=== PATIENT | female | born 1975 | race Caucasian/White ===

== ENCOUNTER → 2017-05-31 07:00 | Outpatient (CLI) | payer OTHER, SELFPAY ==
--- NOTE | 2017-05-31 07:09 | HPBI_ITS ---
MAMMOGRAPHY - BILATERAL SCREENING REASON FOR EXAM: Female, 41 years old. Routine annual screening examination. PERTINENT HISTORY: Non-contributory. TECHNIQUE: Digital bilateral breast sharan (3D mammographic acquisition) in the CC and MLO projections. 2-D mediolateral oblique (MLO) and craniocaudad (CC) views of both breasts were obtained. CAD: Full Field Digital Mammography with Computer Added Detection was performed. COMPARISON: Comparison is made with prior study dated April 18, 2013. FINDINGS: Breast Composition: The breasts are heterogeneously dense, which may obscure small masses. There are no dominant masses or suspicious calcifications. Stable benign appearing bilateral axillary lymph nodes. No other significant abnormalities are identified. There has been no significant change since the prior study. HPBI/SCREENING MAMM (CAD), BILAT IMPRESSION: Stable bilateral screening mammogram. Yearly follow-up mammogram recommended. (A) ASSESSMENT CATEGORY: BIRADS Category 2: Benign. A letter regarding these results will be sent to the patient by the facility within 30 days. Approximately 10% of breast cancers are not detected by mammography. A normal mammogram should not delay biopsy of a clinically suspicious abnormality. [id number] Electronically Signed: Nitin Mayo MD at 9:46 EST Tel [phone], Service support ,
== END ==
PROVIDERS: Visit Provider Obstetrics & Gynecology
DX: Z12.31 Encounter for screening mammogram for malignant neoplasm of breast (principal)
CPT/HCPCS: 77063; 77067

== ENCOUNTER → 2020-07-21 | Outpatient (CLI) | payer OTHER, SELFPAY ==
[2020-07-21 10:22] VITALS: BMI 35.3
[2020-07-26 12:29] LABS: HPV APTIMA, High Risk Negative (Negative)
== END | disposition home or self-care (01) ==
LOC: LABSPEC 12:55
PROVIDERS: PCP Family Medicine; Visit Provider Nurse Practitioner Women's Health
DX: Z12.4 Encounter for screening for malignant neoplasm of cervix (principal)
CPT/HCPCS: 87624; 88175; G0145

== ENCOUNTER → 2020-08-04 08:15 | Outpatient (CLI) | payer OTHER, SELFPAY ==
[2020-07-21 10:22] VITALS: BMI 35.3
--- NOTE | 2020-08-04 08:18 | BI_ITS ---
MAMMOGRAPHY - BILATERAL SCREENING REASON FOR EXAM: Female, 44 years old. Routine annual screening examination. PERTINENT HISTORY: Non-contributory. TECHNIQUE: Digital bilateral breast pooja (3D mammographic acquisition) in the CC and MLO projections. 2-D mediolateral oblique (MLO) and craniocaudad (CC) views of both breasts were obtained. CAD: Full Field Digital Mammography with Computer Added Detection was performed. COMPARISON: Comparison is made with prior study dated 05/31/2017 and 04/18/2013. FINDINGS: Breast Composition: The breasts are heterogeneously dense, which may obscure small masses. There are no dominant masses or suspicious calcifications. No other significant abnormalities are identified. There has been no significant change since the prior study. BI/SCRN MAMM (CAD)W/POOJA BILAT IMPRESSION: Stable bilateral screening mammogram. Yearly follow-up mammogram recommended. (A) ASSESSMENT CATEGORY: BIRADS Category 1: Negative. A letter regarding these results will be sent to the patient by the facility within 30 days. Approximately 10% of breast cancers are not detected by mammography. A normal mammogram should not delay biopsy of a clinically suspicious abnormality. [id number] Electronically Signed: Nitin Mayo MD at 9:31 EDT , Service support ,
--- NOTE | 2020-08-04 08:18 | US_ITS ---
STUDY: ULTRASOUND OF THE FEMALE PELVIS - COMPLETE REASON FOR EXAM: Female, 44 years old. Pelvic pain and pressure LMP: 07/17/2020 TECHNIQUE: Transabdominal and Transvaginal TECHNICAL QUALITY: Adequate. COMPARISON: None. FINDINGS: The uterus is anteverted and is in a midline position. The uterus measures 16.9 x 12 x 9.6 cm. Normal uterine cervix. The endometrium measures 16 mm in thickness, and is hyperechoic. There is no demonstrated endometrial mass. There is a large uterine fibroid measuring approximately 12.6 x 10.7 x 9.4 cm I.U.D. - The patient does not have an I.U.D. The right ovary is visualized. The right ovary measures 4.5 x 2.6 x 1.3 cm. There is no right ovarian cyst or ovarian mass. There is no visualized right adnexal mass or complex lesion. There is normal arterial and normal venous vascularity. The left ovary is visualized. The left ovary measures 3.8 x 1.6 x 1.6 cm. There is no left ovarian cyst or ovarian mass. There is no visualized left adnexal mass or complex lesion. There is normal arterial and normal venous vascularity. There is minimal fluid in the cul-de-sac. The bladder is sonographically normal US/Pelvic (Non ) IMPRESSION: Large uterine fibroid No suspicious adnexal mass Minimal free fluid in the cul-de-sac is likely physiologic Electronically Signed: Skip Martin MD at 14:12 EDT , Service support ,
--- NOTE | 2020-08-04 08:18 | US_ITS ---
STUDY: ULTRASOUND OF THE FEMALE PELVIS - COMPLETE REASON FOR EXAM: Female, 44 years old. Pelvic pain and pressure LMP: 07/17/2020 TECHNIQUE: Transabdominal and Transvaginal TECHNICAL QUALITY: Adequate. COMPARISON: None. FINDINGS: The uterus is anteverted and is in a midline position. The uterus measures 16.9 x 12 x 9.6 cm. Normal uterine cervix. The endometrium measures 16 mm in thickness, and is hyperechoic. There is no demonstrated endometrial mass. There is a large uterine fibroid measuring approximately 12.6 x 10.7 x 9.4 cm I.U.D. - The patient does not have an I.U.D. The right ovary is visualized. The right ovary measures 4.5 x 2.6 x 1.3 cm. There is no right ovarian cyst or ovarian mass. There is no visualized right adnexal mass or complex lesion. There is normal arterial and normal venous vascularity. The left ovary is visualized. The left ovary measures 3.8 x 1.6 x 1.6 cm. There is no left ovarian cyst or ovarian mass. There is no visualized left adnexal mass or complex lesion. There is normal arterial and normal venous vascularity. There is minimal fluid in the cul-de-sac. The bladder is sonographically normal US/Transvaginal Non- IMPRESSION: Large uterine fibroid No suspicious adnexal mass Minimal free fluid in the cul-de-sac is likely physiologic Electronically Signed: Skip Martin MD at 14:12 EDT , Service support ,
== END ==
PROVIDERS: PCP Family Medicine; Referring Provider Nurse Practitioner Women's Health; Visit Provider Nurse Practitioner Women's Health
DX: N92.1 Excessive and frequent menstruation with irregular cycle (principal); R10.2 Pelvic and perineal pain; Z12.31 Encounter for screening mammogram for malignant neoplasm of breast
CPT/HCPCS: 76830; 76856; 77063; 77067; 93976

== ENCOUNTER → 2020-09-07 09:14 | Outpatient (CLI) | payer OTHER, SELFPAY ==
[2020-09-07 08:24] VITALS: BMI 35.3
[2020-09-07 09:26] LABS: Absolute Lymphocyte Count 2.43 X10^3/uL (0.83-4.51); Absolute Neutrophil Count 4.7 X10^3/uL (2.0-7.7); Basophil# 0.05 X10^3/uL; Basophil% 0.6 % (0-1); Eosinophil# 0.31 X10^3/uL; Eosinophils% 3.9 % (0-5); Hematocrit 38.3 % (37-47); Hemoglobin 11.7 g/dL (12.0-15.0); Lymphocyte # 2.43 X10^3/ul (0.83-4.51); Lymphocyte % 30.6 % (19-41); Mean Corp Hgb Conc 30.5 g/dL (32-36); Mean Corpuscular Hgb 24.7 pg (27.0-32.0); Mean Platelet Vol. 10.7 fl (6.2-12.0); Monocyte# 0.48 X10^3/uL; NRBC Flagged by Analyzer 0 % (0-5); Neutrophil # 4.65 X10^3/uL (2.7-7.7); Neutrophil % 58.6 % (47-70); Platelet Count 310 K/mm3 (150-450); RBC Distribution Width CV 15.6 % (11.6-14.6); RBC Distribution Width SD 45.4 fl (35.1-43.9); Red Blood Count 4.73 M/mm3 (4.2-5.4); White Blood Count 7.9 K/mm3 (4.4-11.0)
[2020-09-07 10:08] LABS: Cholesterol 170 mg/dL (200); Glucose 97 mg/dL (74-106); High Density Lipoprotein 55 mg/dL; Thyroid Stim Hormone (TSH) 2.75 uIU/mL (0.358-3.74); Triglycerides 95 mg/dL; Very Low Density Lipoprotein 19 mg/dL (5-40)
[2020-09-08 12:49] LABS: Cancer Antigen 125 22.1 U/mL (0.0-38.1)
== END ==
PROVIDERS: PCP Family Medicine; Referring Provider Obstetrics & Gynecology; Visit Provider Obstetrics & Gynecology
DX: N92.1 Excessive and frequent menstruation with irregular cycle (principal)
CPT/HCPCS: 36415; 80061; 82947; 84443; 85025; 86304

== ENCOUNTER → 2020-09-15 06:51 | Outpatient (CLI) | payer OTHER, SELFPAY ==
[2020-09-07 08:24] VITALS: BMI 35.3
--- NOTE | 2020-09-15 06:54 | CT_ITS ---
EXAM: CT ABDOMEN AND PELVIS WITH INTRAVENOUS CONTRAST : 1975 CLINICAL INDICATION: uterine fibroid TECHNIQUE: Helically acquired images were obtained of the abdomen and pelvis with intravenous contrast. This CT exam was performed using one or more of the following dose reduction techniques: automated exposure control, adjustment of the mA and/or kV according to patient size, and/or use of iterative reconstruction technique. This report was created using oboxo report generation technology. CONTRAST: Oral Tamp; IV Readi-CAT Tamp; 100mL Isovue-300 COMPARISON: None. FINDINGS: LOWER THORAX: Unremarkable. Lung bases are clear. No cardiomegaly. No significant pericardial effusion. ABDOMEN: LIVER: Unremarkable. Homogeneous. No focal mass. GALLBLADDER AND BILE DUCTS: Unremarkable. No calcified gallstones. No gallbladder distention or wall edema. No intra- or extrahepatic biliary ductal dilation. PANCREAS: Unremarkable. No focal cystic or solid mass. SPLEEN: Unremarkable. Normal size without focal cystic or solid mass. ADRENALS: Unremarkable. No nodules. KIDNEYS AND URETERS: Unremarkable. Normal renal size and position. No hydronephrosis. STOMACH AND BOWEL: Unremarkable. No stomach or bowel distention. No focal inflammatory change. PELVIS: APPENDIX: No evidence of acute appendicitis. BLADDER: Unremarkable. REPRODUCTIVE: There is a large isodense mass in the uterus that measures 10.5 x 9.4 x 10.4 cm may represent a large fibroid. ABDOMEN and PELVIS: INTRAPERITONEAL SPACE: Unremarkable. No ascites or other fluid collection. No free air. BONES/JOINTS: Unremarkable. No suspicious lytic or blastic abnormality. SOFT TISSUES: Unremarkable. No discrete abdominal or pelvic wall hernia. VASCULATURE: Unremarkable. Abdominal aorta is non-dilated. LYMPH NODES: Unremarkable. No enlarged lymph nodes. CT/Abdomen/Pelvis WITH Contrast IMPRESSION: Large isodense mass in the uterus compatible with a large fibroid. Individualized dose optimization techniques were used for this CT. at 1531 Reported and signed by: Anthony Giraldo MD Electronically Signed: Anthony Giraldo MD at 15:30 EDT Tel , Service support ,
== END ==
PROVIDERS: PCP Family Medicine; Referring Provider Obstetrics & Gynecology; Visit Provider Obstetrics & Gynecology
DX: D25.1 Intramural leiomyoma of uterus (principal); N85.2 Hypertrophy of uterus
CPT/HCPCS: 74177; Q9967

== ENCOUNTER → 2021-02-21 07:48 | Outpatient (CLI) | payer OTHER, SELFPAY ==
--- NOTE | 2021-02-21 07:52 | US_ITS ---
STUDY: ULTRASOUND OF THE FEMALE PELVIS - COMPLETE REASON FOR EXAM: Female, 45 years old. Leiomyoma -- pelvic pain LMP: 10/28/2020. TECHNIQUE: Transabdominal TECHNICAL QUALITY: Adequate. COMPARISON: Comparison is made with prior examination dated 08/04/2020. FINDINGS: The uterus is anteverted and is in a midline position. The uterus measures 18.3 cm x 13.2 cm x 9 cm. There is a Nabothian cyst of the cervix. The endometrium is not visualized due to the enlarged fibroid uterus. There is no demonstrated endometrial mass. There is a dominant fibroid measuring 8.6 cm x 9 cm x 8.3 cm. I.U.D. - The patient does not have an I.U.D. The right ovary is visualized. The right ovary measures 3.5 cm x 3.5 cm x 3.9 cm. There is no right ovarian cyst or ovarian mass. There is no visualized right adnexal mass or complex lesion. There is normal arterial and normal venous vascularity. The left ovary is visualized. The left ovary measures 4.7 cm x 4 cm x 2.3 cm. There is no left ovarian cyst or ovarian mass. There is no visualized left adnexal mass or complex lesion. There is normal arterial and normal venous vascularity. There is no fluid in the cul-de-sac. The pre void volume of the bladder was 208 ml. US/Pelvic (Non ) IMPRESSION: Enlarged fibroid uterus. Electronically Signed: Nitin Mayo MD at 8:36 EDT , Service support ,
== END ==
PROVIDERS: PCP Family Medicine; Visit Provider Obstetrics & Gynecology
DX: D25.1 Intramural leiomyoma of uterus (principal); N85.2 Hypertrophy of uterus; N92.1 Excessive and frequent menstruation with irregular cycle; R10.2 Pelvic and perineal pain
CPT/HCPCS: 76856

== ENCOUNTER → 2021-03-09 | Outpatient (CLI) | payer OTHER, SELFPAY ==
--- NOTE | 2021-03-09 14:40 | EMB_PTH ---
PATIENT: ROMINA DRUMMOND LOC: [facility] U#:[id number] AGE/SX: 45/F ROOM: RE03/09/[address]: Dr. Mariaa Goodman DO : 1975 BED: DIS: 03/09/2021 SPEC #: [id number] RECD: 03/09/21 16:47 STATUS: BERNABE SIDRA #: [id number] STEVIE: 03/09/21 14:[address]: Mariaa Goodman DEPT: SURGICAL PATHOLOGY RECD BY: Sandrita Cristobal ENTERED: 03/10/21 12:27 SP TYPE: ENDOM BX/C OT DR: Dr. Ronaldo Medley MD Tissues: Endometrium, NOS Procedures: Surgery Specimen Level IV HEADER OPERATION: Endometrial biopsy PRE-OP DIAGNOSIS: N92.1 TISSUE SUBMITTED: Endometrial biopsy MICROSCOPIC DIAGNOSIS Endometrial biopsy: Proliferative endometrium. SJ:cathy 03/11/2021 MICROSCOPIC DESCRIPTION Slides are reviewed. GROSS DESCRIPTION Received is one container labeled with the patient's name and not further designated. The specimen consists of multiple irregular fragments of barajas-pink mucoid tissue that in aggregate measure 1.5 x 1 x 0.1 cm. The specimen is totally submitted in one cassette. / JC:cathy 03/10/21 TC:4 CPT: 04267
== END | disposition home or self-care (01) ==
PROVIDERS: PCP Family Medicine; Visit Provider Obstetrics & Gynecology
DX: N92.1 Excessive and frequent menstruation with irregular cycle (principal)
CPT/HCPCS: 88305

== ENCOUNTER 2021-04-05 10:17 | Observation (INO) | payer OTHER, SELFPAY ==
--- NOTE | 2021-04-01 08:54 | EKG12_ITS ---
Test Reason : PREOP Blood Pressure : / mmHG Vent. Rate : 084 BPM Atrial Rate : 084 BPM P-R Int : 146 ms QRS Dur : 084 ms QT Int : 352 ms P-R-T Axes : 056 012 -13 degrees QTc Int : 415 ms Normal sinus rhythm Nonspecific T wave abnormality Abnormal ECG Confirmed by QUINCY BIGGS, CINDY ([id number]), editorial cartoonist BOSSMAN LEBLANC ([id number]) on 04/04/2021 9:17:22 AM Referred By: Mariaa Goodman Confirmed By:ALETA MATHEW MD
[2021-04-01 09:59] LABS: Hemoglobin 13.3 g/dL (12.0-15.0); Mean Corp Hgb Conc 32.4 g/dL (32-36); Mean Corpuscular Hgb 27.8 pg (27.0-32.0); Mean Corpuscular Volume 85.6 fL (81-99); Mean Platelet Vol. 10.3 fl (6.2-12.0); Platelet Count 290 K/mm3 (150-450); RBC Distribution Width CV 13.3 % (11.6-14.6); RBC Distribution Width SD 41.2 fl (35.1-43.9); Red Blood Count 4.79 M/mm3 (4.2-5.4); White Blood Count 7.1 K/mm3 (4.4-11.0)
[2021-04-01 10:31] LABS: Anion Gap 5 (5-15); BUN 12 mg/dL (7-18); BUN/Creat Ratio 14.1 RATIO (10-20); Calcium,Total 8.8 mg/dL (8.5-10.1); Chloride 108 mmol/L (98-107); Creatinine, Serum 0.85 mg/dL (0.55-1.02); EST Glomerular Filtration Rate 77 mL/min (>60); Est Glom Filt Rate - Afr Amer 93 mL/min (>60); Glucose 97 mg/dL (74-106); Magnesium 2.3 mg/dL (1.6-2.6); Potassium 4.1 mmol/L (3.5-5.1); Sodium Level 140 mmol/L (136-145)
--- NOTE | 2021-04-04 | HYST_PTH ---
PATIENT: ROMINA DRUMMOND LOC: [facility] U#:[id number] AGE/SX: 45/F [place] [facility] [facility] [place]: Dr. Mariaa Goodman DO : 1975 BED: 1 DIS: 04/06/2021 SPEC #: [id number] RECD: 04/05/21 11:01 STATUS: BERNABE MONTENEGRORocio #: [id number] STEVIE: 04/04/21 00:[address]: Mariaa Goodman DEPT: SURGICAL PATHOLOGY RECD BY: Fidel Shore ENTERED: 04/05/21 12:57 SP TYPE: HYSTERECT OTHR DR: Dr. Ronaldo Medley MD Tissues: Uterus, NOS Procedures: Surgery Specimen Level V HEADER OPERATION: ERAS, lap robotic hysterectomy, bilateral salpingectomy, cysto PRE-OP DIAGNOSIS: Uterine fibroid, menorrhagia TISSUE SUBMITTED: Cervix, uterus and bilateral fallopian tubes MICROSCOPIC DIAGNOSIS Uterus, hysterectomy: Cervix ? nabothian cysts and minimal chronic inflammation. Endometrium ? transition endometrium. Myometrium ? fragments of leiomyoma. Right and left fallopian tubes ? benign paratubal cyst. AM:cathy 04/06/2021 MICROSCOPIC DESCRIPTION Slides are reviewed. GROSS DESCRIPTION Received in fixative is one container labeled with the patient's name and designated uterus. The specimen consists of a morcellated uterus received in 14 fragments ranging in size from 2 to 11 cm and in aggregate weighing 690 gm. A distinct endocervical canal or endometrial cavity is not identified. The visible, presumed ectocervix appears grossly unremarkable. The myometrium averages 3 cm in thickness. Present free in the container are multiple rubbery nodular fragments of white-barajas soft tissue ranging in size from 4.5 to 10 cm. Serial sections of these nodular fragments reveal a whorled appearance without areas of cyst formation or necrosis. Portions of two fallopian tubes are present, one fragment measuring 5 cm in length and 0.6 cm in average diameter. The other fallopian tube measures 5.5 cm in length and 0.5 cm in average diameter and contains a normal fimbriated end. Environmental Compliance Engineer sections are submitted in nine cassettes as follows: 1 & 2 - ecto- and endocervix, 3 & 4 - endometrium and adjacent myometrium, 5-7 - fragments of presumed leiomyoma, 8 - one fallopian tube, 9 - the other fallopian tube. / AM:cathy 04/05/21 TC:1 [facility]: [id number]
[2021-04-05] VITALS (15 sets, daily range): BP systolic 106–146; BP diastolic 62–93; PULSE 69–102; RESP 14–18; TEMP 36.2–36.9; O2SAT 97–100; BMI 37.4; BMI 37.5
[2021-04-05 06:10] LABS: Internal QC Validated? YES +Cl - CLEAR BKGD; Pregnancy, Urine Negative Negative
[2021-04-05] MEDS: Lactated Ringers 1,000 ML 40 ML IV ×2 (06:24→08:45)
[2021-04-05] MEDS: Celecoxib 200 MG Capsule 400 MG PO (06:25)
[2021-04-05] MEDS: Acetaminophen 500 MG Tablet 1000 MG PO ×3 (06:25→17:45)
[2021-04-05] MEDS: Phenazopyridine 95 MG Tablet 190 MG PO (06:25)
[2021-04-05] MEDS: Gabapentin 600 MG Tablet PO (06:25)
[2021-04-05] MEDS: Cefazolin 2 GM in 0.9% Normal Saline 100 ML IV (07:30)
[2021-04-05] MEDS: Lubricating Jelly 60 GM Tube 30 GM (08:00)
[2021-04-05 09:35] LABS: Bedside Glucose 83 mg/dL (70-110)
[2021-04-05] MEDS: Bupivacaine 0.25% 30 ML Vial (10:00)
--- NOTE | 2021-04-05 10:23 | PCM.HP.BLA ---
History and Physical MR#:[id number]:[id number]: Jeison DRUMMOND #:[id number]:1975 Provider:Dr. Mariaa Goodman, Age/Sex: 45/F [facility]:Signed Intake Vital Signs 03/07/21 09:38 03/09/21 14:41 Height 5 ft 5 in 5 ft 5 in Weight: 230 lb BMI 38.2 BP 128/74 H Intake Visit Reasons: robotic TLH cystoscopy possible mini lap Systems Technologist Required: No Is patient in pain?: No Allergies No Known Allergies Allergy (Verified 03/09/21 14:43) Medications ascorbate calcium (vitamin C) 500 mg tablet 500 mg PO DAILY 07/21/20 [History Confirmed 01/24/21] cyanocobalamin (vitamin B-12) 1,000 mcg capsule 1,000 mcg PO DAILY 07/21/20 [History Confirmed 01/24/21] magnesium 30 mg tablet 30 mg PO DAILY 07/21/20 [History Confirmed 01/24/21] ferrous gluconate 240 mg (27 mg iron) tablet 240 mg PO DAILY #30 tab 09/09/20 [Rx Confirmed 01/24/21] valacyclovir 1 gram tablet 1,000 mg PO BID 3 Days #6 tab 01/05/21 [Rx Confirmed 01/24/21] leuprolide (3 month) 11.25 mg (3 month) intramuscular syringe kit 11.25 mg IM [id number] #1 ea 01/09/21 [Rx Confirmed 01/24/21] Post menopausal: No Patient : No : No PFSH Medical History Hemangioma of liver liver polyp Uterine fibroid Family History Mother uterine fibroid tumor Aunt Colon cancer Unknown Heart disease Hyperlipidemia Social History household members: spouse and children number of children: 1 current occupational status: employed current occupation: [employer] history of recent travel: No sexually active: Yes Smoking Status: Never smoker alcohol intake: never substance use type: does not use diet: low carbohydrate well-balanced diet: daily or most days what type of physical activity do you participate in: walking frequency: 3-4 times per week seatbelt use: always do you feel safe at home: Yes additional social history: - Roman HPI robotic TLH cystoscopy possible mini lap Details: ROMINA DRUMMOND is a 45 year old who presents for EMB and pre-op exam/discussion. She has an 18 cm uterus with an 8 cm intramural fibroid. She states that she has some constipation problems, urinary incontinence, and indigestion since the fibroid has grown. She has been on lupron x 6 months and the fibroid did shrink 3 cm but her symptoms remain. The plan is for a robotic hyst and cysto and emb today. Female Reproductive History Cycle Length: 21-35 Bleeding Duration: 5 Questions: metorrhagia: No, sexually active: Yes, dyspareunia: No and PCB: No Menopausal Symptoms: No hot flashes, No night sweats, No weight change, No mood changes, No difficulty concentrating, No sleep problems and No change in libido Pregancy History 1 Elective abortions Hx Para 1 Spontaneous abortions Hx # Term Pregnancies Ectopic pregnancies Hx # Pregnancies Multiple births # of living children 1 Past Pregnancies Del. Date Name GA/Weeks Outcome Route Bth Weight Infant Gen Labor Lgth Anesthesia Del Locatn Provider FOB Unknown [place] 1999 ROS Const Constitutional: Reports as per HPI; Denies fatigue, increased appetite, poor appetite, night sweats, weight gain or weight loss Cardio Card: Denies chest pain Resp Resp: Denies cough or dyspnea GI GI: Reports as per HPI; Denies abdominal pain, bloating, constipation, nausea or vomiting : Reports as per HPI and other; Denies difficulty voiding, dysuria, hematuria, hot flashes, nipple discharge, pelvic pain, prolapse symptoms, urinary frequency, urinary incontinence, urinary urgency, vaginal discharge, vaginal dryness, vaginal odor or vaginal pruritus Skin Skin/Breast: Denies changing lesions, breast mass, breast pain, breast skin changes or nipple discharge Psych Psych: Denies anxiety, change in libido, depression or difficulty concentrating Exam Const General: cooperative, healthy appearing, comfortable, no acute distress, well developed and well groomed HENMT Head: normal to inspection and normocephalic Ears: hearing grossly normal bilaterally and external ears normal Nose: external nose normal Face and sinus: normal facial exam Neck Neck: normal visual inspection, full ROM and no lymphadenopathy Thyroid: thyroid normal Chest Chest palpation & inspection: normal inspection of the chest Breast inspection: normal inspection of the breasts and normal inspection of the axillae Breast palpation: normal palpation of the breasts, normal palpation of the axillae and no axillary lymphadenopathy Resp Effort & Inspection: normal respiratory effort GI Inspection: normal to inspection and non-distended Palpation: soft, no hepatosplenomegaly and no guarding General: bladder normal to palpation External Female Exam: normal external appearance, normal appearance of the urethra and no lesions Urethra: normal appearance of the urethra and normal palpation Speculum Exam - Vagina: normal appearance of the vagina and normal vaginal discharge Speculum Exam - Cervix: normal appearance of the cervix, no cervical discharge, no lesions and nontender Bimanual Exam- Vagina & Uterus: normal bimanual exam, uterine size normal, bladder normal to palpation, No tender, uterine mobility normal, consistency normal, non-tender and no cervical motion tenderness Bimanual Exam- Adnexa, other: normal adnexae, no masses and non-tender Skin General: no rashes or lesions noted Neuro General: patient alert, moves all extremities and no focal motor deficits Extrem General: normal to inspection and no pedal edema Psych Appearance: grossly normal Mental Status: mental status grossly normal Affect: normal affect Speech and Movement: speech and movement normal Attitude: cooperative Office Procedures Endometrial Biopsy Endometrial Biopsy Test: Yes declined Consent Signed: Yes Time out checklist: patient, procedure, positioning of patient and supplies available tenaculum used: No dilator used: No Details: Cervix prepped with betadine and pipelle inserted into uterus without complication. Specimen obtained and sent to lab for analysis. All instruments removed from vagina without complications. Excellent hemostasis noted. Coding Level of Care Code Off vis,est,level 4 Diagnoses Uterine fibroid D25.1 Uterine leiomyoma location: intramural Enlarged uterus N85.2 Pelvic pain R10.2 Menorrhagia with irregular cycle N92.1 CPT Codes Endometrial Biopsy (01700) Assessment and Plan Assessment and Plan (1) Uterine fibroid: Status: Acute Qualifiers: Uterine leiomyoma location: intramural Qualified Code(s): D25.1 - Intramural leiomyoma of uterus Comment: 17 cm per US. Surgical consult with Dr Rosales. discussed options and recommend depot lupron preop therapy for 3-6 months and plan ROBOTIC vs LAVH BS aftewards hopefully. (2) Enlarged uterus: Status: Acute Comment: 20 cm, CT abdn pelvic ordered for increasing fibroid size, ca 125 ordered. (3) Pelvic pain: Status: Acute (4) Menorrhagia with irregular cycle: Status: Acute Plan - Dr. Mariaa Starr DO: EMB completed today Plan for robotic assisted hysterectomy with possible mini lap if bivalving the uterus in the vagina doses not result in delivery of the fibroid uterus. Plan for cystoscopy to follow the hysterectomy. Discussed risks of surgery including risks of anesthesia, bleeding, infection, uterine perforation, possible laparoscopy if this happens due to risk of injury to bowel, bladder or vasculature. UPDATE- I have seen the patient and performed any clinically relevant updates to the history and physical exam. Mariaa Goodman DO
--- NOTE | 2021-04-05 11:34 | OP.PCM_ITS ---
Operative Report Date of Procedure: 04/05/21 Preoperative diagnosis:large fibroid uterus measuring 18 cm, menorrhagia Postoperative diagnosis: Large fibroid uterus measuring 18 cm, menorrhagia Procedure: Total robotic hysterectomy bilateral lateral salpingectomy and cystoscopy Anesthesia: General endotracheal intubation Surgeon: Dr. Mariaa Starr DO Test Lead Application Testing: Dr. Deborah Rosales MD, Jesus Alberto RAMÍREZ Estimated blood loss: 30 cc Urine output: 100 cc Drains: None Implanted material: None Complications: None Findings: 18 cm uterus size uterus, normal appearing ovaries and tubes. On exploration of the abdominal cavity the uterus, adnexa, bowel, and liver were found to be normal. Cystoscopy showed no evidence of leaking at approximately 250 cc of normal saline, positive ureteral orifices and jet flow are seen and no suture material was appreciated in the bladder. Specimens removed: Uterus and cervix, bilateral fallopian tube Reason for surgery: This is a 89-skpi-bqi-year-old G 1, P 1 who presented to my office from Dr. Delatorre for consult with history of large fibroid uterus and menorrhagia.she has tried Depo-Lupron in her fibroid has shrunk significantly. However she requests definitive treatment for menorrhagia and wishes to stop the Depo-Lupron. The planned procedure is for a robotic hysterectomy the risks benefits and alternatives were discussed with the patient the patient had a clear understanding of the procedure and a consent form was signed. Procedure: The patient was placed in the dorsal low lithotomy position and prepped and draped in the normal sterile fashion both abdominally and in the perineum. Her legs were placed in stirrups a Lima catheter was inserted into the urethra without difficulty. A weighted speculum was placed in the vagina and a single- tooth tenaculum was used to grasp the anterior lip of the cervix. A uterine manipulator was inserted through the cervix without complication. It was then tied into place at the 2 and 10:00 locations on the cervix. Gloves were changed and attention was turned towards the abdomen. Approximately 23 cm above the pubic symphysis in the midline, and after Marcaine injection, a 8 mm incision was made. An 8 mm trocar was inserted through the laparoscope, then inserted into the abdomen under direct visualization using the laparoscope. Good abdominal placement was noted and no complications were appreciated. An air seal device was utilized to create pneumoperitoneum. At 12 cm lateral to the midline on the left and right sides 8 mm accessory ports were placed. Next a left upper quadrant 8 mm tv production assistant port site was placed. The patient was placed in steep Trendelenburg position. The robot was docked. The hysterectomy was initiated first by taking down the round ligament on each side using the vessel sealer device. The ovarian ligament was cauterized and cut. The fallopian tubes were grasped and the medial underlying mesosalpinx was cauterized and cut to the level of the cornua. The broad ligament was then and taken down using the vessel sealer device. Next the bladder flap was taken down without complication. This was done using monopolar cautery to the level of the cervical vaginal junction. After the bladder flap was created, uterine vessels were then isolated and cauterized using the vessel sealer device and EndoShears. At this point the uterine vessels were taken down further starting from the ascending branch, dissecting along the edges of the cervix to the level of the cervical vaginal junction with hemostasis appreciated. The cervical vaginal junction was then using monopolar cautery in a circumferential pattern across the superior aspect of the cervix. The specimen was brought to the vaginal opening and a small Benjamin retractor was inserted into the vagina. The uterus was bivalved and fibroids were cored out. The uterus was then removed and several small and large pieces through the vagina and sent to pathology. The remaining vaginal cuff was then closed using 0 Vicryl suture. This was performed with interrupted sutures. Excellent hemostasis was obtained and good closure was noted. Irrigation was then performed. All operative sites were noted to be hemostatic. A cystoscopy was performed with a 70 degree cystoscope through the urethra into the bladder without complication. The bladder was instilled with approximately 250 cc of normal saline. Intraoperative images were made. Ureteral orifices and jets were identified. No suture material was appreciated in the bladder. The bladder was then drained and cystoscope was removed. The abdominal cavity was again examined using the laparoscope after the robot was undocked. All operative sites were noted to be hemostatic. The trochars were removed under direct visualization without complication and pneumoperitoneum was reduced. At this point the skin was then closed using 4-0 Monocryl subcuticular stitch and sealed with surgical glue. The patient tolerated the procedure well sponge lap and needle counts were correct x2 the patient was taken to the recovery room in stable condition. Multi Select Codes Urinary/Genital Urinary/Genital CPT Codes: 51651 TLH >250gr uterus
--- NOTE | 2021-04-05 11:42 | PCM.DC ---
Discharge Instructions Diet Discharge Diet: No restrictions Activity May resume sexual activity in: 6 weeks Weight Bearing Status: Full weight bearing Dressing / Incision Call your doctor if your incision/area has: Continuous Slow Oozing, Sudden Increased Bleeding, Increased Pain/ Swelling, Increased Redness and Foul Smelling Discharge Call your doctor if you observe: Fever of 101 or Higher, Using more than 1 pad per hour, Shortness of breath, Chest pain and Uncontrolled pain Suture Line Care: Avoid Pulling/Pushing and Avoid Pinching/Bending Remove Dressing in: 1 week (if present) Cleanse incision/area with: Soap & Water and Keep Dressing Clean & Dry Follow Up Care Please Follow Up With: Mariaa Goodman DO When: Call to make an appointment with your doctor for a postop visit in 2 and 6 weeks Test Results: Test results from this visit will be discussed in further detail at your follow-up appointment, if applicable. Discharge Plan Admission Primary Reason for Your Visit: hysterectomy Attending Provider: Mariaa Goodman Primary Care Provider: Ronaldo Medley Discharge Orders/Prescriptions Prescriptions: New oxycodone-acetaminophen [Percocet] 5-325 mg tablet 1 tab PO Q6H PRN (Reason: pain) 7 Days Qty: 28 RF: 0 ibuprofen 800 mg tablet 800 mg PO Q8H PRN (Reason: pain) 7 Days Qty: 30 RF: 0 docusate sodium [Colace] 100 mg capsule 100 mg PO DAILY PRN (Reason: constipation) 30 Days Qty: 30 RF: 0 Continued ascorbate calcium (vitamin C) 500 mg tablet 500 mg PO DAILY RF: 0 magnesium 30 mg tablet 30 mg PO DAILY RF: 0 cholecalciferol (vitamin D3) [Vitamin D3] 50 mcg (2,000 unit) Capsule 50 mcg PO DAILY RF: 0 valacyclovir [Valtrex] 1 gram tablet 1,000 mg PO PRN PRN (Reason: HERPES) RF: 0 Discontinued Lupron Depot (3 month) 11.25 mg syringe kit 11.25 mg IM [id number] Qty: 1 RF: 0 Referrals / Follow Up: Ronaldo Medley MD [Primary Care Provider] - Disposition Disposition (needs filled in before D/C Order can be placed): Home, Self Care
[2021-04-05] MEDS: Lactated Ringers 1,000 ML 70 ML IV ×2 (11:51→18:05)
[2021-04-05] MEDS: Ketorolac 30 MG/ML Syringe IV ×2 (14:29→17:45)
[2021-04-05] MEDS: Docusate Sodium 100 MG Capsule PO (20:37)
[2021-04-06] MEDS: Ketorolac 30 MG/ML Syringe IV ×3 (00:25→11:31)
[2021-04-06] MEDS: Acetaminophen 500 MG Tablet 1000 MG PO ×3 (00:26→14:24)
[2021-04-06 00:29] VITALS: BP 117/64; PULSE 68; RESP 18; TEMP 36.6; O2SAT 95
[2021-04-06 04:31] VITALS: BP 114/61; PULSE 88; RESP 18; TEMP 36.6; O2SAT 97
[2021-04-06] MEDS: 0.9% Saline Lock 10 ML Syringe IV (06:06)
[2021-04-06 06:59] LABS: Hematocrit 37.3 % (37-47); Hemoglobin 11.8 g/dL (12.0-15.0); Mean Corp Hgb Conc 31.6 g/dL (32-36); Mean Corpuscular Hgb 27.6 pg (27.0-32.0); Mean Corpuscular Volume 87.1 fL (81-99); Mean Platelet Vol. 10.2 fl (6.2-12.0); Platelet Count 250 K/mm3 (150-450); RBC Distribution Width CV 13.7 % (11.6-14.6); RBC Distribution Width SD 42.7 fl (35.1-43.9); Red Blood Count 4.28 M/mm3 (4.2-5.4); White Blood Count 13.5 K/mm3 (4.4-11.0)
[2021-04-06 07:16] VITALS: O2SAT 95
[2021-04-06 08:24] VITALS: BP 122/72; PULSE 68; RESP 14; TEMP 36.8; O2SAT 100
[2021-04-06] MEDS: Docusate Sodium 100 MG Capsule PO (08:28)
--- NOTE | 2021-04-06 08:45 | PCM.PN.OB ---
Subjective Subjective patient recovering well, denies CP, SOB, N, or V. patient is ambulating, voiding ,tolerating adequate po, and pain is controlled with oral medications. Objective Data Objective Data Vital Signs: Vital Signs Temp Pulse Resp BP Pulse Ox 98.3 F 68 14 122/72 H 100 04/06/21 08:24 04/06/21 08:24 04/06/21 08:24 04/06/21 08:24 04/06/21 08:24 Oxygen Flow Rate (L/min) 4 Oxygen Delivery Method Room Air Weight: 226 lb Body Mass Index (BMI) 37.5 Intake & Output: Intake and Output for Last 24 Hours 04/04/21 04/05/21 04/06/21 23:59 23:59 23:59 Intake Total 3216.5 / 3216.5 1179.17 / 1179.17 Output Total 700 / 700 1375 / 1375 Balance 2516.5 / 2516.5 -195.83 / -195.83 Lab / Micro Data Result Diagrams: 04/06/21 06:15 04/01/21 09:12 Labs: Laboratory Results - last 24 hr 04/05/21 06:35: POC Glucose 83 04/06/21 06:15: WBC 13.5 H, RBC 4.28, Hgb 11.8 L, Hct 37.3, MCV 87.1, MCH 27.6, MCHC 31.6 L, RDW Std Deviation 42.7, RDW Coeff of Sagrario 13.7, Plt Count 250, MPV 10.2 ROS Constitutional Constitutional: Reports systems reviewed and no addt'l complaints, except as documented Gastrointestinal Gastrointestinal: Denies bloating, constipation, cramping, diarrhea, nausea or vomiting Genitourinary Genitourinary: Reports other Details: Denies vaginal odor, vaginal bleeding, or vaginal discharge ; Denies difficulty urinating or flank pain Physical Exam Const alert, oriented x3 and no apparent distress General Appearance: cooperative and comfortable Resp normal respiratory effort Cardio regular rate GI normal to inspection, nondistended, normoactive bowel sounds Palpation: soft Rectal Exam: other Other Details: non-tender. Incision is clean, dry, and intact. Assessment & Plan (1) Menorrhagia with irregular cycle: (2) Pelvic pain: (3) Enlarged uterus: COMMENT: 20 cm, CT abdn pelvic ordered for increasing fibroid size, ca 125 ordered. (4) Uterine fibroid: QUALIFIERS: Uterine leiomyoma location: intramural Qualified Code(s): D25.1 - Intramural leiomyoma of uterus COMMENT: 17 cm per US. Surgical consult with Dr Rosales. discussed options and recommend depot lupron preop therapy for 3-6 months and plan ROBOTIC vs LAVH BS aftewards hopefully. PLAN: patient is s/p robotic hyst for 18 cm uterus (wt 700grams) POD 1 1. routine ERAS protocol postop care- increase ambulation, encourage oral intake and oral control of pain. lovenox and scds for dvt prophylaxis, patient stable for discharge to home.
[2021-04-06 14:41] VITALS: BP 134/76; PULSE 80; RESP 16; TEMP 36.3; O2SAT 97
== END 2021-04-06 15:39 | disposition home or self-care (01) ==
LOC: SDC 16:39 → MS3 16:39
PROVIDERS: Anesthesiology; Admitting Provider Obstetrics & Gynecology; PCP Family Medicine; Referring Provider Obstetrics & Gynecology; Visit Provider Obstetrics & Gynecology
PROC: 0UT90ZZ Resection of Uterus, Open Approach (ICD-10-PCS; CPT 58573; principal; 2021-04-05 07:10)
DX: D25.1 Intramural leiomyoma of uterus (principal); N92.1 Excessive and frequent menstruation with irregular cycle; K21.9 Gastro-esophageal reflux disease without esophagitis; R94.31 Abnormal electrocardiogram [ECG] [EKG]
CPT/HCPCS: 00840; 58573; S2900; 36415; 80048; 81025; 82962; 83735; 85027; 86850; 86900; 86901; 88307; 93005; 96374; 96376; 99218; 99251; J7120; A4216; G0378; G0463; J2405

== ENCOUNTER 2021-08-15 17:30 | Outpatient (RCR) | payer OTHER, SELFPAY ==
--- NOTE | 2021-07-27 19:07 | HP.PTEVAL_ITS ---
Patient's Visit Information ROMINA DRUMMOND is a 45 year old F referred to Physical Therapy by Dr. Mariaa Goodman DO with a diagnosis of hip pain. Date of Evaluation: 07/27/21 Physical Therapist: DUANE Cantrell - Visit Plan Frequency: 2x /Week Duration: 6 Weeks Plan: 2X/ week for 3-6 weeks for neutral spine core stability, stretching B piriformis, LE strengthening, B hip strengthening with HEP. HEP; PT, PT with bridge, seated piriformis stretch - Subjective Last year she found out had fibroid tumor and had surgery in Mar in 2020 (hysterectomy..still has ovaries). She feels that she does not have strength in her core anymore and feels that is why she has LB and hip pain. She did not want to do exercises not knowing what she was doing. They last 2 years she has not been really active and the year before she was drained from heavy periods and trying to rebuild self. In Nov she had COVID 3 weeks prior to her surgery and has been to a massage therapist and had not really done much. When she came out of surgery she had a nasty STEVENS.... Dr said that she was in a declined position for awhile. Pt has a lot of pain in the R and some in the L and in her low back. She has most pain with standing, making dinner (15 min of standing). She does not sleep well and up multiple times a night. - Pain LBP Pain Intensity (Out of 10): 1 R hip pain Pain Intensity (Out of 10): 1 L hip pain Pain Intensity (Out of 10): 0 - Objective Gait: Walks with normal gait pattern with B hip drop. Trunk AROM: Flexion 100%, ext 50%, SB B 75%, Rot B 75%. LE MMT: B hip flex 4-/5, B knee ext 4/5, B knee flex 4-/5, R hip abd 4-/5 and L hip abd 4/5, B hip ext 3-/5. Pt is able to heel and toe raise. (increase pain with heel raises in her back and hip). -SLR B. Tight hip flexors B. Tight B piriformis R worse and more tight than the L. 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 without pain Goal Time Frame: 6-8 Weeks Goal 4:: Be able to walk 2 miles without hip and back pain Goal Time Frame: 6-8 Weeks Goal 5:: Be able to stretch R piriformis without having pain Goal Time Frame: 6-8 Weeks - Rehabilitation Potential Rehabilitation Potential: Good - Anticipated Interventions Patient/Client Instruction: Educate patient on: Condition, Plan of Care For the Purpose of:: To decrease pain, To increase ROM, To improve nutrient delivery to tissue, To improve muscle performance and motor function, To improve ability to perform ADL's, To increase tolerance to activity/condition/position, To improve performance and independence with ADL's, To decrease level of supervision to perform tasks, To improve ability of physical actions for home/community/work/leisure, To improve gait and locomotor functions, To improve health of tissue, To decrease soft tissue restriction, To increase flexibility/ROM Therapeutic Exercise to Include: Strength training, Postural training, Flexibilty training, Gait and locomotor training, Neuromotor development, Active ROM, Dynamic Lumbar Stabilization, Lainey Exercises, Scapular Strength/Stabilization For the Purpose of:: To decrease pain, To increase ROM, To improve nutrient delivery to tissue, To improve muscle performance and motor function, To improve ability to perform ADL's, To increase tolerance to activity/condition/position, To improve performance and independence with ADL's, To decrease level of supervision to perform tasks, To improve ability of physical actions for home/community/work/leisure, To improve gait and locomotor functions, To improve health of tissue, To increase flexibility/ROM Manual Therapy Techniques to Include: Passive ROM For the Purpose of:: To decrease pain, To increase ROM, To improve nutrient delivery to tissue, To improve muscle performance and motor function, To improve ability to perform ADL's, To increase tolerance to activity/condition/position, To improve performance and independence with ADL's, To decrease soft tissue restriction, To increase flexibility/ROM Thank you for the opportunity to evaluate your patient. For Medicare and Medicare HMO plans, please review the plan of care and approve it. It will need to be FAXED BACK to us at [phone] for Medicare purposes. For Medicare only, by signing this I certify the plan of care. Please let me know if there are questions or concerns regarding this plan of care. Physician Signature: Date:
--- NOTE | 2021-10-25 08:41 | HP.PTDCSUM ---
It has been my pleasure to treat ROMINA DRUMMOND referred by Dr. Mariaa Goodman DO, with the diagnosis of hip pain for a total of 5 visit(s). Discharge Date: Please see the following information for a summary of their discharge status. Subjective: Pt running late to appt then called to confirm that she was running late. SALES UTILITY REPRESENTATIVE agreeable to wait to see her when she shows up. Pt cont's to have a dull ache. Pt reports that the ex's she did last rx aggravated her neck and shoulders and gave her a STEVENS. Pt was camping all weekend. LBP Pain Intensity (Out of 10): 1 R hip pain Pain Intensity (Out of 10): 1 L hip pain Pain Intensity (Out of 10): 0 Objective/Function: Pt talks about pain 100% of the rx as she has chronic pain that she is dealing with from head to toe and is currently under a doctor's care for these symptoms. Pt deferred use of UE's for strengthening as this caused STEVENS last rx and increased scap pain. Showed pt the pool and pt is agreeable to AT if supervising PT agrees that this is the right course of rx for her. Pt will call supervising PT tomorrow to discuss this change management lead the phone. Pt very emotional this visit as she doesn't feel like anything is helping the pain. 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 Unsure if pt's insurance covers AT at this time. 2X/ week for 3-6 weeks for neutral spine core stability, stretching B piriformis, LE strengthening, B hip strengthening with HEP. HEP; PT, PT with bridge, seated piriformis stretch If there are questions or concerns regarding this patient's physical therapy, please feel free to call me at [phone]. Thank you for the referral of this patient. Sincerely, Radha Irving, MPT Balance/Gait/Functional tests - Balance/Special Test Scores Lower Extremity Functional Score: 54
== END 2021-08-15 19:00 | disposition home or self-care (01) ==
LOC: PT 17:30
PROVIDERS: PCP Family Medicine; Referring Provider Obstetrics & Gynecology; Visit Provider Obstetrics & Gynecology
DX: M25.559 Pain in unspecified hip (principal)
CPT/HCPCS: 97110; 97161; 97530

== ENCOUNTER 2021-11-06 12:06 | Emergency (ER) | payer OTHER, SELFPAY ==
[2021-11-06 12:07] VITALS: BP 163/94; PULSE 102; RESP 18; TEMP 36.6; O2SAT 99; BMI 39.9
--- NOTE | 2021-11-06 12:24 | RAD_ITS ---
EXAM: XR RIGHT HUMERUS, 2 OR MORE VIEWS CLINICAL INDICATION: injury TECHNIQUE: Frontal and lateral views of the right humerus. This report was created using [employer] report generation technology. COMPARISON: None. FINDINGS: BONES/JOINTS: Unremarkable. No acute fracture. No subluxation. Normal alignment. Preservation of the joint space. No sclerotic or destructive changes observed. SOFT TISSUES: Unremarkable. No soft tissue swelling or gas. No radiopaque foreign body. RAD/Humerus min 2 Views IMPRESSION: Negative right humerus x-rays. Electronically Signed: Tremaine Gibson MD at 13:23 EDT ,
--- NOTE | 2021-11-06 12:24 | RAD_ITS ---
EXAM: XR RIGHT HAND COMPLETE, 3 OR MORE VIEWS CLINICAL INDICATION: injury TECHNIQUE: Frontal, lateral and oblique views of the right hand. This report was created using [employer] technology. COMPARISON: None. FINDINGS: BONES/JOINTS: Question acute or subacute fracture involving the mid pole of the scaphoid (suggested on one view only). Bilobed cystic lesion potentially an intraosseous ganglion cyst involving the distal pole of the scaphoid (1 cm length). No other acute fracture. No subluxation. Normal alignment. Preservation of the joint space. SOFT TISSUES: Unremarkable. No soft tissue swelling or gas. No radiopaque foreign body. RAD/Hand Min 3 Views IMPRESSION: Question acute or subacute fracture involving the mid pole of the scaphoid (suggested on one view only). Palpate for tenderness. CT would likely be more definitive. No acute or healing fracture or malalignment. Electronically Signed: Tremaine Gibson MD at 13:27 EDT ,
--- NOTE | 2021-11-06 12:24 | RAD_ITS ---
EXAM: XR RIGHT FOREARM, 2 VIEWS CLINICAL INDICATION: injury TECHNIQUE: Frontal and lateral views of the right forearm. This report was created using [employer] report generation technology. COMPARISON: None. FINDINGS: BONES/JOINTS: Question acute intra-articular fracture of the radial head, nondisplaced. No other acute or healing fracture. Otherwise unremarkable. SOFT TISSUES: Unremarkable. RAD/Forearm 2 Views IMPRESSION: Question acute intra-articular fracture of the radial head, nondisplaced. Consider dedicated elbow radiography for further evaluation. No other acute or healing fracture. Electronically Signed: Tremaine Gibson MD at 13:21 EDT ,
--- NOTE | 2021-11-06 12:26 | EDS_ITS ---
HPI HPI - Fall History of Present Illness Chief Complaint: Fall Informant: patient Narrative Narrative: 45-year-old female states that she fell last night after tripping over a stake in the ground [place] a campground. She landed very hard on her forearm and medial hand. She notes pain along the fifth metacarpal the radial styloid the proximal radius and along the humerus. She notes limited pronation of the right forearm. No other injuries noted by patient PFSH PFS Medical History Anxiety Back pain Fatty liver Gallbladder polyp Gastric reflux Hemangioma of liver Herpes dermatitis Low iron Non-smoker Palpitations Uterine fibroid Wears contact lenses Wears glasses Home Medications ascorbate calcium (vitamin C) 500 mg tablet 500 mg PO DAILY 07/21/20 [History Last Taken Unknown] magnesium 30 mg tablet 30 mg PO DAILY 07/21/20 [History Last Taken Unknown] cholecalciferol (vitamin D3) 50 mcg (2,000 unit) capsule (Vitamin D3) 50 mcg PO DAILY 03/29/21 [History Last Taken Unknown] valacyclovir 1 gram tablet (Valtrex) 1,000 mg PO PRN PRN HERPES 03/29/21 [History Last Taken Unknown] hydrocodone-acetaminophen 5-325mg 5mg-325mg 1 tab PO Q6H PRN PRN Pain 3 days #10 TABLETS 11/06/21 [Rx Last Taken Unknown] ibuprofen 800 mg tablet 800 mg PO TID PRN pain #20 tabs 11/06/21 [Rx Last Taken Unknown] Allergy/AdvReac Type Severity Reaction Status Date / Time No Known Allergies Allergy Verified 11/06/21 12:07 Family History Mother uterine fibroid tumor Aunt Colon cancer Unknown Heart disease Hyperlipidemia Surgical History Hx of cystoscopy S/P total hysterectomy (~04/05/21) Social History household members: spouse and children number of children: 1 current occupational status: employed current occupation: [employer] history of recent travel: No sexually active: Yes Smoking Status: Never smoker alcohol intake: never substance use type: does not use diet: low carbohydrate well-balanced diet: daily or most days what type of physical activity do you participate in: walking frequency: 3-4 times per week seatbelt use: always do you feel safe at home: Yes additional social history: - Roman PARK[employer] ROS ED Constitutional Constitutional ED: Denies chills or weight loss Eyes Eyes: Denies change in vision or diplopia ENT ENT ED: Denies ear pain, rhinorrhea or sore throat Cardiovascular Cardiovascular: Denies chest pain, orthopnea, palpitations or racing heartbeat Respiratory/Chest Respiratory/Chest: Denies cough, dyspnea or orthopnea Gastrointestinal Gastrointestinal: Denies abdominal pain, diarrhea, nausea or vomiting Genitourinary Genitourinary ED: Denies dysuria, hematuria or urinary frequency Musculoskeletal Musculoskeletal: Reports other Details: See history of present illness ; Denies arthralgias, back pain, myalgias or neck pain Integumentary Denies abscess or rash Neurologic Neurologic: Denies headache(s) or weakness Psychiatric Psychiatric: Denies anxiety, depression, suicidal ideation or suicidal thoughts Endocrine Endocrinology: Denies polydipsia, polyphagia or polyuria Allergic/Immunologic Allergic/Immunologic ED: Denies mouth swelling, tongue swelling or urticaria EXAM Physical Exam Const Vital Signs: 11/06/21 12:07 11/06/21 12:55 Temperature 97.9 F Temperature Source Temporal Pulse Rate 102 H Respiratory Rate 18 Respiratory Effort Normal Non-Labored Respiratory Depth Normal Respiratory Pattern Normal Blood Pressure 163/94 H Blood Pressure Mean 117 Pulse Ox 99 Oxygen Delivery Method Room Air Room Air Positive well nourished and well developed General Appearance ED: well developed HEENT Reports normocephalic, head/scalp atraumatic and moist mucous membranes Eyes PERRL and EOMs intact bilaterally Neck no lymphadenopathy, supple and no JVD Resp normal respiratory effort and clear to auscultation bilaterally Cardio regular rate, regular rhythm and no murmurs GI normal to inspection, nondistended, normoactive bowel sounds and non-tender Palpation: soft Back/Spine no CVA tenderness and normal ROM Extremity Extremity Narrative: Patient with tenderness to palpation along the fifth metacarpal. No malrotation or obvious deformity. Tender along the radial styloid. No radial head tenderness. She has some mild tenderness along the proximal humerus. Neurovascular intact General Extremety ED: Negative for edema General Extremity: Negative for edema Neuro oriented x3 and CN's II-XII intact bilaterally Sensorium / Orientation: alert Motor Exam: strength 5/5 throughout Psych mental status grossly normal Mood & Affect: Negative for depressed or tearful Skin no rashes or lesions noted and no wounds MDM MDM MDM Narrative Medical decision making narrative: My interpretation of the plain films of the right hand is no acute fracture. Radiology mentions on 1 view there is the possibility of a scaphoid fracture. However the patient is not tender there. My interpretation of the plain films of the right forearm demonstrate a nondisplaced radial head fracture. My interpretation of the plain films of the right humerus is no acute fracture. At this point patient will be discharged home with supportive care in a Velcro wrist splint and a sling. Instructions to follow-up with orthopedics. Pain medicine will be written for the patient Radiography Diagnostic Testing: Clinical Impression(s) from Imaging Studies Forearm X-Ray 11/06/21 12:24 IMPRESSION: Question acute intra-articular fracture of the radial head, nondisplaced. Consider dedicated elbow radiography for further evaluation. No other acute or healing fracture. Electronically Signed: Tremaine Gibson MD at 13:21 EDT Reading Location ID and State: [email or web address] / [facility] Tel , Service support , Hand X-Ray 11/06/21 12:24 IMPRESSION: Question acute or subacute fracture involving the mid pole of the scaphoid (suggested on one view only). Palpate for tenderness. CT would likely be more definitive. No acute or healing fracture or malalignment. Electronically Signed: Tremaine Gibson MD at 13:27 EDT Reading Location ID and State: [email or web address] / [place] Tel , Service support , Humerus X-Ray 11/06/21 12:24 IMPRESSION: Negative right humerus x-rays. Electronically Signed: Tremaine Gibson MD at 13:23 EDT Reading Location ID and State: [email or web address] / [facility] Tel , Service support , Discharge Plan Triage Chief Complaint: Fall ED Provider: Francois Whitman Dx/Rx/DC Orders Clinical Impression: Contusion of hand, right, Contusion of forearm, right, Muscle strain of right shoulder region Instructions: ED Radial Head Fracture, ED Wrist Sprain Prescriptions: New hydrocodone-acetaminophen [hydrocodone-acetaminophen] 5-325 mg tablet 1 tab PO Q6H PRN PRN (Reason: Pain) 3 Days Qty: 10 0RF ibuprofen 800 mg tablet 800 mg PO TID PRN (Reason: pain) Qty: 20 0RF No Action ascorbate calcium (vitamin C) 500 mg tablet 500 mg PO DAILY magnesium 30 mg tablet 30 mg PO DAILY cholecalciferol (vitamin D3) [Vitamin D3] 50 mcg (2,000 unit) Capsule 50 mcg PO DAILY valacyclovir [Valtrex] 1 gram tablet 1,000 mg PO PRN PRN (Reason: HERPES) Primary Care Provider: Ronaldo Medley Referrals: Rich Shaikh DO [STAFF PHYSICIAN] - As soon as possible Disposition Disposition: Home, Self Care
== END 2021-11-06 14:06 | disposition home or self-care (01) ==
PROVIDERS: Emergency Provider Emergency Medicine; PCP Family Medicine; Visit Provider Emergency Medicine
DX: S52.124A Nondisplaced fracture of head of right radius, initial encounter for closed fracture (principal); S46.911A Strain of unspecified muscle, fascia and tendon at shoulder and upper arm level, right arm, initial encounter; S60.221A Contusion of right hand, initial encounter; S50.11XA Contusion of right forearm, initial encounter; W01.0XXA Fall on same level from slipping, tripping and stumbling without subsequent striking against object, initial encounter; Y92.833 Campsite as the place of occurrence of the external cause
CPT/HCPCS: 73060; 73090; 73130; 99283

== ENCOUNTER → 2021-11-15 | Outpatient (CLI) | payer OTHER, SELFPAY ==
--- NOTE | 2021-11-15 17:46 | MRI_ITS ---
EXAM: MR RIGHT UPPER EXTREMITY WITHOUT INTRAVENOUS CONTRAST, WRIST CLINICAL INDICATION: possible scaphoid fx RIGHT WRIST s/p fall October TECHNIQUE: Multiplanar and multisequence MR images of the right wrist without intravenous contrast. This report was created using [employer] report generation technology. COMPARISON: CR Wrist RightJul 2021 8:25am FINDINGS: LIGAMENTS: SCAPHOLUNATE: Unremarkable. Intact. LUNOTRIQUETRAL: Unremarkable. Intact. TENDONS: FLEXOR COMPARTMENTS: Unremarkable. Intact. No tenosynovitis. EXTENSOR COMPARTMENTS: Unremarkable. Intact. No tenosynovitis. NERVES: MEDIAN: Unremarkable. Median nerve is normal in size and signal intensity. ULNAR: Unremarkable. Ulnar nerve is normal in size and signal intensity. MUSCLES: Unremarkable. FLUID: Unremarkable. No joint effusion. CARTILAGE: Unremarkable. The articular cartilage is preserved. TRIANGULAR FIBROCARTILAGE COMPLEX: Unremarkable. Intact without communicating defect. BONES/JOINTS: Benign appearing bone cyst in the scaphoid. No acute fracture. The cysts can simulate a fracture on plain film. No abnormal bone marrow signal. No joint effusion or synovitis. OTHER SOFT TISSUES: Unremarkable. No ganglion. 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 No acute fracture. The cysts can simulate a fracture on plain film. Electronically Signed: Tiago Looney MD at 19:14 EDT Reading Location ID and State: [facility] / [place] , Service support ,
== END | disposition home or self-care (01) ==
LOC: MRI 17:46
PROVIDERS: PCP Family Medicine; Visit Provider Physician Assistant
DX: S62.009A Unspecified fracture of navicular [scaphoid] bone of unspecified wrist, initial encounter for closed fracture (principal)
CPT/HCPCS: 73221

== ENCOUNTER → 2022-06-12 | Outpatient (CLI) | payer OTHER, SELFPAY ==
--- NOTE | 2022-06-12 07:20 | BI_ITS ---
MAMMOGRAPHY - BILATERAL SCREENING REASON FOR EXAM: Female, 46 years old. Routine annual screening examination. PERTINENT HISTORY: Non-contributory. TECHNIQUE: Digital bilateral breast pooja (3D mammographic acquisition) in the CC and MLO projections. 2-D mediolateral oblique (MLO) and craniocaudad (CC) views of both breasts were obtained. CAD: Full Field Digital Mammography with Computer Added Detection was performed. COMPARISON: Comparison is made with prior study 08/04/2020 and 05/31/2017. FINDINGS: Breast Composition: The breasts are heterogeneously dense, which may obscure small masses. There are no dominant masses or suspicious calcifications. Stable small benign-appearing bilateral axillary No other significant abnormalities are identified. There has been no significant change since the prior study. BI/SCRN MAMM (CAD)W/POOJA BILAT IMPRESSION: Stable bilateral screening mammogram. Yearly follow-up mammogram recommended. (A) ASSESSMENT CATEGORY: BIRADS Category 2: Benign. A letter regarding these results will be sent to the patient by the facility within 30 days. Approximately 10% of breast cancers are not detected by mammography. A normal mammogram should not delay biopsy of a clinically suspicious abnormality. [id number] Electronically Signed: Nitin Mayo MD at 8:39 EST ,
== END | disposition home or self-care (01) ==
LOC: OPBI 07:17
PROVIDERS: PCP Family Medicine; Visit Provider Obstetrics & Gynecology
DX: Z12.31 Encounter for screening mammogram for malignant neoplasm of breast (principal)
CPT/HCPCS: 77063; 77067

== ENCOUNTER 2022-08-30 08:59 | Day surgery (SDC) | payer OTHER, SELFPAY ==
[2022-08-30] VITALS (7 sets, daily range): BP systolic 87–143; BP diastolic 60–82; PULSE 81–96; RESP 16–18; TEMP 36.4–36.6; O2SAT 95–100; BMI 38.1
--- NOTE | 2022-08-30 | GASB_PTH ---
PATIENT: ROMINA DRUMMOND LOC: EN U#:[id number] AGE/SX: 46/F ROOM: RE08/30/[address]: Dr. Manny Diamond DO : 1975 BED: DIS: 08/30/2022 SPEC #: [id number] RECD: 08/30/22 12:55 STATUS: BERNABE SIDRA #: [id number] STEVIE: 08/30/22 00:[address]: Manny Diamond DEPT: SURGICAL PATHOLOGY RECD BY: Fidel Shore ENTERED: 08/30/22 12:55 SP TYPE: Gastric Bx OTHR DR: Dr. Ronaldo Medley MD Tissues: A - Gastric mucous membrane B - Esophageal mucous membrane C - Esophageal mucous membrane D - Duodenum, NOS Procedures: Special Stain Group II Surgery Specimen Level IV Alcian Blue/PAS (control) HEADER OPERATION: Colonoscopy, EGD ([facility]), biopsy PRE-OP DIAGNOSIS: Heartburn TISSUE SUBMITTED: A ? Gastric body biopsy, H. pylori and path, B ? Distal esophagus biopsy, C ? Random esophagus biopsy, D ? Duodenum biopsy MICROSCOPIC DIAGNOSIS A. Gastric body, biopsy: Minimal gastritis. See microscopic description and comment. B. Distal esophagus, biopsy: Fragments of gastroesophageal mucosa with mild chronic inflammation. Intestinal metaplasia (goblet cell metaplasia) not identified. See comment. C. Random esophagus, biopsy: Fragments of squamous mucosa with changes consistent with eosinophilic esophagitis. See comment. D. Duodenum, biopsy: Fragments of duodenal mucosa, no pathologic diagnosis. SJ:cathy 08/31/2022 COMMENT A. The results of immunohistochemistry for Helicobacter pylori will be reported separately ([id number]). B. Alcian blue/PAS stain with matched control is used in the evaluation of the specimen. Increased number of eosinophils (>10 per high power field) are also noted. C. Increased number of eosinophils (>20 per high power field) are noted consistent with eosinophilic esophagitis. MICROSCOPIC DESCRIPTION Slides are reviewed. A. The specimen shows fragments of gastric mucosa with chronic inflammatory cell infiltrates in the lamina propria consisting of lymphocytes and plasma cells, consistent with minimal chronic gastritis. GROSS DESCRIPTION A - Received in fixative is one container labeled with the patient's name and designated gastric body biopsy. The specimen consists of two irregular fragments of light barajas soft tissue that in aggregate measure 0.6 x 0.3 x 0.1 cm. The specimen is totally submitted in one cassette. B - Received in fixative is one container labeled with the patient's name and designated biopsy distal esophagus. The specimen consists of multiple irregular fragments of light barajas soft tissue that in aggregate measure 0.4 x 0.3 x 0.1 cm. The specimen is totally submitted in one cassette. C - Received in fixative is one container labeled with the patient's name and designated biopsy random esophagus. The specimen consists of multiple irregular fragments of light barajas soft tissue that in aggregate measure 0.5 x 0.5 x 0.1 cm. The specimen is totally submitted in one cassette. D - Received in fixative is one container labeled with the patient's name and designated biopsy duodenum. The specimen consists of two irregular fragments of light barajas soft tissue that in aggregate measure 0.6 x 0.5 x 0.1 cm. The specimen is totally submitted in one cassette. / SJ:cathy 08/30/2022 TC:3 CPT: 53781 x4, 15693
--- NOTE | 2022-08-30 09:36 | PCM.HP.BLA ---
History and Physical Date of Admission: 08/30/22 Chief Complaint: heartburn, needs screening colonoscopy Details: ROMINA DRUMMOND, is a 46 F who presents to the office today to establish with GI for heartburn and to schedule screening colonoscopy. No prior endoscopies. Heartburn x 7 yrs, takes TUMS prn w/ temporary relief. Occas takes omeprazole 20 mg, then no heartburn for several days, but prefers to avoid medications whenever possible. Eating a smaller meal at dinner now, just meat and vegetable, that has helped with heartburn. No dysphagia, nausea, vomiting, abdominal pain, early satiety. BM typically every other day, better with smoothies with flax and roro. No diarrhea. No melena or hematochezia. Has started exercising, has lost 10 lbs since start of 2022. 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 [employer] PSH: hysterectomy for fibroid ROS Const Constitutional: No fatigue ENT ENT: No difficulty swallowing Gastro GI: Positive for heartburn; No abdominal pain, belching, bloating, change in bowel habits, change in stool character, coffee ground emesis, constipation, cramping, diarrhea, difficulty swallowing, feeling full early, excessive flatus, incontinent of stools, Vomiting blood/hematemesis, Blood in stool, loose stools, Black,tarry stools, nausea/dyspepsia, pain with swallowing, vomiting or other Musc Musculoskeletal: No joint pain Skin Skin: No yellowing of the eye or itchy eyes Psych Psychiatric: No anxiety and No depression Endo Endocrine: No fatigue Aller/Imm Allergy/Immunologic: No itchy eyes Jd/Lymp Hematologic/Lymphatic: No easy bleeding or easy bruising Exam Const General: cooperative and comfortable Nutritional Appearance: obese Orientation: alert, awake and oriented x3 HENMT Head: normal to inspection Eyes Sclera: sclerae normal Resp Effort & Inspection: normal respiratory effort Psych Mood: euthymic mood Quality Reporting Tobacco Screening ([facility]) Smoking Status: Never smoker Assessment and Plan Assessment and Plan (1) Heartburn: ?Status:?Chronic ?Plan: 46 yr old female with heartburn. She prefers a natural approach whenever possible. Omeprazole is efficacious but she tries to avoid it. Will get EGD to eval for esophagitis, Amaya's, hiatal hernia, gastritis, PUD, H pylori. And screening colonoscopy will be scheduled too. F/u in office 2 wks later to discuss bx results. (2) Colonoscopy planned: ?Status:?Acute ?Plan: as above I have examined the patient and the H&P has been reviewed. There are no clinical changes since date of exam.
[2022-08-30] MEDS: Lactated Ringers 1,000 ML 15 ML IV (09:43)
--- NOTE | 2022-08-30 10:15 | IMM_PTH ---
PATIENT: ROMINA DRUMMOND LOC: EN U#:[id number] AGE/SX: 46/F ROOM: RE08/30/[address]: Dr. Manny Diamond DO : 1975 BED: DIS: 08/30/2022 SPEC #: [id number] RECD: 08/30/22 13:07 STATUS: BERNABE SIDRA #: [id number] STEVIE: 08/30/22 10:[address]: Manny Diamond DEPT: IMMUNOHISTOCHEMISTRY RECD BY: Kylee Posey ENTERED: 08/30/22 13:08 SP TYPE: IMMUNO OTHR DR: Dr. Ronaldo Medley MD Tissues: A - Stomach, NOS Procedures: H Pylori (initial) PHYSICIAN & INSTITUTION [place] [id number] SPECIMEN INFORMATION: Tissue Source: A ? Gastric body Clinical Info: Heartburn Specimen Number: [id number] CPT code: 79645 METHODOLOGY: Deparaffinized sections of prefer/formalin-fixed tissue or PAP/DQ stained slides are incubated with monoclonal/polyclonal antibodies/oligonucleotide probes. Localization is made via biotin free immunoperoxidase method. Appropriate controls are performed and reacted as expected. Results on target cell population are indicated in the following table: RESULTS: ANTIBODY / CLONE RESULT Block A H Pylori (polyclonal) negative These tests were developed and their performance characteristics determined by [facility]. They may not have been cleared or approved by the U.S. Food and Drug Administration. The FDA has determined that such clearance or approval is not necessary. The above immunohistochemical/dualISH markers are ordered and reviewed by the Pathologist. INTERPRETATION: A. Gastric body, biopsy: Negative for Helicobacter pylori organisms. SJ:cathy 08/31/2022
--- NOTE | 2022-08-30 11:05 | OP.EGD_ITS ---
Patient Name: Summer Massey Procedure Date: 08/30/2022 10:24 AM Date of : 1975 Age: 46 Procedure: Upper GI endoscopy Indications: Heartburn Providers: Manny Diamond DO Medicines: Monitored Anesthesia Care Patient Profile: This is a 46 year old female. Refer to note in patient chart for documentation of history and physical. Patient has symptoms of chronic heartburn. Complications: No immediate complications. Procedure: Pre-Anesthesia Assessment: - Prior to the procedure, a History and Physical was performed, and patient medications and allergies were reviewed. The patient is competent. The risks and benefits of the procedure and the sedation options and risks were discussed with the patient. All questions were answered and informed consent was obtained. Patient identification and proposed procedure were verified by the physician in the pre-procedure area. Mental Status Examination: normal. Airway Examination: normal oropharyngeal airway and neck mobility. Respiratory Examination: clear to auscultation. CV Examination: normal. Prophylactic Antibiotics: The patient does not require prophylactic antibiotics. Prior Anticoagulants: The patient has taken no previous anticoagulant or antiplatelet agents. ASA Grade Assessment: II - A patient with mild systemic disease. After reviewing the risks and benefits, the patient was deemed in satisfactory condition to undergo the procedure. The anesthesia plan was to use monitored anesthesia care (MAC). Immediately prior to administration of medications, the patient was re-assessed for adequacy to receive sedatives. The heart rate, respiratory rate, oxygen saturations, blood pressure, adequacy of pulmonary ventilation, and response to care were monitored throughout the procedure. The physical status of the patient was re-assessed after the procedure. After obtaining informed consent, the endoscope was passed under direct vision. Throughout the procedure, the patient's blood pressure, pulse, and oxygen saturations were monitored continuously. The Colonoscope was introduced through the mouth, and advanced to the second part of duodenum. The upper GI endoscopy was accomplished without difficulty. The patient tolerated the procedure well. Scope In: 10:37:49 AM Scope Out: 10:43:59 AM Total Procedure Duration Time 0 hours 6 minutes 10 seconds Findings: Mucosal changes including ringed esophagus, longitudinal furrows, small-caliber esophagus, circumferential folds, congestion (edema) and crepe paper esophagus were found at the esophageal anastomosis. Biopsies were obtained from the proximal and distal esophagus with cold forceps for histology of suspected eosinophilic esophagitis. Verification of patient identification for the specimen was done. Estimated blood loss was minimal. LA Grade B (one or more mucosal breaks greater than 5 mm, not extending between the tops of two mucosal folds) esophagitis with no bleeding was found 37 to 39 cm from the incisors. Biopsies were taken with a cold forceps for histology. Verification of patient identification for the specimen was done. Estimated blood loss was minimal. A small hiatal hernia was present. Patchy moderate inflammation characterized by congestion (edema), erosions and erythema was found in the gastric body. Biopsies were taken with a cold forceps for histology. Verification of patient identification for the specimen was done. Estimated blood loss was minimal. Patchy mildly erythematous mucosa without active bleeding and with no stigmata of bleeding was found in the duodenal bulb. Biopsies were taken with a cold forceps for histology. Verification of patient identification for the specimen was done. Estimated blood loss was minimal. Impression: - Esophageal mucosal changes consistent with eosinophilic esophagitis. Biopsied. - LA Grade B reflux esophagitis. Biopsied. - Small hiatal hernia. - Gastritis. Biopsied. - Erythematous duodenopathy. Biopsied. Recommendation: - Discharge patient to home. - Resume previous diet. - Continue present medications. - Await pathology results. Procedure Code(s): --- Professional --- 73427, Esophagogastroduodenoscopy, flexible, transoral; with biopsy, single or multiple CPT copyright 2017 [employer]. All rights reserved. The codes documented in this report are preliminary and upon transplanter review may be revised to meet current compliance requirements. Manny Diamond DO 08/30/2022 11:05:38 AM This report has been signed electronically. Number of Addenda: 0 Note Initiated On: 08/30/2022 10:24 AM
--- NOTE | 2022-08-30 11:07 | OP.CCLET_ITS ---
08/30/2022 Ronaldo Medley MD Re : Upper GI endoscopy procedure for Summer Massey Dear Dr. Medley This procedure was performed on Tuesday, August 30, 2022. My impressions and recommendations are as follows: Impressions : - Esophageal mucosal changes consistent with eosinophilic esophagitis. Biopsied. - LA Grade B reflux esophagitis. Biopsied. - Small hiatal hernia. - Gastritis. Biopsied. - Erythematous duodenopathy. Biopsied. Recommendations : - Discharge patient to home. - Resume previous diet. - Continue present medications. - Await pathology results. My findings are described in the full procedure note, which is enclosed. If I can be of further assistance, please feel free to contact me at . Sincerely, Manny Diamond, 08/30/2022 11:05:38 AM This report has been signed electronically.
--- NOTE | 2022-08-30 11:12 | OP.COLON_ITS ---
Patient Name: Summer Massey Procedure Date: 08/30/2022 10:44 AM Date of : 1975 Age: 46 Procedure: Colonoscopy Indications: Screening for colorectal malignant neoplasm, Screening in patient at increased risk: Family history of 1st-degree relative with colorectal cancer Providers: Manny Diamond DO Medicines: Monitored Anesthesia Care Patient Profile: This is a 46 year old female. Refer to note in patient chart for documentation of history and physical. Patient has symptoms of chronic heartburn. Last Colonoscopy: none. The patient's first colonoscopy is today. Complications: No immediate complications. Procedure: Pre-Anesthesia Assessment: - Prior to the procedure, a History and Physical was performed, and patient medications and allergies were reviewed. The patient is competent. The risks and benefits of the procedure and the sedation options and risks were discussed with the patient. All questions were answered and informed consent was obtained. Patient identification and proposed procedure were verified by the physician in the pre-procedure area. Mental Status Examination: normal. Airway Examination: normal oropharyngeal airway and neck mobility. Respiratory Examination: clear to auscultation. CV Examination: normal. Prophylactic Antibiotics: The patient does not require prophylactic antibiotics. Prior Anticoagulants: The patient has taken no previous anticoagulant or antiplatelet agents. ASA Grade Assessment: II - A patient with mild systemic disease. After reviewing the risks and benefits, the patient was deemed in satisfactory condition to undergo the procedure. The anesthesia plan was to use monitored anesthesia care (MAC). Immediately prior to administration of medications, the patient was re-assessed for adequacy to receive sedatives. The heart rate, respiratory rate, oxygen saturations, blood pressure, adequacy of pulmonary ventilation, and response to care were monitored throughout the procedure. The physical status of the patient was re-assessed after the procedure. After I obtained informed consent, the scope was passed under direct vision. Throughout the procedure, the patient's blood pressure, pulse, and oxygen saturations were monitored continuously. The Colonoscope was introduced through the anus and advanced to the cecum, identified by appendiceal orifice and ileocecal valve. The ileocecal valve, appendiceal orifice, and rectum were photographed. Scope In: 10:46:08 AM Scope Withdrawal Time 0 hours 7 minutes 44 seconds Scope Out: 10:57:52 AM Total Procedure Duration Time 0 hours 11 minutes 44 seconds Findings: The perianal and digital rectal examinations were normal. The perianal exam findings include hypertrophied anal papilla(e). A few small-mouthed diverticula were found in the recto-sigmoid colon. A moderate amount of stool was found in the rectum, in the ascending colon and in the cecum. The exam was otherwise without abnormality on direct and retroflexion views. Impression: - Hypertrophied anal papilla(e) found on perianal exam. - Diverticulosis in the recto-sigmoid colon. - Stool in the rectum, in the ascending colon and in the cecum. - The examination was otherwise normal on direct and retroflexion views. - No specimens collected. Recommendation: - Discharge patient to home. - Resume previous diet. - Continue present medications. - Await pathology results. - Repeat colonoscopy in 5 years for surveillance. Procedure Code(s): --- Professional --- G0105, Colorectal cancer screening; colonoscopy on individual at high risk CPT copyright 2017 [employer]. All rights reserved. The codes documented in this report are preliminary and upon label coder review may be revised to meet current compliance requirements. Manny Diamond DO 08/30/2022 11:11:55 AM This report has been signed electronically. Number of Addenda: 0 Note Initiated On: 08/30/2022 10:44 AM
--- NOTE | 2022-08-30 11:13 | OP.CCLET_ITS ---
08/30/2022 Ronaldo Medley MD Re : Colonoscopy procedure for Summer Massey Dear Dr. Medley This procedure was performed on Tuesday, August 30, 2022. My impressions and recommendations are as follows: Impressions : - Hypertrophied anal papilla(e) found on perianal exam. - Diverticulosis in the recto-sigmoid colon. - Stool in the rectum, in the ascending colon and in the cecum. - The examination was otherwise normal on direct and retroflexion views. - No specimens collected. Recommendations : - Discharge patient to home. - Resume previous diet. - Continue present medications. - Await pathology results. - Repeat colonoscopy in 5 years for surveillance. My findings are described in the full procedure note, which is enclosed. If I can be of further assistance, please feel free to contact me at . Sincerely, Manny Diamond, 08/30/2022 11:11:55 AM This report has been signed electronically.
== END 2022-08-30 12:03 | disposition home or self-care (01) ==
LOC: EN 08:59 → AC 09:00
PROVIDERS: PCP Family Medicine; Referring Provider Family Medicine; Visit Provider Internal Medicine Gastroenterology
PROC: 0DJD8ZZ Inspection of Lower Intestinal Tract, Via Natural or Artificial Opening Endoscopic (ICD-10-PCS; CPT 45378; principal; 2022-08-30 10:10)
DX: Z12.11 Encounter for screening for malignant neoplasm of colon (principal); K44.9 Diaphragmatic hernia without obstruction or gangrene; K29.70 Gastritis, unspecified, without bleeding; K21.00 Gastro-esophageal reflux disease with esophagitis, without bleeding; K57.30 Diverticulosis of large intestine without perforation or abscess without bleeding
CPT/HCPCS: 45378; 43239; 88305; 88313; 88342; J7120; J2405

== ENCOUNTER → 2022-12-11 | Outpatient (CLI) | payer OTHER, SELFPAY ==
--- NOTE | 2022-12-09 06:47 | MRI_ITS ---
STUDY: MRI THORACIC SPINE WITHOUT CONTRAST REASON FOR EXAM: Female, 47 years old. Pain -- If possible please expand to capture [id number] R SIDED UPPER BACK PAIN THAT WRAPS INTO R CHEST AND DOWN R ARM TECHNIQUE: Standardized fat and water weighted pulse sequences were obtained in the sagittal and axial planes. COMPARISON: None. FINDINGS: Normal kyphosis of the thoracic spine. There is no substantial scoliosis. T1-2, T2-3, T3-4, T4-5, T5-6, T6-7, T7-8, T8-9, T9-10, T10-11, T11-12: At T2/T3, there is a moderate bilobed disc protrusion which produces moderate spinal stenosis with abutment of the central spinal cord and severe right neural foraminal stenosis. Normal visualized thoracic cord. Normal conus medullaris that terminates at the L2. The soft tissue structures are unremarkable. MRI/Spine Thoracic (Routine) IMPRESSION: Focal degenerative disc disease at T2/T3 with moderate spinal stenosis with abutment of the central spinal cord and severe right neural foraminal stenosis. Electronically Signed: Prasad Delacruz MD at 10:22 EDT ,
== END | disposition home or self-care (01) ==
PROVIDERS: PCP Family Medicine
DX: M54.14 Radiculopathy, thoracic region (principal)
CPT/HCPCS: 72146

== ENCOUNTER → 2023-07-10 | Outpatient (CLI) | payer OTHER, SELFPAY ==
--- NOTE | 2023-07-10 16:20 | BI_ITS ---
MAMMOGRAPHY - BILATERAL SCREENING REASON FOR EXAM: Female, 47 years old. Routine annual screening examination. PERTINENT HISTORY: Aunt with breast cancer. TECHNIQUE: Digital bilateral breast pooja (3D mammographic acquisition) in the CC and MLO projections. 2-D mediolateral oblique (MLO) and craniocaudad (CC) views of both breasts were obtained. CAD: Full Field Digital Mammography with Computer Added Detection was performed. COMPARISON: Comparison is made with prior study dated June 12, 2022 and August 04, 2020. FINDINGS: Breast Composition: The breasts are heterogeneously dense, which may obscure small masses. There are no dominant masses or suspicious calcifications. Stable small benign-appearing bilateral axillary lymph nodes. No other significant abnormalities are identified. There has been no significant change since the prior study. BI/SCRN MAMM (CAD)W/POOJA BILAT IMPRESSION: Stable bilateral screening mammogram. Yearly follow-up mammogram recommended. (A) ASSESSMENT CATEGORY: BIRADS Category 2: Benign. A letter regarding these results will be sent to the patient by the facility within 30 days. Approximately 10% of breast cancers are not detected by mammography. A normal mammogram should not delay biopsy of a clinically suspicious abnormality. [id number] Electronically Signed: Nitin Mayo MD at 10:23 EDT ,
--- OUTSIDE RECORDS SUMMARY | 2023-07-11 07:05 | XMS RPT_ITS | CCD ---
Author Name Unknown Address [address] [place] [address] Organization [facility] Care Team Providers Care 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 Resort Manager Name Role Phone IMCA Unavailable Unavailable Aly Davis Unavailable Unavailable Aly Davis MD Primary Care Provider [phone] Aly Davis MD Primary Care Provider Aly Davis MD Primary Care Provider EUNICE ELIAS Attending Unavailable ALY DAVIS Primary Care Unavailable EUNICE ELIAS Referring Unavailable ALY DAVIS Primary Care Unavailable EUNICE ELIAS Attending Unavailable ALY DAVIS Primary Care Unavailable ALY DAVIS Primary Care Unavailable EUNICE ELIAS Referring Unavailable ALY DAVIS Primary Care Unavailable EUNICE ELIAS Referring Unavailable AYL DAVIS Primary Care Unavailable EUNICE ELIAS Referring Unavailable ALY DAVIS Primary Care Unavailable EUNICE ELIAS Attending Unavailable ALY DAVIS Primary Care Unavailable EUNICE ELIAS Referring Unavailable ALY DAVIS Primary Care Unavailable Unavailable Primary Care Provider Unavailabl e Medications Current Medications Medication Drug Class(es) Dates Sig (Normalized) Sig (Original) [id number] 200 actuat albuterol 0.09 mg/actuat metered dose inhaler (7 sources) beta2-Adrenergic Agonist Start: 03-15-2021 End: 10-19-2021 take 2 puff(s) by inhalation every four hours as needed for wheezing albuterol HFA (PROVENTIL HFA, VENTOLIN HFA) 90 mcg/actuation inhaler Inhale 2 Puffs as instructed every 4 hours as needed for wheezing/shortness of breath. 1 Each 0 03/15/2021 10/19/2021 Discontinued Completed/Discontinued Medications Medication Drug Class(es) Dates Sig (Normalized) Sig (Original) amphetamine aspartate 2.5 mg / amphetamine sulfate 2.5 mg / dextroamphetamine saccharate 2.5 mg / dextroamphetamine sulfate 2.5 mg oral tablet (9 sources) Central Nervous System Stimulant Start: 09-21-2021 End: 06-27-2022 take 1 tablet by mouth once daily, then take 0.5 tablet by mouth once daily in the evening dextroamphetamine- amphetamine (ADDERALL) 10 mg tablet Indications: Attention deficit disorder of adult Take 1 tablet by mouth once daily AND 0.5 tablets every evening. Do all this for 30 days. 45 tablet 0 10/19/2021 06/27/2022 Discontinued Problems Active Problems Problem Classification Problem Date Documented Da te Episodic/Chronic Anxiety disorders (20 sources) Mixed anxiety and depressive disorder; Translations: [Anxiety disorder, unspecified] Onset: 6 09-15-2015 Chronic Biliary tract disease (20 sources) Cholesterolosis of gallbladder; Translations: [Polyp of gallbladder] Onset: 6 04-10-2016 Episodic Disorders usually diagnosed in infancy, childhood, or adolescence (20 sources) Adult attention deficit hyperactivity disorder ; Translations: [Other specified behavioral and emotional disorders with onset usually occurring in childhood and adolescence] Onset: 1 01-30-2018 Chronic Esophageal disorders (15 sources) Gastroesophageal reflux disease without esophagitis; Translations: [Gastro-esophageal reflux disease without esophagitis] Onset: 3 Chronic Malaise and fatigue (1 source) Fatigue; Translations: [Other fatigue] Episodic Mood disorders (1 source) Mood disorders; Translations: [Anxiety and depression] Onset: 6 Nonmalignant breast conditions (18 sources) Fibrocystic disease of breast; Translations: [Diffuse cystic mastopathy of unspecified breast] Onset: 4 03-18-2014 Chronic Nutritional deficiencies (11 sources) Vitamin D deficiency; Translations: [Vitamin D deficiency, unspecified] Onset: 3 Chronic Other and unspecified benign neoplasm (1 source) Dysplastic nevus of skin; Translations: [Melanocytic nevi, unspecified] Episodic Other connective tissue disease (1 source) Muscle pain; Translations: [Myalgia, unspecified site] Episodic Other gastrointestinal disorders (1 source) Diarrhea; Translations: [Diarrhea, unspecified] 11-15-2022 Episodic Other gastrointestinal disorders (1 source) Diarrhea, unspecified; Translations: [Diarrhea, unspecified type] Onset: 3 Episodic Other liver diseases (5 sources) Steatosis of liver; Translations: [Fatty (change of) liver, not elsewhere classified] Onset: 3 Chronic Other non-traumatic joint disorders (1 source) Joint pain; Translations: [Pain in unspecified joint] Episodic Other nutritional; endocrine; and metabolic disorders (20 sources) Obese class II; Translations: [Obesity, unspecified] Onset: 9 10-14-2020 Chronic Other nutritional; endocrine; and metabolic disorders (1 source) Obesity, unspecified; Translations: [Obesity, Class II, BMI 35-39.9] Onset: 1 Chronic Other nutritional; endocrine; and metabolic disorders (1 source) Weight gain; Translations: [Abnormal weight gain] Episodic Spondylosis; intervertebral disc disorders; other back problems (3 sources) Spinal stenosis of thoracic region; Translations: [Spinal stenosis, thoracic region] 01-23-2023 Episodic Superficial injury; contusion (1 source) Tick bite; Translations: [Insect bite (nonvenomous) of lower back and pelvis, initial encounter] Episodic Unclassified (1 source) Unknown / UNK(Unknown) Onset: 6 Past or Other Problems Problem Classification Problem Date Documented Da te Episodic/Chronic Benign neoplasm of uterus (18 sources) Uterine leiomyoma; Translations: [Leiomyoma of uterus, unspecified] Onset: 10-14-2020 10-14-2020 Episodic Deficiency and other anemia (20 sources) Iron deficiency anemia; Translations: [Iron deficiency anemia, unspecified] Onset: 10-14-2020 Episodic Deficiency and other anemia (1 source) Iron deficiency anemia, unspecified; Translations: [Iron deficiency anemia, unspecified iron deficiency anemia type] Onset: 10-14-2020 Episodic Other aftercare (18 sources) Long-term current use of drug therapy; Translations: [Other middle or intermediate school principal (current) drug therapy] Onset: 01-30-2018 01-30-2018 Episodic Other and unspecified benign neoplasm (19 sources) Hemangioma of liver; Translations: [Hemangioma of intra-abdominal structures] Onset: 10-19-2015 03-13-2018 Episodic Other and unspecified benign neoplasm (1 source) Melanocytic nevi, unspecified; Translations: [Atypical nevus] Onset: 06-27-2022 Episodic Other gastrointestinal disorders (19 sources) Constipation; Translations: [Constipation, unspecified] Onset: 09-15-2015 02-10-2016 Episodic Other gastrointestinal disorders (1 source) Constipation, unspecified; Translations: [Constipation, unspecified constipation type] Onset: 02-10-2016 Episodic Other screening for suspected conditions (not mental disorders or infectious disease) (20 sources) Patient encounter status; Translations: [Encounter for screening for diabetes mellitus] Onset: 09-15-2015 Episodic Other skin disorders (18 sources) Seborrheic keratosis; Translations: [Other seborrheic keratosis] Onset: 11-07-2013 04-25-2021 Episodic Sprains and strains (2 sources) Strain of neck muscle; Translations: [Strain of muscle, fascia and tendon at neck level, initial encounter] Onset: 07-14-2022 Episodic Results Test Name Value Interpretation Reference Range Facil ity Vital Signs Date Time Vital Sign Value Performing Clinician Facility 01-23-2023 12:24-0400 Body height 165.1 cm Regis Souza MD Work Phone: [facility] 01-23-2023 12:24-0400 Body mass index (BMI) [Ratio] 38.44 kg/m2 Regis Souza MD Work Phone: [facility] 01-23-2023 12:24-0400 Body temperature 98.01 [degF] Regis Souza MD Work Phone: [facility] 01-23-2023 12:24-0400 Body weight 104.78 kg Regis Souza MD Work Phone: [facility] 01-23-2023 12:24-0400 Diastolic blood pressure 79 mm[Hg] Regis Souza MD Work Phone: [facility] 01-23-2023 12:24-0400 Heart rate 70 /min Regis Souza MD Work Phone: [facility] 01-23-2023 12:24-0400 SaO2% (BldA) [Mass fraction] 99 % Regis Souza MD Work Phone: [facility] 01-23-2023 12:24-0400 Systolic blood pressure 145 mm[Hg] Regis Souza MD Work Phone: [facility] 11-15-2022 06:58-0400 Body temperature 99.1 [degF] Eunice Elias PA-C Work Phone: [facility] 11-15-2022 06:58-0400 Body weight 104.78 kg Eunice Elias PA-C Work Phone: [facility] 11-15-2022 06:58-0400 Diastolic blood pressure 86 mm[Hg] Eunice Elias PA-C Work Phone: [facility] 11-15-2022 06:58-0400 Heart rate 96 /min Eunice Elias PA-C Work Phone: [facility] 11-15-2022 06:58-0400 Respiratory rate 18 /min Eunice Elias PA-C Work Phone: [facility] 11-15-2022 06:58-0400 Systolic blood pressure 136 mm[Hg] Eunice Elias PA-C Work Phone: [facility] 07-14-2022 07:43-0400 Diastolic blood pressure 83 mm[Hg] Eunice Elias PA-C Work Phone: [facility] 07-14-2022 07:43-0400 Systolic blood pressure 124 mm[Hg] Eunice Elias PA-C Work Phone: [facility] 07-14-2022 07:08-0400 Body weight 105.23 kg Eunice Elias PA-C Work Phone: [facility] 07-14-2022 07:08-0400 Heart rate 86 /min Eunice Elias PA-C Work Phone: [facility] 07-14-2022 07:08-0400 Respiratory rate 18 /min Eunice Elias PA-C Work Phone: [facility] 07-14-2022 07:08-0400 SaO2% (BldA) [Mass fraction] 97 % Eunice Elias PA-C Work Phone: [facility] 06-27-2022 14:25-0500 Diastolic blood pressure 71 mm[Hg] Eunice Elias PA-C Work Phone: [facility] 06-27-2022 14:25-0500 Heart rate 67 /min Eunice Elias PA-C Work Phone: [facility] 06-27-2022 14:25-0500 Systolic blood pressure 123 mm[Hg] Eunice Elias PA-C Work Phone: [facility] 06-27-2022 13:17-0500 Body height 166 cm Eunice Elias PA-C Work Phone: [facility] 06-27-2022 13:17-0500 Body weight 106.59 kg Eunice Elias PA-C Work Phone: [facility] 06-27-2022 13:17-0500 Respiratory rate 16 /min Eunice Elias PA-C Work Phone: [facility] 06-27-2022 13:17-0500 SaO2% (BldA) [Mass fraction] 97 % Eunice Elias PA-C Work Phone: [facility] 03-08-2022 19:25-0500 Body temperature 98.1 [degF] Aly Coronel TIMBER FRAMER HELPER.HYPERCIL CORE TRANSFORMER ASSEMBLER Work Phone: [facility] 03-08-2022 19:25-0500 Body weight 109.05 kg Aly Coronel TIMBER FRAMER HELPER.HYPERCIL CORE TRANSFORMER ASSEMBLER Work Phone: [facility] 03-08-2022 19:25-0500 Diastolic blood pressure 82 mm[Hg] Aly Coronel TIMBER FRAMER HELPER.HYPERCIL CORE TRANSFORMER ASSEMBLER Work Phone: [facility] 03-08-2022 19:25-0500 Heart rate 84 /min Aly Coronel TIMBER FRAMER HELPER.HYPERCIL CORE TRANSFORMER ASSEMBLER Work Phone: [facility] 03-08-2022 19:25-0500 Respiratory rate 18 /min Aly Coronel TIMBER FRAMER HELPER.HYPERCIL CORE TRANSFORMER ASSEMBLER Work Phone: [facility] 03-08-2022 19:25-0500 SaO2% (BldA) [Mass fraction] 98 % Aly Coronel TIMBER FRAMER HELPER.HYPERCIL CORE TRANSFORMER ASSEMBLER Work Phone: [facility] 03-08-2022 19:25-0500 Systolic blood pressure 122 mm[Hg] Aly Coronel TIMBER FRAMER HELPER.HYPERCIL CORE TRANSFORMER ASSEMBLER Work Phone: [facility] 09-21-2021 07:03-0400 Body temperature 98.1 [degF] Eunice Elias PA-C Work Phone: [facility] 09-21-2021 07:03-0400 Body weight 109.32 kg Eunice Elias PA-C Work Phone: [facility] 09-21-2021 07:03-0400 Diastolic blood pressure 86 mm[Hg] Eunice Elias PA-C Work Phone: [facility] 09-21-2021 07:03-0400 Heart rate 80 /min Eunice Elias PA-C Work Phone: [facility] 09-21-2021 07:03-0400 Respiratory rate 18 /min Eunice Elias PA-C Work Phone: [facility] 09-21-2021 07:03-0400 Systolic blood pressure 136 mm[Hg] Eunice Elias PA-C Work Phone: [facility] 08-23-2021 11:28-0400 Diastolic blood pressure 81 mm[Hg] Eunice Elias PA-C Work Phone: [facility] 08-23-2021 11:28-0400 Heart rate 86 /min Eunice Elias PA-C Work Phone: [facility] 08-23-2021 11:28-0400 Systolic blood pressure 127 mm[Hg] Eunice Elias PA-C Work Phone: [facility] 08-23-2021 10:51-0400 Body temperature 98.8 [degF] Eunice Elias PA-C Work Phone: [facility] 08-23-2021 10:51-0400 Body weight 108.41 kg Eunice Elias PA-C Work Phone: [facility] 08-23-2021 10:51-0400 Respiratory rate 18 /min Eunice Elias PA-C Work Phone: [facility] 08-09-2021 10:45-0400 Diastolic blood pressure 83 mm[Hg] Eunice Elias PA-C Work Phone: [facility] 08-09-2021 10:45-0400 Heart rate 64 /min Eunice Elias PA-C Work Phone: [facility] 08-09-2021 10:45-0400 Systolic blood pressure 129 mm[Hg] Eunice Elias PA-C Work Phone: [facility] 08-09-2021 09:32-0400 Body height 165.5 cm Eunice Elias PA-C Work Phone: [facility] 08-09-2021 09:32-0400 Body temperature 99.5 [degF] Eunice Elias PA-C Work Phone: [facility] 08-09-2021 09:32-0400 Body weight 109.32 kg Eunice Elias PA-C Work Phone: [facility] 08-09-2021 09:32-0400 Respiratory rate 18 /min Eunice Elias PA-C Work Phone: [facility] Encounters Encounter Date Encounter Type Care Provider Facility Start: 01-23-2023 End: 01-23-2023 Office consultation new/estab patient 80 min Regis Souza MD Work Phone: [facility] Procedures Date Procedure Procedure Detail Performing Clinician Start: 01-23-2023 End: 01-23-2023 Radex spine thoracic 2 views Regis Souza MD Work Phone: Start: 08-30-2022 Colonoscopy Aly moncada MD Work Phone: Start: 07-26-2022 Us abdominal real ti me w/image limited Eunice Elias PA-C Work Phone: Start: 07-12-2022 Lipid 1996 panel - S joe or Plasma Us 2 Work Phone: Start: 06-12-2022 Mammography Aly moncada MD Work Phone: Start: 08-04-2020 Mammography Aly moncada MD Work Phone: Plan of Treatment Date Care Activity Detail Author Start: 08-31-2027 Colonoscopy COLONOSCOPY [facility] Start: 08-31-2027 COLORECTAL CANCER SCREENING COLORECTAL CANCER SCREENING [facility] Start: 07-13-2027 Lipid 1996 panel - S joe or Plasma Lipid Screening [facility] Start: 07-13-2027 LIPID SCREEN LIPID SCREEN [facility] Start: 08-09-2026 LIPID SCREEN LIPID SCREEN [facility] Start: 11-15-2025 DIABETES SCREEN DIABETES SCREEN [facility] [place] Start: 11-15-2025 Diabetes Screening Diabetes Screenin g [facility] Start: 07-21-2025 HPV TESTING HPV TESTING [facility] Start: 07-21-2025 PAP TESTING PAP TESTING [facility] Start: 07-12-2025 DIABETES SCREEN DIABETES SCREEN [facility] [place] Start: 08-09-2024 DIABETES SCREEN DIABETES SCREEN [facility] Start: 06-27-2023 COVID-19 VACCINE (#1) COVID-19 VACCI NE (#1) [facility] Immunizations Immunization Date Immunization Notes Care Provider Fa cility 05-17-2010 tetanus toxoid, redu korin diphtheria toxoid, and acellular pertussis vaccine, adsorbed Aly Davis MD Work Phone: [facility] Work Phone: Payers Date Payer Category Payer Private Health Insurance [employer] A ETNA CHOICE POS II [id number] 2019-Present [phone] [address] [place] [address] POS [id number] 2019 Private Health Insurance [id number] 2019 Private Health Insurance [id number] 1975 Unknown [id number] Unknown [id number] Social History Date Type Detail Facility Start: 03-08-2022 End: 01-23-2023 Tobacco smoking status NHIS Never smoked tobacco [facility] Start: 03-15-2021 End: 07-14-2022 Alcohol intake Current drinker of alcohol (finding) [facility] Start: 05-17-2010 History SDOH Alcohol Comment occasionally [facility] Start: 1975 Sex Assigned At Not on file C [facility] Start: 07-30-2021 End: 09-21-2021 Exposure to SARS-CoV-2 (event) Not sure [facility] Start: 1975 [facility]: 03-08-2022 End: 01-23-2023 Tobacco use and exposure Smokeless tobacco non-user [facility] Start: 05-26-2022 End: 09-17-2022 History of Social function [facility] Start: 05-26-2022 End: 09-17-2022 Tobacco use panel [facility] Adult Depression Screening Assessment 0 [facility] Start: 10-19-2021 Gender identity Identifies as female gender (finding) [facility] Start: 01-23-2023 Alcohol intake Lifetime non-d woodrow (finding) [facility] Clinical Notes 07-20-2021 to 01-23-2023 Regis Souza MD - 01/23/2023 11:45 AM EDTTelephone Encounter - Maximus Weston LPN - 11/16/2022 1:42 PM EDTTelephone Encounter - Eunice Elias PA-C - 11/16/2022 1:27 PM EDT Note Date & Type Note Facility 01-23-2023 History of Presen t illness Narrative CHIEF COMPLAINT: Thoracic back pain with pain into the shoulder blade and medial upper arm on the right. HISTORY OF PRESENT ILLNESS: The patient is a 47-year-old female who has had a several-month history of pain in the thoracic spine, as well as into her right shoulder blade and medial upper right arm. She does take Mobic occasionally, which has helped. She has not had severe pain. She has not done recent physical therapy. She did have a recent MRI scan and was referred here for further evaluation. REVIEW OF SYSTEMS: See HPI. Otherwise, negative. PHYSICAL EXAMINATION: The patient is alert and oriented. Cranial nerves are grossly intact. Strength is good in the upper and lower extremities. Sensation is grossly intact. RESULTS REVIEWED: The patient has an MRI scan that shows a left-sided disk osteophyte complex at T2-3 on the right with foraminal stenosis. 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 We discussed surgical and non-surgical options. She is going to start with a round of physical therapy. We discussed she could try gabapentin, but she would like to hold off on any additional medications for the time being. She does take Mobic occasionally, which does help. I we discussed if these are ineffective, she may be a candidate for a steroid injection. We discussed surgical option would be a right-sided facetectomy, instrumentation at T2-3. We discussed that surgery should always be a last resort. She will contact our clinic if the therapy is ineffective. All questions were answered. (DOC:[id number]) Regis Souza MD documented in this encounter [facility] 11-16-2022 Miscellaneous Notes Pt notified of Eunice's message. Pt verbalizes understanding. Advised pt she may see results via before Eunice sees them but office will contact her regarding results. Maximus Weston LPN Let her know that CBC showed elevated wbc which could be sign of infection, but I'm waiting for the cultures to return. I'm hoping I will have some of the results by tomorrow. Please be patient. I want to make sure I get treatment right. However if significantly worsening, don't be afraid to go to ER or come back in for reassessment. Xray has not been read yet. Pt calling in for test results. States she was unable to have a BM yesterday but she did this morning and brought that in . She is wondering about her x ray and CBC results. She saw her CMP in her MyChart. Pt states she wants to figure out what is going on because she still isn't feeling well. Please call pt when results finalized. documented in this encounter [facility] 11-15-2022 Note HNO ID: [id number] Author: Yocasta Sparks RT(R) Service: Radiology Author Type: Technologist Type: Progress Notes Filed: 11/15/2022 8:22 AM Note Text: Radiology Service Progress Note PATIENT NAME: Summer Massey DATE OF SERVICE: November 15, 2022 TIME: 8:12 AM PATIENT IDENTITY VERIFICATION COMPLETED USING TWO (2) IDENTIFIERS: Name and Date of confirmed by patient verbally. FALL SCREENING: Has the patient had 2 falls in the last year or 1 fall with injury or currently using an Ambulatory Assistive Device (Walker, Cane, Wheelchair, Crutches, etc.)? No PATIENT GENDER DATA: Female. status: : No status: NO. PATIENT RELEVANT IMPLANT DATA REVIEWED: Not Applicable RADIOLOGY DEPARTMENT: General X-ray: Exam(s) Completed: Abdomen X-Ray: Abdomen PERIPHERAL IV DATA: Not applicable SIGNED BY: RT Melody(R) November 15, 2022 8:12 AM [facility] 11-15-2022 Note HNO ID: [id number] Author: Elias, Eunice, PA-C Service: ? Author Type: Physician Clinical Statistical Programmer Type: Progress Notes Filed: 11/15/2022 11:12 AM Note Text: Chief Complaint Patient presents with: Diarrhea HPI Summer Massey is a 46 year old female who presents here today for Above Complaints.. Patient reports diarrhea since last Sunday. Patient states that she was dx with eosinophilic esophagitis in August. Was offered to start dupixent however patient chose to talk with function medicine instead. On 11/03 she started some natural enzymes. On 11/08 she ate at a food truck and later that night developed the diarrhea. Denies vomiting. Mild nausea however she has an appetite but hasn't been eating much. Has ate some chicken noodle soup. Past medical history, appointments, medications, allergies reviewed. Previous Medical History PAST MEDICAL HISTORY Diagnosis Date Anxiety and depression 09/15/2015 Attention deficit disorder of adult 05/17/2010 Constipation 09/15/2015 Eosinophilic esophagitis 09/17/[address] Diamond Fibrocystic breast disease 11/07/2013 Gall bladder polyp 10/06/2015 US: 09/2015, NO change US 03/2016 repeat US in a year. Liver hemangioma 10/19/2015 2 one MRI done 09/2015 Obesity, Class II, BMI 35-39.9 04/04/2019 Radial head fracture 10/2021 Right Seborrheic keratosis 11/07/2013 left abdomenal side Uterine fibroid 10/14/2020 Previous Surgical History PAST SURGICAL HISTORY Procedure Laterality Date HYSTERECTOMY 04/05/2021 uterus removed- both Ovaries remain Family History FAMILY HISTORY Problem Relation Age of Onset Hypertension Father Patient Allergies ALLERGIES No Known Allergies Current Medications Current Outpatient Medications on File Prior to Visit Medication Sig naproxen (NAPROSYN) 500 mg tablet Take 1 tablet by mouth twice daily as needed (for pain/inflammation). Take with food. cyclobenzaprine (FLEXERIL) 10 mg tablet Take 1 tablet by mouth three times daily as needed for muscle spasm. No current facility-administered medications on file prior to visit. Social History Social History Tobacco Use Smoking status: Never Smokeless tobacco: Never Vaping Use Vaping Use: Never used Substance Use Topics Alcohol use: Yes Comment: occasionally Drug use: No Review of Symptoms REVIEW OF SYSTEMS See hpi EXAM: BP 136/86 (BP Site: Left Arm, BP Position: Sitting, BP Cuff Size: Large Adult) Pulse 96 Temp 37.3 ?C (99.1 ?F) Resp 18 Wt 104.8 kg (231 lb) LMP 11/14/2018 BMI 38.03 kg/m? General Appearance: Well appearing, alert, in no acute distress, well-hydrated, well nourished.. Lungs: Lungs clear to auscultation. No wheezing, rhonchi, rales.. Heart: RRR without murmur, gallop, or rubs. No ectopy. Abdomen: BS hyperactive. Abdomen soft, non-tender. Bowel sounds normal. No masses, organomegaly. Health Maintenance List DTAP,TDAP,TD(2 - Td or Tdap) due on 06/27/2023 HEPATITIS B(1 of 3 - 3-dose series) due on 06/27/2023 COVID-19 VACCINE(1) due on 06/27/2023 MAMMOGRAM due on 06/12/2023 DIABETES SCREEN due on 07/12/2025 PAP TESTING due on 07/21/2025 HPV TESTING due on 07/21/2025 LIPID SCREEN due on 07/13/2027 COLORECTAL CANCER SCREENING due on 08/31/2027 HPV VACCINE Aged Out INFLUENZA Discontinued HEPATITIS C SCREENING Discontinued HIV SCREENING Discontinued Data reviewed N/a ASSESSMENT/PLAN: 1. Diarrhea, unspecified type - ICD9: 787.91, ICD10: R19.7 Check labs and stool cultures as below. Check xray today Okay to try pepto for symptom management. Zofran for prn nausea. - ENTERIC BACTERIAL PANEL BY PCR - C. DIFFICILE PCR - COMP METABOLIC PANEL - CBC + DIFF - FAT, FECAL QUAL - FECAL LACTOFERRIN/LEUKOCYTES - XR ABDOMEN 1V SUPINE Eunice Elias PA-C [facility] 11-15-2022 History of Presen t illness Narrative Chief Complaint Patient presents with: Diarrhea HPI Summer Massey is a 46 year old female who presents here today for Above Complaints.. Patient reports diarrhea since last Sunday. Patient states that she was dx with eosinophilic esophagitis in August. Was offered to start dupixent however patient chose to talk with function medicine instead. On 11/03 she started some natural enzymes. On 11/08 she ate at a food truck and later that night developed the diarrhea. Denies vomiting. Mild nausea however she has an appetite but hasn't been eating much. Has ate some chicken noodle soup. Past medical history, appointments, medications, allergies reviewed. Previous Medical History PAST MEDICAL HISTORY Diagnosis Date Anxiety and depression 09/15/2015 Attention deficit disorder of adult 05/17/2010 Constipation 09/15/2015 Eosinophilic esophagitis 09/17/[address] Diamond Fibrocystic breast disease 11/07/2013 Gall bladder polyp 10/06/2015 US: 09/2015, NO change US 03/2016 repeat US in a year. Liver hemangioma 10/19/2015 2 one MRI done 09/2015 Obesity, Class II, BMI 35-39.9 04/04/2019 Radial head fracture 10/2021 Right Seborrheic keratosis 11/07/2013 left abdomenal side Uterine fibroid 10/14/2020 Previous Surgical History PAST SURGICAL HISTORY Procedure Laterality Date HYSTERECTOMY 04/05/2021 uterus removed- both Ovaries remain Family History FAMILY HISTORY Problem Relation Age of Onset Hypertension Father Patient Allergies ALLERGIES No Known Allergies Current Medications Current Outpatient Medications on File Prior to Visit Medication Sig naproxen (NAPROSYN) 500 mg tablet Take 1 tablet by mouth twice daily as needed (for pain/inflammation). Take with food. cyclobenzaprine (FLEXERIL) 10 mg tablet Take 1 tablet by mouth three times daily as needed for muscle spasm. No current facility-administered medications on file prior to visit. Social History Social History Tobacco Use Smoking status: Never Smokeless tobacco: Never Vaping Use Vaping Use: Never used Substance Use Topics Alcohol use: Yes Comment: occasionally Drug use: No Review of Symptoms REVIEW OF SYSTEMS See hpi EXAM: BP 136/86 (BP Site: Left Arm, BP Position: Sitting, BP Cuff Size: Large Adult) Pulse 96 Temp 37.3 C (99.1 F) Resp 18 Wt 104.8 kg (231 lb) LMP 11/14/2018 BMI 38.03 kg/m General Appearance: Well appearing, alert, in no acute distress, well-hydrated, well nourished.. Lungs: Lungs clear to auscultation. No wheezing, rhonchi, rales.. Heart: RRR without murmur, gallop, or rubs. No ectopy. Abdomen: BS hyperactive. Abdomen soft, non-tender. Bowel sounds normal. No masses, organomegaly. Health Maintenance List DTAP,TDAP,TD(2 - Td or Tdap) due on 06/27/2023 HEPATITIS B(1 of 3 - 3-dose series) due on 06/27/2023 COVID-19 VACCINE(1) due on 06/27/2023 MAMMOGRAM due on 06/12/2023 DIABETES SCREEN due on 07/12/2025 PAP TESTING due on 07/21/2025 HPV TESTING due on 07/21/2025 LIPID SCREEN due on 07/13/2027 COLORECTAL CANCER SCREENING due on 08/31/2027 HPV VACCINE Aged Out INFLUENZA Discontinued HEPATITIS C SCREENING Discontinued HIV SCREENING Discontinued Data reviewed N/a ASSESSMENT/PLAN: 1. Diarrhea, unspecified type - ICD9: 787.91, ICD10: R19.7 Check labs and stool cultures as below. Check xray today Okay to try pepto for symptom management. Zofran for prn nausea. - ENTERIC BACTERIAL PANEL BY PCR - C. DIFFICILE PCR - COMP METABOLIC PANEL - CBC + DIFF - FAT, FECAL QUAL - FECAL LACTOFERRIN/LEUKOCYTES - XR ABDOMEN 1V SUPINE Eunice Elias PA-C documented in this encounter [facility] 11-14-2022 Miscellaneous Notes Patient call in for loose water stools since last Sunday11/08/2022. Patient has nausea where she cannot eat. Patient recently diagnosed with eosinophilic esophagitis. Patient states that she has been taking enzymes to re-heal her mucosal lining. Patient states that these have been prescribed to her by her functional doctor, Breanna Winkler. Patient states that she started taking enzymes on 11/03/2022 till 11/10/2022. Patient was taking STM enzyme before she ate and then after she ate she took PACK TRAIN DRIVER and ELX- R Enzyme. Patient states that these enzymes help to digest since eosinophilic esophagitis makes it so that she cannot digest fats and carbohydrates. Nurse Triage assessment completed with protocol recommending for disposition of See PCP in 24 hours. Patient has appointment with Eunice tomorrow morning 11/15/2022. Care advice reviewed with patient, patient stated understanding. Patient advised to contact office or seek evaluation in urgent care or ER if symptoms persist or gets worse. Reason for Disposition [1] SEVERE diarrhea (e.g., 7 or more times / day more than normal) AND [2] present > 24 hours (1 day) Answer Assessment - Initial Assessment Questions 1. NAUSEA SEVERITY: Feels like she is hungry all the time but not eating. 2. ONSET: Last Sunday 3. VOMITING: Denies Vomiting 4. RECURRENT SYMPTOM: Patient states that she has never had nausea before. 5. CAUSE: Unsure; Patient recently diagnosed with Auto Immune Disease, eosinophilic esophagitis. Answer Assessment - Initial Assessment Questions 1. DIARRHEA SEVERITY: Moderate to Severe; Did take Kaopectate yesterday which did form stools, however caused dark stool and patient continued with nausea. 2. ONSET: Since Last Sunday 3. BM CONSISTENCY: How loose or watery is the diarrhea? Loose and Watery 4. VOMITING: Denies 5. ABDOMINAL PAIN: Denies Abdominal Pain 6. ABDOMINAL PAIN SEVERITY: Denies abdominal pain 7. ORAL INTAKE: Patient has been drinking water but has not felt like eating. 8. HYDRATION: Patient denies signs of dehydration 9. EXPOSURE: Denies 10. ANTIBIOTIC USE: Denies antibiotic use 11. OTHER SYMPTOMS: Nausea; Denies fever and blood in stools Protocols used: [id number], [id number] documented in this encounter [facility] 09-15-2022 Note HNO ID: [id number] Author: Samara Jessica MA Service: ? Author Type: Apple Picker Type: Progress Notes Filed: 09/17/2022 5:24 PM Note Text: Scan on 09/14/2022 3:59 PM by External Provider, PACarylC: Consultation - GI Samara Jessica MA [facility] 08-30-2022 Note HNO ID: [id number] Author: Samara Jessica MA Service: ? Author Type: Apple Picker Type: Progress Notes Filed: 08/31/2022 8:53 AM Note Text: Scan on 08/30/2022 9:41 AM by External Provider, PACarylC: Consultation - GI Scan on 08/30/2022 11:14 AM by External Provider, PACarylC: EGD Scan on 08/30/2022 11:15 AM by External Provider, BELÉNC: EGD Scan on 08/30/2022 11:20 AM by External Provider, JACKIE: Colonoscopy Samara Jessica MA [facility] 07-28-2022 Miscellaneous Notes Patient notified of results and provider's instructions. Patient verbalizes understanding. Abbie Earl RN Call placed to patient with no answer and voicemail box full. Will need to try again later. Yahaira Pop RN Let patient know that US shows fatty liver. This can lead to liver cirrhosis, so need to cont to work on weight loss. The gallbladder polyp and liver hemangioma are all stable compared to previous scans. Thanks. Eunice Elias PA-C documented in this encounter [facility] 07-26-2022 Note HNO ID: [id number] Author: Linda Cortes RDMS Service: ? Author Type: Fruit Farmworker Type: Progress Notes Filed: 07/26/2022 7:39 AM Note Text: Radiology Service Progress Note PATIENT NAME: Summer Massey DATE OF SERVICE: July 26, 2022 TIME: 7:38 AM PATIENT IDENTITY VERIFICATION COMPLETED USING TWO (2) IDENTIFIERS: Name and Date of confirmed by patient verbally. FALL SCREENING: Has the patient had 2 falls in the last year or 1 fall with injury or currently using an Ambulatory Assistive Device (Walker, Cane, Wheelchair, Crutches, etc.)? No PATIENT GENDER DATA: Female. status: : No status: NO. PATIENT RELEVANT IMPLANT DATA REVIEWED: Not Applicable RADIOLOGY DEPARTMENT: Ultrasound PERIPHERAL IV DATA: Not applicable SIGNED BY: Linda Cortes RDMS July 26, 2022 7:38 AM [facility] 07-26-2022 History of Presen t illness Narrative Radiology Service Progress Note PATIENT NAME: Summer Massey DATE OF SERVICE: July 26, 2022 TIME: 7:38 AM PATIENT IDENTITY VERIFICATION COMPLETED USING TWO (2) IDENTIFIERS: Name and Date of confirmed by patient verbally. FALL SCREENING: Has the patient had 2 falls in the last year or 1 fall with injury or currently using an Ambulatory Assistive Device (Walker, Cane, Wheelchair, Crutches, etc.)? No PATIENT GENDER DATA: Female. status: : No status: NO. PATIENT RELEVANT IMPLANT DATA REVIEWED: Not Applicable RADIOLOGY DEPARTMENT: Ultrasound PERIPHERAL IV DATA: Not applicable SIGNED BY: Linda Cortes RDMS July 26, 2022 7:38 AM documented in this encounter [facility] 07-14-2022 Note HNO ID: [id number] Author: Eunice Elias PA-C Service: ? Author Type: Physician Clinical Statistical Programmer Type: Progress Notes Filed: 07/14/2022 8:17 AM Note Text: Chief Complaint Patient presents with: Pain: Pain in right shoulder AND neck HPI Summer Massey is a 46 year old female who presents here today for Above Complaints.. Patient has been having right shoulder/neck pain. She has been going to massage therapist and chiropractor which has been helping some. They suggested possible muscle relaxer. Pain does radiate into R arm and mid back. Has had some n/t into arm as well Past medical history, appointments, medications, allergies reviewed. Previous Medical History PAST MEDICAL HISTORY Diagnosis Date Anxiety and depression 09/15/2015 Attention deficit disorder of adult 05/17/2010 Constipation 09/15/2015 Fibrocystic breast disease 11/07/2013 Gall bladder polyp 10/06/2015 US: 09/2015, NO change US 03/2016 repeat US in a year. Liver hemangioma 10/19/2015 2 one MRI done 09/2015 Obesity, Class II, BMI 35-39.9 04/04/2019 Radial head fracture 10/2021 Right Seborrheic keratosis 11/07/2013 left abdomenal side Uterine fibroid 10/14/2020 Previous Surgical History PAST SURGICAL HISTORY Procedure Laterality Date HYSTERECTOMY 04/05/2021 uterus removed- both Ovaries remain Family History FAMILY HISTORY Problem Relation Age of Onset Hypertension Father Patient Allergies ALLERGIES No Known Allergies Current Medications No current outpatient medications on file prior to visit. No current facility-administered medications on file prior to visit. Social History Social History Tobacco Use Smoking status: Never Smokeless tobacco: Never Vaping Use Vaping Use: Never used Substance Use Topics Alcohol use: Yes Comment: occasionally Drug use: No Review of Symptoms REVIEW OF SYSTEMS See hpi EXAM: BP 130/90 Pulse 86 Resp 18 Wt 105.2 kg (232 lb) LMP 11/14/2018 SpO2 97% BMI 38.19 kg/m? BP 124/83 Pulse 86 Resp 18 Wt 105.2 kg (232 lb) LMP 11/14/2018 SpO2 97% BMI 38.19 kg/m? General Appearance: Well appearing, alert, in no acute distress, well-hydrated, well nourished.. Musculoskeletal: no pain to palp. FROM. Pain noted with forward flexion of neck. Shoulder exam wnl. . Health Maintenance List COLORECTAL CANCER SCREENING Never done DTAP,TDAP,TD(2 - Td or Tdap) due on 06/27/2023 HEPATITIS B(1 of 3 - 3-dose series) due on 06/27/2023 COVID-19 VACCINE(1) due on 06/27/2023 MAMMOGRAM due on 06/12/2023 DIABETES SCREEN due on 07/12/2025 PAP TESTING due on 07/21/2025 HPV TESTING due on 07/21/2025 LIPID SCREEN due on 07/13/2027 INFLUENZA Discontinued HEPATITIS C SCREENING Discontinued HIV SCREENING Discontinued Data reviewed ASSESSMENT/PLAN: 1. Strain of neck muscle, initial encounter - ICD9: 847.0, ICD10: S16.1XXA Start naproxen bid with food. Prn flexeril Continue massage/chiro. Follow up prn. Eunice Elias PA-C [facility] 07-14-2022 History of Presen t illness Narrative Chief Complaint Patient presents with: Pain: Pain in right shoulder & neck HPI Summer Massey is a 46 year old female who presents here today for Above Complaints.. Patient has been having right shoulder/neck pain. She has been going to massage therapist and chiropractor which has been helping some. They suggested possible muscle relaxer. Pain does radiate into R arm and mid back. Has had some n/t into arm as well Past medical history, appointments, medications, allergies reviewed. Previous Medical History PAST MEDICAL HISTORY Diagnosis Date Anxiety and depression 09/15/2015 Attention deficit disorder of adult 05/17/2010 Constipation 09/15/2015 Fibrocystic breast disease 11/07/2013 Gall bladder polyp 10/06/2015 US: 09/2015, NO change US 03/2016 repeat US in a year. Liver hemangioma 10/19/2015 2 one MRI done 09/2015 Obesity, Class II, BMI 35-39.9 04/04/2019 Radial head fracture 10/2021 Right Seborrheic keratosis 11/07/2013 left abdomenal side Uterine fibroid 10/14/2020 Previous Surgical History PAST SURGICAL HISTORY Procedure Laterality Date HYSTERECTOMY 04/05/2021 uterus removed- both Ovaries remain Family History FAMILY HISTORY Problem Relation Age of Onset Hypertension Father Patient Allergies ALLERGIES No Known Allergies Current Medications No current outpatient medications on file prior to visit. No current facility-administered medications on file prior to visit. Social History Social History Tobacco Use Smoking status: Never Smokeless tobacco: Never Vaping Use Vaping Use: Never used Substance Use Topics Alcohol use: Yes Comment: occasionally Drug use: No Review of Symptoms REVIEW OF SYSTEMS See hpi EXAM: BP 130/90 Pulse 86 Resp 18 Wt 105.2 kg (232 lb) LMP 11/14/2018 SpO2 97% BMI 38.19 kg/m BP 124/83 Pulse 86 Resp 18 Wt 105.2 kg (232 lb) LMP 11/14/2018 SpO2 97% BMI 38.19 kg/m General Appearance: Well appearing, alert, in no acute distress, well-hydrated, well nourished.. Musculoskeletal: no pain to palp. FROM. Pain noted with forward flexion of neck. Shoulder exam wnl. . Health Maintenance List COLORECTAL CANCER SCREENING Never done DTAP,TDAP,TD(2 - Td or Tdap) due on 06/27/2023 HEPATITIS B(1 of 3 - 3-dose series) due on 06/27/2023 COVID-19 VACCINE(1) due on 06/27/2023 MAMMOGRAM due on 06/12/2023 DIABETES SCREEN due on 07/12/2025 PAP TESTING due on 07/21/2025 HPV TESTING due on 07/21/2025 LIPID SCREEN due on 07/13/2027 INFLUENZA Discontinued HEPATITIS C SCREENING Discontinued HIV SCREENING Discontinued Data reviewed ASSESSMENT/PLAN: 1. Strain of neck muscle, initial encounter - ICD9: 847.0, ICD10: S16.1XXA Start naproxen bid with food. Prn flexeril Continue massage/chiro. Follow up prn. Eunice Elias PA-C documented in this encounter [facility] 07-13-2022 Miscellaneous Notes Pt made appt on 07/14/22 with Hoa Elias. Roselyn Diallo LPN She would need to be seen for this issue for us to treat. Eunice Elias PA-C Pt was notified of results & instructions. Pt states she has right shoulder pain, states she has been seeing massotherapist & chiropractor 1X weekly X 3 wks. Pt reports she has inflammation in the phomboid area that is improving however the therapist thinks pt would benefit from a muscle relaxer. Offered pt an appt to be seen but pt asked me to ask PA if she would call in without pt being seen? Please advise. Cait Mireles LPN Let patient know that her labs all look okay. LDL has improved. Continue to work on diet. documented in this encounter [facility] 06-27-2022 Note HNO ID: [id number] Author: Cait Mireles LPN Service: ? Author Type: ? Type: Progress Notes Filed: 06/27/2022 2:29 PM Note Text: Repeat BP Check: 135/81 P68 #1 124/86 P65 #2 124/72 P68 #3 125/75 P69 #4 125/77 P67 #5 118/71 P66 #6 BP Kwame Average: 123/76 Pulse: 67 Cait Mireles ANODIC TREATER [facility] 06-27-2022 Note HNO ID: [id number] Author: Eunice Elias PA-C Service: ? Author Type: Physician Clinical Statistical Programmer Type: Progress Notes Filed: 06/27/2022 2:29 PM Note Text: Chief Complaint Patient presents with: Yearly Exam HPI Summer Massey is a 46 year old female who presents here today for physical. Patient with hx of anxiety/depression, obesity, adhd, constipation and those as below. Patient overall doing well. Last 6 Encounter BP Readings: Date: BP: 06/27/2022 124/92 03/08/2022 122/82 09/21/2021 136/86 08/23/2021 127/81[bp kwame recheck[ 08/09/2021 129/83[bp kwame average[ 03/15/2021 128/88 Past medical history, appointments, medications, allergies reviewed. Previous Medical History PAST MEDICAL HISTORY Diagnosis Date Anxiety and depression 09/15/2015 Attention deficit disorder of adult 05/17/2010 Constipation 09/15/2015 Fibrocystic breast disease 11/07/2013 Gall bladder polyp 10/06/2015 US: 09/2015, NO change US 03/2016 repeat US in a year. Liver hemangioma 10/19/2015 2 one MRI done 09/2015 Obesity, Class II, BMI 35-39.9 04/04/2019 Radial head fracture 10/2021 Right Seborrheic keratosis 11/07/2013 left abdomenal side Uterine fibroid 10/14/2020 Previous Surgical History PAST SURGICAL HISTORY Procedure Laterality Date HYSTERECTOMY 04/05/2021 uterus removed- both Ovaries remain Family History FAMILY HISTORY Problem Relation Age of Onset Hypertension Father Patient Allergies ALLERGIES No Known Allergies Current Medications No current outpatient medications on file prior to visit. No current facility-administered medications on file prior to visit. Social History Social History Tobacco Use Smoking status: Never Smokeless tobacco: Never Vaping Use Vaping Use: Never used Substance Use Topics Alcohol use: Yes Comment: occasionally Drug use: No Review of Symptoms REVIEW OF SYSTEMS GENERAL: No weight loss, malaise or fevers HEENT: No changes in hearing or vision, no nose bleeds or other nasal problems NECK: Negative for lumps, goiter, pain and significant neck swelling RESPIRATORY: Negative for cough, hemoptysis, wheezing, COPD, dyspnea or shortness of breath CARDIOVASCULAR: Negative for chest pain, leg swelling, hypertension, CHF or palpitations GI: seeing gastro for some GERD symptoms and constipation : No history of dysuria, frequency or incontinence MUSCULOSKELETAL: Negative for joint pain or swelling, back pain or muscle pain SKIN: has cyst on her head and a mole on her leg. PSYCH: Negative for sleep disturbance, mood disorder and recent psychosocial stressors HEMATOLOGY/LYMPHOLOGY: Negative for prolonged bleeding, bruising easily or swollen nodes ENDOCRINE: Negative for cold or heat intolerance, polyuria, polydipsia and goiter NEURO: No history of headaches, syncope, paralysis, seizures or tremors EXAM: BP 124/92 Pulse 77 Resp 16 Ht 166 cm (5' 5.35 ) Wt 106.6 kg (235 lb) LMP 11/14/2018 SpO2 97% BMI 38.68 kg/m? BP 123/71 Pulse 67 Resp 16 Ht 166 cm (5' 5.35 ) Wt 106.6 kg (235 lb) LMP 11/14/2018 SpO2 97% BMI 38.68 kg/m? General Appearance: Well appearing, alert, in no acute distress, well-hydrated, well nourished.. obese Skin: Skin color, texture, turgor normal, no suspicious rashes or lesions. Head: Normocephalic, no masses, lesions, tenderness or abnormalities. Eyes: Anicteric sclera. Pupils are equally round and reactive to light. Extraocular movements are intact. . Ears: External ears normal, canals clear, TMs pearly leblanc. Neck: Supple, no adenopathy; thyroid symmetric, normal size, no bruits. Lungs: Lungs clear to auscultation. No wheezing, rhonchi, rales.. Heart: RRR without murmur, gallop, or rubs. No ectopy. Abdomen: Normal abdominal exam, Abdomen soft, non-tender. Bowel sounds normal. No masses, organomegaly. Extremities: No deformities, edema, skin discoloration, clubbing or cyanosis. Good capillary refill. . Peripheral Pulses: Normal. Neurologic: Gait normal. Reflexes normal and symmetric. Sensation grossly intact.. Health Maintenance List COLORECTAL CANCER SCREENING Never done DTAP,TDAP,TD(2 - Td or Tdap) due on 06/27/2023 HEPATITIS B(1 of 3 - 3-dose series) due on 06/27/2023 COVID-19 VACCINE(1) due on 06/27/2023 MAMMOGRAM due on 06/12/2023 DIABETES SCREEN due on 08/09/2024 PAP TESTING due on 07/21/2025 HPV TESTING due on 07/21/2025 LIPID SCREEN due on 08/09/2026 INFLUENZA Discontinued HEPATITIS C SCREENING Discontinued HIV SCREENING Discontinued Data reviewed N/a ASSESSMENT/PLAN: 1. Well adult exam - ICD9: V70.0, ICD10: Z00.00 (primary diagnosis) - Counseled on healthy diet and regular exercise - Calcium intake with supplements or by diet of 1000 mg/day for under 50, 0988-8532 mg/day for 50+ - Follow up for annual exam in one year - CONSULT TO DERMATOLOGY 2. Anxiety and depression - ICD9: 300.00, 311, ICD10: F41.9, F32.A stable 3. O (more content not included)... [facility] 06-27-2022 Miscellaneous Notes Referral to Stella Ruiz along with pt's insurance info, last OV notes & demographics faxed to [phone] per pt's request. Cait Mireles LPN documented in this encounter [facility] 06-27-2022 History of Presen t illness Narrative Repeat BP Check: 135/81 P68 #1 124/86 P65 #2 124/72 P68 #3 125/75 P69 #4 125/77 P67 #5 118/71 P66 #6 BP Kwame Average: 123/76 Pulse: 67 Cait Mireles LPN Chief Complaint Patient presents with: Yearly Exam HPI Summer Massey is a 46 year old female who presents here today for physical. Patient with hx of anxiety/depression, obesity, adhd, constipation and those as below. Patient overall doing well. Last 6 Encounter BP Readings: Date: BP: 06/27/2022 124/92 03/08/2022 122/82 09/21/2021 136/86 08/23/2021 127/81[bp kwame recheck[ 08/09/2021 129/83[bp kwame average[ 03/15/2021 128/88 Past medical history, appointments, medications, allergies reviewed. Previous Medical History PAST MEDICAL HISTORY Diagnosis Date Anxiety and depression 09/15/2015 Attention deficit disorder of adult 05/17/2010 Constipation 09/15/2015 Fibrocystic breast disease 11/07/2013 Gall bladder polyp 10/06/2015 US: 09/2015, NO change US 03/2016 repeat US in a year. Liver hemangioma 10/19/2015 2 one MRI done 09/2015 Obesity, Class II, BMI 35-39.9 04/04/2019 Radial head fracture 10/2021 Right Seborrheic keratosis 11/07/2013 left abdomenal side Uterine fibroid 10/14/2020 Previous Surgical History PAST SURGICAL HISTORY Procedure Laterality Date HYSTERECTOMY 04/05/2021 uterus removed- both Ovaries remain Family History FAMILY HISTORY Problem Relation Age of Onset Hypertension Father Patient Allergies ALLERGIES No Known Allergies Current Medications No current outpatient medications on file prior to visit. No current facility-administered medications on file prior to visit. Social History Social History Tobacco Use Smoking status: Never Smokeless tobacco: Never Vaping Use Vaping Use: Never used Substance Use Topics Alcohol use: Yes Comment: occasionally Drug use: No Review of Symptoms REVIEW OF SYSTEMS GENERAL: No weight loss, malaise or fevers HEENT: No changes in hearing or vision, no nose bleeds or other nasal problems NECK: Negative for lumps, goiter, pain and significant neck swelling RESPIRATORY: Negative for cough, hemoptysis, wheezing, COPD, dyspnea or shortness of breath CARDIOVASCULAR: Negative for chest pain, leg swelling, hypertension, CHF or palpitations GI: seeing gastro for some GERD symptoms and constipation : No history of dysuria, frequency or incontinence MUSCULOSKELETAL: Negative for joint pain or swelling, back pain or muscle pain SKIN: has cyst on her head and a mole on her leg. PSYCH: Negative for sleep disturbance, mood disorder and recent psychosocial stressors HEMATOLOGY/LYMPHOLOGY: Negative for prolonged bleeding, bruising easily or swollen nodes ENDOCRINE: Negative for cold or heat intolerance, polyuria, polydipsia and goiter NEURO: No history of headaches, syncope, paralysis, seizures or tremors EXAM: BP 124/92 Pulse 77 Resp 16 Ht 166 cm (5' 5.35 ) Wt 106.6 kg (235 lb) LMP 11/14/2018 SpO2 97% BMI 38.68 kg/m BP 123/71 Pulse 67 Resp 16 Ht 166 cm (5' 5.35 ) Wt 106.6 kg (235 lb) LMP 11/14/2018 SpO2 97% BMI 38.68 kg/m General Appearance: Well appearing, alert, in no acute distress, well-hydrated, well nourished.. obese Skin: Skin color, texture, turgor normal, no suspicious rashes or lesions. Head: Normocephalic, no masses, lesions, tenderness or abnormalities. Eyes: Anicteric sclera. Pupils are equally round and reactive to light. Extraocular movements are intact. . Ears: External ears normal, canals clear, TMs pearly leblanc. Neck: Supple, no adenopathy; thyroid symmetric, normal size, no bruits. Lungs: Lungs clear to auscultation. No wheezing, rhonchi, rales.. Heart: RRR without murmur, gallop, or rubs. No ectopy. Abdomen: Normal abdominal exam, Abdomen soft, non-tender. Bowel sounds normal. No masses, organomegaly. Extremities: No deformities, edema, skin discoloration, clubbing or cyanosis. Good capillary refill. . Peripheral Pulses: Normal. Neurologic: Gait normal. Reflexes normal and symmetric. Sensation grossly intact.. Health Maintenance List COLORECTAL CANCER SCREENING Never done DTAP,TDAP,TD(2 - Td or Tdap) due on 06/27/2023 HEPATITIS B(1 of 3 - 3-dose series) due on 06/27/2023 COVID-19 VACCINE(1) due on 06/27/2023 MAMMOGRAM due on 06/12/2023 DIABETES SCREEN due on 08/09/2024 PAP TESTING due on 07/21/2025 HPV TESTING due on 07/21/2025 LIPID SCREEN due on 08/09/2026 INFLUENZA Discontinued HEPATITIS C SCREENING Discontinued HIV SCREENING Discontinued Data reviewed N/a ASSESSMENT/PLAN: 1. Well adult exam - ICD9: V70.0, ICD10: Z00.00 (primary diagnosis) - Counseled on healthy diet and regular exercise - Calcium intake with supplements or by diet of 1000 mg/day for under 50, 7784-4390 mg/day for 50+ - Follow up for annual exam in one year - CONSULT TO DERMATOLOGY 2. Anxiety and depression - ICD9: 300.00, 311, ICD10: F41.9, F32.A stable 3. Obesity, Class II, BMI 35-39.9 - ICD9: 278.00, ICD10: E66.9 Weight decreasing - Behavioral intervention 4. Constipation, unspecified constipation type - ICD9: 564.00, ICD10: K59.00 Patient is seeing gastro - BASIC METABOLIC PNL - TSH BLD 5. Screening for diabetes mellitus - ICD9: V77.1, ICD10: Z13.1 6. Vitamin D deficiency - ICD9: 268.9, ICD10: E55.9 - VITAMIN D 25 HYDROXY 7. Encounter for screening for cardiovascular disorders - ICD9: V81.2, ICD10: Z13.6 - LIPID PANEL, NONFASTING 8. Encounter for screening for diabetes mellitus - ICD9: V77.1, ICD10: Z13.1 - HGB A1C 9. Iron deficiency anemia, unspecified iron deficiency anemia type - ICD9: 280.9, ICD10: D50.9 - CBC + DIFF 10. Gall bladder polyp - ICD9: 575.6, ICD10: K82.4 Check: - US ABD RT UPPER QUADRANT 11. Atypical nevus - ICD9: 216.9, ICD10: D22.9 Will set up with derm given multiple cysts/moles/sks - CONSULT TO DERMATOLOGY 13. GERD without esophagitis - ICD9: 530.81, ICD10: K21.9 Cont with gastro Eunice Elias PA-C documented in this encounter [facility] 06-26-2022 Note HNO ID: [id number] Author: Samara Jessica MA Service: ? Author Type: Apple Picker Type: Progress Notes Filed: 06/26/2022 8:23 PM Note Text: Scan on 06/23/2022 4:14 PM by External Provider: Consultation Samara Jessica MA [facility] 06-26-2022 History of Presen t illness Narrative Scan on 06/23/2022 4:14 PM by External Provider: Consultation Samara Jessica MA documented in this encounter [facility] 03-08-2022 Note HNO ID: [id number] Author: Aly Coronel APRN.[employer] Service: ? Author Type: Nurse Practitioner Type: Progress Notes Filed: 03/08/2022 7:54 PM Note Text: Subjective HPI Nontoxic-appearing female presents urgent care chief complaint tick bite. Duration of symptoms unknown. Associated symptom redness and pain at site of tick bite. Patient states she was raking leaves on Sunday. Presents today due to removing an engorged tick on her back. Does not know how long tick was attached. Denies any current symptoms. Denies any fever body aches chills nausea vomiting abdominal pain joint pain or rashes. Past medical history prescription medication use allergies reviewed. Denies chance of . .Patient presents with: tick bite: Tick bite on back-found it today PAST MEDICAL HISTORY Diagnosis Date Anxiety and depression 09/15/2015 Attention deficit disorder of adult 05/17/2010 Constipation 09/15/2015 Fibrocystic breast disease 11/07/2013 Gall bladder polyp 10/06/2015 US: 09/2015, NO change US 03/2016 repeat US in a year. Liver hemangioma 10/19/2015 2 one MRI done 09/2015 Obesity, Class II, BMI 35-39.9 04/04/2019 Seborrheic keratosis 11/07/2013 left abdomenal side Uterine fibroid 10/14/2020 PAST SURGICAL HISTORY Procedure Laterality Date HYSTERECTOMY 04/05/2021 uterus removed- both Ovaries remain ALLERGIES Patient has no known allergies. MEDICATIONS dextroamphetamine-amphetamine (ADDERALL) 10 mg tablet Take 1 tablet by mouth once daily AND 0.5 tablets every evening. Do all this for 30 days. FAMILY HISTORY Problem Relation Age of Onset Hypertension Father Social History Tobacco Use Smoking status: Never Smokeless tobacco: Never Vaping Use Vaping Use: Never used Substance Use Topics Alcohol use: Yes Comment: occasionally Drug use: No BP 122/82 Pulse 84 Temp 36.7 ?C (98.1 ?F) (Tympanic) Resp 18 Wt 109 kg (240 lb 6.4 oz) LMP 11/14/2018 SpO2 98% BMI 39.81 kg/m? Review of Systems Constitutional: Negative for chills, fever and malaise/fatigue. HENT: Negative for congestion, ear discharge, ear pain, sinus pain and sore throat. Eyes: Negative for blurred vision, pain, discharge and redness. Respiratory: Negative for cough, hemoptysis, sputum production, shortness of breath, wheezing and stridor. Cardiovascular: Negative for chest pain. Gastrointestinal: Negative for abdominal pain, diarrhea, nausea and vomiting. Musculoskeletal: Negative for myalgias. Skin: Negative for itching and rash. Neurological: Negative for dizziness and headaches. Objective Physical Exam Constitutional: General: She is not in acute distress. Appearance: She is not diaphoretic. HENT: Head: Normocephalic. Cardiovascular: Rate and Rhythm: Normal rate and regular rhythm. Heart sounds: Normal heart sounds. Pulmonary: Effort: Pulmonary effort is normal. No tachypnea, accessory muscle usage or respiratory distress. Breath sounds: Normal breath sounds. No stridor. Skin: General: Skin is warm and dry. Comments: Area representing insect bite noted highlighted area of left back. No evidence of foreign body. No drainage. Neurological: Mental Status: She is alert and oriented to person, place, and time. ASSESSMENT/PLAN: 1. Tick bite of back, initial encounter - ICD9: 911.4, E906.4, ICD10: S30.860A, W57.XXXA Patient diagnosed with tick bite. Due to unknown time of attachment patient will be placed on one-time dose of prophylactic doxycycline. Red flags reevaluation discussed. Patient was educated on supportive therapies. Patient will follow up with primary care provider as needed. Patient was instructed to immediately proceed to emergency room for any new, worsening, or symptoms lasting longer than anticipated. The patient's clinical presentation is otherwise unremarkable at this time. Based on exam and clinical finding, the patient is stable for discharge. Plan of care was discussed with patient. Patient verbalizes understanding and agrees to plan of care. This note was generated using Fisoc software. It may contain errors in wording, punctuation, or spelling. Aly Coronel APRN.[facility] 03-08-2022 History of Presen t illness Narrative Images from the original note were not included. Subjective HPI Nontoxic-appearing female presents urgent care chief complaint tick bite. Duration of symptoms unknown. Associated symptom redness and pain at site of tick bite. Patient states she was raking leaves on Sunday. Presents today due to removing an engorged tick on her back. Does not know how long tick was attached. Denies any current symptoms. Denies any fever body aches chills nausea vomiting abdominal pain joint pain or rashes. Past medical history prescription medication use allergies reviewed. Denies chance of . .Patient presents with: tick bite: Tick bite on back-found it today PAST MEDICAL HISTORY Diagnosis Date Anxiety and depression 09/15/2015 Attention deficit disorder of adult 05/17/2010 Constipation 09/15/2015 Fibrocystic breast disease 11/07/2013 Gall bladder polyp 10/06/2015 US: 09/2015, NO change US 03/2016 repeat US in a year. Liver hemangioma 10/19/2015 2 one MRI done 09/2015 Obesity, Class II, BMI 35-39.9 04/04/2019 Seborrheic keratosis 11/07/2013 left abdomenal side Uterine fibroid 10/14/2020 PAST SURGICAL HISTORY Procedure Laterality Date HYSTERECTOMY 04/05/2021 uterus removed- both Ovaries remain ALLERGIES Patient has no known allergies. MEDICATIONS dextroamphetamine-amphetamine (ADDERALL) 10 mg tablet Take 1 tablet by mouth once daily AND 0.5 tablets every evening. Do all this for 30 days. FAMILY HISTORY Problem Relation Age of Onset Hypertension Father Social History Tobacco Use Smoking status: Never Smokeless tobacco: Never Vaping Use Vaping Use: Never used Substance Use Topics Alcohol use: Yes Comment: occasionally Drug use: No BP 122/82 Pulse 84 Temp 36.7 C (98.1 F) (Tympanic) Resp 18 Wt 109 kg (240 lb 6.4 oz) LMP 11/14/2018 SpO2 98% BMI 39.81 kg/m Review of Systems Constitutional: Negative for chills, fever and malaise/fatigue. HENT: Negative for congestion, ear discharge, ear pain, sinus pain and sore throat. Eyes: Negative for blurred vision, pain, discharge and redness. Respiratory: Negative for cough, hemoptysis, sputum production, shortness of breath, wheezing and stridor. Cardiovascular: Negative for chest pain. Gastrointestinal: Negative for abdominal pain, diarrhea, nausea and vomiting. Musculoskeletal: Negative for myalgias. Skin: Negative for itching and rash. Neurological: Negative for dizziness and headaches. Objective Physical Exam Constitutional: General: She is not in acute distress. Appearance: She is not diaphoretic. HENT: Head: Normocephalic. Cardiovascular: Rate and Rhythm: Normal rate and regular rhythm. Heart sounds: Normal heart sounds. Pulmonary: Effort: Pulmonary effort is normal. No tachypnea, accessory muscle usage or respiratory distress. Breath sounds: Normal breath sounds. No stridor. Skin: General: Skin is warm and dry. Comments: Area representing insect bite noted highlighted area of left back. No evidence of foreign body. No drainage. Neurological: Mental Status: She is alert and oriented to person, place, and time. ASSESSMENT/PLAN: 1. Tick bite of back, initial encounter - ICD9: 911.4, E906.4, ICD10: S30.860A, W57.XXXA Patient diagnosed with tick bite. Due to unknown time of attachment patient will be placed on one-time dose of prophylactic doxycycline. Red flags reevaluation discussed. Patient was educated on supportive therapies. Patient will follow up with primary care provider as needed. Patient was instructed to immediately proceed to emergency room for any new, worsening, or symptoms lasting longer than anticipated. The patient's clinical presentation is otherwise unremarkable at this time. Based on exam and clinical finding, the patient is stable for discharge. Plan of care was discussed with patient. Patient verbalizes understanding and agrees to plan of care. This note was generated using Fisoc software. It may contain errors in wording, punctuation, or spelling. Aly Coronel APRN.[facility] documented in this encounter [facility] 10-19-2021 Instructions Eunice Elias PA-C - 10/19/2021 7:39 AM EDT Please contact me in 1 month on how doses are doing for you. If changes needed, I recommend you schedule a visit so we can discuss. Otherwise follow up in office in 4 months for med check. documented in this encounter [facility] 06-22-2022 History of Presen t illness Narrative DISTANCE [facility] VISIT Audio only was used for evaluation of this patient. Patient consents to visit. Patient's location: [place] Chief Complaint Patient presents with: Follow Up HPI Summer Massey is a 45 year old female who presents here today via phone for recheck. Patient was not able to connect via [employer], she agreed to phone visit. Patient was seen 1 month ago for adhd follow up. We increased morning dose to 10mg and kept afternoon at 5mg. However she had some trouble getting it at pharmacy and did not start this dose yet. Asking if we can send again so she can try this dosing. No other concerns. Past medical history, appointments, medications, allergies reviewed. Previous Medical History PAST MEDICAL HISTORY Diagnosis Date Anxiety and depression 09/15/2015 Attention deficit disorder of adult 05/17/2010 Constipation 09/15/2015 Fibrocystic breast disease 11/07/2013 Gall bladder polyp 10/06/2015 US: 09/2015, NO change US 03/2016 repeat US in a year. Liver hemangioma 10/19/2015 2 one MRI done 09/2015 Obesity, Class II, BMI 35-39.9 04/04/2019 Seborrheic keratosis 11/07/2013 left abdomenal side Uterine fibroid 10/14/2020 Previous Surgical History PAST SURGICAL HISTORY Procedure Laterality Date HYSTERECTOMY 04/05/2021 uterus removed- both Ovaries remain Family History FAMILY HISTORY Problem Relation Age of Onset Hypertension Father Patient Allergies ALLERGIES No Known Allergies Current Medications Current Outpatient Medications on File Prior to Visit Medication Sig dextroamphetamine-amphetamine (ADDERALL) 10 mg tablet Take 1 tablet by mouth once daily AND 0.5 tablets every evening. Do all this for 30 days. albuterol HFA (PROVENTIL HFA, VENTOLIN HFA) 90 mcg/actuation inhaler Inhale 2 Puffs as instructed every 4 hours as needed for wheezing/shortness of breath. (Patient not taking: Reported on 08/09/2021 ) LUPRON DEPOT, 3 MONTH, 11.25 mg injection (Patient not taking: Reported on 08/09/2021 ) FERGON 240 mg (27 mg iron) tablet Take 1 tablet by mouth once daily. (Patient not taking: Reported on 08/09/2021 ) No current facility-administered medications on file prior to visit. Social History Social History Tobacco Use Smoking status: Never Smoker Smokeless tobacco: Never Used Vaping Use Vaping Use: Never used Substance Use Topics Alcohol use: Yes Comment: occasionally Drug use: No Review of Symptoms REVIEW OF SYSTEMS GENERAL: No weight loss, malaise or fevers RESPIRATORY: Negative for cough, hemoptysis, wheezing, COPD, dyspnea or shortness of breath CARDIOVASCULAR: Negative for chest pain, leg swelling, hypertension, CHF or palpitations EXAM: LMP 11/14/2018 Any vital signs collected today were done so using patient's home equipment, otherwise no vital signs due to distant health visit. Deferred physical exam as visit was completed over the phone. However patient sounds well without signs of shortness of breath or distress. Talking in complete sentences. PHYSICAL EXAMINATION: VIDEO EXAM: (if done, performed via video enabled technology) No exam performed Health Maintenance List COVID-19 VACCINE(1) Never done DTAP,TDAP,TD(2 - Td or Tdap) due on 05/17/2020 MAMMOGRAM due on 08/04/2021 PAP TESTING due on 07/21/2025 HPV TESTING due on 07/21/2025 INFLUENZA Discontinued HEPATITIS C SCREENING Discontinued HIV SCREENING Discontinued Data reviewed ASSESSMENT/PLAN: 1. Attention deficit disorder of adult - ICD9: 314.00, ICD10: F98.8 Refill given. Patient advised to contact me in 1 month either by mychart or OV Also to schedule a visit in 4 months for med check - DEXTROAMPHETAMINE-AMPHETAMINE 10 MG TABLET Eunice Elias PA-C Total appointment time on phone with patient = 5-10 minutes documented in this encounter [facility] 09-21-2021 History of Presen t illness Narrative Chief Complaint Patient presents with: Recheck: medication HPI Summer Massey is a 45 year old female who presents here today for med check. Last month we had patient restart her adderall she had been off of it for a few years. We started at just 5mg BID. She does note some improvement however after the morning dose, she crashes before she is due for afternoon dose. Past medical history, appointments, medications, allergies reviewed. Previous Medical History PAST MEDICAL HISTORY Diagnosis Date Anxiety and depression 09/15/2015 Attention deficit disorder of adult 05/17/2010 Constipation 09/15/2015 Fibrocystic breast disease 11/07/2013 Gall bladder polyp 10/06/2015 US: 09/2015, NO change US 03/2016 repeat US in a year. Liver hemangioma 10/19/2015 2 one MRI done 09/2015 Obesity, Class II, BMI 35-39.9 04/04/2019 Seborrheic keratosis 11/07/2013 left abdomenal side Uterine fibroid 10/14/2020 Previous Surgical History PAST SURGICAL HISTORY Procedure Laterality Date HYSTERECTOMY 04/05/2021 uterus removed- both Ovaries remain Family History FAMILY HISTORY Problem Relation Age of Onset Hypertension Father Patient Allergies ALLERGIES No Known Allergies Current Medications Current Outpatient Medications on File Prior to Visit Medication Sig dextroamphetamine-amphetamine (ADDERALL) 5 mg tablet Take 1 tablet by mouth twice daily for 30 days. albuterol HFA (PROVENTIL HFA, VENTOLIN HFA) 90 mcg/actuation inhaler Inhale 2 Puffs as instructed every 4 hours as needed for wheezing/shortness of breath. (Patient not taking: Reported on 08/09/2021 ) LUPRON DEPOT, 3 MONTH, 11.25 mg injection (Patient not taking: Reported on 08/09/2021 ) FERGON 240 mg (27 mg iron) tablet Take 1 tablet by mouth once daily. (Patient not taking: Reported on 08/09/2021 ) No current facility-administered medications on file prior to visit. Social History Social History Tobacco Use Smoking status: Never Smoker Smokeless tobacco: Never Used Vaping Use Vaping Use: Never used Substance Use Topics Alcohol use: Yes Comment: occasionally Drug use: No Review of Symptoms REVIEW OF SYSTEMS see hpi EXAM: BP 136/86 (BP Site: Left Arm, BP Position: Sitting, BP Cuff Size: Large Adult) Pulse 80 Temp 36.7 C (98.1 F) Resp 18 Wt 109.3 kg (241 lb) LMP 11/14/2018 BMI 39.91 kg/m General Appearance: Well appearing, alert, in no acute distress, well-hydrated, well nourished.. Health Maintenance List MAMMOGRAM due on 08/04/2021 DTAP,TDAP,TD(2 - Td or Tdap) due on 10/14/2021 COVID-19 VACCINE(1) due on 10/14/2021 PAP TESTING due on 07/21/2025 HPV TESTING due on 07/21/2025 INFLUENZA Discontinued HEPATITIS C SCREENING Discontinued HIV SCREENING Discontinued Data reviewed ASSESSMENT/PLAN: 1. Attention deficit disorder of adult - ICD9: 314.00, ICD10: F98.8 Will increase to 10mg in morning and 5mg in afternoon. Recheck 1 month. - DEXTROAMPHETAMINE-AMPHETAMINE 10 MG TABLET Eunice Elias PA-C documented in this encounter [facility] 08-23-2021 History of Presen t illness Narrative Chief Complaint Patient presents with: Depression: anxiety HPI Summer Massey is a 45 year old female who presents here today for Above Complaints.. Patient was seen approx 2 weeks ago with multiple concerns during her physical. We brought her back to discuss these concerns in more detail. She has been having issues with mood swings, body aches, highs and lows, weight gain etc. Her labs were overall normal. Just a borderline low vit D level. She had a hysterectomy in March. She was previously on adderall and wellbutrin but has been off of these for a couple years. She didn't feel like wellbutrin helped her any. She did really well on adderall. She had more motivation and positive thoughts when she was on it. Last 3 Encounter BP Readings: Date: BP: 08/23/2021 140/80 08/09/2021 129/83[bp kwame average[ 03/15/2021 128/88 Last 6 Encounter Wt Readings: Date: Wt: 08/23/2021 108.4 kg (239 lb) 08/09/2021 109.3 kg (241 lb) 03/15/2021 105.2 kg (232 lb) 12/13/2020 100.2 kg (221 lb) 12/10/2020 100.2 kg (221 lb) 12/07/2020 102.1 kg (225 lb) Past medical history, appointments, medications, allergies reviewed. Previous Medical History PAST MEDICAL HISTORY Diagnosis Date Anxiety and depression 09/15/2015 Attention deficit disorder of adult 05/17/2010 Constipation 09/15/2015 Fibrocystic breast disease 11/07/2013 Gall bladder polyp 10/06/2015 US: 09/2015, NO change US 03/2016 repeat US in a year. Liver hemangioma 10/19/2015 2 one MRI done 09/2015 Obesity, Class II, BMI 35-39.9 04/04/2019 Seborrheic keratosis 11/07/2013 left abdomenal side Uterine fibroid 10/14/2020 Previous Surgical History PAST SURGICAL HISTORY Procedure Laterality Date HYSTERECTOMY 04/05/2021 uterus removed- both Ovaries remain Family History FAMILY HISTORY Problem Relation Age of Onset Hypertension Father Patient Allergies ALLERGIES No Known Allergies Current Medications Current Outpatient Medications on File Prior to Visit Medication Sig albuterol HFA (PROVENTIL HFA, VENTOLIN HFA) 90 mcg/actuation inhaler Inhale 2 Puffs as instructed every 4 hours as needed for wheezing/shortness of breath. (Patient not taking: Reported on 08/09/2021 ) LUPRON DEPOT, 3 MONTH, 11.25 mg injection (Patient not taking: Reported on 08/09/2021 ) FERGON 240 mg (27 mg iron) tablet Take 1 tablet by mouth once daily. (Patient not taking: Reported on 08/09/2021 ) No current facility-administered medications on file prior to visit. Social History Social History Tobacco Use Smoking status: Never Smoker Smokeless tobacco: Never Used Vaping Use Vaping Use: Never used Substance Use Topics Alcohol use: Yes Comment: occasionally Drug use: No Review of Symptoms REVIEW OF SYSTEMS see hpi EXAM: BP 140/80 (BP Site: Right Arm, BP Position: Sitting, BP Cuff Size: Large Adult) Pulse 80 Temp 37.1 C (98.8 F) Resp 18 Wt 108.4 kg (239 lb) LMP 11/14/2018 BMI 39.58 kg/m BP 127/81 (BP Site: Left Arm, BP Position: Sitting, BP Cuff Size: Extra Large Adult) Pulse 86 Temp 37.1 C (98.8 F) Resp 18 Wt 108.4 kg (239 lb) LMP 11/14/2018 BMI 39.58 kg/m General Appearance: Well appearing, alert, in no acute distress, well-hydrated, well nourished.. talkative. Health Maintenance List MAMMOGRAM due on 08/04/2021 DTAP,TDAP,TD(2 - Td or Tdap) due on 10/14/2021 COVID-19 VACCINE(1) due on 10/14/2021 PAP TESTING due on 07/21/2025 HPV TESTING due on 07/21/2025 MENINGOCOCCAL CONJUGATE Aged Out INFLUENZA Discontinued HEPATITIS C SCREENING Discontinued HIV SCREENING Discontinued Data reviewed Component Latest Ref Rng & Units 08/09/2021 WBC 3.70 - 11.00 k/uL 8.96 RBC 3.90 - 5.20 m/uL 4.61 Hemoglobin 11.5 - 15.5 g/dL 13.2 Hematocrit 36.0 - 46.0 % 40.9 MCV 80.0 - 100.0 fL 88.7 MCH 26.0 - 34.0 pg 28.6 MCHC 30.5 - 36.0 g/dL 32.3 RDW-CV 11.5 - 15.0 % 13.1 Platelet Count 150 - 400 k/uL 284 MPV 9.0 - 12.7 fL 11.0 Neut% % 59.3 Abs Neut (ANC) 1.45 - 7.50 k/uL 5.31 Lymph% % 30.8 Abs Lymph 1.00 - 4.00 k/uL 2.76 Pasco% % 5.7 Abs [place] <0.87 k/uL 0.51 Eosin% % 3.2 Abs Eosin <0.46 k/uL 0.29 Baso% % 0.7 Abs Baso <0.11 k/uL 0.06 Immature Gran % % 0.3 IMMATURE GRANS (ABS) <0.10 k/uL 0.03 NRBC /100 WBC 0.0 Absolute nRBC <0.01 k/uL <0.01 DTYPE Auto Protein, Total 6.3 - 8.0 g/dL 7.2 Albumin 3.9 - 4.9 g/dL 4.2 Calcium 8.5 - 10.2 mg/dL 9.4 Bilirubin, Total 0.2 - 1.3 mg/dL 0.3 Alkaline Phosphatase 34 - 123 U/L 85 AST 13 - 35 U/L 16 ALT 7 - 38 U/L 25 Glucose 74 - 99 mg/dL 96 BUN 7 - 21 mg/dL 10 Creatinine 0.58 - 0.96 mg/dL 0.75 Sodium 136 - 144 mmol/L 139 Potassium 3.7 - 5.1 mmol/L 4.7 Chloride 97 - 105 mmol/L 105 CO2 22 - 30 mmol/L 24 Anion Gap 9 - 18 mmol/L 10 eGFR >=60 mL/min/1.73m 101 Total Cholesterol, Nonfasting <200 mg/dL 199 Triglycerides, Nonfasting <150 mg/dL 99 HDL Cholesterol, Nonfasting >39 mg/dL 41 LDL Cholesterol, Nonfasting <100 mg/dL 138 (H) Non HDL Cholesterol, Nonfasting <130 mg/dL 158 (H) VLDL Cholesterol, Nonfasting <30 mg/dL 20 Total Chol/HDL Ratio, Nonfasting <5.10 mg/dL 4.85 LDL/HDL Ratio, Nonfasting <2.54 mg/dL 3.37 (H) Iron 41 - 186 ug/dL 60 TIBC 232 - 386 ug/dL 323 Transferrin Saturation 15 - 57 % 19 Hemoglobin A1C 4.3 - 5.6 % 5.4 Estimated Average Glucose mg/dL 108 TSH 0.270 - 4.200 mIU/L 2.650 VALERIO Negative Negative WSR 0 - 20 mm/hr 9 CRP <0.9 mg/dL 0.5 Free T4 0.9 - 1.7 ng/dL 1.0 Vitamin B12 232-1,245 pg/mL 438 Vitamin D 25 Hydroxy 31.0 - 80.0 ng/mL 30.5 (L) ASSESSMENT/PLAN: 1. Attention deficit disorder of adult - ICD9: 314.00, ICD10: F98.8 (primary diagnosis) Will restart adderall. Start with 5mg bid. Patient has 48hr to do urine test. She understands no refills if not completed. Contract updated. F/u 1 month. Sooner prn. - TOX SCREEN ROUT UR - PAIN PANEL, UR QUANT - DEXTROAMPHETAMINE-AMPHETAMINE 5 MG TABLET - TOX SCREEN ROUT UR - PAIN PANEL, UR QUANT 2. Medication management - ICD9: V58.69, ICD10: Z79.899 As above. 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 We will go into more detail at f/u. Her LDL is 138 with goal under 130. Watch cholesterol/fat in diet. Only a couple labs still in process. Her PE form is completed. Eunice Elias PA-C documented in this encounter [facility] 08-09-2021 Nurse Note WAIST CIRCUMFERENCE: 42 Maximus Weston LPN documented in this encounter [facility] 08-09-2021 History of Presen t illness Narrative Chief Complaint Patient presents with: Yearly Exam HPI Summer Massey is a 45 year old female who presents here today for physical. Patient with hx of anemia, anxiety/depression, attention deficit, and those as below. Patient had a hysterectomy in Mar. Since then has been having weight gain, joint pain, more trouble with ADHD, her depression/anxiety. Last 3 Encounter Wt Readings: Date: Wt: 08/09/2021 109.3 kg (241 lb) 03/15/2021 105.2 kg (232 lb) 12/13/2020 100.2 kg (221 lb) Past medical history, appointments, medications, allergies reviewed. Previous Medical History PAST MEDICAL HISTORY Diagnosis Date Anxiety and depression 09/15/2015 Attention deficit disorder of adult 05/17/2010 Constipation 09/15/2015 Fibrocystic breast disease 11/07/2013 Gall bladder polyp 10/06/2015 US: 09/2015, NO change US 03/2016 repeat US in a year. Liver hemangioma 10/19/2015 2 one MRI done 09/2015 Obesity, Class II, BMI 35-39.9 04/04/2019 Seborrheic keratosis 11/07/2013 left abdomenal side Uterine fibroid 10/14/2020 Previous Surgical History PAST SURGICAL HISTORY Procedure Laterality Date NONE Family History FAMILY HISTORY Problem Relation Age of Onset Hypertension Father Patient Allergies ALLERGIES No Known Allergies Current Medications Current Outpatient Medications on File Prior to Visit Medication Sig albuterol HFA (PROVENTIL HFA, VENTOLIN HFA) 90 mcg/actuation inhaler Inhale 2 Puffs as instructed every 4 hours as needed for wheezing/shortness of breath. (Patient not taking: Reported on 08/09/2021 ) LUPRON DEPOT, 3 MONTH, 11.25 mg injection (Patient not taking: Reported on 08/09/2021 ) FERGON 240 mg (27 mg iron) tablet Take 1 tablet by mouth once daily. (Patient not taking: Reported on 08/09/2021 ) No current facility-administered medications on file prior to visit. Social History Social History Tobacco Use Smoking status: Never Smoker Smokeless tobacco: Never Used Vaping Use Vaping Use: Never used Substance Use Topics Alcohol use: Yes Comment: occasionally Drug use: No Review of Symptoms REVIEW OF SYSTEMS GENERAL: + fatigue. No weight loss, malaise or fevers HEENT: No changes in hearing or vision, no nose bleeds or other nasal problems NECK: Negative for lumps, goiter, pain and significant neck swelling RESPIRATORY: Negative for cough, hemoptysis, wheezing, COPD, dyspnea or shortness of breath CARDIOVASCULAR: Negative for chest pain, leg swelling, hypertension, CHF or palpitations GI:+GERD and constipation chronically. : No history of dysuria, frequency or incontinence MUSCULOSKELETAL: +joint pain SKIN: Negative for lesions, rash, and itching PSYCH: See HPI. +sleeping better but moods are variable. HEMATOLOGY/LYMPHOLOGY: Negative for prolonged bleeding, bruising easily or swollen nodes ENDOCRINE: Negative for cold or heat intolerance, polyuria, polydipsia and goiter NEURO: No history of headaches, syncope, paralysis, seizures or tremors EXAM: BP 126/100 (BP Site: Right Arm, BP Position: Sitting, BP Cuff Size: Large Adult) Pulse 68 Temp 37.5 C (99.5 F) Resp 18 Ht 165.5 cm (5' 5.16 ) Wt 109.3 kg (241 lb) LMP 11/14/2018 BMI 39.91 kg/m BP 129/83 (BP Site: Right Arm, BP Position: Sitting, BP Cuff Size: Extra Large Adult) Pulse 64 Temp 37.5 C (99.5 F) Resp 18 Ht 165.5 cm (5' 5.16 ) Wt 109.3 kg (241 lb) LMP 11/14/2018 BMI 39.91 kg/m General Appearance: Well appearing, alert, in no acute distress, well-hydrated, well nourished. and Obese. Skin: Skin color, texture, turgor normal, no suspicious rashes or lesions on exposed skin. Head: Normocephalic, no masses, lesions, tenderness or abnormalities. Eyes: Anicteric sclera. Pupils are equally round and reactive to light. Extraocular movements are intact. . Ears: External ears normal, canals clear. Nose/Sinuses: Nares normal, septum midline, mucosa normal, no drainage or sinus tenderness. Oropharynx: deferred- mask. Neck: deferred- mask. Lungs: Lungs clear to auscultation. No wheezing, rhonchi, rales.. Heart: RRR without murmur, gallop, or rubs. No ectopy. Abdomen: Normal abdominal exam, Abdomen soft, non-tender. Bowel sounds normal. No masses, organomegaly. Extremities: No deformities, edema, skin discoloration, clubbing or cyanosis. Good capillary refill. . Peripheral Pulses: Normal. Neurologic: Gait normal. Reflexes normal and symmetric. Sensation grossly intact.. Health Maintenance List MAMMOGRAM due on 08/04/2021 DTAP,TDAP,TD(2 - Td or Tdap) due on 10/14/2021 COVID-19 VACCINE(1) due on 10/14/2021 PAP TESTING due on 07/21/2025 HPV TESTING due on 07/21/2025 MENINGOCOCCAL CONJUGATE Aged Out INFLUENZA Discontinued HEPATITIS C SCREENING Discontinued HIV SCREENING Discontinued Data reviewed n/a ASSESSMENT/PLAN: 1. Well adult exam - ICD9: V70.0, ICD10: Z00.00 (primary diagnosis) - Counseled on healthy diet and regular exercise - Calcium intake with supplements or by diet of 1000 mg/day for under 50, 3989-2344 mg/day for 50+ 2. Encounter for gynecological examination without abnormal finding - ICD9: V72.31, ICD10: Z01.419 - Patient gets mammogram through [employer] 3. Iron deficiency anemia, unspecified iron deficiency anemia type - ICD9: 280.9, ICD10: D50.9 check - CBC + DIFF - IRON + TIBC 4. Anxiety and depression - ICD9: 300.00, 311, ICD10: F41.9, F32.A Worsening. Will consider options. Recheck in 2 weeks - COMP METABOLIC PANEL 5. Encounter for screening for diabetes mellitus - ICD9: V77.1, ICD10: Z13.1 - HGB A1C 6. Encounter for screening for cardiovascular disorders - ICD9: V81.2, ICD10: Z13.6 - LIPID PANEL, NONFASTING 7. Obesity, Class II, BMI 35-39.9 - ICD9: 278.00, ICD10: E66.9 8. Attention deficit disorder of adult - ICD9: 314.00, ICD10: F98.8 F/u 2 weeks 9. Weight gain - ICD9: 783.1, ICD10: R63.5 check - TSH BLD - T4 FREE/FREE THYROX 10. Gall bladder polyp - ICD9: 575.6, ICD10: K82.4 check - US ABD RT UPPER QUADRANT 11. GERD without esophagitis - ICD9: 530.81, ICD10: K21.9 - Set up with dr. diamond - CONSULT TO GASTROENTEROLOGY 12. Screening for colon cancer - ICD9: V76.51, ICD10: Z12.11 Dr. Diamond. - CONSULT TO GASTROENTEROLOGY 13. Arthralgia, unspecified joint - ICD9: 719.40, ICD10: M25.50 check - VALERIO BY IFA SCREEN - SED RATE WESTERGREN - C-REACTIVE PROTEIN (CRP) 14. Myalgia - ICD9: 729.1, ICD10: M79.10 check - VALEIRO BY IFA SCREEN - SED RATE WESTERGREN - C-REACTIVE PROTEIN (CRP) 15. Fatigue, unspecified type - ICD9: 780.79, ICD10: R53.83 Check. - VITAMIN B12 BLOOD - VITAMIN D 25 HYDROXY Eunice Elias PA-C documented in this encounter [facility] 07-20-2021 Miscellaneous Notes Spoke to patient to make sure insurance is calendar year which is. Please place labs patient is aware to do week before Debora Almaguer Ma Please place lab orders Thanks Veronica Woodson documented in this encounter [facility] documented [facility] Diagnosis Well adult exam- Primary Routine general medical examination at a health care facility Encounter for gynecological examination without abnormal finding Routine gynecological examination Iron deficiency anemia, unspecified iron deficiency anemia type Anxiety and depression Dysthymic disorder Encounter for screening for diabetes mellitus Screening for diabetes mellitus Encounter for screening for cardiovascular disorders Screening for other and unspecified cardiovascular conditions Obesity, Class II, BMI 35-39.9 Obesity, unspecified Attention deficit disorder of adult Attention deficit disorder without mention of hyperactivity Weight gain Abnormal weight gain Gall bladder polyp Cholesterolosis of gallbladder GERD without esophagitis Esophageal reflux Screening for colon cancer Special screening for malignant neoplasms, colon Arthralgia, unspecified joint Myalgia Mylagia and myositis, unspecified Fatigue, unspecified type [facility] Diagnosis Attention deficit disorder of adult- Primary Attention deficit disorder without mention of hyperactivity Medication management Encounter for long-term (current) use of other medications [facility] Diagnosis Encounter for screening mammogram for breast cancer [facility] Diagnosis Attention deficit disorder of adult Attention deficit disorder without mention of hyperactivity [facility] Diagnosis Tick bite of back, initial encounter- Primary [facility] Diagnosis Well adult exam- Primary Routine general medical examination at a health care facility Anxiety and depression Dysthymic disorder Obesity, Class II, BMI 35-39.9 Obesity, unspecified Constipation, unspecified constipation type Screening for diabetes mellitus Vitamin D deficiency Unspecified vitamin D deficiency Encounter for screening for cardiovascular disorders Screening for other and unspecified cardiovascular conditions Encounter for screening for diabetes mellitus Screening for diabetes mellitus Iron deficiency anemia, unspecified iron deficiency anemia type Gall bladder polyp Cholesterolosis of gallbladder Atypical nevus Benign neoplasm of skin, site unspecified GERD without esophagitis Esophageal reflux [facility] Diagnosis Strain of neck muscle, initial encounter- Primary [facility] Diagnosis Fatty liver Other chronic nonalcoholic liver disease Gall bladder polyp Cholesterolosis of gallbladder Liver hemangioma Hemangioma of intra-abdominal structures [facility] Diagnosis Diarrhea, unspecified type- Primary [facility] Diagnosis Spinal stenosis, thoracic region [facility] Diagnosis Spinal stenosis, thoracic region- Primary [facility] Diagnosis Gall bladder polyp Cholesterolosis of gallbladder documented in this encounter [facility] for referral (narrative)* Diagnostic Procedure Only (Routine) - Pending Review Specialty Diagnoses / Procedures Referred By Contac t Referred To Contact BR IMAGING Diagnoses Encounter for screening mammogram for breast cancer Procedures ZEUS SCREENING SCREENING MAMMOGRAPHY BI 2-VIEW BREAST INC CAD Aly Davis MD [address] [place] [address] Br Imaging [address] [place] [address] Referral ID Status Reason Start Date Expiration Date Visits Requested Visits Authorized [id number] Pending Review Auto-Generat ed Referral 09/14/2021 10/14/2022 1 1 [facility] for referral (narrative)* Diagnostic Procedure Only (Routine) - Closed Specialty Diagnoses / Procedures [facility]erred To Contact XR IMAGING Diagnoses Diarrhea, unspecified type Procedures XR ABDOMEN 1V SUPINE RADIOLOGIC EXAM ABDOMEN 1 VIEW Eunice Elias PA-C [address] [place] [address] Xr Imaging Referral ID Status Reason Start Date Expiration Date V isits Requested Visits Authorized [id number] Closed Auto-Generate d Referral 11/15/2022 12/15/2023 1 1 T [facility] for referral (narrative)* Diagnostic Procedure Only (Routine) - Closed Specialty Diagnoses / Procedures [facility] Referred To Contact US IMAGING Diagnoses Gall bladder polyp Procedures US ABD RT UPPER QUADRANT US ABDOMINAL REAL TIME W/IMAGE LIMITED Eunice Elias PA-C [address] [place] [address] [place] [address] Referral ID Status Reason Start Date Expiration Date V isits Requested Visits Authorized [id number] Closed Auto-Generate d Referral 06/27/2022 07/27/2023 1 1 [facility] Summary Purpose Family History No Family History Records FoundNo Family History Records Found Advance Directives Documents on File Type Date Recorded 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 Advance Directive(s) Documents on File Type Date Recorded 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 Advance Directive(s) Reason for Referral Specialty Diagnoses / Procedures Referred By Geno t Referred To Contact Gastroenterology Diagnoses GERD without esophagitis Screening for colon cancer Procedures CONSULT TO GASTROENTEROLOGY OFFICE/OUTPATIENT [facility] MDM 60-74 MINUTES Eunice Elias PA-C [address] [place] [address] Referral ID Status Reason Start Date Expiration Date Visits Requested Visits Authorized [id number] Pending Review PCP Requested Referral 08/09/2021 08/09/2022 1 1 Specialty Diagnoses / Procedures Referred By Geno lassiter Referred To Contact US IMAGING Diagnoses Gall bladder polyp Procedures US ABD RT UPPER QUADRANT US ABDOMINAL REAL TIME W/IMAGE LIMITED Eunice Elias PA-C [address] [place] [address] Us Imaging Referral ID Status Reason Start Date Expiration Date Visits Requested Visits Authorized [id number] Pending Review Auto-Generat ed Referral 08/09/2021 09/08/2022 1 1 Specialty Diagnoses / Procedures Referred By Geno lassiter Referred To Contact Diagnoses Attention deficit disorder of adult Eunice Elias PA-C [address] [place] [address] Referral ID Status Reason Start Date Expiration Date V isits Requested Visits Authorized [id number] Pending Review 1 1 Specialty Diagnoses / Procedures Referred By Geno lassiter Referred To Contact Dermatology Diagnoses Well adult exam Atypical nevus Procedures CONSULT TO DERMATOLOGY Eunice Elias PA-C [address] [place] [address] Referral ID Status Reason Start Date Expiration Date Visits Requested Visits Authorized [id number] Ref Not Required PCP Requested Referral 06/27/2022 06/27/2023 1 1 Referral ID Status Reason Start Date Expiration Date Visits Requested Visits Authorized [id number] Authorized Auto-Generat ed Referral 06/27/2022 07/27/2023 1 1 Specialty Diagnoses / Procedures Referred By Geno lassiter Referred To Contact Physical Therapy Diagnoses Spinal stenosis, thoracic region Regis Souza MD [address] [place] [phone] Referral ID Status Reason Start Date Expiration Date V isits Requested Visits Authorized [id number] New Request 01/23/2023 02/17/2024 1 1 Scheduling Instructions [facility] [address] [facility], 2nd [place] [address] Fax [facility] (Neck and Back Therapy) [address] [place] [address] FAX [facility] [address] [address] FAX Outpatient [facility] [place] [address] [facility] [facility] [place] [address] FAX [facility] [address] [place] [address] FAX [facility] [address] [facility], [address] [place] [address] FAX [facility] [address] [place] [address] [phone] FAX Outpatient Rehabilitation Outpatient Care [address], [address] [place] [address] FAX [facility] [address] [facility] [facility], [address] [place] [address] FAX [facility] [address] [facility], Room: [address] [place] [address] [phone] FAX [facility] [place] [address], [address] [place] [address] FAX [facility] [address] [address] [place] [address] FAX [facility] [place] [address] [facility], [address] [place] [address] [phone] FAX [facility] [address] [facility] [facility], [address] [place] [address] [phone] FAX [facility]patient [facility] [place] [address] [facility], [address] [place] [address] [phone] FAX [facility] [address] [facility], [address] [place] [address] [phone] FAX [facility] [place] [address] [facility] [place] [address] [phone] FAX [facility] [address] [place] [address] [phone] FAX Outpatient Rehabilitation Outpatient Care [address], [address] [place] [address] [phone] FAX [facility] [address] [address] [phone] FAX Outpatient Care [address] [address] [phone] FAX [facility], [address] [place] [address] FAX Additional Source Comments INFORMATION SOURCE (unrecogn ized section and content) DATE CREATED AUTHOR AUTHOR'S ANGELITO PARIKH 11/20/2022 [facility] Source Comments (unrecognize d section and content) In the event this informatio n is protected by the Federal Confidentiality of Alcohol and Drug Abuse Patient Records regulations: The Federal rules restrict any use of the information to criminally investigate or prosecute any alcohol or drug abuse patient.[facility] the event this information is protected by the Federal Confidentiality of Alcohol and Drug Abuse Patient Records regulations: The Federal rules restrict any use of the information to criminally investigate or prosecute any alcohol or drug abuse patient.[facility] the event this information is protected by the Federal Confidentiality of Alcohol and Drug Abuse Patient Records regulations: The Federal rules restrict any use of the information to criminally investigate or prosecute any alcohol or drug abuse patient.[facility] the event this information is protected by the Federal Confidentiality of Alcohol and Drug Abuse Patient Records regulations: The Federal rules restrict any use of the information to criminally investigate or prosecute any alcohol or drug abuse patient.[facility] the event this information is protected by the Federal Confidentiality of Alcohol and Drug Abuse Patient Records regulations: The Federal rules restrict any use of the information to criminally investigate or prosecute any alcohol or drug abuse patient.[facility] the event this information is protected by the Federal Confidentiality of Alcohol and Drug Abuse Patient Records regulations: The Federal rules restrict any use of the information to criminally investigate or prosecute any alcohol or drug abuse patient.[facility] the event this information is protected by the Federal Confidentiality of Alcohol and Drug Abuse Patient Records regulations: The Federal rules restrict any use of the information to criminally investigate or prosecute any alcohol or drug abuse patient.[facility] the event this information is protected by the Federal Confidentiality of Alcohol and Drug Abuse Patient Records regulations: The Federal rules restrict any use of the information to criminally investigate or prosecute any alcohol or drug abuse patient.[facility] the event this information is protected by the Federal Confidentiality of Alcohol and Drug Abuse Patient Records regulations: The Federal rules restrict any use of the information to criminally investigate or prosecute any alcohol or drug abuse patient.[facility] the event this information is protected by the Federal Confidentiality of Alcohol and Drug Abuse Patient Records regulations: The Federal rules restrict any use of the information to criminally investigate or prosecute any alcohol or drug abuse patient.[facility] the event this information is protected by the Federal Confidentiality of Alcohol and Drug Abuse Patient Records regulations: The Federal rules restrict any use of the information to criminally investigate or prosecute any alcohol or drug abuse patient.[facility] the event this information is protected by the Federal Confidentiality of Alcohol and Drug Abuse Patient Records regulations: The Federal rules restrict any use of the information to criminally investigate or prosecute any alcohol or drug abuse patient.[facility] the event this information is protected by the Federal Confidentiality of Alcohol and Drug Abuse Patient Records regulations: The Federal rules restrict any use of the information to criminally investigate or prosecute any alcohol or drug abuse patient.[facility] the event this information is protected by the Federal Confidentiality of Alcohol and Drug Abuse Patient Records regulations: The Federal rules restrict any use of the information to criminally investigate or prosecute any alcohol or drug abuse patient.[facility] the event this information is protected by the Federal Confidentiality of Alcohol and Drug Abuse Patient Records regulations: The Federal rules restrict any use of the information to criminally investigate or prosecute any alcohol or drug abuse patient.[facility] the event this information is protected by the Federal Confidentiality of Alcohol and Drug Abuse Patient Records regulations: The Federal rules restrict any use of the information to criminally investigate or prosecute any alcohol or drug abuse patient.[facility] Center[facility] the event this information is protected by the Federal Confidentiality of Alcohol and Drug Abuse Patient Records regulations: The Federal rules restrict any use of the information to criminally investigate or prosecute any alcohol or drug abuse patient.[facility] CenterIn the event this information is protected by the Federal Confidentiality of Alcohol and Drug Abuse Patient Records regulations: The Federal rules restrict any use of the information to criminally investigate or prosecute any alcohol or drug abuse patient.[facility] Reason for Visit (unrecogniz ed section and content) Reason Comments Yearly Exam Reason Comments Results Reason Comments Depression anxiety Reason Comments Recheck medication Reason Comments Follow Up Reason Comments tick bite Tick bite on back-fo und it today Reason Comments Consult Gastro [facility] Reason Comments Consult To Derm Reason Comments Pain Pain in right should er & neck Reason Comments Nausea Diarrhea Reason Comments Diarrhea Reason Comments New Patient Specialty Diagnoses / Procedures Referred By Contac t Referred To Contact Neurologic Surgery Diagnoses Spinal stenosis, thoracic region Holly Paul PA-C [address] [facility] [address] [place] [address] Roni Oglesby MD [address] [place] [address] Referral ID Status Reason Start Date Expiration Date V isits Requested Visits Authorized [id number] Pending Review 12/13/2022 01/07/2024 1 1 Reason Comments Radiology US Specialty Diagnoses / Procedures Referred By Contac t Referred To Contact US IMAGING Diagnoses Gall bladder polyp Procedures US ABD RT UPPER QUADRANT US ABDOMINAL REAL TIME W/IMAGE LIMITED Eunice Elias PA-C [address] [place] [address] [place] [address] Referral ID Status Reason Start Date Expiration Date V isits Requested Visits Authorized [id number] Closed Auto-Generate d Referral 06/27/2022 07/27/2023 1 1 Care Teams (unrecognized sec tion and content) 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 Resort Manager Relationship Specialty Start Date End Date Aly Davis MD [address] [place] [address] PCP - General Family Practice 07/01/13 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 Resort Manager Relationship Specialty Start Date End Date Aly Davis MD [address] [place] [address] PCP - General Family Practice 07/01/13 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 Resort Manager Relationship Specialty Start Date End Date Aly Davis MD [address] [place] [address] PCP - General Family Practice 07/01/13 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 Resort Manager Relationship Specialty Start Date End Date Aly Davis MD [address] [place] [address] PCP - General Family Practice 07/01/13 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 Resort Manager Relationship Specialty Start Date End Date Aly Davis MD [address] [place] [place] [address] PCP - General Family Practice 07/01/13 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 Resort Manager Relationship Specialty Start Date End Date Aly Davis MD [address] [place] [place] [address] PCP - General Family Medicine 07/01/13 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 Resort 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 Relationship Specialty Start Date End Date Aly Davis MD [address] [place] [place] [address] PCP - General Family Medicine 07/01/13 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 Resort Manager Relationship Specialty Start Date End Date Aly Davis MD [facility] [facility] [place] [address] PCP - General Family Medicine 07/01/13 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 Resort Manager Relationship Specialty Start Date End Date Aly Davis MD [address] [place] [place] [address] PCP - General Family Medicine 07/01/13 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 Resort Manager Relationship Specialty Start Date End Date Aly Davis MD [address] [place] [place] [address] PCP - General Family Medicine 07/01/13 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 Resort Manager Relationship Specialty Start Date End Date Aly Davis MD [address] [place] [place] [address] PCP - General Family Medicine 07/01/13 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 Resort Manager Relationship Specialty Start Date End Date Aly Davis MD [address] [place] [address] PCP - General Family Medicine 07/01/13 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 Resort Manager Relationship Specialty Start Date End Date Aly Davis MD [address] [place] [address] PCP - General Family [facility] 07/01/13 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 Resort Manager Relationship Specialty Start Date End Date Aly Davis MD [address] [place] [address] PCP - General [facility] 07/01/13 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 Resort Manager Relationship Specialty Start Date End Date Aly Davis MD [address] [place], [place] [address] PCP - General [facility] 07/01/13 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 Resort Manager Relationship Specialty Start Date End Date Aly Davis MD [address] [place], [place] [address] PCP - General [facility] 07/01/13 FOR RECORDS PERTAINING TO PATIENTS WHO ARE OR HAVE BEEN ENROLLED IN A CHEMICAL DEPENDENCY/SUBSTANCEABUSE PROGRAM, SOME INFORMATION MAY BE OMITTED. This clinical summary was aggregated from multiple sources. Caution should be exercised in using it in the provision of clinical care. This summary normalizes information from multiple sources, and as a consequence, information in this document may materially change the coding, format and clinical context of patient data. In addition, data may be omitted in some cases. CLINICAL DECISIONS SHOULD BE BASED ON THE PRIMARY CLINICAL RECORDS. [facility]. provides no warranty or guarantee of the accuracy or completeness of information in this document.
== END | disposition home or self-care (01) ==
LOC: OPBI 07-11 07:00
PROVIDERS: PCP Family Medicine; Referring Provider Obstetrics & Gynecology; Visit Provider Obstetrics & Gynecology
DX: Z12.31 Encounter for screening mammogram for malignant neoplasm of breast (principal)
CPT/HCPCS: 77063; 77067

== ENCOUNTER 2023-08-14 08:27 | Outpatient (RCR) | payer OTHER, SELFPAY | END 2023-08-28 23:59 | LOC: NS 08:27 | PROVIDERS: PCP Family Medicine; Referring Provider Physician Assistant; Visit Provider Physician Assistant | DX: Z71.3 Dietary counseling and surveillance (principal); E66.9 Obesity, unspecified; Z68.41 Body mass index [BMI] 40.0-44.9, adult | CPT/HCPCS: 97802 ==

== ENCOUNTER 2023-09-26 16:30 | Outpatient (RCR) | payer OTHER, SELFPAY | END 2023-09-28 23:59 | LOC: NS 16:30 | PROVIDERS: PCP Family Medicine; Referring Provider Physician Assistant; Visit Provider Physician Assistant | DX: Z71.3 Dietary counseling and surveillance (principal); E66.9 Obesity, unspecified; K76.0 Fatty (change of) liver, not elsewhere classified; Z68.39 Body mass index [BMI] 39.0-39.9, adult | CPT/HCPCS: 97803 ==

== ENCOUNTER 2024-02-23 19:39 | Emergency (ER) | payer OTHER, SELFPAY ==
[2024-02-23 19:39] VITALS: BP 154/90; PULSE 96; RESP 16; TEMP 36.7; O2SAT 98; BMI 41.2
--- NOTE | 2024-02-23 19:50 | EDS_ITS ---
HPI HPI - Female History of Present Illness Chief Complaint: Complaint [facility] Medical History (Updated 02/23/24 @ 22:[address] Jim Isaac, DO) Shortness of breath on exertion Keratosis, seborrheic Fibrocystic breast disease Constipation ADD (attention deficit disorder) Wears glasses Anxiety Fatty liver Back pain Gastric reflux Non-smoker Palpitations Gallbladder polyp Uterine fibroid Uterine fibroid Enlarged uterus Pelvic pain Menorrhagia with irregular cycle Hemangioma of liver Home Medications ?Medication ?Instructions ?Recorded ?Last Taken ?Type ascorbate calcium (vitamin C) 500 500 mg PO DAILY 07/21/20 Unknown History mg tablet cholecalciferol (vitamin D3) 50 50 mcg PO DAILY 03/29/21 Unknown History mcg (2,000 unit) capsule (Vitamin D3) zinc acetate 50 mg (zinc) capsule 50 mg PO PRN PRN PROPHYLACTIC 05/31/22 Unknown History cod liver oil 1 cap PO DAILY 06/25/23 Unknown History omeprazole 20 mg capsule,delayed 20 mg PO DAILY #30 caps 08/24/23 Unknown Rx release ondansetron 4 mg disintegrating 4 mg PO Q8H PRN PRN Nausea #10 tabs 02/23/24 Unknown Rx tablet oxycodone 5 mg tablet 5 mg PO Q6H PRN pain 3 days #9 tabs 02/23/24 Unknown Rx sulfamethoxazole 800 1 tab PO BID #14 tabs 02/23/24 Unknown Rx mg-trimethoprim 160 mg tablet (Bactrim DS) Allergy/AdvReac Type Severity Reaction Status Date / Time No Known Allergies Allergy Verified 02/23/24 19:40 Family History Mother uterine fibroid tumor Aunt Colon cancer Unknown Heart disease Hyperlipidemia Father Hypertension Surgical History S/P total hysterectomy (~04/05/21) Social History household members: spouse and children number of children: 1 current occupational status: employed current occupation: [employer] history of recent travel: No sexually active: Yes Smoking Status: Never smoker alcohol intake: current alcohol intake frequency: holidays/special occasions only substance use type: does not use diet: low carbohydrate well-balanced diet: daily or most days what type of physical activity do you participate in: none seatbelt use: always do you feel safe at home: Yes additional social history: - Roman EXAM Physical Exam Const Vital Signs: 02/23/24 19:39 02/23/24 20:43 Temperature 98.1 F Temperature Source Oral Pulse Rate 96 83 Respiratory Rate 16 18 Blood Pressure 154/90 H 152/80 H Blood Pressure Mean 111 104 Pulse Ox 98 100 Oxygen Delivery Method Room Air Room Air [facility] Narrative Medical decision making narrative: HISTORY OF PRESENT ILLNESS: 48-year-old female presents with flank pain/back pain wraparound to the groin. She notes that a kidney stone approximately 25 years ago. She notes for the past 4 days she has had burning and frequency with urination. REVIEW OF SYSTEMS: Pertinent positives: As per HPI Pertinent negatives: Syncope PHYSICAL EXAM: Nursing triage notes reviewed, Vital signs reviewed Constitutional: please see mdm HENT: MMM Eyes: Pupils equal round and reactive to light, Extraocular muscles intact Neck: No stridor, no JVD, full neck ROM Lungs: Clear to auscultation, No wheezing or rales. No increased work of breathing, no conversational dyspnea, no accessory muscle use, no nasal flaring. No respiratory distress noted Heart: Regular rate and rhythm, No murmurs, No rubs and No gallops, 2+ distal pulses (radial, femoral, posterior tibial) in all extremities Abdomen: Soft, there is no tenderness, rigidity, rebound or guarding, no obvious peritoneal signs, no palpable pulsatile abdominal masses, no auscultated abdominal bruit : Right CVA tenderness Extremities: No edema Neuro: No focal neurological deficits, cranial nerves II through XII intact, 5/5 strength in all extremities. Intact sensation to light touch in all extremities, 2+ reflexes bilateral patella tendons. Normal gait. No ataxia. Skin: No rash or lesions noted MEDICAL DECISION MAKING: Chief Complaint: Urinary frequency, urgency, back pain [facility] Narrative: The patient was hemodynamically stable, afebrile and nontoxic-appearing. Exam with right CVA tenderness. No pulse abdominal masses auscultated bruits. I considered the following differential diagnosis: Nephrolithiasis, pyelonephritis, UTI, AAA ALL IMAGES (IF OBTAINED) HAVE BEEN PERSONALLY REVIEWED AND INTERPRETED BY MYSELF. CT scan abdomen pelvis with contrast read reviewed myself showed right hydro nephrosis, ureteral stone is distal to 3 mm per radiologist agreed my interpretation. Urinalysis showed evidence of infection CBC showed leukocytosis consistent with systemic intubation, no anemia or thrombocytopenia BMP without evidence of significant electrolyte abnormalities, no anion gap, no acute kidney injury. The synthesis of the patient's history, physical exam, labs images suggest likely nephrolithiasis with associated UTI. On reevaluation after morphine Toradol and Zofran the patient was essentially asymptomatic. She appeared well she was not toxic appearing. He is able tolerate p.o. She is appropriate for trial home on oral antibiotics, Zofran and pain control to allow the stone to pass. The stone is distal in location and small in size should pass spontaneously on its own. Medication for urologic consultation transfer or admission at this time. The patient and/or family, caregivers express understanding. The patient and/or family, caregivers agrees with the plan. Shared decision making: I will have a discussion with the patient and or visitors regarding risk/benefits of further testing or admission. They will be made aware of of the risk/benefits inherent in this decision they will be given the opportunity to voice understanding. Total critical care time today provided was at least 0 minutes. This excludes separately billable procedures. Critical care time (if documented) is secondary to the patient having high probability of clinically significant/life threatening deterioration in the patient's condition which required my urgent intervention. Impression: 1. Nephrolithiasis 2. UTI 3. Hypokalemia Dispo: Discharge home This note was generated with [employer] dictation software. It may contain incorrect words, spelling, and punctuation that were not noted in review of the chart prior to signing. Lab Data Labs: Laboratory Results - last 24 hr 02/23/24 02/23/24 19:43 20:20 WBC 11.9 H RBC 4.74 Hgb 13.6 Hct 40.7 MCV 85.9 MCH 28.7 MCHC 33.4 RDW Std Deviation 38.9 RDW Coeff of [place] 12.5 Plt Count 325 MPV 10.5 Immature Gran % (Auto) 0.400 Neut % (Auto) 61.5 Lymph % (Auto) 29.7 [place] % (Auto) 6.1 Eos % (Auto) 1.8 Baso % (Auto) 0.5 Absolute Neuts (auto) 7.3 Absolute Lymphs (auto) 3.54 Nucleated RBC % 0 Sodium 138 Potassium 3.4 L Chloride 106 Carbon Dioxide 23.0 Anion Gap 9 BUN 15 Creatinine 0.93 Estim Creat Clear Calc 93.41 Est GFR (MDRD) Af Amer 83 Est GFR (MDRD) Non-Af 68 BUN/Creatinine Ratio 16.1 Glucose 112 H Calcium 9.3 Urine Color Red Urine Clarity Sl. Cloudy Urine pH 5.0 Ur Specific Gays 1.025 Urine Protein 30 H Urine Glucose (UA) Normal Urine Ketones Negative Urine Occult Blood 50 H Urine Nitrite Positive H Urine Bilirubin 3 H Urine Urobilinogen 8 H Ur Leukocyte Esterase Negative Urine RBC 5-10 SEEN Urine WBC 0 SEEN Ur Squamous Epith Cells 10-25 SEEN Calcium Oxalate Crystal 3+ Urine Bacteria 1+ Hyaline Casts 0-5 SEEN Urine Mucus 0 SEEN Radiography Diagnostic Testing: Clinical Impression(s) from Imaging Studies Abdomen/Pelvis CT 02/23/24 20:02 IMPRESSION: Small stone right distal ureter with mild proximal hydroureteronephrosis. Electronically Signed: Ayala Eng MD at 21:29 EDT Reading Location ID and State: [id number] / Tel , Service support , Discharge Plan Triage Chief Complaint: Complaint ED Provider: Jim Isaac Dx/Rx/DC Orders Clinical Impression: Kidney stone Instructions: ED Kidney Stone with Pain Prescriptions: New oxycodone 5 mg tablet 5 mg PO Q6H PRN (Reason: pain) 3 Days Qty: 9 0RF ondansetron 4 mg tablet,disintegrating 4 mg PO Q8H PRN PRN (Reason: Nausea) Qty: 10 0RF sulfamethoxazole-trimethoprim [Bactrim DS] 800-160 mg tablet 1 tab PO BID Qty: 14 0RF No Action ascorbate calcium (vitamin C) 500 mg tablet 500 mg PO DAILY zinc acetate 50 mg (zinc) capsule 50 mg PO PRN PRN (Reason: PROPHYLACTIC) cod liver oil Capsule 1 cap PO DAILY omeprazole 20 mg capsule,delayed release(DR/EC) 20 mg PO DAILY Qty: 30 8RF cholecalciferol (vitamin D3) [Vitamin D3] 50 mcg (2,000 unit) Capsule 50 mcg PO DAILY Primary Care Provider: Ronaldo Medley Referrals: Chris Gaines MD [Med Staff - Active Staff] - Activity Restrictions/Additional Instructions: Thank you for trusting us with your care today! Your labs and images were consistent with kidney stone. Your kidney stone is small (2 mm), it is located distally or further away from your kidney which should improve his likelihood of passing. Your urine did appear to be infected. I will send her urine for culture. Please start taking Bactrim twice a day by mouth to fight infection Please take Tylenol (2 pills, 650 mg), ibuprofen (2 pills, 400 mg) every 6 hours as needed for pain and fever control. If the above does not control your pain please take oxycodone for breakthrough pain control. Please take Zofran for nausea control. Please return to the emergency department if your symptoms change or worsen. Please follow with your primary care physician for further outpatient evaluation and management. Print Language: Portuguese Disposition Disposition: Home, Self Care
--- OUTSIDE RECORDS SUMMARY | 2024-02-23 19:59 | XMS RPT_ITS | CCD ---
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 [facility] Comment on above: Order Comment: Speci men Type: BLOOD SPECIMEN Ordering Facility: [facility] Address: [address] [place] [address] Performed By: #### 5 7021-8 #### [facility] CLIA [id number] [address] [place] [address] [place] Differential cell count method Nom (Bld) Auto Normal [facility] Comment on above: Order Comment: Speci men Type: BLOOD SPECIMEN Ordering Facility: [facility] Address: [address] [place] [address] Performed By: #### 5 7021-8 #### [facility] CLIA [id number] [address] [place] [address] [place] Eosinophils (Bld) [#/Vol] 0.34 10*3/uL Normal <0.46 [facility] Comment on above: Order Comment: Speci men Type: BLOOD SPECIMEN Ordering Facility: [facility] Address: [address] [place] [address] Performed By: #### 5 7021-8 #### [facility] CLIA [id number] [address] [place] [address] [place] Eosinophils/100 WBC (Bld) 3.4 % Normal [facility] Comment on above: Order Comment: Speci men Type: BLOOD SPECIMEN Ordering Facility: [facility] Address: [address] [place] [address] Performed By: #### 5 7021-8 #### [facility] CLIA [id number] [address] [place] [address] [place] Erythrocyte distribution width (RBC) [Ratio] 12.9 % Normal 11.5-15.0 [facility] Comment on above: Order Comment: Speci men Type: BLOOD SPECIMEN Ordering Facility: [facility] Address: [address] [place] [address] Performed By: #### 5 7021-8 #### [facility] CLIA [id number] [address] [place] [address] [place] Hematocrit (Bld) [Volume fraction] 43.8 % Normal 36.0-46.0 [facility] Comment on above: Order Comment: Speci men Type: BLOOD SPECIMEN Ordering Facility: [facility] Address: [address] [place] [address] Performed By: #### 5 7021-8 #### [facility] CLIA [id number] [address] [place] [address] [place] Hemoglobin (Bld) [Mass/Vol] 14.4 g/dL Normal 11.5-15.5 [facility] Comment on above: Order Comment: Speci men Type: BLOOD SPECIMEN Ordering Facility: [facility] Address: [address] [place] [address] Performed By: #### 5 7021-8 #### [facility] CLIA [id number] [address] [place] [address] [place] Immature granulocytes (Bld) [#/Vol] 10*3/uL Normal <0.10 [facility] Comment on above: Order Comment: Speci men Type: BLOOD SPECIMEN Ordering Facility: [facility] Address: [address] [place] [address] Performed By: #### 5 7021-8 #### [facility] CLIA [id number] [address] [place] [address] [place] Immature granulocytes/100 WBC (Bld) 0.2 % Normal [facility] Comment on above: Order Comment: Speci men Type: BLOOD SPECIMEN Ordering Facility: [facility] Address: [address] [place] [address] Performed By: #### 5 7021-8 #### [facility] CLIA [id number] [address] [place] [address] [place] Lymphocytes (Bld) [#/Vol] 2.33 10*3/uL Normal 1.00-4.00 [facility] Comment on above: Order Comment: Speci men Type: BLOOD SPECIMEN Ordering Facility: [facility] Address: [address] [place] [address] Performed By: #### 5 7021-8 #### [facility] CLIA [id number] [address] [place] [address] [place] Lymphocytes/100 WBC (Bld) 23.2 % Normal [facility] Comment on above: Order Comment: Speci men Type: BLOOD SPECIMEN Ordering Facility: [facility] Address: [address] [place] [address] Performed By: #### 5 7021-8 #### [facility] CLIA [id number] [address] [place] [address] [place] MCH (RBC) [Entitic mass] 28.7 pg Normal 26.0-34.0 [facility] Comment on above: Order Comment: Speci men Type: BLOOD SPECIMEN Ordering Facility: [facility] Address: [address] [place] [address] Performed By: #### 5 7021-8 #### [facility] CLIA [id number] [address] [place] [address] [place] MCHC (RBC) [Mass/Vol] 32.9 g/dL Normal 30.5-36.0 [facility] Comment on above: Order Comment: Speci men Type: BLOOD SPECIMEN Ordering Facility: [facility] Address: [address] [place] [address] Performed By: #### 5 7021-8 #### [facility] CLIA [id number] [address] [place] [address] [place] MCV (RBC) [Entitic vol] 87.4 fL Normal 80.0-100.0 [facility] Comment on above: Order Comment: Speci men Type: BLOOD SPECIMEN Ordering Facility: [facility] Address: [address] [place] [address] Performed By: #### 5 7021-8 #### [facility] CLIA [id number] [address] [place] [address] [place] Monocytes (Bld) [#/Vol] 0.51 10*3/uL Normal <0.87 [facility] Comment on above: Order Comment: Speci men Type: BLOOD SPECIMEN Ordering Facility: [facility] Address: [address] [place] [address] Performed By: #### 5 7021-8 #### [facility] CLIA [id number] [address] [place] [address] [place] Monocytes/100 WBC (Bld) 5.1 % Normal [facility] Comment on above: Order Comment: Speci men Type: BLOOD SPECIMEN Ordering Facility: [facility] Address: [address] [place] [address] Performed By: #### 5 7021-8 #### [facility] CLIA [id number] [address] [place] [address] [place] Neutrophils (Bld) [#/Vol] 6.79 10*3/uL Normal 1.45-7.50 [facility] Comment on above: Order Comment: Speci men Type: BLOOD SPECIMEN Ordering Facility: [facility] Address: [address] [place] [address] Performed By: #### 5 7021-8 #### [facility] CLIA [id number] [address] [place] [address] [place] Neutrophils/100 WBC (Bld) 67.7 % Normal [facility] Comment on above: Order Comment: Speci men Type: BLOOD SPECIMEN Ordering Facility: [facility] Address: [address] [place] [address] Performed By: #### 5 7021-8 #### [facility] CLIA [id number] [address] [place], [place] [address] [place] Nucleated RBC (Bld) [#/Vol] 10*3/uL Normal <0.01 [facility] Comment on above: Order Comment: Speci men Type: BLOOD SPECIMEN Ordering Facility: [facility] Address: [address] [place] [address] Performed By: #### 5 7021-8 #### [facility] CLIA [id number] [address] [place] [address] [place] Nucleated RBC/100 WBC (Bld) [Ratio] 0.0 /100 WBC Normal [facility] Comment on above: Order Comment: Speci men Type: BLOOD SPECIMEN Ordering Facility: [facility] Address: [address] [place] [address] Performed By: #### 5 7021-8 #### [facility] CLIA [id number] [address] [place] [address] [place] Platelet mean volume (Bld) [Entitic vol] 11.3 fL Normal 9.0-12.7 [facility] Comment on above: Order Comment: Speci men Type: BLOOD SPECIMEN Ordering Facility: [facility] Address: [address] [place] [address] Performed By: #### 5 7021-8 #### [facility] CLIA [id number] [address] [place] [address] [place] Platelets (Bld) [#/Vol] 297 10*3/uL Normal 150-400 [facility] Comment on above: Order Comment: Speci men Type: BLOOD SPECIMEN Ordering Facility: [facility] Address: [address] [place] [address] Performed By: #### 5 7021-8 #### [facility] CLIA [id number] [address] [place] [address] [place] RBC (Bld) [#/Vol] 5.01 10*6/uL Normal 3.90-5.20 [facility] Comment on above: Order Comment: Speci men Type: BLOOD SPECIMEN Ordering Facility: [facility] Address: [address] [place] [address] Performed By: #### 5 7021-8 #### [facility] CLIA [id number] [address] [place] [address] [place] WBC (Bld) [#/Vol] 10.03 10*3/uL Normal 3.70-11.00 [facility] Comment on above: Order Comment: Speci men Type: BLOOD SPECIMEN Ordering Facility: [facility] Address: [address] [place] [address] Performed By: #### 5 7021-8 #### [facility] CLIA [id number] [address] [place] [address] [place] CNOVon 07-12-2023 CNOV Office Visit (FAMPWS ) SUMMER MASSEY ([id number]) 1975 F Date Time Provider Department 07/12/23 7:00 AM EUNICE ELIAS FAMPWS During your visit today, we recorded the following information about you: Temperature Pulse Respiration Blood pressure 99.2 degrees 72/minute 18/minute 126/86 Weight Height 108.4 kg 1.665 m Eunice Elias PA-C 07/12/2023 8:51 AM Addendum Chief Complaint Patient presents with: Yearly Exam HPI Summer Massey is a 47 year old female who presents here today for physical. Patient overall doing okay. Patient was dx with eosinophilic esophagitis last year. Concerned that she may not digesting nutrients effectively. But otherwise doing okay. Continues to struggle with weight loss. Last 3 Encounter Wt Readings: Date: Wt: 07/12/2023 108.4 kg (239 lb) 11/15/2022 104.8 kg (231 lb) 07/14/2022 105.2 kg (232 lb) Past medical history, appointments, medications, allergies [...] on File Prior to Visit Medication Sig ondansetron orally disintegrating (ZOFRAN ODT) 4 mg disintegrating tablet Take 1 tablet by mouth every 6 hours as needed for nausea/vomiting. (Patient not taking: Reported on 07/12/2023) naproxen (NAPROSYN) 500 mg tablet Take 1 tablet by mouth twice daily as needed (for pain/inflammation). Take with food. (Patient not taking: Reported on 07/12/2023) cyclobenzaprine (FLEXERIL) 10 mg tablet Take 1 tablet by mouth three times daily as needed for muscle spasm. (Patient not taking: Reported on 07/12/2023) No current facility-administered medications on file prior [...] CARDIOVASCULAR: Negative for chest pain, leg swelling, CHF or palpitations GI: See HPI : No history of dysuria, frequency or incontinence MUSCULOSKELETAL: Negative for joint pain or swelling, back pain or muscle pain SKIN: Negative for lesions, rash, and itching PSYCH: Negative for sleep disturbance, mood disorder and recent psychosocial stressors HEMATOLOGY/LYMPHOLOGY : Negative for prolonged bleeding, bruising easily or swollen nodes ENDOCRINE: Negative for cold or heat intolerance, polyuria, polydipsia and goiter NEURO: No history of headaches, syncope, paralysis, seizures or tremors EXAM: BP 130/96 (BP Site: Left Arm, BP Position: Sitting, BP Cuff Size: Large Adult) Pulse 83 Temp 37.3 ?C (99.2 ?F) Resp 18 Ht 166.5 cm (5' 5.55 ) Wt 108.4 kg (239 lb) LMP 11/14/2018 BMI 39.11 kg/m? BP 126/86 (BP Site: Left Arm, BP Position: Sitting, BP Cuff Size: Extra Large Adult) Pulse 72 Temp 37.3 ?C (99.2 ?F) Resp 18 Ht 166.5 cm (5' 5.55 ) Wt 108.4 kg (239 lb) LMP 11/14/2018 BMI 39.11 kg/m? General Appearance: Well appearing, alert, in no acute distress, well-hydrated, well nourished. and Obese. Skin: deferred. Head: Normocephalic, no masses, lesions, tenderness or abnormalities. Eyes: Anicteric sclera. Pupils are equally round and reactive to light. Extraocular movements are intact. . Ears: External ears normal, canals clear, TMs pearly leblanc. Nose/Sinuses: Nares normal, septum midline, mucosa normal, no drainage or sinus tenderness. Oropharynx: Lips, mucosa, and tongue normal, teeth and gums normal, oropharynx normal. Neck: Supple, no adenopathy; thyroid symmetric, normal size, no bruits. Lungs: Lungs clear to auscultation. No wheezing, rhonchi, rales.. Heart: RRR without murmur, gallop, or rubs. No ectopy. Abdomen: Normal abdominal exam, Abdo (more content not included)... Normal [facility] metabolic 2000 panelon 07-12-2023 Albumin [Mass/Vol] 4.2 g/dL Normal 3.9-4.9 [facility] Comment on above: Order Comment: Speci men Type: BLOOD SPECIMEN Ordering Facility: [facility] Address: [address] [place] [address] Performed By: #### 2 143-6, , 2275-07 #### [facility] CLIA [id number] [address] [place] [address] [place] ALP [Catalytic activity/Vol] 73 U/L Normal 34-123 [facility] Comment on above: Order Comment: Speci men Type: BLOOD SPECIMEN Ordering Facility: [facility] Address: [address] [place] [address] Performed By: #### 2 143-6, , 2275-07 #### [facility] CLIA [id number] [address] [place] [address] [place] ALT [Catalytic activity/Vol] 22 U/L Normal 7-38 [facility] Comment on above: Order Comment: Speci men Type: BLOOD SPECIMEN Ordering Facility: [facility] Address: [address] [place] [address] Performed By: #### 2 143-6, , 2275-07 #### [facility] CLIA [id number] [address] [place] [address] [place] Anion gap [Moles/Vol] 11 mmol/L Normal 9-18 [facility] Comment on above: Order Comment: Speci men Type: BLOOD SPECIMEN Ordering Facility: [facility] Address: [address] [place] [address] Performed By: #### 2 143-6, , 2275-07 #### [facility] CLIA [id number] [address] [place], [place] [address] [place] AST [Catalytic activity/Vol] 19 U/L Normal 13-35 [facility] Comment on above: Order Comment: Speci men Type: BLOOD SPECIMEN Ordering Facility: [facility] Address: [address] [place] [address] Performed By: #### 2 143-6, 08440-3, 2275-07 #### [facility] CLIA [id number] [address] [place] [address] [place] Bilirubin [Mass/Vol] 0.3 mg/dL Normal 0.2-1.3 [facility] Comment on above: Order Comment: Speci men Type: BLOOD SPECIMEN Ordering Facility: [facility] Address: [address] [place], [place] [address] Performed By: #### 2 143-6, , 2275-07 #### [facility] CLIA [id number] [address] [place], [place] [address] [place] Calcium [Mass/Vol] 9.7 mg/dL Normal 8.5-10.2 [facility] Comment on above: Order Comment: Speci men Type: BLOOD SPECIMEN Ordering Facility: [facility] Address: [address] [place] [address] Performed By: #### 2 143-6, , 2275-07 #### [facility] CLIA [id number] [address] [place] [address] [place] Chloride [Moles/Vol] 103 mmol/L Normal 97-105 [facility] Comment on above: Order Comment: Speci men Type: BLOOD SPECIMEN Ordering Facility: [facility] Address: [address] [place] [address] Performed By: #### 2 143-6, , 2275-07 #### [facility] CLIA [id number] [address] [place], [place] [address] [place] CO2 [Moles/Vol] 25 mmol/L Normal 22-30 [facility] Comment on above: Order Comment: Speci men Type: BLOOD SPECIMEN Ordering Facility: [facility] Address: [address] [place] [address] Performed By: #### 2 143-6, 75969-5, 2275-4 #### [facility] CLIA [id number] [address] [place] [address] [place] Creatinine [Mass/Vol] 0.83 mg/dL Normal 0.58-0.96 [facility] Comment on above: Order Comment: Spectamara rajput Type: BLOOD SPECIMEN Ordering Facility: [facility] Address: [address] [place] [address] Performed By: #### 2 143-6, 17666-1, 2275-07 #### [facility] CLIA [id number] [address] [place] [address] [place] Creatinine and Glomerular filtration rate.predicted panel (S/P/Bld) 88 mL/min/1.73m??? Normal >=60 [facility] Comment on above: Order Comment: Maral rajput Type: BLOOD SPECIMEN Ordering Facility: [facility] Address: [address] [place] [address] Result Comment: Kaylin mated Glomerular Filtration Rate (eGFR) is calculated using the 2020 CKD-EPI creatinine equation. This equation utilizes serum creatinine, sex, and age as parameters. The creatinine assay has traceable calibration to isotope dilution-mass spectrometry. Refer to KDIGO guidelines for clinical interpretation. In patients with unstable renal function, e.g. those with acute kidney injury, the eGFR may not accurately reflect actual GFR. Performed By: #### 2 143-6, 12750-1, 4 #### [facility] CLIA [id number] [address] [place] [address] [place] Glucose [Mass/Vol] 103 mg/dL High 74-99 [facility] Comment on above: Order Comment: Maral rajput Type: BLOOD SPECIMEN Ordering Facility: [facility] Address: [address] [place] [address] Result Comment: The [place] Diabetes Association (ADA) provides guidance for cutoff values for fasting glucose and random glucose. The ADA defines fasting as no caloric intake for at least 8 hours. Fasting plasma glucose results between 100 to 125 mg/dL indicate increased risk for diabetes (prediabetes). Fasting plasma glucose results greater than or equal to 126 mg/dL meet the criteria for diagnosis of diabetes. In the absence of unequivocal hyperglycemia, results should be confirmed by repeat testing. In a patient with classic symptoms of hyperglycemia or hyperglycemic crisis, random plasma glucose results greater than or equal to 200 mg/dL meet the criteria for diagnosis of diabetes. Reference: Standards of Medical Care in Diabetes 2016, [place] Diabetes Association. Diabetes Care. 2016.39(Suppl 1). Performed By: #### 2 143-6, , 2275-07 #### [facility] CLIA [id number] [address] [place] [address] [place] Potassium [Moles/Vol] 4.6 mmol/L Normal 3.7-5.1 [facility] Comment on above: Order Comment: Speci men Type: BLOOD SPECIMEN Ordering Facility: [facility] Address: [address] [place] [address] Performed By: #### 2 143-6, , 2275-07 #### [facility] CLIA [id number] [address] [place] [address] [place] Protein [Mass/Vol] 7.1 g/dL Normal 6.3-8.0 [facility] Comment on above: Order Comment: Speci men Type: BLOOD SPECIMEN Ordering Facility: [facility] Address: [address] [place] [address] Performed By: #### 2 143-6, , 2275-07 #### [facility] CLIA [id number] [address] [place] [address] [place] Sodium [Moles/Vol] 139 mmol/L Normal 136-144 [facility] Comment on above: Order Comment: Speci men Type: BLOOD SPECIMEN Ordering Facility: [facility] Address: [address] [place] [address] Performed By: #### 2 143-6, , 2275-07 #### [facility] CLIA [id number] [address] [place] [address] [place] Urea nitrogen [Mass/Vol] 13 mg/dL Normal 7-21 [facility] Comment on above: Order Comment: Speci men Type: BLOOD SPECIMEN Ordering Facility: [facility] Address: [address] [place] [address] Performed By: #### 2 143-6, 42151-9, 2275-4 #### [facility] CLIA [id number] [address] [place] [address] [place] Cortis SerPl-mCncon 07-12-19 24 Cortisol [Mass/Vol] 8.2 ug/dL Normal 4.8-19.5 [facility] Comment on above: Order Comment: Speci men Type: BLOOD SPECIMEN Ordering Facility: [facility] Address: [address] [place] [address] Result Comment: Prov ided reference range is from 6-10 AM sample collection time. Cortisol Reference Range: 6-10 AM = 4.8-19.5 ug/dL, 4-8 PM = 2.5-11.9 ug/dL Performed By: #### 2 143-6, 09722-4, 2275-07 #### [facility] CLIA [id number] [address] [place] [address] [place] Ferritin SerPl-mCncon 2023 Ferritin [Mass/Vol] 119.0 ng/mL Normal 14.7-205.1 [facility] Comment on above: Order Comment: Speci men Type: BLOOD SPECIMEN Ordering Facility: [facility] Address: [address] [place] [address] Performed By: #### 2 143-6, 88043-1, 2275-07 #### [facility] CLIA [id number] [address] [place] [address] [place] Folate SerPl-mCncon 07-12-19 24 Folate [Mass/Vol] 10.8 ng/mL Normal >4.[address] [facility] Comment on above: Order Comment: Maral rajput Type: BLOOD SPECIMEN Ordering Facility: [facility] Address: [address] [place] [address] Performed By: #### 2 143-6, 32917-5, 2276-4 #### [facility] CLIA [id number] [address] [place] [address] [place] HbA1c (Bld)on 07-12-2023 Average glucose Estimated from glycated hemoglobin (Bld) [Mass/Vol] 108 mg/dL Normal [facility] Comment on above: Order Comment: Maral rajput Type: BLOOD SPECIMEN Ordering Facility: [facility] Address: [address] [place] [address] Result Comment: eAG: (Estimated average glucose) is a calculated value from HgbA1c and is installation service representative of the average blood glucose level in the last 2-3 month period. Performed By: #### 5 5454-3 #### [facility] CLIA [id number] [address] [place] [address] [place] [facility] HbA1c (Bld) [Mass fraction] 5.4 % Normal 4.3-5.6 [facility] Comment on above: Order Comment: Maral rajput Type: BLOOD SPECIMEN Ordering Facility: [facility] Address: [address] [place] [address] Result Comment: [place] Diabetes Association guidelines indicate that patients with HgbA1c in the range 5.7-6.4% are at increased risk for development of diabetes, and intervention by lifestyle modification may be beneficial. HgbA1c greater or equal to 6.5% is considered diagnostic of diabetes. Performed By: #### 5 5454-3 #### [facility] CLIA [id number] [address] [place] [address] [place] Iron [employer] binding capaci ty panelon 07-12-2023 Iron [Mass/Vol] 58 ug/dL Normal 41-186 [facility] Comment on above: Order Comment: Maral rajput Type: BLOOD SPECIMEN Ordering Facility: [facility] Address: [address] [place] [address] Performed By: #### 2 143-6, 18024-0, 2275-4 #### [facility] CLIA [id number] [address] [place] [address] [place] Iron binding capacity [Mass/Vol] 287 ug/dL Normal 232-386 [facility] Comment on above: Order Comment: Speci men Type: BLOOD SPECIMEN Ordering Facility: [facility] Address: [address] [place] [address] Performed By: #### 2 143-6, 13308-8, 2275-07 #### [facility] CLIA [id number] [address] [place] [address] [place] Iron/TIBC [Molar ratio] 20.2 % Normal 15.0-57.0 [facility] Comment on above: Order Comment: Speci men Type: BLOOD SPECIMEN Ordering Facility: [facility] Address: [address] [place] [address] Performed By: #### 2 143-6, 86332-2, 2275-07 #### [facility] CLIA [id number] [address] [place] [address] [place] LIPID PANEL, NONFASTINGon Cholesterol [Mass/Vol] 167 mg/dL Normal <200 [facility] Comment on above: Order Comment: Speci men Type: BLOOD SPECIMEN Ordering Facility: [facility] Address: [address] [place] [address] Result Comment: <200 mg/dL, Desirable 200-239 mg/dL, Borderline high >239 mg/dL, High Performed By: #### 2 143-6, 92981-9, 2275-07 #### [facility] CLIA [id number] [address] [place] [address] [place] HDL CHOLESTEROL, NF 44 mg/dL Normal >39 [facility] Comment on above: Order Comment: Speci men Type: BLOOD SPECIMEN Ordering Facility: [facility] Address: [address] [place] [address] Result Comment: 40-5 9 mg/dL, Acceptable >59 mg/dL, High: Negative risk factor for coronary heart disease <40 mg/dL, Low: Positive risk factor for coronary heart disease Performed By: #### 2 143-6, 52806-9, 2275-07 #### [facility] CLIA [id number] [address] [place], [place] [address] [place] [address] [place] LDL CHOLESTEROL, NF 104 mg/dL High <100 [facility] Comment on above: Order Comment: Speci men Type: BLOOD SPECIMEN Ordering Facility: [facility] Address: [address] [place] [address] Result Comment: <100 mg/dL, Optimal 100-129 mg/dL, Near optimal/above optimal 130-159 mg/dL, Borderline high 160-189 mg/dL, High >189 mg/dL, Very high Secondary prevention optimal LDL Cholesterol levels are recommended to be < 70 mg/dL Performed By: #### 2 143-6, , 2275-07 #### [facility] CLIA [id number] [address] [place] [address] [place] LDL/HDL RATIO, NF 2.36 mg/dL Normal <2.[address] [facility] Comment on above: Order Comment: Speci men Type: BLOOD SPECIMEN Ordering Facility: [facility] Address: [address] [place] [address] Result Comment: Dorian howard: 1. National Cholesterol Education Program ATP III Guideline At-A-Glance Quick Desk Reference: National Heart, Lung, and Blood Yarnell. National Institutes of Health. 2001: NIH Publication No. 01-3305. 2. An International Atherosclerosis Society position paper: global recommendations for the management of dyslipidemia: executive summary, Atherosclerosis. 2014: 232(2):410-413. Performed By: #### 2 143-6, 40993-4, 2275-07 #### [facility] CLIA [id number] [facility] [address] [place] NON HDL CHOL, NF 123 mg/dL Normal <130 [facility] Comment on above: Order Comment: Speci men Type: BLOOD SPECIMEN Ordering Facility: [facility] Address: [address] [place] [address] Result Comment: <130 mg/dL, Optimal 130-159 mg/dL, Near optimal/above optimal 160-189 mg/dL, Borderline high 190-219 mg/dL, High >219 mg/dL, Very high Secondary prevention optimal non HDL Cholesterol levels are recommended to be <100 mg/dL Performed By: #### 2 143-6, 45781-8, 2275-07 #### [facility] CLIA [id number] [address] [place] [address] [place] T CHOL/HDL RATIO NF 3.80 mg/dL Normal <5.10 [facility] Comment on above: Order Comment: Speci men Type: BLOOD SPECIMEN Ordering Facility: [facility] Address: [address] [place] [address] Performed By: #### 2 143-6, , 2275-07 #### [facility] CLIA [id number] [address] [place] [address] [place] TRIGLYCERIDES, NF 96 mg/dL Normal <[address] [facility] Comment on above: Order Comment: Speci men Type: BLOOD SPECIMEN Ordering Facility: [facility] Address: [address] [place] [address] Result Comment: <150 mg/dL, Normal 150-199 mg/dL, Borderline high 200-499 mg/dL, High >499 mg/dL, Very high Performed By: #### 2 143-6, 92506-3, 2275-07 #### [facility] CLIA [id number] [address] [place] [address] [place] VLDL CHOLESTEROL, NF 19 mg/dL Normal <30 [facility] Comment on above: Order Comment: Speci men Type: BLOOD SPECIMEN Ordering Facility: [facility] Address: [address] [place] [address] Performed By: #### 2 143-6, 37481-5, 4 #### [facility] CLIA [id number] [address] [place] [address] [place] Magnesium SerPl-mCncon 07-11 Magnesium [Mass/Vol] 2.1 mg/dL Normal 1.7-2.3 [facility] Comment on above: Order Comment: Speci men Type: BLOOD SPECIMEN Ordering Facility: [facility] Address: [address] [place] [address] Performed By: #### 2 143-6, , 2275-07 #### [facility] CLIA [id number] [address] [place] [address] [place] TSH SerPl-aCncon 07-12-2023 TSH Qn 2.010 m[IU]/L Normal 0.270-4.200 [facility] Comment on above: Order Comment: Speci men Type: BLOOD SPECIMEN Ordering Facility: [facility] Address: [address] [place] [address] Result Comment: If t he patient is , TSH reference range varies by gestational period: First Trimester (weeks 9-12): 0.180-2.990 mIU/L Second Trimester: 0.110-3.980 mIU/L Third Trimester: 0.480-4.710 mIU/L Amauri Rodriguez et al. A Practical Approach for the Verifications and Determination of Site- and Trimester-Specific Reference Intervals for Thyroid Function tests in . Thyroid, 2019:29:3:412-420. Harris Henderson, et al. 2017 Guidelines of the [place] Thyroid Association for the Diagnosis and Management of Thyroid Disease during and the . Thyroid, 2017:27:3:315-389. Performed By: #### 2 143-6, 88791-1, 2275-07 #### [facility] CLIA [id number] [address] [place], [place] [id number] [place] Vit B12 SerPl-mCncon 024 Cobalamin (Vitamin B12) [Mass/Vol] 479 pg/mL Normal 232-1245 [facility] Comment on above: Order Comment: Speci men Type: BLOOD SPECIMEN Ordering Facility: [facility] Address: [address] [place] [address] Performed By: #### 2 143-6, 03397-9, 2276-4 #### [facility] CLIA [id number] [address] [place] [address] [place] [address] [place] XR Thoracic and lumbar spine Views for scoliosison 01-23-2023 IMPRESSION: Mild multilevel degenerative disc disease. No significant scoliosis. Superior left pelvic tilt. OLOGY EXAM: XR SPINE SCOLIOSIS 2/3 VIEWS, 01/23/2023 12:02 PM COMPARISON: No prior studies available for comparison. CLINICAL INDICATIONS: scoliosis evaluation RELEVANT CLINICAL HISTORY: M48.04:Spinal stenosis, thoracic region 3 foot standing;Calibration sphere; FINDINGS: 8 images obtained. Thoracolumbar spine: 12 rib-bearing thoracic vertebral bodies and 5 lumbar vertebral bodies are identified. Mild multilevel degenerative disc disease is present. No significant scoliosis is identified. Pelvic Tilt: Superior left pelvic tilt measures 9 mm. RADIOLOGY Camilo Del Toro MD - 01/23/2023 EXAM: XR SPINE SCOLIOSIS 2/3 VIEWS, 01/23/2023 12:02 PM COMPARISON: No prior studies available for comparison. CLINICAL INDICATIONS: scoliosis evaluation RELEVANT CLINICAL HISTORY: M48.04:Spinal stenosis, thoracic region 3 foot standing;Calibration sphere; FINDINGS: 8 images obtained. Thoracolumbar spine: 12 rib-bearing thoracic vertebral bodies and 5 lumbar vertebral bodies are identified. Mild multilevel degenerative disc disease is present. No significant scoliosis is identified. Pelvic Tilt: Superior left pelvic tilt measures 9 mm. IMPRESSION IMPRESSION: Mild multilevel degenerative disc disease. No significant scoliosis. Superior left pelvic tilt. [facility] Radiology Study observation (narrative) [facility] XR Thoracic and lumbar spine Views for scoliosisOrdered By: Camilo Del Toro on 01-23-2023 [facility] Work Phone: XR Thoracic spine 2 Viewson 01-23-2023 IMPRESSION: Mild multilevel degenerative disc disease. OLOGY EXAM: XR SPINE THORACIC 2 VIEWS, 01/23/2023 12:01 PM COMPARISON: Outside thoracic spine MRI 12/09/2022 CLINICAL INDICATIONS: stenosis RELEVANT CLINICAL HISTORY: M48.04:Spinal stenosis, thoracic region Ap/lateral; FINDINGS: 2 images obtained. Vertebral: There are 12 rib bearing vertebral bodies in anatomic alignment. No compression deformity. Disc: Mild multilevel degenerative disc disease is present. RADIOLOGY Camilo Del Toro MD - 01/23/2023 EXAM: XR SPINE THORACIC 2 VIEWS, 01/23/2023 12:01 PM COMPARISON: Outside thoracic spine MRI 12/09/2022 CLINICAL INDICATIONS: stenosis RELEVANT CLINICAL HISTORY: M48.04:Spinal stenosis, thoracic region Ap/lateral; FINDINGS: 2 images obtained. Vertebral: There are 12 rib bearing vertebral bodies in anatomic alignment. No compression deformity. Disc: Mild multilevel degenerative disc disease is present. IMPRESSION IMPRESSION: Mild multilevel degenerative disc disease. [facility] Radiology Study observation (narrative) [facility] XR Thoracic spine 2 ViewsOrd ered By: Camilo Del Toro on 01-23-2023 [facility] Work Phone: XR Abdomen Supine and Uprigh ton 11-16-2022 IMPRESSION: Nonobstructive bowel gas pattern. Obstetrics Gynecology Md: PSCRick Transcribe Date/Time: Nov 16 2022 4:52P Dictated by : YOLY DUMAS MD This examination was interpreted and the report reviewed and electronically signed by: YOLY DUMAS MD on Nov 16 2022 4:53PM [facility] DIVISION OF RADIOLOGY * * *Final Report* * * DATE OF EXAM: Nov 15 2022 8:22AM WOX 5289 - XR ABDOMEN 1V SUPINE / PROCEDURE REASON: Diarrhea, unspecified type * * * * Physician Interpretation * * * * EXAM TITLE: XR ABDOMEN 1V SUPINE EXAM DATE/TIME: 11/15/2022 8:22 AM COMPARISON: None. CLINICAL INDICATION/HISTORY: Diarrhea TECHNIQUE: AP views of the abdomen are presented. FINDINGS: No abnormally dilated bowel loops identified. Small amount of stool and gas noted in the large bowel loops. A few phleboliths seen in the pelvis. There are no abnormal calcifications. The bony structures appear intact. DIVISION OF RADIOLOGY Provider, [facility]22 * * *Final Report* * * DATE OF EXAM: Nov 15 2022 8:22AM WOX 5289 - XR ABDOMEN 1V SUPINE / PROCEDURE REASON: Diarrhea, unspecified type * * * * Physician Interpretation * * * * EXAM TITLE: XR ABDOMEN 1V SUPINE EXAM DATE/TIME: 11/15/2022 8:22 AM COMPARISON: None. CLINICAL INDICATION/HISTORY: Diarrhea TECHNIQUE: AP views of the abdomen are presented. FINDINGS: No abnormally dilated bowel loops identified. Small amount of stool and gas noted in the large bowel loops. A few phleboliths seen in the pelvis. There are no abnormal calcifications. The bony structures appear intact. IMPRESSION IMPRESSION: Nonobstructive bowel gas pattern. Obstetrics Gynecology Md: PSCB Transcribe Date/Time: Nov 16 2022 4:52P Dictated by : YOLY DUMAS MD This examination was interpreted and the report reviewed and electronically signed by: YOLY DUMAS MD on Nov 16 2022 4:53PM EST [facility] XR Abdomen Supine and Uprigh tOrdered By: Ccf Provider on 11-16-2022 [facility] XR Abdomen Supine and Uprigh ton 11-15-2022 Radiology Study observation (narrative) [facility] US ABD RT UPPER QUADRANTon 0 07-26-2022 [facility] CBC W Auto Differential pane l (Bld)on 08-09-2021 Abs Immature Gran 0.03 k/uL <0.10 k/uL [facility] Basophils (Bld) [#/Vol] 0.06 10*3/uL <0.11 k/uL [facility] Basophils/100 WBC (Bld) 0.7 % [facility] Differential cell count method Nom (Bld) Auto [facility] Eosinophils (Bld) [#/Vol] 0.29 10*3/uL <0.46 k/uL [facility] Eosinophils/100 WBC (Bld) 3.2 % [facility] Erythrocyte distribution width (RBC) [Ratio] 13.1 % 11.5 - 15.0 % [facility] Hematocrit (Bld) [Volume fraction] 40.9 % 36.0 - 46.0 % [facility] Hemoglobin (Bld) [Mass/Vol] 13.2 g/dL 11.5 - 15.5 g/dL [facility] Immature Gran % 0.3 % [facility] Lymphocytes (Bld) [#/Vol] 2.76 10*3/uL 1.00 - 4.00 k/uL [facility] Lymphocytes/100 WBC (Bld) 30.8 % [facility] MCH (RBC) [Entitic mass] 28.6 pg 26.0 - 34.0 pg [facility] MCHC (RBC) [Mass/Vol] 32.3 g/dL 30.5 - 36.0 g/dL [facility] MCV (RBC) [Entitic vol] 88.7 fL 80.0 - 100.0 fL [facility] Monocytes (Bld) [#/Vol] 0.51 10*3/uL <0.87 k/uL [facility] Monocytes/100 WBC (Bld) 5.7 % [facility] Neutrophils (Bld) [#/Vol] 5.31 10*3/uL 1.45 - 7.50 k/uL [facility] Neutrophils/100 WBC (Bld) 59.3 % [facility] Nucleated RBC (Bld) [#/Vol] 10*3/uL <0.01 k/uL [facility] Nucleated RBC/100 WBC (Bld) [Ratio] 0.0 /100 WBC [facility] Platelet mean volume (Bld) [Entitic vol] 11.0 fL 9.0 - 12.7 fL [facility] Platelets (Bld) [#/Vol] 284 10*3/uL 150 - 400 k/uL [facility] RBC (Bld) [#/Vol] 4.61 10*6/uL 3.90 - 5.2 0 m/uL [facility] WBC (Bld) [#/Vol] 8.96 10*3/uL 3.70 - 11. 00 k/uL [facility] ESR Westergren method (Bld) [Velocity]on 08-09-2021 ESR (Bld) [Velocity] 9 mm/h 0 - 20 mm/hr [facility] MRI LIVER W/WO IV CONon 11-0 MRI LIVER W/WO IV CON Performed at [facility] APPROVED BY: Guanaco Ham MD EXAM TITLE: MRI LIVER W/WO IV CON DATE: 03/08/2018 16:16 INDICATION: 2 lesions noted in the liver on ultrasound. One is seen in the inferior aspect left lobe of the liver and one is seen in the right lobe of the liver adjacent to gallbladder fossa. Patient also had echogenic nodule in the right lobe of the liver thought to represent hemangioma seen on previous MRI. Patient now comes for follow-up. COMPARISON: Ultrasound dated 03/16/2018. Prior MRI dated 10/19/2015. A series of T1 and T2 weighted axial, coronal, sagittal images were acquired both prior to and following administration of 20 cc of Dotarem intravenous contrast. Lung bases: Clear. Liver: Subtle fatty infiltration throughout the liver. There are focal areas of fatty sparing. One area measuring up to approximately 2.5 cm in greatest diameter seen in segment 6 adjacent to the gallbladder fossa on 6:41 and this most likely represents hypoechoic area seen on ultrasound in the right lobe of the liver. In addition, there is a 1.2 cm area of fatty sparing noted posteriorly in segment 2 and best seen on 6:17. This most likely correlates with hypoechoic area noted in the left lobe of the liver on prior ultrasound. 2 lesions noted within the posterior aspect right lobe of the liver. These are both at the border of segments 6 and 7. The lateralmost measures 10 mm on 13:17 and the medial measures 8 mm on 13:16. These lesions enhance like hemangiomas. They are stable compared to prior MRI.There are 2 tiny lesions one in segment 5 and one in segment 6 which are not seen on the post contrasted images and may also represent 2 very tiny hemangiomas. These are best seen on 13:26. They measure under 5 mm in diameter.No other focal lesions are seen within the liver. No lesion is seen in the left lobe of the liver to correlate with focal hypoechoic area noted on ultrasound. Gallbladder/bile ducts: The gallbladder is distended. Small 3 mm polyp and or adherent gallstone noted along the dorsal wall of the mid body as seen on 13:26. No bile duct dilatation. Pancreas: Unremarkable. Adrenal glands: Unremarkable. Spleen: Unremarkable. Kidneys: Unremarkable. Bowel: Unremarkable. Ascites: None. Retroperitoneum: Several periportal lymph nodes noted. None of these measure over 10 mm in short axis diameter. IMPRESSION: All findings in the liver appear to be benign in nature. Mild fatty infiltration in the liver with focal areas of sparing in the right lobe and left lobe which explain hypoechoic area seen on recent ultrasound. At least 2 hemangiomas in the right lobe of the liver and these are stable since prior MRI. There may be 2 additional tiny hemangiomas in the right lobe of the liver as well. Small polyp versus adherent gallstone mid body of the gallbladder. Remainder of exam is unremarkable. Normal [facility] Vital Signs Date Time Vital Sign Value Performing Clinician Facility 02-19-2024 08:15-0400 Body mass index (BMI) [Ratio] 40.25 kg/m2 Eunice CAMARENA-C Work Phone: [facility] 02-19-2024 08:15-0400 Body temperature 98.8 [degF] Eunice CAMARENA-C Work Phone: [facility] 02-19-2024 08:15-0400 Body weight 111.58 kg Eunice CAMARENA-C Work Phone: [facility] 02-19-2024 08:15-0400 Diastolic blood pressure 86 mm[Hg] Eunice CAMARENA-C Work Phone: [facility] 02-19-2024 08:15-0400 Heart rate 84 /min Eunice CAMARENA-C Work Phone: [facility] 02-19-2024 08:15-0400 Respiratory rate 18 /min Eunice CAMARENA-C Work Phone: [facility] 02-19-2024 08:15-0400 SaO2% (BldA) [Mass fraction] 97 % Eunice CAMARENA-C Work Phone: [facility] 02-19-2024 08:15-0400 Systolic blood pressure 138 mm[Hg] Eunice CAMARENA-C Work Phone: [facility] 07-12-2023 07:54-0400 Diastolic blood pressure 86 mm[Hg] Eunice Elias PA-C Work Phone: [facility] 07-12-2023 07:54-0400 Heart rate 72 /min Eunice Elias PA-C Work Phone: [facility] 07-12-2023 07:54-0400 Systolic blood pressure 126 mm[Hg] Eunice Elias PA-C Work Phone: [facility] 07-12-2023 07:07-0400 Body height 166.5 cm Eunice Elias PA-C Work Phone: [facility] 07-12-2023 07:07-0400 Body temperature 99.19 [degF] Eunice Elias PA-C Work Phone: [facility] 07-12-2023 07:07-0400 Body weight 108.41 kg Eunice Elias PA-C Work Phone: [facility] 07-12-2023 07:07-0400 Respiratory rate 18 /min Eunice Elias PA-C Work Phone: [facility] 01-23-2023 12:24-0400 Body height 165.1 cm Regis Souza MD Work Phone: [facility] 01-23-2023 12:24-0400 Body mass index (BMI) [Ratio] 38.44 kg/m2 Regis Souza MD Work Phone: [facility] 01-23-2023 12:24-0400 Body temperature 98.01 [degF] Regis Souza MD Work Phone: [facility] 01-23-2023 12:24-0400 Body weight 104.78 kg Regis Souza MD Work Phone: [facility] 01-23-2023 12:24-0400 Diastolic blood pressure 79 mm[Hg] Regis Souza MD Work Phone: [facility] 01-23-2023 12:24-0400 Heart rate 70 /min Regis Souza MD Work Phone: [facility] 01-23-2023 12:24-0400 SaO2% (BldA) [Mass fraction] 99 % Regis Souza MD Work Phone: [facility] 01-23-2023 12:24-0400 Systolic blood pressure 145 mm[Hg] Regis Souza MD Work Phone: [facility] 11-15-2022 06:58-0400 Body temperature 99.1 [degF] Eunice Elias PA-C Work Phone: [facility] 11-15-2022 06:58-0400 Body weight 104.78 kg Eunice Elias PA-C Work Phone: [facility] 11-15-2022 06:58-0400 Diastolic blood pressure 86 mm[Hg] Eunice Elias PA-C Work Phone: [facility] 11-15-2022 06:58-0400 Heart rate 96 /min Eunice Elias PA-C Work Phone: [facility] 11-15-2022 06:58-0400 Respiratory rate 18 /min Eunice Elias PA-C Work Phone: [facility] 11-15-2022 06:58-0400 Systolic blood pressure 136 mm[Hg] Eunice Elias PA-C Work Phone: [facility] 07-14-2022 07:43-0400 Diastolic blood pressure 83 mm[Hg] Eunice Elias PA-C Work Phone: [facility] 07-14-2022 07:43-0400 Systolic blood pressure 124 mm[Hg] Eunice Elias PA-C Work Phone: [facility] 07-14-2022 07:08-0400 Body weight 105.23 kg Eunice Elias PA-C Work Phone: [facility] 07-14-2022 07:08-0400 Heart rate 86 /min Eunicerufus Elias PA-C Work Phone: [facility] 07-14-2022 07:08-0400 Respiratory rate 18 /min Eunice Elias PA-C Work Phone: [facility] 07-14-2022 07:08-0400 SaO2% (BldA) [Mass fraction] 97 % Eunice Elias PA-C Work Phone: [facility] 06-27-2022 14:25-0500 Diastolic blood pressure 71 mm[Hg] Eunice Elias PA-C Work Phone: [facility] 06-27-2022 14:25-0500 Heart rate 67 /min Eunicerufus Elias PA-C Work Phone: [facility] 06-27-2022 14:25-0500 Systolic blood pressure 123 mm[Hg] Eunice Elias PA-C Work Phone: [facility] 06-27-2022 13:17-0500 Body height 166 cm Eunice Elias PA-C Work Phone: [facility] 06-27-2022 13:17-0500 Body weight 106.59 kg Eunice Elias PA-C Work Phone: [facility] 06-27-2022 13:17-0500 Respiratory rate 16 /min Eunice Elias PA-C Work Phone: [facility] 06-27-2022 13:17-0500 SaO2% (BldA) [Mass fraction] 97 % Eunice Elias PA-C Work Phone: [facility] 03-08-2022 19:25-0500 Body temperature 98.1 [degF] Aly Coronel SALESFOR[employer] BUSINESS ANALYST.OCCUPATIONAL HE[employer] RN Work Phone: [facility] 03-08-2022 19:25-0500 Body weight 109.05 kg Aly Coronel APRN.OCCUPATIONAL HEALTH RN Work Phone: [facility] 03-08-2022 19:25-0500 Diastolic blood pressure 82 mm[Hg] [facility] SALES[employer]CE BUSINESS ANALYST.OCCUPATIONAL HEALTH RN Work Phone: [facility] 03-08-2022 19:25-0500 Heart rate 84 /min Aly [facility] SALESFORCE BUSINESS ANALYST.OCCUPATIONAL HEALTH RN Work Phone: [facility] 03-08-2022 19:25-0500 Respiratory rate 18 /min [facility] SALESFORCE BUSINESS ANALYST.OCCUPATIONAL HEALTH RN Work Phone: [facility] 03-08-2022 19:25-0500 SaO2% (BldA) [Mass fraction] 98 % [facility] SALES[employer] BUSINESS ANALYST.OCCUPATIONAL HEALTH RN Work Phone: [facility] 03-08-2022 19:25-0500 Systolic blood pressure 122 mm[Hg] [facility] SALES[employer] BUSINESS ANALYST.OCCUPATIONAL HEALTH RN Work Phone: [facility] 09-21-2021 07:03-0400 Body temperature 98.1 [degF] Eunice Elias PA-C Work Phone: [facility] 09-21-2021 07:03-0400 Body weight 109.32 kg Eunice Elias PA-C Work Phone: [facility] [facility] 09-21-2021 07:03-0400 Diastolic blood pressure 86 mm[Hg] Eunice Elias PA-C Work Phone: [facility] 09-21-2021 07:03-0400 Heart rate 80 /min Eunice Elias PA-C Work Phone: [facility] 09-21-2021 07:03-0400 Respiratory rate 18 /min Eunice Elias PA-C Work Phone: [facility] 09-21-2021 07:03-0400 Systolic blood pressure 136 mm[Hg] Eunice Elias PA-C Work Phone: [facility] 08-23-2021 11:28-0400 Diastolic blood pressure 81 mm[Hg] Eunice Elias PA-C Work Phone: [facility] 08-23-2021 11:28-0400 Heart rate 86 /min Euncierufus Elias PA-C Work Phone: [facility] 08-23-2021 11:28-0400 Systolic blood pressure 127 mm[Hg] Eunice Elias PA-C Work Phone: [facility] 08-23-2021 10:51-0400 Body temperature 98.8 [degF] Eunice Elias PA-C Work Phone: [facility] 08-23-2021 10:51-0400 Body weight 108.41 kg Eunice Elias PA-C Work Phone: [facility] 08-23-2021 10:51-0400 Respiratory rate 18 /min Eunice Elias PA-C Work Phone: [facility] 08-09-2021 10:45-0400 Diastolic blood pressure 83 mm[Hg] Eunice Elias PA-C Work Phone: [facility] 08-09-2021 10:45-0400 Heart rate 64 /min Eunice Elias PA-C Work Phone: [facility] 08-09-2021 10:45-0400 Systolic blood pressure 129 mm[Hg] Eunice Elias PA-C Work Phone: [facility] 08-09-2021 09:32-0400 Body height 165.5 cm Eunice Elias PA-C Work Phone: [facility] 08-09-2021 09:32-0400 Body temperature 99.5 [degF] Eunice Elias PA-C Work Phone: [facility] 08-09-2021 09:32-0400 Body weight 109.32 kg Eunice Elias PA-C Work Phone: [facility] 08-09-2021 09:32-0400 Respiratory rate 18 /min Eunice Elias PA-C Work Phone: [facility] Encounters Encounter Date Encounter Type Care Provider Facility Start: 02-21-2024 End: 02-21-2024 Telephone encounter Eunice Elias PA-C Work Phone: [facility] [place] Comment on above: Patient Update Start: 02-20-2024 End: 02-20-2024 Telephone encounter Eunice Curt CAMARENA-C Work Phone: [facility] [place] Comment on above: Results Start: 02-19-2024 End: 02-19-2024 ambulatory ALY DAVIS Facility:[facility] Start: 02-19-2024 End: 02-19-2024 Patient encounter procedure Eunice Curt CAMARENA-C Work Phone: [facility] [place] Comment on above: Urinary urgency (Chantel rajat Dx) Start: 07-13-2023 Telephone encounter Eunice Trish CAMARENA-C Work Phone: [facility] [place] Comment on above: Results Start: 07-12-2023 Chart abstracting Aly moncada MD Work Phone: [facility] [place] Comment on above: Opened In Error Start: 07-12-2023 End: 07-12-2023 ambulatory EUNICE ELIAS Facility:[facility] Start: 07-12-2023 End: 07-12-2023 Patient encounter procedure Eunice Curt CAMARENA-C Work Phone: [facility] [place] Comment on above: Well adult exam (Chantel rajat Dx); Eosinophilic esophagitis; Obesity, Class II, BMI 35-39.9; Fatty liver; Spinal stenosis, thoracic; GERD without esophagitis; Vitamin D deficiency; Iron deficiency anemia, unspecified iron deficiency anemia type; Encounter for screening for diabetes mellitus; Encounter for screening for cardiovascular disorders; Medication management; Family history of thyroid disorder Start: 07-12-2023 End: 07-12-2023 Patient encounter status Eunice Curt CAMARENA-C Work Phone: [facility] Work Phone: Start: 07-11-2023 Chart abstracting Aly moncada MD Work Phone: [facility] [place] Comment on above: Outside Mammogram Start: 01-23-2023 End: 01-23-2023 Office consultation new/estab patient 80 min Regis Souza MD Work Phone: [facility] Comment on above: Spinal stenosis, tho racic region (Primary Dx) Start: 01-23-2023 End: 01-23-2023 Subsequent hospital visit by physician Regis Souza MD Work Phone: [facility] Comment on above: Arrived Start: 11-16-2022 Telephone encounter Aly Davis MD Work Phone: [facility] [place] Comment on above: Results Start: 11-15-2022 End: 11-15-2022 Subsequent hospital visit by physician [facility] Work Phone: Radiology Comment on above: Diarrhea, unspecifie d type [R19.7] Start: 11-15-2022 End: 11-15-2022 Patient encounter procedure Eunice MELISSAC Work Phone: [facility] [place] Comment on above: Diarrhea, unspecifie d type (Primary Dx) Start: 11-14-2022 ambulatory Aly bello MD Work Phone: [facility] [place] Comment on above: Nausea; Diarrhea Start: 07-28-2022 Telephone encounter Eunice weinstein PA-C Work Phone: [facility] [place] Comment on above: Results Start: 07-26-2022 End: 07-26-2022 Subsequent hospital visit by physician [facility] Work Phone: Radiology Comment on above: Gall bladder polyp [ K82.4] Start: 07-14-2022 End: 07-14-2022 Patient encounter procedure Eunice MELISSAC Work Phone: [facility] [place] Comment on above: Strain of neck muscl e, initial encounter (Primary Dx) Start: 07-13-2022 Telephone encounter Eunice weinstein PA-C Work Phone: [facility] [place] Comment on above: Results Start: 06-27-2022 Telephone encounter Eunice weinstein PA-C Work Phone: [facility] [place] Comment on above: Consult (To Derm) Start: 06-27-2022 Encounter for genera l adult medical examination without abnormal findings EUNICE ELIAS [facility] Start: 06-27-2022 End: 06-27-2022 Patient encounter procedure Eunice Elias PA-C Work Phone: [facility] [place] Comment on above: Well adult exam (Chantel rajat Dx); Anxiety and depression; Obesity, Class II, BMI 35-39.9; Constipation, unspecified constipation type; Screening for diabetes mellitus; Vitamin D deficiency; Encounter for screening for cardiovascular disorders; Encounter for screening for diabetes mellitus; Iron deficiency anemia, unspecified iron deficiency anemia type; Gall bladder polyp; Atypical nevus; GERD without esophagitis Start: 06-27-2022 End: 06-27-2022 Patient encounter status Eunice Elias PA-C Work Phone: [facility] [place] Start: 06-26-2022 Chart abstracting Aly moncada MD Work Phone: [facility] [place] Comment on above: Consult (Gastro [facility] ) Start: 03-08-2022 End: 03-08-2022 Patient encounter procedure Aly Coronel APRN.CNP Work Phone: [facility] Comment on above: Tick bite of back, i nitial encounter (Primary Dx) Start: 10-19-2021 End: 10-19-2021 [facility] Eunice Elias PA-C Work Phone: [facility] [place] Comment on above: Attention deficit di sorder of adult Start: 09-21-2021 End: 09-21-2021 Patient encounter procedure Eunice Elias PA-C Work Phone: [facility] [place] Comment on above: Attention deficit di sorder of adult Start: 09-14-2021 ambulatory Aly bello MD Work Phone: [facility] [place] Start: 08-23-2021 End: 08-23-2021 Patient encounter procedure Eunice Elias PA-C Work Phone: [facility] [place] Comment on above: Attention deficit di sorder of adult (Primary Dx); Medication management Start: 08-10-2021 Telephone encounter Eunice weinstein PA-C Work Phone: [facility] [place] Comment on above: Results Start: 08-09-2021 End: 08-09-2021 Patient encounter procedure Eunice Elias PA-C Work Phone: [facility] [place] Comment on above: Well adult exam (Chantel earl Dx); Encounter for gynecological examination without abnormal finding; Iron deficiency anemia, unspecified iron deficiency anemia type; Anxiety and depression; Encounter for screening for diabetes mellitus; Encounter for screening for cardiovascular disorders; Obesity, Class II, BMI 35-39.9; Attention deficit disorder of adult; Weight gain; Gall bladder polyp; GERD without esophagitis; Screening for colon cancer; Arthralgia, unspecified joint; Myalgia; Fatigue, unspecified type Start: 08-09-2021 End: 08-09-2021 Patient encounter status Eunice Elias PA-C Work Phone: [facility] Start: 07-20-2021 Telephone encounter Aly Davis MD Work Phone: [facility] [place] Comment on above: Orders Start: 10-14-2020 Patient encounter status Dio Davis MD Work Phone: [facility] Work Phone: Start: 03-08-2018 End: 03-09-2018 Patient encounter procedure IMCA Facility:[facility] Start: 02-10-2016 Patient encounter status Dio Davis MD Work Phone: [facility] Work Phone: Procedures Date Procedure Procedure Detail Performing Clinician Start: 02-19-2024 Urnls dip stick/tabl et rgnt auto w/o microscopy Eunice Elias PA-C Work Phone: Start: 07-12-2023 Lipid 1996 panel - S joe or Plasma Eunice Elias PA-C Work Phone: Start: 01-23-2023 End: 01-23-2023 Radex spine thoracic 2 views Regis Souza MD Work Phone: Start: 11-15-2022 Radiologic exam abdo men 1 view Eunice Elias PA-C Work Phone: Start: 08-30-2022 Colonoscopy Aly moncada MD Work Phone: Start: 07-26-2022 Us abdominal real ti me w/image limited Eunice Elias PA-C Work Phone: Start: 07-12-2022 Lipid 1996 panel - S joe or Plasma Us 2 Work Phone: Start: 06-12-2022 Mammography Aly moncada MD Work Phone: Start: 08-04-2020 Mammography Aly moncada MD Work Phone: Plan of Treatment Date Care Activity Detail Author Start: 07-11-2028 Lipid panel Lipid Screening [facility] Start: 08-31-2027 Colonoscopy COLONOSCOPY [facility] Start: 08-31-2027 COLORECTAL CANCER SCREENING COLORECTAL CANCER SCREENING [facility] Start: 08-31-2027 Screening for malign ant neoplasm of colon [facility] Start: 07-13-2027 Lipid 1996 panel - S joe or Plasma Lipid Screening [facility] Start: 07-13-2027 Lipid panel Lipid Screening [facility] Start: 07-13-2027 LIPID SCREEN LIPID SCREEN [facility] Start: 08-09-2026 LIPID SCREEN LIPID SCREEN [facility] Start: 07-11-2026 Diabetes Screening Diabetes Screenin g [facility] Start: 11-15-2025 DIABETES SCREEN DIABETES SCREEN [facility] Start: 11-15-2025 Diabetes Screening Diabetes Screenin g [facility] Start: 07-21-2025 HPV TESTING HPV TESTING [facility] Start: 07-21-2025 PAP TESTING PAP TESTING [facility] Start: 07-21-2025 Screening for malign ant neoplasm of cervix [facility] Start: 07-12-2025 DIABETES SCREEN DIABETES SCREEN [facility] Start: 08-09-2024 DIABETES SCREEN DIABETES SCREEN [facility] Start: 07-11-2024 Covid-19 Vaccine () Covid-19 Vaccine () [facility] Comment on above: Postponed from 12/29 (Declined at this time) Start: 07-11-2024 Urine microalbumin profile DTaP,Tdap,Td Vaccine (2 - Td or Tdap) [facility] Comment on above: Postponed from 05/17 (Declined at this time) Start: 07-09-2024 Screening for malign ant neoplasm of breast Mammogram Screening [facility] Start: 03-05-2024 End: 06-04-2024 Urinalysis complete panel - Urine URINALYSIS, WITH MICROSCOPIC Lab Routine Microscopic hematuria Expected: 03/05/2024, Expires: 06/04/2024 [facility] Work Phone: Comment on above: Expected: 03/05/2024 , Expires: 06/04/2024 Start: 02-19-2024 End: 05-20-2024 Bacteria identified in Urine by Culture [facility] Work Phone: Comment on above: Expected: 02/19/2024 , Expires: 05/20/2024 Start: 12-30-2023 Covid-19 Vaccine ( season) Covid-19 Vaccine () [facility] Start: 12-30-2023 Covid-19 Vaccine () Covid-19 Vaccine () [facility] Start: 07-22-2023 Screening for malign ant neoplasm of cervix Cervical Cancer Screening [facility] Start: 07-12-2023 End: 10-11-2023 25-hydroxyvitamin D3 [Mass/volume] in Serum or Plasma [facility] Work Phone: Comment on above: Expected: 07/12/2023 , Expires: 10/11/2023 Start: 07-12-2023 End: 10-11-2023 CBC W Auto Differential panel - Blood [facility] Work Phone: Comment on above: Expected: 07/12/2023 , Expires: 10/11/2023 Start: 07-12-2023 End: 10-11-2023 Cobalamin (Vitamin B12) [Mass/volume] in Serum or Plasma [facility] Work Phone: Comment on above: Expected: 07/12/2023 , Expires: 10/11/2023 Start: 07-12-2023 End: 10-11-2023 Comprehensive metabolic 2000 panel - Serum or Plasma [facility] Work Phone: Comment on above: Expected: 07/12/2023 , Expires: 10/11/2023 Start: 07-12-2023 End: 10-11-2023 Cortisol [Mass/volume] in Serum or Plasma [facility] Work Phone: Comment on above: Expected: 07/12/2023 , Expires: 10/11/2023 Start: 07-12-2023 End: 10-11-2023 Ferritin [Mass/volume] in Serum or Plasma [facility] Work Phone: Comment on above: Expected: 07/12/2023 , Expires: 10/11/2023 Start: 07-12-2023 End: 10-11-2023 Folate [Mass/volume] in Serum or Plasma [facility] Work Phone: Comment on above: Expected: 07/12/2023 , Expires: 10/11/2023 Start: 07-12-2023 End: 10-11-2023 Hemoglobin A1c in Blood [facility] Work Phone: Comment on above: Expected: 07/12/2023 , Expires: 10/11/2023 Start: 07-12-2023 End: 10-11-2023 Iron and Iron binding capacity panel - Serum or Plasma [facility] Work Phone: Comment on above: Expected: 07/12/2023 , Expires: 10/11/2023 Start: 07-12-2023 End: 10-11-2023 LIPID PANEL, NONFASTING [facility] Work Phone: Comment on above: Expected: 07/12/2023 , Expires: 10/11/2023 Start: 07-12-2023 End: 10-11-2023 Magnesium [Mass/volume] in Serum or Plasma [facility] Work Phone: Comment on above: Expected: 07/12/2023 , Expires: 10/11/2023 Start: 07-12-2023 End: 10-11-2023 Thyrotropin [Units/volume] in Serum or Plasma [facility] Work Phone: Comment on above: Expected: 07/12/2023 , Expires: 10/11/2023 Start: 06-27-2023 COVID-19 VACCINE (#1) COVID-19 VACCI NE (#1) [facility] Comment on above: Postponed from 05/30 (Declined at this time) Start: 06-27-2023 HEPATITIS B (1 of 3 - 3-dose series) HEPATITIS B (1 of 3 - 3-dose series) [facility] Comment on above: Postponed from 11/27 (Declined at this time) Start: 06-27-2023 Hepatitis B Vaccine (1 of 3 - 3-dose series) Hepatitis B Vaccine (1 of 3 - 3-dose series) [facility] Comment on above: Postponed from 11/27 (Declined at this time) Start: 06-27-2023 Urine microalbumin profile [facility] Comment on above: Postponed from 05/17 (Declined at this time) Start: 06-12-2023 Mammography [facility] Start: 12-29-2022 Covid-19 Vaccine (2022- season) Covid-19 Vaccine ( season) [facility] Start: 12-29-2022 Influenza vaccination INFLUENZA VACC INE (#1) [facility] Start: 11-15-2022 End: 01-15-2023 Comprehensive metabolic 2000 panel - Serum or Plasma [facility] Work Phone: Comment on above: Expected: 11/15/2022 , Expires: 01/15/2023 Start: 06-27-2022 End: 08-27-2022 25-hydroxyvitamin D3 [Mass/volume] in Serum or Plasma VITAMIN D 25 HYDROXY Lab Routine Vitamin D deficiency Expected: 06/27/2022, Expires: 08/27/2022 [facility] Work Phone: Comment on above: Expected: 06/27/2022 , Expires: 08/27/2022 Start: 06-27-2022 End: 08-27-2022 Basic metabolic 2000 panel - Serum or Plasma BASIC METABOLIC PNL Lab Routine Constipation, unspecified constipation type Expected: 06/27/2022, Expires: 08/27/2022 [facility] Work Phone: Comment on above: Expected: 06/27/2022 , Expires: 08/27/2022 Start: 06-27-2022 End: 08-27-2022 CBC W Auto Differential panel - Blood CBC + DIFF Lab Routine Iron deficiency anemia, unspecified iron deficiency anemia type Expected: 06/27/2022, Expires: 08/27/2022 [facility] Work Phone: Comment on above: Expected: 06/27/2022 , Expires: 08/27/2022 Start: 06-27-2022 End: 08-27-2022 Hemoglobin A1c in Blood HGB A1C Lab Routine Encounter for screening for diabetes mellitus Expected: 06/27/2022, Expires: 08/27/2022 [facility] Work Phone: Comment on above: Expected: 06/27/2022 , Expires: 08/27/2022 Start: 06-27-2022 End: 08-27-2022 LIPID PANEL, NONFASTING LIPID PANEL, NONFASTING Lab Routine Encounter for screening for cardiovascular disorders Expected: 06/27/2022, Expires: 08/27/2022 [facility] Work Phone: Comment on above: Expected: 06/27/2022 , Expires: 08/27/2022 Start: 06-27-2022 End: 08-27-2022 Thyrotropin [Units/volume] in Serum or Plasma TSH BLD Lab Routine Constipation, unspecified constipation type Expected: 06/27/2022, Expires: 08/27/2022 [facility] Work Phone: Comment on above: Expected: 06/27/2022 , Expires: 08/27/2022 Start: 2021 COLOGUARD (FIT-DNA) COLOGUARD (FIT-D NA) [facility] Start: 2021 Colonoscopy COLONOSCOPY [facility] Start: 2021 COLORECTAL CANCER SCREENING COLORECTAL CANCER SCREENING [facility] Start: [address] COLONOGRAPHY [facility] Start: 2021 FECAL OCCULT BLOOD FECAL OCCULT BLOO D [facility] Start: 2021 Screening for malign ant neoplasm of colon [facility] Start: 2021 SIGMOIDOSCOPY SIGMOIDOSCOPY [facility] Start: 10-14-2021 COVID-19 VACCINE (#1) COVID-19 VACCI NE (#1) [facility] Comment on above: Postponed from 11/27 (Declined at this time) Start: 10-14-2021 COVID-19 VACCINE (1) COVID-19 VACCIN E (1) [facility] Comment on above: Postponed from 11/27 (Declined at this time) Start: 10-14-2021 Urine microalbumin profile DTAP,TDAP,TD (2 - Td or Tdap) [facility] Comment on above: Postponed from 05/17 (Declined at this time) Start: 08-23-2021 End: 10-23-2021 PAIN PANEL, UR QUANT PAIN PANEL, UR QUANT Lab Routine Attention deficit disorder of adult Medication management Expected: 08/23/2021, Expires: 10/23/2021 [facility] Work Phone: Comment on above: Expected: 08/23/2021 , Expires: 10/23/2021 Start: 08-23-2021 End: 10-23-2021 TOX SCREEN ROUT UR TOX SCREEN ROUT UR Lab Routine Attention deficit disorder of adult Medication management Expected: 08/23/2021, Expires: 10/23/2021 [facility] Work Phone: Comment on above: Expected: 08/23/2021 , Expires: 10/23/2021 Start: 08-09-2021 End: 10-09-2021 VALERIO BY IFA SCREEN [facility] Work Phone: Comment on above: Expected: 08/09/2021 , Expires: 10/09/2021 Start: 08-09-2021 End: 10-09-2021 C reactive protein [Mass/volume] in Serum or Plasma [facility] Work Phone: Comment on above: Expected: 08/09/2021 , Expires: 10/09/2021 Start: 08-09-2021 End: 10-09-2021 Comprehensive metabolic 2000 panel - Serum or Plasma [facility] Work Phone: Comment on above: Expected: 08/09/2021 , Expires: 10/09/2021 Start: 08-09-2021 End: 10-09-2021 Hemoglobin A1c/Hemoglobin.total in Blood [facility] Work Phone: Comment on above: Expected: 08/09/2021 , Expires: 10/09/2021 Start: 08-09-2021 End: 10-09-2021 IRON + TIBC [facility] Work Phone: Comment on above: Expected: 08/09/2021 , Expires: 10/09/2021 Start: 08-09-2021 End: 10-09-2021 LIPID PANEL, NONFASTING [facility] Work Phone: Comment on above: Expected: 08/09/2021 , Expires: 10/09/2021 Start: 08-09-2021 End: 10-09-2021 T4 FREE/FREE THYROX [facility] Work Phone: Comment on above: Expected: 08/09/2021 , Expires: 10/09/2021 Start: 08-09-2021 End: 10-09-2021 Thyrotropin [Units/volume] in Serum or Plasma [facility] Work Phone: Comment on above: Expected: 08/09/2021 , Expires: 10/09/2021 Start: 08-09-2021 End: 10-09-2021 VITAMIN B12 BLOOD [facility] Work Phone: Comment on above: Expected: 08/09/2021 , Expires: 10/09/2021 Start: 08-09-2021 End: 10-09-2021 VITAMIN D 25 HYDROXY [facility] Work Phone: Comment on above: Expected: 08/09/2021 , Expires: 10/09/2021 Start: 08-04-2021 Mammography MAMMOGRAM [facility] Start: 07-20-2021 End: 09-19-2021 CBC W Auto Differential panel - Blood CBC + DIFF Lab Routine Iron deficiency anemia, unspecified iron deficiency anemia type Expected: 07/20/2021, Expires: 09/19/2021 [facility] Work Phone: Comment on above: Expected: 07/20/2021 , Expires: 09/19/2021 Start: 07-20-2021 End: 09-19-2021 Hemoglobin A1c/Hemoglobin.total in Blood HGB A1C Lab Routine Encounter for screening for diabetes mellitus Expected: 07/20/2021, Expires: 09/19/2021 [facility] Work Phone: Comment on above: Expected: 07/20/2021 , Expires: 09/19/2021 Start: 07-20-2021 End: 09-19-2021 IRON + TIBC IRON + TIBC Lab Routine Iron deficiency anemia, unspecified iron deficiency anemia type Expected: 07/20/2021, Expires: 09/19/2021 [facility] Work Phone: Comment on above: Expected: 07/20/2021 , Expires: 09/19/2021 Start: 07-20-2021 End: 09-19-2021 LIPID PANEL, NONFASTING LIPID PANEL, NONFASTING Lab Routine Encounter for screening for cardiovascular disorders Expected: 07/20/2021, Expires: 09/19/2021 [facility] Work Phone: Comment on above: Expected: 07/20/2021 , Expires: 09/19/2021 Start: 05-17-2020 Tetanus vaccination TETANUS [facility] Start: 05-17-2020 Urine microalbumin profile [facility] Start: 2016 Lipid panel LIPID SCREENING [facility] Start: 2016 Screening for malign ant neoplasm of breast MAMMOGRAM SCREENING DISCUSSION [facility] Start: 1997 Screening for malign ant neoplasm of cervix CERVICAL CANCER SCREENING DISCUSSION [facility] Start: 11-28-1995 Hepatitis B Vaccine (1 of 3 - 19+ 3-dose series) Hepatitis B Vaccine (1 of 3 - 19+ 3-dose series) [facility] Start: 11-28-1991 HIV screening HIV SCREENING DISCUSSI ON [facility] Start: 1981 COVID-19 VACCINE (#1) COVID-19 VACCI NE (#1) [facility] Start: 05-30-1977 COVID-19 VACCINE (#1) COVID-19 VACCI NE (#1) [facility] Start: 1976 HEPATITIS B (1 of 3 - 3-dose series) HEPATITIS B (1 of 3 - 3-dose series) [facility] Start: 1976 Hepatitis C screening HEPATITI S C VIRUS SCREENING [facility] CBC W Auto Different ial panel - Blood CBC + DIFF Lab Routine Diarrhea, unspecified type 11/15/2022 7:48 AM EDT [facility] Work Phone: Clostridioides diffi cile toxin genes [Presence] in Stool by HERNESTO with probe detection C. DIFFICILE PCR Lab Routine Diarrhea, unspecified type Ordered: 11/15/2022 [facility] Work Phone: Comment on above: Ordered: 11/15/2022 ENTERIC BACTERIAL PA KALEB BY PCR ENTERIC BACTERIAL PANEL BY PCR Lab Routine Diarrhea, unspecified type Ordered: 11/15/2022 [facility] Work Phone: Comment on above: Ordered: 11/15/2022 FAT, FECAL QUAL FAT, FECAL QUAL Lab Routine Diarrhea, unspecified type Ordered: 11/15/2022 [facility] Work Phone: Comment on above: Ordered: 11/15/2022 FECAL LACTOFERRIN/LEUKOCYTES FECAL LACTOFERRIN/LEUKOCYTES Lab Routine Diarrhea, unspecified type Ordered: 11/15/2022 [facility] Work Phone: Comment on above: Ordered: 11/15/2022 End: 10-14-2022 Screening mammography bi 2-view breast inc cad ZEUS SCREENING Radiology Routine Encounter for screening mammogram for breast cancer 1 Occurrences starting 09/14/2021 until 10/14/2022 [facility] Work Phone: Comment on above: 1 Occurrences starti ng 09/14/2021 until 10/14/2022 End: 09-08-2022 Us abdominal real time w/image limited US ABD RT UPPER QUADRANT Radiology Routine Gall bladder polyp 1 Occurrences starting 08/09/2021 until 09/08/2022 [facility] Work Phone: Comment on above: 1 Occurrences starti ng 08/09/2021 until 09/08/2022 End: 07-27-2023 Us abdominal real time w/image limited US ABD RT UPPER QUADRANT Radiology Routine Gall bladder polyp 1 Occurrences starting 06/27/2022 until 07/27/2023 [facility] Work Phone: Comment on above: 1 Occurrences starti ng 06/27/2022 until 07/27/2023 End: 12-15-2023 XR ABDOMEN 1V SUPINE XR ABDOMEN 1V SUPINE Radiology Routine Diarrhea, unspecified type 1 Occurrences starting 11/15/2022 until 12/15/2023 [facility] Work Phone: Comment on above: 1 Occurrences starti ng 11/15/2022 until 12/15/2023 XR ABDOMEN 1V SUPINE XR ABDOMEN 1V SUPINE Radiology Routine Diarrhea, unspecified type 11/15/2022 8:22 AM EDT [facility] Work Phone: [facility] Immunizations Immunization Date Immunization Notes Care Provider Ruth owens 05-17-2010 tetanus toxoid, redu korin diphtheria toxoid, and acellular pertussis vaccine, adsorbed Aly Davis MD Work Phone: [facility] Work Phone: Payers Date Payer Category Payer Private Health Insurance [employer] A ETNA CHOICE POS II [id number] 2019-Present [phone] [address] [place] [address] POS [id number] 2019 Private Health Insurance [id number] 2019 Private Health Insurance [id number] 1975 Unknown [id number] Unknown [id number] Social History Date Type Detail Facility Start: 03-08-2022 End: 01-23-2023 Tobacco smoking status NHIS Never smoked tobacco [facility] Start: 03-15-2021 End: 02-19-2024 Alcohol intake Current drinker of alcohol (finding) [facility] Start: 05-17-2010 History SDOH Alcohol Comment occasionally [facility] Start: 1975 Sex Assigned At Not on file C [facility] Start: 07-30-2021 End: 09-21-2021 Exposure to SARS-CoV-2 (event) Not sure [facility] Start: 1975 [facility] Start: 03-08-2022 End: 01-23-2023 Tobacco use and exposure Smokeless tobacco non-user [facility] Start: 09-17-2022 End: 11-15-2022 History of Social function [facility] Start: 09-17-2022 End: 11-15-2022 Tobacco use panel [facility] Adult Depression Screening Assessment 0 [facility] Start: 10-19-2021 Gender identity Identifies as female gender (finding) [facility] Start: 01-23-2023 Alcohol intake Lifetime non-d woodrow (finding) [facility] Clinical Notes 07-20-2021 to 02-21-2024 Telephone Encounter - Erna Weston LPN - 02/21/2024 11:49 AM EDTTelephone Encounter - Erna Weston LPN - 02/21/2024 11:49 AM RICATREunice leach PA-C - 02/19/2024 8:22 AM EDT Note Date & Type Note Facility 02-21-2024 Telephone encounter Note Pt notified of Eunice's message and instructions. Pt verbalizes understanding. Erna Weston LPN [facility] 02-21-2024 Miscellaneous Notes Pt notified of Eunice's message and instructions. Pt verbalizes understanding. Erna Weston LPN These are typical symptoms of UTI. Which Is why I want her to stay on atb. It may take a few days before having any relief. I will send in pyridum which can help decrease some of those symptoms but will make her urine orange. Pt called and is notified of providers results and instructions. Pt voices understanding. Pt denies pain at this time. She states she has urgency and frequency. She states she has been pushing lemon water and feels like she is taking in more water than she is putting out. Pt states she feels like she has to go right after she has left the bathroom, and is going very little. She states the only relief she gets is when she is sleeping. Pt states she doesn't know how much longer she can take this. Chen Lindsey, HOWIE Have her push fluids. Cont with atb for now. Follow up next week if not improving. If she develops pain she is to return for re-evaluation Patient reports she saw Hoa Elias on 02-19-24, for ugency/frequency with urination. Reports she is taking macrobid, since then but hasn't noticed any improvement in symptoms. Still having urgency and frequency, and urine test was negative for UTI but did show some blood in her urine. Patient wonders if she has a kidney stone. Reports she is not having pain. Reports last Thur and Fri she was having right kidney colic, Sat/Sun/Mon she was ok, Tues started urgency / frequency again, and continues. Reports she does not see blood in her urine. Asking Eunice to please advise patient. [phone] documented in this encounter [facility] 02-21-2024 Telephone encounter Note These are typical symptoms of UTI. Which Is why I want her to stay on atb. It may take a few days before having any relief. I will send in pyridum which can help decrease some of those symptoms but will make her urine orange. [facility] 02-21-2024 Telephone encounter Note Pt called and is notified of providers results and instructions. Pt voices understanding. Pt denies pain at this time. She states she has urgency and frequency. She states she has been pushing lemon water and feels like she is taking in more water than she is putting out. Pt states she feels like she has to go right after she has left the bathroom, and is going very little. She states the only relief she gets is when she is sleeping. Pt states she doesn't know how much longer she can take this. Chen Lindsey RN [facility] 02-21-2024 Telephone encounter Note Have her push fluids. Cont with atb for now. Follow up next week if not improving. If she develops pain she is to return for re-evaluation [facility] 02-21-2024 Telephone encounter Note Patient reports she saw Hoa Elias on 02-19-24, for ugency/frequency with urination. Reports she is taking macrobid, since then but hasn't noticed any improvement in symptoms. Still having urgency and frequency, and urine test was negative for UTI but did show some blood in her urine. Patient wonders if she has a kidney stone. Reports she is not having pain. Reports last Thur and Fri she was having right kidney colic, Sat/Sun/Mon she was ok, Tues started urgency / frequency again, and continues. Reports she does not see blood in her urine. Asking Eunice to please advise patient. [phone] [facility] 02-20-2024 Telephone encounter Note Patient notified of results and provider's instructions. Patient verbalizes understanding. Erna Weston LPN [facility] 02-20-2024 Miscellaneous Notes Patient notified of results and provider's instructions. Patient verbalizes understanding. Erna Weston LPN Urine negative. I want patient to finish atb and get repeat urine in 2 weeks to make sure no more blood. Eunice Elias PA-C documented in this encounter [facility] 02-20-2024 Telephone encounter Note Urine negative. I want patient to finish atb and get repeat urine in 2 weeks to make sure no more blood. Eunice Elias PA-C [facility] 02-19-2024 Note HNO ID: [id number] Author: EUNICE ELIAS PA-C Service: ? Author Type: Physician Card Placer Type: Progress Notes Filed: 02/19/2024 08:43 Note Text: Chief Complaint Patient presents with: Urinary Problem: Urgency and frequency HPI Summer Massey is a 48 year old female who presents here today for Above Complaints.. Urology: patient is concerned about urinary symptoms. Duration of symptoms: 1 Dysuria: No. Hematuria: No. Urinary urgency: Yes. Urinary frequency: Yes. Suprapubic pain: yes- pressure. Back pain: Yes. Fever: No. Nausea: No. Vomiting: No Past medical history, appointments, medications, allergies reviewed. [...] on File Prior to Visit Medication Sig Omeprazole Magnesium (PRILOSEC OTC) 20 mg tablet Take 20 mg by mouth once daily. ondansetron orally disintegrating (ZOFRAN ODT) 4 mg disintegrating tablet Take 1 tablet by mouth every 6 hours as needed for nausea/vomiting. (Patient not taking: Reported on 07/12/2023) naproxen (NAPROSYN) 500 mg tablet Take 1 tablet by mouth twice daily as needed (for pain/inflammation). Take with food. (Patient not taking: Reported on 07/12/2023) cyclobenzaprine (FLEXERIL) 10 mg tablet Take 1 tablet by mouth three times daily as needed for muscle spasm. (Patient not taking: Reported on 07/12/2023) No current facility-administered medications on file prior to visit. Social History Social History Tobacco Use Smoking status: Never Smokeless tobacco: Never Vaping Use Vaping status: Never Used Substance Use Topics Alcohol use: Yes Comment: occasionally Drug use: No Review of Symptoms REVIEW OF SYSTEMS See hpi EXAM: BP 138/86 (BP Site: Right Arm, BP Position: Sitting, BP Cuff Size: Large Adult) Pulse 84 Temp 37.1 ?C (98.8 ?F) Resp 18 Wt 111.6 kg (246 lb) LMP 11/14/2018 SpO2 97% BMI 40.25 kg/m? General Appearance: Well appearing, alert, in no acute distress, well-hydrated, well nourished. and Overweight. Lungs: Lungs clear to auscultation. No wheezing, rhonchi, rales.. Heart: RRR without murmur, gallop, or rubs. No ectopy. Abdomen: + suprapubic pressure to palp. Abdomen soft. Bowel sounds normal. No masses, organomegaly, Negative CVA tenderness. Health Maintenance List Hepatitis B Vaccine(1 of 3 - 19+ 3-dose series) Never done Cervical Cancer Screening due on 07/22/2023 Covid-19 Vaccine(2023- season) Never done Mammogram Screening due on 07/09/2024 DTaP,Tdap,Td Vaccine(2 - Td or Tdap) due on 07/11/2024 Diabetes Screening due on 07/11/2026 Colorectal Cancer Screening due on 08/31/2027 Lipid Screening due on 07/11/2028 Influenza Vaccine Discontinued Hepatitis C Screening Discontinued HIV Screening Discontinued Data reviewed Latest Ref Rng 02/19/2024 GLUCOSE UA (POCT) Negative mg/dL Negative BILIRUBIN UA (POCT) Negative Negative KETONE UA (POCT) Negative mg/dL Negative SPECIFIC GRAVITY UA (POCT) 1.005 - 1.030 >=1.030 HEMOGLOBIN/BLOOD UA (POCT) Negative Large ! PH UA (POCT) 4.5 - 8.0 6.5 PROTEIN UA (POCT) Negative mg/dL Trace ! UROBILINOGEN UA (POCT) Normal E.U./dL 0.2 NITRITE UA (POCT) Negative Negative LEUKOCYTES UA (POCT) Negative Negative COLOR UA (POCT) Light yellow CLARITY UA (POCT) Slightly Cloudy Legend: ! Abnormal ASSESSMENT/PLAN: 1. Urinary urgency - ICD9: 788.63, ICD10: R39.15 Start atb Check urine culture - URINE CULTURE Eunice Elias PA-C [facility] 02-19-2024 History of Presen t illness Narrative Chief Complaint Patient presents with: Urinary Problem: Urgency and frequency HPI Summer Massey is a 48 year old female who presents here today for Above Complaints.. Urology: patient is concerned about urinary symptoms. Duration of symptoms: 1 Dysuria: No. Hematuria: No. Urinary urgency: Yes. Urinary frequency: Yes. Suprapubic pain: yes- pressure. Back pain: Yes. Fever: No. Nausea: No. Vomiting: No Past medical history, appointments, medications, allergies reviewed. [...] on File Prior to Visit Medication Sig Omeprazole Magnesium (PRILOSEC OTC) 20 mg tablet Take 20 mg by mouth once daily. ondansetron orally disintegrating (ZOFRAN ODT) 4 mg disintegrating tablet Take 1 tablet by mouth every 6 hours as needed for nausea/vomiting. (Patient not taking: Reported on 07/12/2023) naproxen (NAPROSYN) 500 mg tablet Take 1 tablet by mouth twice daily as needed (for pain/inflammation). Take with food. (Patient not taking: Reported on 07/12/2023) cyclobenzaprine (FLEXERIL) 10 mg tablet Take 1 tablet by mouth three times daily as needed for muscle spasm. (Patient not taking: Reported on 07/12/2023) No current facility-administered medications on file prior to visit. Social History Social History Tobacco Use Smoking status: Never Smokeless tobacco: Never Vaping Use Vaping status: Never Used Substance Use Topics Alcohol use: Yes Comment: occasionally Drug use: No Review of Symptoms REVIEW OF SYSTEMS See hpi EXAM: BP 138/86 (BP Site: Right Arm, BP Position: Sitting, BP Cuff Size: Large Adult) Pulse 84 Temp 37.1 C (98.8 F) Resp 18 Wt 111.6 kg (246 lb) LMP 11/14/2018 SpO2 97% BMI 40.25 kg/m General Appearance: Well appearing, alert, in no acute distress, well-hydrated, well nourished. and Overweight. Lungs: Lungs clear to auscultation. No wheezing, rhonchi, rales.. Heart: RRR without murmur, gallop, or rubs. No ectopy. Abdomen: + suprapubic pressure to palp. Abdomen soft. Bowel sounds normal. No masses, organomegaly, Negative CVA tenderness. Health Maintenance List Hepatitis B Vaccine(1 of 3 - 19+ 3-dose series) Never done Cervical Cancer Screening due on 07/22/2023 Covid-19 Vaccine(2023- season) Never done Mammogram Screening due on 07/09/2024 DTaP,Tdap,Td Vaccine(2 - Td or Tdap) due on 07/11/2024 Diabetes Screening due on 07/11/2026 Colorectal Cancer Screening due on 08/31/2027 Lipid Screening due on 07/11/2028 Influenza Vaccine Discontinued Hepatitis C Screening Discontinued HIV Screening Discontinued Data reviewed Latest Ref Rng 02/19/2024 GLUCOSE UA (POCT) Negative mg/dL Negative BILIRUBIN UA (POCT) Negative Negative KETONE UA (POCT) Negative mg/dL Negative SPECIFIC GRAVITY UA (POCT) 1.005 - 1.030 >=1.030 HEMOGLOBIN/BLOOD UA (POCT) Negative Large ! PH UA (POCT) 4.5 - 8.0 6.5 PROTEIN UA (POCT) Negative mg/dL Trace ! UROBILINOGEN UA (POCT) Normal E.U./dL 0.2 NITRITE UA (POCT) Negative Negative LEUKOCYTES UA (POCT) Negative Negative COLOR UA (POCT) Light yellow CLARITY UA (POCT) Slightly Cloudy Legend: ! Abnormal ASSESSMENT/PLAN: 1. Urinary urgency - ICD9: 788.63, ICD10: R39.15 Start atb Check urine culture - URINE CULTURE Eunice Elias PA-C documented in this encounter [facility] 07-13-2023 Miscellaneous Notes Pt notified of same. Erna Weston LPN Please let patient know that all her labs are normal. Eunice Elias PA-C documented in this encounter [facility] 07-12-2023 Note HNO ID: [id number] Author: EUNICE ELIAS PA-C Service: ? Author Type: Physician Card Placer Type: Progress Notes Filed: 07/12/2023 08:51 Note Text: Chief Complaint Patient presents with: Yearly Exam HPI Summer Massey is a 47 year old female who presents here today for physical. Patient overall doing okay. Patient was dx with eosinophilic esophagitis last year. Concerned that she may not digesting nutrients effectively. But otherwise doing okay. Continues to struggle with weight loss. Last 3 Encounter Wt Readings: Date: Wt: 07/12/2023 108.4 kg (239 lb) 11/15/2022 104.8 kg (231 lb) 07/14/2022 105.2 kg (232 lb) Past medical history, appointments, medications, allergies [...] on File Prior to Visit Medication Sig ondansetron orally disintegrating (ZOFRAN ODT) 4 mg disintegrating tablet Take 1 tablet by mouth every 6 hours as needed for nausea/vomiting. (Patient not taking: Reported on 07/12/2023) naproxen (NAPROSYN) 500 mg tablet Take 1 tablet by mouth twice daily as needed (for pain/inflammation). Take with food. (Patient not taking: Reported on 07/12/2023) cyclobenzaprine (FLEXERIL) 10 mg tablet Take 1 tablet by mouth three times daily as needed for muscle spasm. (Patient not taking: Reported on 07/12/2023) No current facility-administered medications on file prior [...] CARDIOVASCULAR: Negative for chest pain, leg swelling, CHF or palpitations GI: See HPI : No history of dysuria, frequency or incontinence MUSCULOSKELETAL: Negative for joint pain or swelling, back pain or muscle pain SKIN: Negative for lesions, rash, and itching PSYCH: Negative for sleep disturbance, mood disorder and recent psychosocial stressors HEMATOLOGY/LYMPHOLOGY: Negative for prolonged bleeding, bruising easily or swollen nodes ENDOCRINE: Negative for cold or heat intolerance, polyuria, polydipsia and goiter NEURO: No history of headaches, syncope, paralysis, seizures or tremors EXAM: BP 130/96 (BP Site: Left Arm, BP Position: Sitting, BP Cuff Size: Large Adult) Pulse 83 Temp 37.3 ?C (99.2 ?F) Resp 18 Ht 166.5 cm (5' 5.55 ) Wt 108.4 kg (239 lb) LMP 11/14/2018 BMI 39.11 kg/m? BP 126/86 (BP Site: Left Arm, BP Position: Sitting, BP Cuff Size: Extra Large Adult) Pulse 72 Temp 37.3 ?C (99.2 ?F) Resp 18 Ht 166.5 cm (5' 5.55 ) Wt 108.4 kg (239 lb) LMP 11/14/2018 BMI 39.11 kg/m? General Appearance: Well appearing, alert, in no acute distress, well-hydrated, well nourished. and Obese. Skin: deferred. Head: Normocephalic, no masses, lesions, tenderness or abnormalities. Eyes: Anicteric sclera. Pupils are equally round and reactive to light. Extraocular movements are intact. . Ears: External ears normal, canals clear, TMs pearly leblanc. Nose/Sinuses: Nares normal, septum midline, mucosa normal, no drainage or sinus tenderness. Oropharynx: Lips, mucosa, and tongue normal, teeth and gums normal, oropharynx normal. Neck: Supple, no adenopathy; thyroid symmetric, normal [...] normal and symmetric. Sensation grossly intact.. Health Carri (more content not included)... [facility] 07-12-2023 History of Presen t illness Narrative Chief Complaint Patient presents with: Yearly Exam HPI Summer Massey is a 47 year old female who presents here today for physical. Patient overall doing okay. Patient was dx with eosinophilic esophagitis last year. Concerned that she may not digesting nutrients effectively. But otherwise doing okay. Continues to struggle with weight loss. Last 3 Encounter Wt Readings: Date: Wt: 07/12/2023 108.4 kg (239 lb) 11/15/2022 104.8 kg (231 lb) 07/14/2022 105.2 kg (232 lb) Past medical history, appointments, medications, allergies [...] on File Prior to Visit Medication Sig ondansetron orally disintegrating (ZOFRAN ODT) 4 mg disintegrating tablet Take 1 tablet by mouth every 6 hours as needed for nausea/vomiting. (Patient not taking: Reported on 07/12/2023) naproxen (NAPROSYN) 500 mg tablet Take 1 tablet by mouth twice daily as needed (for pain/inflammation). Take with food. (Patient not taking: Reported on 07/12/2023) cyclobenzaprine (FLEXERIL) 10 mg tablet Take 1 tablet by mouth three times daily as needed for muscle spasm. (Patient not taking: Reported on 07/12/2023) No current facility-administered medications on file prior [...] CARDIOVASCULAR: Negative for chest pain, leg swelling, CHF or palpitations GI: See HPI : No history of dysuria, frequency or incontinence MUSCULOSKELETAL: Negative for joint pain or swelling, back pain or muscle pain SKIN: Negative for lesions, rash, and itching PSYCH: Negative for sleep disturbance, mood disorder and recent psychosocial stressors HEMATOLOGY/LYMPHOLOGY: Negative for prolonged bleeding, bruising easily or swollen nodes ENDOCRINE: Negative for cold or heat intolerance, polyuria, polydipsia and goiter NEURO: No history of headaches, syncope, paralysis, seizures or tremors EXAM: BP 130/96 (BP Site: Left Arm, BP Position: Sitting, BP Cuff Size: Large Adult) Pulse 83 Temp 37.3 C (99.2 F) Resp 18 Ht 166.5 cm (5' 5.55 ) Wt 108.4 kg (239 lb) LMP 11/14/2018 BMI 39.11 kg/m BP 126/86 (BP Site: Left Arm, BP Position: Sitting, BP Cuff Size: Extra Large Adult) Pulse 72 Temp 37.3 C (99.2 F) Resp 18 Ht 166.5 cm (5' 5.55 ) Wt 108.4 kg (239 lb) LMP 11/14/2018 BMI 39.11 kg/m General Appearance: Well appearing, alert, in no acute distress, well-hydrated, well nourished. and Obese. Skin: deferred. Head: Normocephalic, no masses, lesions, tenderness or abnormalities. Eyes: Anicteric sclera. Pupils are equally round and reactive to light. Extraocular movements are intact. . Ears: External ears normal, canals clear, TMs pearly leblanc. Nose/Sinuses: Nares normal, septum midline, mucosa normal, no drainage or sinus tenderness. Oropharynx: Lips, mucosa, and tongue normal, teeth and gums normal, oropharynx normal. Neck: Supple, no adenopathy; thyroid symmetric, normal [...] symmetric. Sensation grossly intact.. Health Maintenance List Hepatitis B Vaccine(1 of 3 - 19+ 3-dose series) Never done DTaP,Tdap,Td Vaccine(2 - Td or Tdap) due on 07/11/2024 Covid-19 Vaccine(2022- season) due on 07/11/2024 Mammogram Screening due on 07/09/2024 Pap Testing due on 07/21/2025 HPV Testing due on 07/21/2025 Diabetes Screening due on 11/15/2025 Lipid Screening due on 07/13/2027 Colorectal Cancer Screening due on 08/31/2027 HPV Vaccine Aged Out Influenza Vaccine Discontinued Hepatitis C Screening Discontinued HIV Screening Discontinued Data reviewed ASSESSMENT/PLAN: 1. Well adult exam - ICD9: V70.0, ICD10: Z00.00 (primary diagnosis) - Counseled on healthy diet and regular exercise - Calcium intake with supplements or by diet of 1000 mg/day for under 50, 8645-6803 mg/day for 50+ - Discussed need and benefit for weight loss. BMI 39.11 kg/(m^2) - will set up with [facility] program at [facility] - COMP METABOLIC PANEL - VITAMIN B12 BLOOD 2. Eosinophilic esophagitis - ICD9: 530.13, ICD10: K20.0 Continue with gastro - VITAMIN B12 BLOOD - FOLATE SERUM - FERRITIN BLD - MAGNESIUM BLD 3. Obesity, Class II, BMI 35-39.9 - ICD9: 278.00, ICD10: E66.9 - CBC + DIFF - CORTISOL BLD 4. Fatty liver - ICD9: 571.8, ICD10: K76.0 Continue with gastro 5. Spinal stenosis, thoracic - ICD9: 724.01, ICD10: M48.04 6. GERD without esophagitis - ICD9: 530.81, ICD10: K21.9 - COMP METABOLIC PANEL - VITAMIN B12 BLOOD 7. Vitamin D deficiency - ICD9: 268.9, ICD10: E55.9 - COMP METABOLIC PANEL - VITAMIN D 25 HYDROXY 8. Iron deficiency anemia, unspecified iron deficiency anemia type - ICD9: 280.9, ICD10: D50.9 - IRON + TIBC - FOLATE SERUM - FERRITIN BLD 9. Encounter for screening for diabetes mellitus - ICD9: V77.1, ICD10: Z13.1 - HGB A1C 10. Encounter for screening for cardiovascular disorders - ICD9: V81.2, ICD10: Z13.6 - LIPID PANEL, NONFASTING 11. Medication management - ICD9: V58.69, ICD10: Z79.899 - FOLATE SERUM - FERRITIN BLD - MAGNESIUM BLD 12. Family history of thyroid disorder - ICD9: V18.19, ICD10: Z83.49 - TSH BLD Eunice Elias PA-C documented in this encounter [facility] 07-11-2023 Note HNO ID: [id number] Author: ERNA WESTON LPN Service: ? Author Type: LICENSED NURSE Type: Progress Notes Filed: 07/11/2023 14:00 Note Text: Scan on 07/11/2023 10:29 AM by ProviderFabian PA-C: Mammography [facility] 07-11-2023 History of Presen t illness Narrative Scan on 07/11/2023 10:29 AM by ProviderFabian PA-C: Mammography documented in this encounter [facility] 01-23-2023 History of Presen t illness Narrative [...] therapy is ineffective. All questions were answered. (DOC:[id number]) Regis Souza MD documented in this encounter [facility] 11-16-2022 Miscellaneous Notes Pt notified of Eunice's message. Pt verbalizes understanding. Advised pt she may see results via before Eunice sees them but office will contact her regarding results. Erna Weston LPN Let her know that CBC [...] when results finalized. documented in this encounter [facility] 11-15-2022 History of Presen t illness Narrative Radiology [...] RT Melody(R) November 15, 2022 8:12 AM documented in this encounter [facility] 11-15-2022 History of Presen t illness Narrative [...] Eunice Elias PA-C documented in this encounter [facility] 11-14-2022 Miscellaneous Notes Patient call in for [...] and then after she ate she took [employer] SPECIALIST and ELX- R Enzyme. Patient states that [...] fever and blood in stools Protocols used: [id number], [id number]-FT documented in this encounter [facility] 07-28-2022 Miscellaneous Notes Patient notified of results [...] Eunice Elias PA-C documented in this encounter [facility] 07-26-2022 History of Presen t illness Narrative [...] 2022 7:38 AM documented in this encounter [facility] 07-14-2022 History of Presen t illness Narrative [...] Eunice Elias PA-C documented in this encounter [facility] 07-13-2022 Miscellaneous Notes Pt made appt on [...] work on diet. documented in this encounter [facility] 06-27-2022 Miscellaneous Notes Referral to Replaced By [facility] along with pt's insurance info, last OV notes & demographics faxed to [phone] per pt's request. Cait Mireles LPN documented in this encounter [facility] 06-27-2022 History of Presen t illness Narrative [...] diet of 1000 mg/day for under 50, 9828-6458 mg/day for 50+ - Follow up for [...] Eunice Elias PA-C documented in this encounter [facility] 06-26-2022 History of Presen t illness Narrative Scan on 06/23/2022 4:14 PM by External Provider: Consultation Samara Jessica MA documented in this encounter [facility] 03-08-2022 History of Presen t illness Narrative [...] of care. This note was generated using [employer] software. It may contain errors in wording, punctuation, or spelling. Aly Coronel APRN.OCCUPATIONAL HEALTH RN documented in this encounter [facility] 10-19-2021 Instructions Eunice Elias PA-C - 10/19/2021 7:39 AM EDT Please contact me in 1 month on how doses are doing for you. If changes needed, I recommend you schedule a visit so we can discuss. Otherwise follow up in office in 4 months for med check. documented in this encounter [facility] 10-19-2021 History of Presen t illness Narrative [facility] VISIT Audio only was used for evaluation of this patient. Patient consents to visit. Patient's location: [place] Chief Complaint Patient presents with: Follow Up HPI Summer Massey is a 45 year old female who presents here today via phone for recheck. Patient was not able to connect via [employer], she agreed to phone visit. Patient was [...] = 5-10 minutes documented in this encounter [facility] 09-21-2021 History of Presen t illness Narrative [...] Eunice Elias PA-C documented in this encounter [facility] 08-23-2021 History of Presen t illness Narrative [...] Abs Lymph 1.00 - 4.00 k/uL 2.76 Logan% % 5.7 Abs Logan <0.87 k/uL 0.51 Eosin% % 3.2 Abs [...] Eunice Elias PA-C documented in this encounter [facility] 08-10-2021 Miscellaneous Notes Patient was notified form [...] Eunice Elias PA-C documented in this encounter [facility] 08-09-2021 Nurse Note WAIST CIRCUMFERENCE: 42 Erna Weston LPN documented in this encounter [facility] 08-09-2021 History of Presen t illness Narrative [...] diet of 1000 mg/day for under 50, 8203-2214 mg/day for 50+ 2. 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 Iron deficiency anemia, unspecified iron deficiency [...] - ICD9: 729.1, ICD10: M79.10 check - VALERIO BY IFA SCREEN - SED RATE WESTERGREN - C-REACTIVE PROTEIN (CRP) 15. Fatigue, unspecified type - ICD9: 780.79, ICD10: R53.83 Check. - VITAMIN B12 BLOOD - VITAMIN D 25 HYDROXY Eunice Elias PA-C documented in this encounter [facility] 07-20-2021 Miscellaneous Notes Spoke to patient to make sure insurance is which is. Please place labs patient is aware to do week before Debora Almaguer Ma Please place lab orders Thanks Veronica Woodson documented in this encounter [facility] Evaluation note Diagnosis Iron deficiency anemia, unspecified iron deficiency anemia type- Primary Encounter for screening for diabetes mellitus Screening for diabetes mellitus Encounter for screening for cardiovascular disorders Screening for other and unspecified cardiovascular conditions [facility] Diagnosis Well adult exam- Primary Routine [...] Fatigue, unspecified type [facility] Diagnosis Attention deficit disorder of adult- Primary Attention deficit disorder without mention of hyperactivity Medication management Encounter for long-term (current) use of other medications [facility] Diagnosis Encounter for screening mammogram for breast cancer [facility] Diagnosis Attention deficit disorder of adult Attention deficit disorder without mention of hyperactivity [facility] Diagnosis Tick bite of back, initial encounter- Primary [facility]* Diagnosis Well adult exam- Primary Routine general medical examination at [facility] Anxiety and depression Dysthymic disorder Obesity, [...] esophagitis Esophageal reflux [facility] Diagnosis Strain of neck muscle, initial encounter- Primary [facility]* Diagnosis Fatty liver Other chronic nonalcoholic liver disease Gall bladder polyp Cholesterolosis of gallbladder Liver hemangioma Hemangioma of intra-abdominal structures [facility]* Diagnosis Diarrhea, unspecified type- Primary [facility] Diagnosis Spinal stenosis, thoracic region [facility] Diagnosis Spinal stenosis, thoracic region- Primary [facility] Diagnosis Gall bladder polyp Cholesterolosis of gallbladder [facility] Diagnosis Well adult exam- Primary Routine general medical examination at a health care facility Eosinophilic esophagitis Obesity, Class II, BMI 35-39.9 Obesity, unspecified Fatty liver Other chronic nonalcoholic liver disease Spinal stenosis, thoracic Spinal stenosis of thoracic region GERD without esophagitis Esophageal reflux Vitamin D deficiency Unspecified vitamin D deficiency Iron deficiency anemia, unspecified iron deficiency anemia type Encounter for screening for diabetes mellitus Screening for diabetes mellitus Encounter for screening for cardiovascular disorders Screening for other and unspecified cardiovascular conditions Medication management Encounter for long-term (current) use of other medications Family history of thyroid disorder Family history of other endocrine and metabolic diseases [facility]* Diagnosis Diarrhea, unspecified type documented in this encounter [facility] note* Diagnosis Urinary urgency- Primary Urgency of urination documented in this encounter [facility] note* Diagnosis Microscopic hematuria- Primary documented in this encounter [facility] for referral (narrative)* Diagnostic Procedure Only (Routine) - Pending Review Specialty Diagnoses / Procedures Referred By Geno lassiter Referred To Contact BR IMAGING Diagnoses Encounter for screening mammogram for breast cancer Procedures ZEUS SCREENING SCREENING MAMMOGRAPHY BI 2-VIEW BREAST INC CAD Aly Davis MD [address] [place] [address] [facility] Imaging [address] [place] [address] Referral ID Status Reason Start Date Expiration Date Visits Requested Visits Authorized [id number] Pending Review Auto-Generat ed Referral 09/14/2021 10/14/2022 1 1 [facility] for referral (narrative)* Diagnostic Procedure Only (Routine) - Closed Specialty Diagnoses / Procedures Referred By Contac t Referred To Contact XR IMAGING Diagnoses Diarrhea, unspecified type Procedures XR ABDOMEN 1V SUPINE RADIOLOGIC EXAM ABDOMEN 1 VIEW Eunice Elias PA-C [address] [place] [address] Xr Imaging Referral ID Status Reason Start Date Expiration Date V isits Requested Visits Authorized [id number] Closed Auto-Generate d Referral 11/15/2022 12/15/2023 1 1 [facility] for referral (narrative)* Diagnostic Procedure Only (Routine) - Closed Specialty Diagnoses / Procedures Referred By Contac t Referred To Contact US IMAGING Diagnoses Gall bladder polyp Procedures US ABD RT UPPER QUADRANT US ABDOMINAL REAL TIME W/IMAGE LIMITED Eunice Elias PA-C [address] [place] [address] [place] [address] Referral ID Status Reason Start Date Expiration Date V isits Requested Visits Authorized [id number] Closed Auto-Generate d Referral 06/27/2022 07/27/2023 1 1 [facility] for referral (narrative)* Diagnostic Procedure Only (Routine) - Closed Specialty Diagnoses / Procedures Referred By Geno t Referred To Contact XR IMAGING Diagnoses Diarrhea, unspecified type Procedures XR ABDOMEN 1V SUPINE RADIOLOGIC EXAM ABDOMEN 1 VIEW Eunice Elias PA-C [address] [place] [address] [place] [address] Referral ID Status Reason Start Date Expiration Date V isits Requested Visits Authorized [id number] Closed Auto-Generate d Referral 11/15/2022 12/15/2023 1 1 [facility] for visit Narrative* Diagnostic Procedure Only (Routine) - Closed Specialty Diagnoses / Procedures Referred By Contac t Referred To Contact XR IMAGING Diagnoses Diarrhea, unspecified type Procedures XR ABDOMEN 1V SUPINE RADIOLOGIC EXAM ABDOMEN 1 VIEW Eunice Elias PA-C [address] [place] [address] [place] [address] Referral ID Status Reason Start Date Expiration Date V isits Requested Visits Authorized [id number] Closed Auto-Generate d Referral 11/15/2022 12/15/2023 1 1 [facility] Summary Purpose Family History No Family History Records FoundNo Family History Records Found Advance Directives No Advanced Directives Records FoundDocuments on File Type Date Recorded Patient Waitress Expl anation Advance Directive(s) Documents on File Type Date Recorded Patient Waitress Expl anation Advance Directive(s) Reason for Referral Specialty Diagnoses / Procedures Referred By Contac t Referred To Contact Gastroenterology Diagnoses GERD without esophagitis Screening for colon cancer Procedures CONSULT TO GASTROENTEROLOGY OFFICE/OUTPATIENT NEW HIGH MDM 60-74 MINUTES Eunice Elias PA-C [address] [place] [address] Referral ID Status Reason Start Date Expiration Date Visits Requested Visits Authorized [id number] Pending Review PCP Requested Referral 08/09/2021 08/09/2022 1 1 Specialty Diagnoses / Procedures Referred By Contac t Referred To Contact US IMAGING Diagnoses Gall bladder polyp Procedures US ABD RT UPPER QUADRANT US ABDOMINAL REAL TIME W/IMAGE LIMITED Eunice Elias PA-C [address] [place] [address] Us Imaging Referral ID Status Reason Start Date Expiration Date Visits Requested Visits Authorized [id number] Pending Review Auto-Generat ed Referral 08/09/2021 09/08/2022 1 1 Specialty Diagnoses / Procedures Referred By Contac t Referred To Contact Diagnoses Attention deficit disorder of adult Eunice Elias PA-C [address] [place] [address] Referral ID Status Reason Start Date Expiration Date V isits Requested Visits Authorized [id number] Pending Review 1 1 Specialty Diagnoses / Procedures Referred By Contac t Referred To Contact Dermatology Diagnoses Well adult exam Atypical nevus Procedures CONSULT TO DERMATOLOGY Eunice Elias PA-C [address] [place] [address] Referral ID Status Reason Start Date Expiration Date Visits Requested Visits Authorized [id number] Ref Not Required PCP Requested Referral 06/27/2022 06/27/2023 1 1 Referral ID Status Reason Start Date Expiration Date Visits Requested Visits Authorized [id number] Authorized Auto-Generat ed Referral 06/27/2022 07/27/2023 1 1 Specialty Diagnoses / Procedures Referred By Contac t Referred To Contact Physical Therapy Diagnoses Spinal stenosis, thoracic region Regis Souza MD [address] [place] [id number] Referral ID Status Reason Start Date Expiration Date V isits Requested Visits Authorized [id number] New Request 01/23/2023 02/17/2024 1 1 Scheduling Instructions [facility] [address] [facility] 2nd [place] [address] [facility]ax [facility] (Neck and Back Therapy) [address] [place] [address] [phone] FAX [facility] [address] [place] [address] [phone] FAX Outpatient Rehabilitation [facility] [place] [address] [facility], [address] [place] [address] [phone] FAX [facility] [address] [place] [place] [address] FAX [facility] [address] [facility], [address] [place] [address] FAX [facility] [address] [place] [address] [phone] FAX Outpatient Rehabilitation Outpatient Care [address], [address] [place] [address] [phone] FAX [facility] [address] [facility], [address] [place] [address] FAX [facility] at [address] [facility], Room: [address] [place] [address] [phone] FAX [facility] [place] [address] [facility], [address] [place] [address] FAX [facility] [address] [place] [address] [phone] FAX [facility] [place] [address], [address] [place] [address] FAX [facility] [address] [facility], [address] [place] [address] [phone] FAX Outpatient Rehabilitation [facility] [place] [address], [address] [place] [address] [phone] FAX [facility] [address] [facility], [address] [place] [address] FAX [facility] [place] [address] [facility], [address] [place] [address] [phone] FAX [facility] [address] [place] [address] [phone] FAX Outpatient Rehabilitation Outpatient Care [address], [address] [place] [address] [phone] FAX [facility] [place] [address] [place] [address] [phone] FAX Outpatient Care [address] [address] [phone] FAX [facility], [address] [place] [address] FAX Additional Source Comments INFORMATION SOURCE (unrecogn ized section and content) DATE CREATED AUTHOR 04/07/2018 [facility] DATE CREATED AUTHOR AUTHOR'S ORGANIZ ATION 02/23/2024 [facility] Source Comments (unrecognize d section and content) In the event this informatio n is protected by the Federal Confidentiality of Alcohol and Drug Abuse Patient Records regulations: The Federal rules restrict any use of the information to criminally investigate or prosecute any alcohol or drug abuse patient.[facility] the event this information is protected by the Federal Confidentiality of Alcohol and Drug Abuse Patient Records regulations: The Federal rules restrict any use of the information to criminally investigate or prosecute any alcohol or drug abuse patient.[facility] the event this information is protected by the Federal Confidentiality of Alcohol and Drug Abuse Patient Records regulations: The Federal rules restrict any use of the information to criminally investigate or prosecute any alcohol or drug abuse patient.[facility] the event this information is protected by the Federal Confidentiality of Alcohol and Drug Abuse Patient Records regulations: The Federal rules restrict any use of the information to criminally investigate or prosecute any alcohol or drug abuse patient.[facility] the event this information is protected by the Federal Confidentiality of Alcohol and Drug Abuse Patient Records regulations: The Federal rules restrict any use of the information to criminally investigate or prosecute any alcohol or drug abuse patient.[facility] the event this information is protected by the Federal Confidentiality of Alcohol and Drug Abuse Patient Records regulations: The Federal rules restrict any use of the information to criminally investigate or prosecute any alcohol or drug abuse patient.[facility] the event this information is protected by the Federal Confidentiality of Alcohol and Drug Abuse Patient Records regulations: The Federal rules restrict any use of the information to criminally investigate or prosecute any alcohol or drug abuse patient.[facility] Rehabilitation[facility] the event this information is protected by the Federal Confidentiality of Alcohol and Drug Abuse Patient Records regulations: The Federal rules restrict any use of the information to criminally investigate or prosecute any alcohol or drug abuse patient.[facility] Rehabilitation[facility] the event this information is protected by the Federal Confidentiality of Alcohol and Drug Abuse Patient Records regulations: The Federal rules restrict any use of the information to criminally investigate or prosecute any alcohol or drug abuse patient.[facility] Rehabilitation[facility] the event this information is protected by the Federal Confidentiality of Alcohol and Drug Abuse Patient Records regulations: The Federal rules restrict any use of the information to criminally investigate or prosecute any alcohol or drug abuse patient.[facility] Rehabilitation[facility] the event this information is protected by the Federal Confidentiality of Alcohol and Drug Abuse Patient Records regulations: The Federal rules restrict any use of the information to criminally investigate or prosecute any alcohol or drug abuse patient.[facility] Rehabilitation[facility] the event this information is protected by the Federal Confidentiality of Alcohol and Drug Abuse Patient Records regulations: The Federal rules restrict any use of the information to criminally investigate or prosecute any alcohol or drug abuse patient.[facility] Rehabilitation[facility] the event this information is protected by the Federal Confidentiality of Alcohol and Drug Abuse Patient Records regulations: The Federal rules restrict any use of the information to criminally investigate or prosecute any alcohol or drug abuse patient.[facility] Rehabilitation[facility] the event this information is protected by the Federal Confidentiality of Alcohol and Drug Abuse Patient Records regulations: The Federal rules restrict any use of the information to criminally investigate or prosecute any alcohol or drug abuse patient.[facility] Rehabilitation[facility] the event this information is protected by the Federal Confidentiality of Alcohol and Drug Abuse Patient Records regulations: The Federal rules restrict any use of the information to criminally investigate or prosecute any alcohol or drug abuse patient.[facility] Rehabilitation[facility] the event this information is protected by the Federal Confidentiality of Alcohol and Drug Abuse Patient Records regulations: The Federal rules restrict any use of the information to criminally investigate or prosecute any alcohol or drug abuse patient.[facility] Rehabilitation[facility] the event this information is protected by the Federal Confidentiality of Alcohol and Drug Abuse Patient Records regulations: The Federal rules restrict any use of the information to criminally investigate or prosecute any alcohol or drug abuse patient.[facility] Rehabilitation[facility] the event this information is protected by the Federal Confidentiality of Alcohol and Drug Abuse Patient Records regulations: The Federal rules restrict any use of the information to criminally investigate or prosecute any alcohol or drug abuse patient.[facility] Rehabilitation[facility] the event this information is protected by the Federal Confidentiality of Alcohol and Drug Abuse Patient Records regulations: The Federal rules restrict any use of the information to criminally investigate or prosecute any alcohol or drug abuse patient.[facility] RehabilitationIn the event this information is protected by the Federal Confidentiality of Alcohol and Drug Abuse Patient Records regulations: The Federal rules restrict any use of the information to criminally investigate or prosecute any alcohol or drug abuse patient.[facility] RehabilitationIn the event this information is protected by the Federal Confidentiality of Alcohol and Drug Abuse Patient Records regulations: The Federal rules restrict any use of the information to criminally investigate or prosecute any alcohol or drug abuse patient.[facility] Rehabilitation[facility] the event this information is protected by the Federal Confidentiality of Alcohol and Drug Abuse Patient Records regulations: The Federal rules restrict any use of the information to criminally investigate or prosecute any alcohol or drug abuse patient.[facility] Rehabilitation[facility] the event this information is protected by the Federal Confidentiality of Alcohol and Drug Abuse Patient Records regulations: The Federal rules restrict any use of the information to criminally investigate or prosecute any alcohol or drug abuse patient.[facility] Rehabilitation[facility] the event this information is protected by the Federal Confidentiality of Alcohol and Drug Abuse Patient Records regulations: The Federal rules restrict any use of the information to criminally investigate or prosecute any alcohol or drug abuse patient.[facility] Rehabilitation[facility] the event this information is protected by the Federal Confidentiality of Alcohol and Drug Abuse Patient Records regulations: The Federal rules restrict any use of the information to criminally investigate or prosecute any alcohol or drug abuse patient.[facility] RehabilitationIn the event this information is protected by the Federal Confidentiality of Alcohol and Drug Abuse Patient Records regulations: The Federal rules restrict any use of the information to criminally investigate or prosecute any alcohol or drug abuse patient.[facility] Reason for Visit (unrecogniz ed section and content) Reason Comments Orders Reason Comments Yearly Exam Reason Comments Results [...] Spinal stenosis, thoracic region Holly Paul PA-C [address] [facility] [address] [place] [address] Roni Oglesby MD [address] [place] [address] Referral ID Status Reason Start Date Expiration Date V isits Requested Visits Authorized [id number] Pending Review 12/13/2022 01/07/2024 1 1 Reason Comments Radiology US Specialty Diagnoses / Procedures Referred By Contac t Referred To Contact US IMAGING Diagnoses Gall bladder polyp Procedures US ABD RT UPPER QUADRANT US ABDOMINAL REAL TIME W/IMAGE LIMITED Eunice Elias PA-C [address] [place] [address] [place] [address] Referral ID Status Reason Start Date Expiration Date V isits Requested Visits Authorized [id number] Closed Auto-Generate d Referral 06/27/2022 07/27/2023 1 1 Reason Comments Outside Mammogram Reason Comments Opened In Error Reason Comments Yearly Exam Reason Comments Urinary Problem Urgency and frequenc y Reason Comments Patient Update Care Teams (unrecognized sec tion and content) Mva Still Operator Relationship Specialty Start Date End Date Aly Davis MD [address] [place] [id number] PCP - General Family Practice 07/01/13 Mva Still Operator Relationship Specialty Start Date End Date Aly Davis MD [address] [place] [id number] PCP - General Family Practice 07/01/13 Mva Still Operator Relationship Specialty Start Date End Date Aly Davis MD [address] [place] [id number] PCP - General Family Practice 07/01/13 Mva Still Operator Relationship Specialty Start Date End Date Aly Davis MD [address] [place] [address] PCP - General Family Practice 07/01/13 Mva Still Operator Relationship Specialty Start Date End Date Aly Davis MD [address] [place] [address] PCP - General Family Practice 07/01/13 Mva Still Operator Relationship Specialty Start Date End Date Aly Davis MD [address] [facility] [place] [address] PCP - General Family Practice 07/01/13 Mva Still Operator Relationship Specialty Start Date End Date Aly Davis MD [address] [facility] [place] [address] PCP - General Family Medicine 07/01/13 Mva Still Operator Relationship Specialty Start Date End Date Aly Davis MD [address] [place] [address] PCP - General Family Medicine 07/01/13 Mva Still Operator Relationship Specialty Start Date End Date Aly Davis MD [facility] [address] PCP - General Family Medicine 07/01/13 Mva Still Operator Relationship Specialty Start Date End Date Aly Davis MD [address] [place] [address] PCP - General Family Medicine 07/01/13 Mva Still Operator Relationship Specialty Start Date End Date Aly Davis MD [address] [place] [address] PCP - General Family Medicine 07/01/13 Mva Still Operator Relationship Specialty Start Date End Date Aly Davis MD [address] [place] [address] PCP - General Family Medicine 07/01/13 Mva Still Operator Relationship Specialty Start Date End Date Aly Davis MD [address] [facility] [place] [address] PCP - General Family Medicine 07/01/13 Mva Still Operator Relationship Specialty Start Date End Date Aly Davis MD [address] [place] [address] PCP - General Family Medicine 07/01/13 Mva Still Operator Relationship Specialty Start Date End Date Aly Davis MD [address] [place] [address] PCP - General Family Medicine 07/01/13 Mva Still Operator Relationship Specialty Start Date End Date Aly Davis MD [address] [place] [address] PCP - General Family Medicine 07/01/13 Mva Still Operator Relationship Specialty Start Date End Date Aly Davis MD [address] [place] [address] PCP - General Family Medicine 07/01/13 Mva Still Operator Relationship Specialty Start Date End Date Aly Davis MD [address] [place] [address] PCP - General Family Medicine 07/01/13 Mva Still Operator Relationship Specialty Start Date End Date Aly Davis MD [address] [place] [address] PCP - General Family Medicine 07/01/13 Mva Still Operator Relationship Specialty Start Date End Date Aly Davis MD [address] [place] [address] PCP - General Family Medicine 07/01/13 Mva Still Operator Relationship Specialty Start Date End Date Aly Davis MD [address] [place] [address] PCP - General Family Medicine 07/01/13 Mva Still Operator Relationship Specialty Start Date End Date Aly Davis MD [address] [place] [address] PCP - General Family Medicine 07/01/13 FOR RECORDS PERTAINING TO PATIENTS WHO [...] BE BASED ON THE PRIMARY CLINICAL RECORDS. [employer] provides no warranty or guarantee of the accuracy or completeness of information in this document.
--- NOTE | 2024-02-23 20:02 | CT_ITS ---
EXAM: CT ABDOMEN AND PELVIS WITHOUT INTRAVENOUS CONTRAST CLINICAL INDICATION: Kidney Stone TECHNIQUE: Helically acquired images were obtained of the abdomen and pelvis without intravenous contrast. This CT exam was performed using one or more of the following dose reduction techniques: automated exposure control, adjustment of the mA and/or kV according to patient size, and/or use of iterative reconstruction technique. COMPARISON: No relevant prior studies available. FINDINGS: LOWER THORAX: Unremarkable. Lung bases are clear. No cardiomegaly. No significant pericardial effusion. ABDOMEN: LIVER: Unremarkable. Homogeneous. GALLBLADDER AND BILE DUCTS: Unremarkable. No calcified gallstones. No gallbladder distention or wall edema. No intra- or extrahepatic biliary ductal dilation. PANCREAS: Unremarkable. No focal cystic mass. SPLEEN: Unremarkable. Normal size without focal cystic or solid mass. ADRENALS: Unremarkable. No nodules. KIDNEYS AND URETERS: Mild right hydronephrosis. Mild right hydroureter. 2 mm stone in the right distal ureter. Normal renal size and position. Left kidney is unremarkable with no stones or hydronephrosis. STOMACH AND BOWEL: Unremarkable. No stomach or bowel distention. No focal inflammatory change. PELVIS: APPENDIX: No evidence of acute appendicitis. BLADDER: Unremarkable. REPRODUCTIVE: Unremarkable as visualized. No mass. ABDOMEN and PELVIS: INTRAPERITONEAL SPACE: Unremarkable. No ascites or other fluid collection. No free air. BONES/JOINTS: Unremarkable. No suspicious lytic or blastic abnormality. SOFT TISSUES: Unremarkable. No discrete abdominal or pelvic wall hernia. VASCULATURE: Unremarkable. Abdominal aorta is normal in caliber. LYMPH NODES: Unremarkable. No enlarged lymph nodes. CT/Abdomen/Pelvis without Cont IMPRESSION: Small stone right distal ureter with mild proximal hydroureteronephrosis. Electronically Signed: Ayala Eng MD at 21:29 EDT Reading Location ID and State: [id number] / Tel , Service support ,
[2024-02-23] MEDS: Ketorolac 15 MG/ML Vial IV (20:17)
[2024-02-23] MEDS: Morphine 4 MG/ML Syringe IV (20:17)
[2024-02-23] MEDS: Ondansetron 4 MG/2 ML Vial IV (20:17)
[2024-02-23 20:30] LABS: Mucous, Urine 0 SEEN /hpf (<or=2+); White Blood Cells 0 SEEN /hpf (0-5)
[2024-02-23 20:34] LABS: Absolute Lymphocyte Count 3.54 X10^3/uL (0.83-4.51); Absolute Neutrophil Count 7.3 X10^3/uL (2.0-7.7); Basophil# 0.06 X10^3/uL; Basophil% 0.5 % (0-1); Eosinophil# 0.22 X10^3/uL; Eosinophils% 1.8 % (0-5); Hematocrit 40.7 % (37-47); Hemoglobin 13.6 g/dL (12.0-15.0); Lymphocyte # 3.54 X10^3/ul (0.83-4.51); Lymphocyte % 29.7 % (19-41); Mean Corp Hgb Conc 33.4 g/dL (32-36); Mean Corpuscular Hgb 28.7 pg (27.0-32.0); Mean Corpuscular Volume 85.9 fL (81-99); Mean Platelet Vol. 10.5 fl (6.2-12.0); Monocyte# 0.73 X10^3/uL; Monocyte% 6.1 % (0-10); NRBC Flagged by Analyzer 0 % (0-5); Neutrophil # 7.32 X10^3/uL (2.7-7.7); Neutrophil % 61.5 % (47-70); Platelet Count 325 K/mm3 (150-450); RBC Distribution Width CV 12.5 % (11.6-14.6); RBC Distribution Width SD 38.9 fl (35.1-43.9); Red Blood Count 4.74 M/mm3 (4.2-5.4); White Blood Count 11.9 K/mm3 (4.4-11.0)
[2024-02-23 20:35] LABS: Color, Urine Red (Yellow); Glucose, Dipstick Normal (Normal); Ketone-Dipstick Negative (Negative); Leukocyte Esterase-Dipstick Negative /ul (Negative); Nitrite-Dipstick Positive (Negative); Occult Blood-Urine 50 /ul (Negative); Protein-Dipstick 30 mg/dl (Negative); Specific Gravity, Urine 1.025 (1.002-1.030); Urine Clarity Sl. Cloudy (Clear); Urine Urobilinogen 8 mg/dl (Normal)
[2024-02-23 20:43] VITALS: BP 152/80; PULSE 83; RESP 18; O2SAT 100
[2024-02-23 20:45] LABS: Urine Bilirubin Dipstick 3 mg/dL (Negative)
[2024-02-23 20:48] LABS: Bacteria 1+ /hpf (None Seen); Calcium Oxalate Crystals Ur 3+ /hpf (<or=2+); Hyaline Cast 0-5 SEEN /lpf (0-5); Red Blood Cells-Urine 5-10 SEEN /hpf (0-5); Squamous Epithelial Cells - UA 10-25 SEEN /hpf (5-10)
[2024-02-23 20:49] LABS: Anion Gap 9 (5-15); BUN 15 mg/dL (7-18); BUN/Creat Ratio 16.1 RATIO (10-20); Calcium,Total 9.3 mg/dL (8.5-10.1); Chloride 106 mmol/L (98-107); Creatinine, Serum 0.93 mg/dL (0.55-1.02); EST Glomerular Filtration Rate 68 mL/min (>60); Est Glom Filt Rate - Afr Amer 83 mL/min (>60); Estimated Creatinine Clearance 93.41 ml/min; Glucose 112 mg/dL (74-106); Potassium 3.4 mmol/L (3.5-5.1); Sodium Level 138 mmol/L (136-145)
[2024-02-23 22:52] VITALS: BP 148/75; PULSE 89; RESP 18; O2SAT 98
== END 2024-02-23 22:54 | disposition home or self-care (01) ==
PROVIDERS: Emergency Provider Emergency Medicine; PCP Family Medicine; Visit Provider Emergency Medicine
DX: N13.6 Pyonephrosis (principal); E87.6 Hypokalemia; N94.9 Unspecified condition associated with female genital organs and menstrual cycle; K21.9 Gastro-esophageal reflux disease without esophagitis
CPT/HCPCS: 74176; 80048; 81001; 85025; 87086; 87088; 96374; 96375; 99283; A4216; J2405

== ENCOUNTER → 2024-08-06 | Outpatient (CLI) | payer OTHER, SELFPAY ==
--- NOTE | 2024-08-06 07:35 | BI_ITS ---
EXAM: SCRN MAMM (CAD)W/POOJA BILAT 08/06/2024 CLINICAL HISTORY: F, Age 48 y/o , SCREENING MAMMOGRAM TECHNIQUE: Bilateral screening digital breast tomosynthesis with 2D and 3D images. Computer aided detection. COMPARISON: Prior exam(s) dated 07/10/2023. FINDINGS: TISSUE DENSITY: The breast tissue is composed of scattered area of fibroglandular density. Bilateral Breast Mammographic Findings: No significant masses, calcifications or other abnormalities are identified. BI/SCRN MAMM (CAD)W/POOJA BILAT IMPRESSION: Right Breast: BIRADS 1 NEGATIVE. Left Breast: BIRADS 1 NEGATIVE. OVERALL FINAL ASSESSMENT: BIRADS 1 NEGATIVE. RECOMMENDATION: Routine annual follow-up in 1 Year A letter with findings and recommendations will be mailed to the patient. Reading Location: [id number]
== END | disposition home or self-care (01) ==
LOC: OPBI 07:34
PROVIDERS: PCP Family Medicine; Referring Provider Obstetrics & Gynecology; Visit Provider Obstetrics & Gynecology
DX: Z12.31 Encounter for screening mammogram for malignant neoplasm of breast (principal)
CPT/HCPCS: 77063; 77067

== ENCOUNTER → 2024-08-29 | Outpatient (CLI) | payer OTHER, SELFPAY ==
--- NOTE | 2024-08-29 07:58 | US_ITS ---
PROCEDURE: ABD LIMITED W/ ELASTOGRAPHY, 08/29/2024 REASON FOR EXAM: FATTY LIVER COMPARISON: 02/23/2024 and 09/15/2020. TECHNIQUE: Grayscale and color Doppler imaging of the right upper quadrant was performed. Elastography was performed for non-invasive assessment of liver tissue stiffness utilizing a [employer] S-shear wave imaging unit. FINDINGS: Liver: Echogenic. 18.1 cm in length. Hypoechoic RIGHT lobe lesion measures 1.1 x 1.4 x 1.3 cm. There was a 7 mm hypodense lesion on CT 09/15/2020, uncertain if this represents the same lesion. Additional subcapsular hypoechoic area in the LEFT lobe measures 5.1 x 4.9 x 1.8 cm. This was not visible on either prior exam. Gallbladder: Echogenic non mobile likely polyp 3 x 4 x 3 mm. No detected vascularity. No definite shadowing stones, wall thickening or pericholecystic fluid. Reportedly, sonographic Gutiérrez's was negative. Biliary tree: Unremarkable. CBD measures 2 mm. Pancreas: Partially obscured by shadowing bowel gas, grossly unremarkable as visualized. Right kidney: Unremarkable. 13.3 cm in length. Other: No visualized free fluid. Hepatic elastography: Number of measurements: 15 measurements across 3 regions, 5 measurements per region. US probe: CA1-7A. EQI median: 6.2 kPa EQI median velocity: 1.41 m/s IQR/Med: 10.9-28.7% (kPa) and 6.0-15.1% (m/s). If the IQR/Med is IQR/median >30% (for kPa) or >15% in m/s, the variance in the measurements is a large and the accuracy of the measurement may be in question. f US/ABD Limited w/ Elastography IMPRESSION: 1. Appearance of the hepatic parenchyma most commonly associated with hepatic s teatosis. Correlate for clinical and laboratory evidence of chronic liver disease.. 2. Liver stiffness is 6.2 kPa. Per the below 2020 SRU criteria, this rules out compensated advanced chronic liver disease in the absence of other known clinical signs. If there are known clinical signs, furth er testing may be needed for confirmation. 3. Indeterminate hepatic lesions up to 5.1 cm, largest may potentially reflect focal fatty sparing however this is not definite. Recommend multiphase hepatic protocol MRI abdomen with and without contrast, or less optimally multiphase hepatic protocol CT if there is a contraindication to MRI. 4. 3 mm gallbladder polyp. Some guidelines suggest follow-up in 6 months, othe rs suggest no follow-up at this size. 5. Additional description as above. Assessment is per the Update to the U Liver Elastography Consensus Statement (2020) Note that the above assessment of liver fibrosis is vendor-neutral and intended for use in fibrosis related to viral etiologies and non-alcoholic fatty-liver disease (NAFLD); in causes other than viral hepat itis and NAFLD, the cutoff values are currently not well established. In some patients with NAFLD, the cutoff values for cACLD may be lower (7-9 kPa). Note also that in the setting of elevated LFTs, nonfasting or vascular congestion, the stage of lifer fibrosis may be overestimated. Previous [facility] reference values: <1.37 m/s (5.7kPa): No to mild fibrosis 1.37 m/s - 2.2 m/s: Moderate to severe fibrosis >2.2 m/s (15kPa): Significant fibrosis / cirrhosis Reading Location: [id number]
== END | disposition home or self-care (01) ==
PROVIDERS: PCP Physician Assistant; Referring Provider Internal Medicine Gastroenterology; Visit Provider Internal Medicine Gastroenterology
DX: K76.0 Fatty (change of) liver, not elsewhere classified (principal)
CPT/HCPCS: 76705; 76981

== ENCOUNTER 2024-09-30 19:43 | Emergency (ER) | payer OTHER, SELFPAY ==
[2024-09-30 19:44] VITALS: BP 106/85; PULSE 73; RESP 18; TEMP 36.5; O2SAT 99; BMI 41.6
--- NOTE | 2024-09-30 19:56 | CT_ITS ---
PROCEDURE: ABDOMEN/PELVIS WITHOUT CONT 09/30/2024 REASON FOR EXAM: PAIN TECHNIQUE: Abdomen and pelvis CT without intravenous contrast. Noncontrast technique limits evaluation of the abdominal and pelvic viscera. Coronal and Sagittal reconstruction series were provided. One or more dose reduction techniques were used (e.g., Automated exposure control, adjustment of the mA and/or kV according to patient size, use of iterative reconstruction technique). PATIENT PREPARATION: Per protocol ORAL CONTRAST TYPE: None. COMPARISON: 02/23/2024 FINDINGS: LOWER THORAX: Unremarkable. Lung bases are clear. No cardiomegaly. No significant pericardial effusion. ABDOMEN/PELVIS: LIVER: hepatomegaly to 17.2 cm. GALLBLADDER AND BILE DUCTS: Nondistended gallbladder. No calcified gallstones. No gallbladder distention or wall edema. No intra- or extrahepatic biliary ductal dilation. PANCREAS: Unremarkable. SPLEEN: Unremarkable. Normal size without focal cystic or solid mass. ADRENALS: Unremarkable. KIDNEYS AND URETERS: No hydronephrosis. No obstructive uropathy. Bilateral kidneys appear unremarkable. BOWEL: Tiny hiatal hernia. No bowel obstruction. Normal appendix. BLADDER: Unremarkable. REPRODUCTIVE: Unremarkable as visualized. No mass. INTRAPERITONEAL SPACE: Unremarkable. No ascites or other fluid collection. No free air. BONES/JOINTS: Unremarkable. No suspicious lytic or blastic abnormality. SOFT TISSUES: Unremarkable. No discrete abdominal or pelvic wall hernia. VASCULATURE: Unremarkable. Abdominal aorta is normal in caliber. LYMPH NODES: Unremarkable. No enlarged lymph nodes. CT/Abdomen/Pelvis without Cont IMPRESSION: No acute intra-abdominal process. Normal appendix. Reading Location: [id number]
--- NOTE | 2024-09-30 20:04 | ED.VIS.FEGU ---
HPI HPI - Female History of Present Illness Chief Complaint: Flank Pain Narrative Narrative: Chief complaint and HPI: Left flank pain. 48-year-old female with past medical history of urolithiasis, GERD, hysterectomy presents for evaluation of left flank pain. Patient states that she received physical therapy today due to chronic knee pain. States shortly after she was sitting in the car helping her work on a vehicle by pumping the brakes. States she felt generally unwell while doing this. Shortly had a bowel movement in which she became sweaty and nauseous. Patient states she then developed left upper flank pain. Describes it as intermittent and sharp. Denies any fever, chills, shortness of breath, chest pain, diarrhea, constipation, abdominal pain, dysuria, hematuria. Review of systems: See HPI Medications: As listed on the chart Allergies: As listed on the chart PFSH: Per chart Vital signs: As listed on the chart. Reviewed. Physical exam: Gen: A&O x3, NAD Head: Normocephalic, atraumatic Eyes: No sclera icterus, conjunctiva clear ENT: Moist mucous membranes Neck: Trachea midline, No JVD CV: RRR, no murmurs, no peripheral edema Resp: Lungs CTA BL, no w/r/c GI: Abd soft, non-distended, non-tender, no r/r/g : No CVA tenderness Musc: Full ROM, no deformity, has mild tenderness to palpation of the left lower thoracic/upper paraspinal musculature-muscles are tense Skin: Warm, dry Neuro: Alert, oriented, grossly intact, sensation intact Psych: Cooperative, appropriate mood and affect [facility] Medical History Radial head fracture Radial neck fracture Scaphoid fracture of wrist Shortness of breath on exertion Keratosis, seborrheic Fibrocystic breast disease Constipation ADD (attention deficit disorder) Wears glasses Anxiety Fatty liver Back pain Gastric reflux Non-smoker Palpitations Gallbladder polyp Uterine fibroid Uterine fibroid Enlarged uterus Pelvic pain Menorrhagia with irregular cycle Hemangioma of liver Home Medications ?Medication ?Instructions ?Recorded ?Last Taken ?Type ascorbate calcium (vitamin C) 500 500 mg PO DAILY 07/21/20 Unknown History mg tablet cholecalciferol (vitamin D3) 50 50 mcg PO DAILY 03/29/21 Unknown History mcg (2,000 unit) capsule (Vitamin D3) zinc acetate 50 mg (zinc) capsule 50 mg PO PRN PRN PROPHYLACTIC 05/31/22 Unknown History cod liver oil 1 cap PO DAILY 06/25/23 Unknown History omeprazole 20 mg capsule,delayed 20 mg PO DAILY #90 caps 08/27/24 Unknown Rx release ondansetron 4 mg disintegrating 4 mg PO Q8H PRN PRN Nausea #10 tabs 09/30/24 Unknown Rx tablet Allergy/AdvReac Type Severity Reaction Status Date / Time No Known Allergies Allergy Verified 09/30/24 19:46 Family History Mother uterine fibroid tumor Aunt Colon cancer Unknown Heart disease Hyperlipidemia Father Hypertension Surgical History S/P total hysterectomy (~04/05/21) Social History household members: spouse and children number of children: 1 current occupational status: employed current occupation: [employer] history of recent travel: No sexually active: Yes Smoking Status: Never smoker alcohol intake: current alcohol intake frequency: holidays/special occasions only substance use type: does not use diet: low carbohydrate well-balanced diet: daily or most days what type of physical activity do you participate in: none seatbelt use: always do you feel safe at home: Yes additional social history: - [employer] EXAM Physical Exam Const Vital Signs: 09/30/24 19:44 09/30/24 20:00 09/30/24 21:00 Temperature 97.7 F L Temperature Source Oral Pulse Rate 73 84 Respiratory Rate 18 18 Respiratory Effort Normal Non-Labored Respiratory Pattern Normal Blood Pressure 106/85 H 147/68 H Blood Pressure Mean 92 94 Pulse Ox 99 100 Oxygen Delivery Method Room Air Room Air 09/30/24 21:57 Temperature 98.2 F Temperature Source Pulse Rate 82 Respiratory Rate 18 Respiratory Effort Respiratory Pattern Blood Pressure 148/72 H Blood Pressure Mean 97 Pulse Ox 97 Oxygen Delivery Method MDM MDM MDM Narrative Medical decision making narrative: 48-year-old female with past medical history of urolithiasis, GERD, hysterectomy presents for evaluation of left flank pain. Pain developed prior to arrival. Has not taken anything for the pain. Differential diagnosis includes but is not limited to urolithiasis, UTI, myofascial spasm. NS bolus, Toradol, Zofran ordered for symptoms. Laboratory workup including urine and CT abdomen pelvis without contrast. CBC with mild leukocytosis 11.9. No anemia. BMP unremarkable without significant electrolyte abnormality or HUMBLE. UA positive for blood but negative for UTI. CT abdomen pelvis shows no acute intra-abdominal process. At this point in time, no clear etiology for patient's symptoms. On reexamination her pain has improved. Given the blood in her urine may have passed a kidney stone. Patient was updated of all results and the plan for discharge home. Follow-up with PCP. Return precautions explained. Will prescribe Zofran as needed for nausea and vomiting. Patient confirmed understanding. Impression: 1. Left flank pain Lab Data Labs: Laboratory Results - last 24 hr 09/30/24 09/30/24 20:18 21:01 WBC 11.9 H RBC 4.85 Hgb 13.8 Hct 41.8 MCV 86.2 MCH 28.5 MCHC 33.0 RDW Std Deviation 40.0 RDW Coeff of [place] 12.8 Plt Count 279 MPV 10.7 Immature Gran % (Auto) 0.400 Neut % (Auto) 69.5 Lymph % (Auto) 23.8 [place] % (Auto) 4.3 Eos % (Auto) 1.6 Baso % (Auto) 0.4 Absolute Neuts (auto) 8.3 H Absolute Lymphs (auto) 2.83 Nucleated RBC % 0 Sodium 139 Potassium 4.3 Chloride 103 Carbon Dioxide 23.3 Anion Gap 13 BUN 18 Creatinine 0.94 Estim Creat Clear Calc 92.97 Est GFR (MDRD) Non-Af 75 BUN/Creatinine Ratio 19.3 Glucose 117 H Calcium 9.4 Urine Color Yellow Urine Clarity Clear Urine pH 6.0 Ur Specific [place] 1.020 Urine Protein 30 H Urine Glucose (UA) Normal Urine Ketones Negative Urine Occult Blood 10 H Urine Nitrite Negative Urine Bilirubin Negative Urine Urobilinogen Normal Ur Leukocyte Esterase Negative Urine RBC 0-5 SEEN Urine WBC 5-10 SEEN Ur Squamous Epith Cells 0-5 SEEN Urine Bacteria 0 SEEN Urine Mucus 0 SEEN Radiography Diagnostic Testing: Clinical Impression(s) from Imaging Studies Abdomen/Pelvis CT 09/30/24 19:56 IMPRESSION: No acute intra-abdominal process. Normal appendix. Reading Location: [facility] Discharge Plan Triage Chief Complaint: Flank Pain ED Provider: Theodore Barron Dx/Rx/DC Orders Clinical Impression: Left flank pain Instructions: ED Flank Pain, Uncertain Cause Prescriptions: New ondansetron 4 mg tablet,disintegrating 4 mg PO Q8H PRN PRN (Reason: Nausea) Qty: 10 0RF No Action ascorbate calcium (vitamin C) 500 mg tablet 500 mg PO DAILY zinc acetate 50 mg (zinc) capsule 50 mg PO PRN PRN (Reason: PROPHYLACTIC) cod liver oil Capsule 1 cap PO DAILY cholecalciferol (vitamin D3) [Vitamin D3] 50 mcg (2,000 unit) Capsule 50 mcg PO DAILY omeprazole 20 mg capsule,delayed release(DR/EC) 20 mg PO DAILY Qty: 90 2RF Primary Care Provider: Suzette Elias Referrals: Suzette Elias PA [Primary Care Provider] - 3-5 Days Activity Restrictions/Additional Instructions: At this point in time no reason for your flank pain. Continue to monitor. Return back to the ED if symptoms change or worsen. Follow-up with your PCP Print Language: Belarusian Disposition Disposition: Home, Self Care Discharge Date/Time: 09/30/24 22:07
[2024-09-30] MEDS: Ketorolac 15 MG/ML Vial IV (20:17)
[2024-09-30] MEDS: Ondansetron 4 MG/2 ML Vial IV (20:17)
[2024-09-30] MEDS: 0.9% Normal Saline (1000mL) 1,000 ML 1000 ML IV (20:17)
[2024-09-30 20:48] LABS: Absolute Lymphocyte Count 2.83 X10^3/uL (0.83-4.51); Absolute Neutrophil Count 8.3 X10^3/uL (2.0-7.7); Basophil# 0.05 X10^3/uL; Basophil% 0.4 % (0-1); Eosinophil# 0.19 X10^3/uL; Eosinophils% 1.6 % (0-5); Hematocrit 41.8 % (37-47); Hemoglobin 13.8 g/dL (12.0-15.0); Lymphocyte # 2.83 X10^3/ul (0.83-4.51); Lymphocyte % 23.8 % (19-41); Mean Corpuscular Hgb 28.5 pg (27.0-32.0); Mean Corpuscular Volume 86.2 fL (81-99); Mean Platelet Vol. 10.7 fl (6.2-12.0); Monocyte# 0.51 X10^3/uL; Monocyte% 4.3 % (0-10); NRBC Flagged by Analyzer 0 % (0-5); Neutrophil # 8.25 X10^3/uL (2.7-7.7); Neutrophil % 69.5 % (47-70); Platelet Count 279 K/mm3 (150-450); RBC Distribution Width CV 12.8 % (11.6-14.6); Red Blood Count 4.85 M/mm3 (4.2-5.4); White Blood Count 11.9 K/mm3 (4.4-11.0)
[2024-09-30 21:00] VITALS: BP 147/68; PULSE 84; RESP 18; O2SAT 100
[2024-09-30 21:07] LABS: Anion Gap 13 (5-15); BUN 18 mg/dL (4-19); BUN/Creat Ratio 19.3 RATIO (10-20); Calcium,Total 9.4 mg/dL (7.6-11.0); Carbon Dioxide 23.3 mmol/L (21.0-32.0); Chloride 103 mmol/L (98-108); Creatinine, Serum 0.94 mg/dL (0.70-1.20); EST Glomerular Filtration Rate 75 (>60); Estimated Creatinine Clearance 92.97 ml/min (50-250); Glucose 117 mg/dL (70-99); Potassium 4.3 mmol/L (3.3-5.1); Sodium Level 139 mmol/L (133-145)
[2024-09-30 21:08] LABS: Bacteria 0 SEEN /hpf (None Seen); Mucous, Urine 0 SEEN /hpf (<or=2+)
[2024-09-30 21:13] LABS: Color, Urine Yellow (Yellow); Glucose, Dipstick Normal (Normal); Ketone-Dipstick Negative (Negative); Leukocyte Esterase-Dipstick Negative /ul (Negative); Nitrite-Dipstick Negative (Negative); Occult Blood-Urine 10 /ul (Negative); Protein-Dipstick 30 mg/dl (Negative); Urine Bilirubin Dipstick Negative (Negative); Urine Clarity Clear (Clear); Urine Urobilinogen Normal (Normal)
[2024-09-30 21:29] LABS: Red Blood Cells-Urine 0-5 SEEN /hpf (0-5); Squamous Epithelial Cells - UA 0-5 SEEN /hpf (5-10); White Blood Cells 5-10 SEEN /hpf (0-5)
[2024-09-30 21:57] VITALS: BP 148/72; PULSE 82; RESP 18; TEMP 36.8; O2SAT 97
== END 2024-09-30 22:07 | disposition home or self-care (01) ==
PROVIDERS: Emergency Provider Surgery; PCP Physician Assistant; Visit Provider Surgery
DX: R10.9 Unspecified abdominal pain (principal); R31.9 Hematuria, unspecified; M25.569 Pain in unspecified knee; R11.0 Nausea; K21.9 Gastro-esophageal reflux disease without esophagitis; G89.29 Other chronic pain; Z90.49 Acquired absence of other specified parts of digestive tract; D72.829 Elevated white blood cell count, unspecified
CPT/HCPCS: 74176; 80048; 81001; 85025; 96361; 96374; 96375; 99284; A4216; J2405

== ENCOUNTER → 2024-10-02 | Outpatient (CLI) | payer OTHER, SELFPAY ==
--- NOTE | 2024-10-02 07:22 | CT_ITS ---
PROCEDURE: LIMITED CHEST CT CARDIAC ONLY REASON FOR EXAM: ENCOUNTER FOR SCREENING FOR CARDIOVASCULAR DISORDERS TECHNIQUE: Contiguous axial scans of 2.5 mm slice thicknesses. One or more dose reduction techniques were used (e.g., automated exposure control, adjustment of mA and/or kv according to patient size, use of iterative reconstruction technique). Evaluation is limited to the non-coronary and non-cardiac findings. Only those areas demonstrated within the [id number] were evaluated. COMPARISON: No relevant prior. FINDINGS: NON-CORONARY CARDIAC FINDINGS: The myocardium, valves and pericardium have a normal appearance. NON-CARDIAC FINDINGS: Lungs: Clear. Pleural spaces: No fluid, pneumothorax or thickening. Mediastinum:The visualized mediastinum is normal with no lymphadenopathy. Pulmonary vessels: Unremarkable. Chest wall: Unremarkable. Upper abdomen and bones: Normal appearance within the field of view. CT/Limited Chest CT Cardiac Only IMPRESSION: UNREMARKABLE LIMITED CHEST CT NON-CORONARY AND NON-CARDIAC ANATOMY ONLY. Reading Location: [place] [id number]
--- OUTSIDE RECORDS SUMMARY | 2024-10-02 07:23 | XMS RPT_ITS | CCD ---
Author Organization [facility] Care Team Providers Care Finished Cloth Checker Name Role Phone IMCA Unavailable Unavailable Ronaldo Medley Unavailable Unavailable Ronaldo Medley MD Primary Care Provider [phone] Dr. Ronaldo Medley Primary Care Provider Dr. Ronaldo Medley Referring Provider [phone] Mariaa Goodman Attending Provider [phone] Dr. Ronaldo Medley Primary Care Provider Dr. Ronaldo Medley Referring Provider [phone] Janna CAMARENA, NICOL Izquierdo Attending Provider [phone] Dr. Adarsh Nicholson Attending Provider [phone] Dr. Rich Shaikh Attending Provider [phone] Ronaldo Medley MD Primary Care Provider [phone] Dr. Ronaldo Medley Primary Care Provider Dr. Ronaldo Medley Referring Provider [phone] Dr. Mariaa Goodman Attending Provider [phone] Ronaldo Medley MD Primary Care Provider [phone] Dr. Ronaldo Medley Primary Care Provider Dr. Ronaldo Medley Referring Provider [phone] Mariaa Goodman Attending Provider [phone] Sharonda MERCER, LOGISTICS MANAGER-C Kacey Lora Attending Provider [phone] Dr. Manny Diamond Attending Provider [phone] Dr. Manny Diamond Other Provider Unavailable Primary Care Provider UnavailDr. Ronaldo Garcia Primary Care Provider Dr. Ronaldo Medley Referring Provider Dr. Mariaa Goodman Attending Provider [phone] Dr. Manny Diaomnd Attending Provider [phone] Ryan BIGGS, Ronaldo Rowe Primary Care Provider Ryan BIGGS, Dr. Higgins Primary Care Provider Ryan BIGGS, Dr. Higgins Referring Provider Dr. Mariaa Goodman DO Attending Provider Gerson Lu DO, Dr. Leroy Referring Provider Dr. Manny Diamond DO Attending Provider Ty CARBAJAL.HAND BUTTON SPLITTER, Radha Unavailable Suzette Elias PA-C Unavailable Dr. Manny Diamond DO Referring Provider Suzette White Primary Care Provider Suzette White Referring Provider LEVI BEE Referring Unavailable RYAN, RONALDO A Primary Care Unavailable LEVI BEE Attending Unavailable ELIAS, SUZETTE Referring Unavailable RYAN, RONALDO A Primary Care Unavailable Aroldo'ARLENE LE Attending Unavailable ELIAS, SUZETTE Referring Unavailable RYAN, RONALDO A Primary Care Unavailable CURT, SUZETTE Attending Unavailable RYAN, RONALDO A Primary Care Unavailable KIARA ELIASE Attending Unavailable RYAN, RONALDO A Primary Care Unavailable Aroldo'ARLENE LE Attending Unavailable ELIAS, SUZETTE Referring Unavailable RYAN, RONALDO A Primary Care Unavailable ELIAS, SUZETTE Referring Unavailable RYAN, RONALDO A Primary Care Unavailable Mariaa Goodman Attending UnavailRonaldo Garcia Referring Unavailable Ryan, Ronaldo Primary Care Unavailable Curt CAMARENA, Suzette Primary Care Unavailable Suzette White Attending Unavailable Curt CAMARENA, Suzette Referring Unavailable Curt CAMARENA, Suzette Primary Care Unavailable Theodore Barron Attending UnavailRonaldo Garcia Referring Unavailable Ryan, Ronaldo Primary Care Unavailable FriendManny Attending Unavailable [facility] Unavailable Jim Isaac Attending Unavailable Suzette White Attending Unavailable Suzette White Referring Unavailable [facility] Unavailable Mariaa Goodman Attending UnavailMariaa Cruz Referring Unavailalan [facility]raneyConemaugh [facility] Primary Care Unavailable Suzette White Primary Care Unavailable FriendManny Attending Unavailable FriendManny Referring Unavailable RyanGary bellorey Referring Unavailable [facility] Primary [facility] Unavailable FriendManny Attending Unavailable Suzette White Referring Unavailable Suzette White Primary Care Unavailable FriendManny Attending Unavailable Medications Current Medications Medication Drug Class(es) Dates Sig (Normalized) Sig (Original) [id number] 200 actuat albuterol 0.09 mg/actuat metered dose [...] hours as needed for wheezing/shortness of breath. calcium ascorbate 500 mg oral tablet (10 sources) Start: 07-21-2020 take 1 tablet by mouth once daily Ascorbate Calcium (Vitamin C) 500 mg tablet Active 500 mg PO DAILY July 21, 2020 12:00am cholecalciferol 1.25 mg oral capsule (16 sources) Vitamin D Start: 08-25-2024 End: 10-14-2024 take 1 capsule by mouth every week cholecalciferol, Vitamin D3, (VITAMIN D3) 1,250 mcg (50,000 unit) cap capsule Take 1 capsule by mouth one time a week for 8 doses. 8 capsule 08/25/2024 10/14/2024 Active Start: 03-29-2021 take 1 capsule by [facility] once daily Cholecalciferol (Vitamin D3) (Vitamin D3) 50 mcg (2,000 unit) Capsule Active 50 ug PO DAILY March 29, 2021 1:00am Cod Liver Oil (2 sources) Start: 06-25-2023 take 1 capsule by mouth once daily Cod Liver Oil Active 1 CAP PO DAILY June 25, 2023 1:00am Cod Liver Oil capsule (3 sources) Start: 06-25-2023 Cod Liver Oil capsule Active 1 NMA PO DAILY June 25, 2023 1:00am doxycycline hyclate 100 mg oral tablet (1 source) Tetracycline-class Drug Start: 03-08-2022 End: 03-09-2022 take 2 tablets by mouth once daily doxycycline (VIBRA-TABS) 100 mg tablet Take 2 tablets by mouth once daily for 1 day. 2 tablet 0 03/08/2022 03/09/2022 Active Comment on above: Take 2 tablets by mo [facility] once daily for 1 day. ferrous gluconate 240 mg oral tablet (7 sources) Start: 09-10-2020 End: 10-19-2021 take 1 tablet by mouth once daily FERGON 240 mg (27 mg iron) tablet Take 1 tablet by mouth once daily. 0 09/10/2020 10/19/2021 Discontinued Comment on above: Take 1 tablet by annabel once daily. naproxen 500 mg oral tablet (15 sources) Nonsteroidal Anti-inflammatory Drug Start: 07-14-2022 take 1 tablet by mouth every twelve hours as needed naproxen (NAPROSYN) 500 mg tablet Take 1 tablet by mouth twice daily as needed (for pain/inflammation). Take with food. 30 tablet 07/14/2022 Active Comment on above: Take 1 tablet by annabel twice daily as needed (for pain/inflammation). Take with food. nitrofurantoin, macrocrystals 25 mg / nitrofurantoin, monohydrate 75 mg oral capsule (4 sources) Nitrofuran Antibacterial Start: 02-19-2024 End: 02-26-2024 take 1 capsule by mouth twice daily at mealtime nitrofurantoin monohydrate and macrocrystal (MACROBID) 100 mg capsule Take 1 capsule by mouth two times a day with meals for 7 days. 14 capsule 02/19/2024 02/26/2024 Active omeprazole 20 mg delayed release oral capsule (20 sources) Proton Pump Inhibitor Start: 08-24-2023 End: 08-27-2024 take 1 capsule by mouth once daily Omeprazole 20 mg capsule,delayed release(DR/EC) Active 20 mg PO DAILY August 27, 2024 7:29am Start: 06-25-2023 End: 02-20-2024 take 1 tablet by mouth once daily Omeprazole Magnesium (Prilosec Otc) 20 mg tablet,delayed release (DR/EC) Discontinued 20 mg PO DAILY June 25, 2023 1:00am February 20, 2024 8:38am phenazopyridine hydrochloride 200 mg oral tablet (1 source) Start: 02-21-2024 End: 02-23-2024 take 1 tablet by mouth every eight hours as needed phenazopyridine (PYRIDIUM) 200 mg tablet Take 1 tablet by mouth three times a day as needed for up to 2 days. 6 tablet 02/21/2024 02/23/2024 Active valACYclovir 1000 mg oral tablet (20 sources) Herpesvirus Nucleoside Analog DNA Polymerase Inhibitor, Herpes Simplex Virus Nucleoside Analog DNA Polymerase Inhibitor, Herpes Zoster Virus Nucleoside Analog DNA Polymerase Inhibitor Start: 05-01-2024 End: 06-27-2024 Valacyclovir (Valtrex) 1 gram tablet Active 1000 mg PO TWICE A DAY 14 June 27, 2024 9:29am Start: 01-05-2021 End: 06-25-2023 Valacyclovir (Valtrex) 1 gra m tablet Discontinued 1000 mg PO NEEDED as needed for Cold Sores August 25, 2022 1:44pm June 25, 2023 5:09pm zinc acetate 50 mg oral capsule (7 sources) Start: 05-31-2022 Zinc Acetate 5 0 mg (zinc) capsule Active 50 mg PO NEEDED as needed for PROPHYLACTIC May 31, 2022 1:00am Completed/Discontinued Medications Medication Drug Class(es) Dates Sig (Normalized) Sig (Original) acetaminophen 325 mg / HYDROcodone bitartrate 5 mg oral tablet (9 sources) Opioid Agonist Start: 11-06-2021 End: 11-10-2021 Hydrocodone-Acetami nophen 5-325 mg tablet Discontinued 1 {tbl} PO EVERY 6 HOURS NEEDED as needed for Pain 10 3 November 06, 2021 November 10, 2021 8:09am Start: 11-06-2021 End: 11-10-2021 take 1 tablet by mouth every six hours as needed Hydrocodone-Acetaminophen Discontinued 1 TABLET PO EVERY 6 HOURS NEEDED 10 November 06, 2021 November 10, 2021 8:09am acetaminophen 325 mg / oxyCODONE hydrochloride 5 mg oral tablet (10 sources) Opioid Agonist Start: 04-05-2021 End: 04-15-2021 Oxycodone-Acetaminophen (Percocet) 5-325 mg tablet Discontinued 1 {tbl} PO EVERY 6 HOURS as needed for pain 24 11April 05, 2021 April 15, 2021 10:36am amoxicillin 875 mg / clavulanate 125 mg oral tablet (10 sources) Penicillin-class Antibacterial Start: 04-15-2021 End: 04-22-2021 Amoxicillin-Pot Clavulanate (Augmentin) 875-125 mg tablet Discontinued 1 {tbl} PO TWICE A DAY 14 April 15, 2021 1:00am April 21, 2021 1:00am April 22, 2021 1:01am amphetamine aspartate 2.5 mg / amphetamine sulfate 2.5 mg / dextroamphetamine saccharate 2.5 mg / dextroamphetamine sulfate 2.5 mg oral tablet (17 sources) Central Nervous System Stimulant Start: 09-21-2021 End: 06-27-2022 Dextroamphetamine-Amphetamin e 10 mg tablet Discontinued 10 mg PO November 10, 2021 12:00am May 31, 2022 4:04pm Start: 08-23-2021 End: 09-22-2021 take 1 tablet [...] evening. Do all this for 30 days. cyclobenzaprine hydrochloride 10 mg oral tablet (20 sources) Muscle Relaxant Start: 2022 End: 2023 take 1 tablet by mouth three times daily Cyclobenzaprine 10 mg tablet Discontinued 10 mg PO THREE TIMES A DAY November 23, 2022 12:00am June 25, 2023 5:09pm Comment on above: Take 1 tablet by [facility] three times daily as needed for muscle spasm. docusate sodium 100 mg oral capsule (10 sources) Start: 2020 End: 2020 take 1 capsule by mouth once daily as needed for constipation Docusate Sodium (Colace) 100 mg capsule Discontinued 100 mg PO DAILY as needed for constipation April 05, 2021 1:22pm April 15, 2021 10:36am hydrOXYzine pamoate 50 mg oral capsule (10 sources) Antihistamine Start: 2020 End: 2020 take 1 capsule by mouth three times daily as needed Hydroxyzine Pamoate (Vistaril) 50 mg capsule Discontinued 50 mg PO THREE TIMES A DAY as needed for itching 26 11April 15, 2021 1:00am April 21, 2021 1:00am April 22, 2021 1:01am ibuprofen 800 mg oral tablet (20 sources) Nonsteroidal Anti-inflammatory Drug Start: 2021 End: 2022 take 1 tablet by mouth three times daily as needed for pain Ibuprofen 800 mg tablet Discontinued 800 mg PO THREE TIMES A DAY as needed for pain November 10, 2021 10:26am May 31, 2022 4:04pm Start: 04-05-2021 End: 05-17-2021 take 1 tablet by mouth every eight hours as needed for pain Ibuprofen 800 mg tablet Discontinued 800 mg PO Q8H as needed for pain 26 11April 05, 2021 1:00am May 17, 2021 10:22am 1.5 ml leuprolide acetate 7.5 mg/ml prefilled syringe (17 sources) Gonadotropin Releasing Hormone Receptor Agonist Start: 09-23-2020 End: 10-19-2021 inject 11.25 mg by intramuscular injection every three months Leuprolide (3 Month) (Lupron Depot (3 Month)) 11.25 mg syringe kit Discontinued 11.25 mg IM every 3 months January 09, 2021 12:00am April 05, 2021 1:21pm magnesium gluconate 550 mg oral tablet (10 sources) Start: 07-21-2020 End: 05-31-2022 take 1 tablet by mouth once daily Magnesium 30 mg tablet Discontinued 30 mg PO DAILY July 21, 2020 12:00am May 31, 2022 4:04pm meloxicam 15 mg oral tablet (10 sources) Nonsteroidal Anti-inflammatory Drug Start: 11-23-2022 End: 06-25-2023 take 1 tablet by mouth once daily Meloxicam 15 mg tablet Discontinued 15 mg PO DAILY December 12, 2022 3:08pm June 25, 2023 5:09pm Do not take in conjunction with other NSAIDs. ondansetron 4 mg disintegrating oral tablet (14 sources) Serotonin-3 Receptor Antagonist Start: 02-23-2024 End: 06-27-2024 take 1 tablet by mouth every eight hours as needed for nausea Ondansetron 4 mg tablet,disintegr ating Discontinued 4 mg PO EVERY 8 HOURS NEEDED as needed for Nausea February 23, 2024 12:00am June 27, 2024 9:20am Start: 11-15-2022 take 1 tablet by annabel th every six hours as needed ondansetron orally disintegrating (ZOFRAN ODT) 4 mg disintegrating tablet Take 1 tablet by mouth every 6 hours as needed for nausea/vomiting. 20 tablet 11/15/2022 Active Comment on above: Take 1 tablet by annabel th every 6 hours as needed for nausea/vomiting. oxyCODONE hydrochloride 5 mg oral tablet (3 sources) Opioid Agonist Start: End: take 1 tablet by mouth every six hours as needed for pain Oxycodone 5 mg tablet Discontinued 5 mg PO EVERY 6 HOURS as needed for pain 12 February 23, 2024 June 27, 2024 9:20am Sod Sulf-Pot Chloride-Mag Sulf (6 sources) Start: 023 End: take 1.479 tablets by mouth once Sod Sulf-Pot Chloride-Mag Sulf (Sutab) 1.479-0.188- 0.225 gram tablet Discontinued 0 PO per package directions August 25, 2022 12:00am June 25, 2023 5:09pm PO PER PKG DIR Start: 08-25-2022 take 1.479 tablets b y mouth once Sod Sulf-Pot Chloride-Mag Sulf (Sutab) 1.479-0.188- 0.225 gram tablet Active 0 PO per package directions August 25, 2022 12:00am PO PER PKG DIR sulfamethoxazole 800 mg / trimethoprim 160 mg oral tablet (3 sources) Dihydrofolate Reductase Inhibitor Antibacterial, Sulfonamide Antimicrobial Start: 02-23-2024 End: 06-27-2024 Sulfamethoxazole-Trimethopri m (Bactrim Ds) 800-160 mg tablet Discontinued 1 {tbl} PO TWICE A DAY February 23, 2024 12:00am June 27, 2024 9:20am Problems Active Problems Problem Classification Problem Date Documented Da te Episodic/Chronic Abdominal pain (10 sources) Pain in pelvis; Translations: [Pelvic and perineal pain] 07-21-2020 Episodic Anxiety disorders (20 sources) Mixed anxiety and depressive disorder; Translations: [Anxiety disorder, unspecified] Onset: 6 09-15-2015 Chronic Benign neoplasm of uterus (20 sources) Uterine leiomyoma; Translations: [Leiomyoma of uterus, unspecified] Onset: 1 10-14-2020 Episodic Comment on above: 17 cm per [place]. Surgic al consult with Dr Rosales. discussed options and recommend depot lupron preop therapy for 3-6 months and plan ROBOTIC vs LAVH BS aftewards hopefully. Calculus of urinary tract (3 sources) Kidney stone; Translations: [Calculus of kidney] 03-02-2024 Episodic Disorders usually diagnosed in infancy, childhood, or adolescence (20 sources) Adult attention deficit hyperactivity disorder ; Translations: [Other specified behavioral and emotional disorders with onset usually occurring in childhood and adolescence] Onset: 1 01-30-2018 Chronic Esophageal disorders (20 sources) Gastroesophageal reflux disease without esophagitis; Translations: [Gastro-esophageal reflux disease without esophagitis] Onset: 3 Chronic Fracture of upper limb (20 sources) Fracture of radial head; Translations: [Displaced fracture of head of unspecified radius, initial encounter for closed fracture] Episodic Genitourinary symptoms and ill-defined conditions (2 sources) Urgent desire to urinate; Translations: [Urgency of urination] 02-19-2024 Episodic Malaise and fatigue (1 source) Fatigue; Translations: [Other fatigue] Episodic Menstrual disorders (10 sources) Menometrorrhagia; Translations: [Excessive and frequent menstruation with irregular cycle] 07-21-2020 Chronic Mood disorders (1 source) Mood disorders; Translations: [Anxiety and depression] Onset: 6 Nonmalignant breast conditions (20 sources) Fibrocystic disease of breast; Translations: [Diffuse cystic mastopathy of unspecified breast] Onset: 4 03-18-2014 Chronic Nutritional deficiencies (20 sources) Vitamin D deficiency; Translations: [Vitamin D deficiency, unspecified] Onset: 3 Chronic Osteoarthritis (3 sources) Arthritis of knee; Translations: [Unilateral primary osteoarthritis, unspecified knee] Onset: 5 08-27-2024 Chronic Other aftercare (1 source) Other snf (current) drug therapy; Translations: [Medication management] Onset: 5 Episodic Other and unspecified benign neoplasm (20 sources) Hemangioma of liver; Translations: [Hemangioma of intra-abdominal structures] Onset: 6 03-13-2018 Episodic Other and unspecified benign neoplasm (1 source) Dysplastic nevus of skin; Translations: [Melanocytic nevi, unspecified] Episodic Other and unspecified benign neoplasm (6 sources) Hemangioma; Translations: [Hemangioma unspecified site] 02-20-2024 Episodic Other connective tissue disease (1 source) Muscle pain; Translations: [Myalgia, unspecified site] Episodic Other female genital disorders (10 sources) Enlarged uterus; Translations: [Hypertrophy of uterus] 09-07-2020 Episodic Comment on above: 20 cm, CT abdn pelvi c ordered for increasing fibroid size, ca 125 ordered. Other gastrointestinal disorders (6 sources) Heartburn; Translations: [Heartburn] 06-23-2022 Episodic Other gastrointestinal disorders (1 source) Heartburn; Translations: [Heartburn] 06-23-2022 Episodic Other gastrointestinal disorders (2 sources) Diarrhea; Translations: [Diarrhea, unspecified] 11-15-2022 Episodic Other liver diseases (20 sources) Steatosis of liver; Translations: [Fatty (change of) liver, not elsewhere classified] Onset: 3 Chronic Other liver diseases (3 sources) Fatty (change of) liver, not elsewhere classified; Translations: [Other chronic nonalcoholic liver disease] Onset: 5 08-24-2023 Chronic Other nervous system disorders (1 source) Other chronic pain; Translations: [Chronic pain of both knees] Onset: 5 Chronic Other non-traumatic joint disorders (1 source) Joint pain; Translations: [Pain in unspecified joint] Episodic Other non-traumatic joint disorders (10 sources) Hip pain; Translations: [Pain in unspecified hip] 07-13-2021 Episodic Other non-traumatic joint disorders (2 sources) Pain in unspecified hip; Translations: [Pain in joint, pelvic region and thigh] Episodic Other non-traumatic joint disorders (5 sources) Pain in wrist; Translations: [Pain in right wrist] 11-10-2021 Episodic Other non-traumatic joint disorders (1 source) Pain in right wrist; Translations: [Pain in joint, forearm] Episodic Other non-traumatic joint disorders (5 sources) Pain in right shoulder; Translations: [Right shoulder pain] 11-23-2022 Episodic Other non-traumatic joint disorders (5 sources) Pain in right knee; Translations: [Pain in joint, lower leg] Onset: 5 08-26-2024 Episodic Other non-traumatic joint disorders (2 sources) Pain in left knee; Translations: [Chronic pain of both knees] Onset: 5 Episodic Other nutritional; endocrine; and metabolic disorders (20 sources) Obese class II; Translations: [Obesity, unspecified] Onset: 9 10-14-2020 Chronic Other nutritional; endocrine; and metabolic disorders (1 source) Weight gain; Translations: [Abnormal weight gain] Episodic Other screening for suspected conditions (not mental disorders or infectious disease) (20 sources) Patient encounter status; Translations: [Encounter for screening for diabetes mellitus] Onset: 6 Episodic Residual codes; unclassified (2 sources) Acquired absence of both cervix and uterus; Translations: [Acquired absence of both cervix and uterus] Episodic Residual codes; unclassified (1 source) FH: Thyroid disorder; Translations: [Family history of other endocrine, nutritional and metabolic diseases] 07-12-2023 Episodic Spondylosis; intervertebral disc disorders; other back problems (20 sources) Spinal stenosis of thoracic region; Translations: [Spinal stenosis, thoracic region] Onset: 4 01-23-2023 Episodic Sprains and strains (10 sources) Strain of muscle of upper limb; Translations: [Strain of unspecified muscle, fascia and tendon at shoulder and upper arm level, right arm, initial encounter] 11-14-2021 Episodic Superficial injury; contusion (19 sources) Contusion of forearm; Translations: [Contusion of right forearm, initial encounter] Episodic Unclassified (1 source) Unknown / UNK(Unknown) Onset: 6 Unclassified (4 sources) Colonoscopy planned; Translations: [Colonoscopy planned] 06-23-2022 Unclassified (1 source) Pain in both knees, unspecified chronicity 08-26-2024 Unclassified (1 source) Obesity, Class II, BMI 35-39.9; Translations: [Obesity, Class II, BMI 35-39.9] Onset: Past or Other Problems Problem Classification Problem Date Documented Da te Episodic/Chronic Biliary tract disease (20 sources) Cholesterolosis of [...] current use of drug therapy; Translations: [Other snf (current) drug therapy] Onset: 01-30-2018 01-30-2018 Episodic Other female genital disorders (1 source) Unspecified condition associated with female genital organs and menstrual cycle; Translations: [Unspecified condition associated with female genital organs and menstrual cycle] Onset: 03-17-2024 Episodic Other gastrointestinal disorders (20 sources) Constipation; Translations: [Constipation, unspecified] Onset: 09-15-2015 02-10-2016 Episodic Other skin disorders (20 sources) Seborrheic keratosis; Translations: [Other seborrheic keratosis] Onset: 11-07-2013 04-25-2021 Episodic Results Test Name Value Interpretation Reference Range Facility Abdomen/Pelvis without Conto n 09-30-2024 Abdomen/Pelvis without Cont [facility] Services [address] [place] [id number] Abdomen/Pelvis without Cont MR#: [id number] Acct: [id number] Name: SUMMER DRUMMOND Rep #: [id number] : 1975 F 48 From: Rosamaria Julio PCP: NICOL Multani Status: REG ER Study: Abdomen/Pelvis without Cont Date of Exam: 07/22 Exam# [id number] Ordering Dr: Theodore Barron DO PROCEDURE: ABDOMEN/PELVIS WITHOUT CONT 09/30/2024 REASON FOR EXAM: PAIN TECHNIQUE: Abdomen and pelvis CT without intravenous contrast. Noncontrast technique limits evaluation of the abdominal and pelvic viscera. Coronal and Sagittal reconstruction series were provided. One or more dose reduction techniques were used (e.g., Automated exposure control, adjustment of the mA and/or kV according to patient size, use of iterative reconstruction technique). PATIENT PREPARATION: Per protocol ORAL CONTRAST TYPE: None. COMPARISON: 02/23/2024 FINDINGS: LOWER THORAX: Unremarkable. Lung bases are clear. No cardiomegaly. No significant pericardial effusion. ABDOMEN/PELVIS: LIVER: hepatomegaly to 17.2 cm. GALLBLADDER AND BILE DUCTS: Nondistended gallbladder. No calcified gallstones. No gallbladder distention or wall edema. No intra- or extrahepatic biliary ductal dilation. PANCREAS: Unremarkable. SPLEEN: Unremarkable. Normal size without focal cystic or solid mass. ADRENALS: Unremarkable. KIDNEYS AND URETERS: No hydronephrosis. No obstructive uropathy. Bilateral kidneys appear unremarkable. BOWEL: Tiny hiatal hernia. No bowel obstruction. Normal appendix. BLADDER: Unremarkable. REPRODUCTIVE: Unremarkable as visualized. No mass. INTRAPERITONEAL SPACE: Unremarkable. No ascites or other fluid collection. No free air. BONES/JOINTS: Unremarkable. No suspicious lytic or blastic abnormality. SOFT TISSUES: Unremarkable. No discrete abdominal or pelvic wall hernia. VASCULATURE: Unremarkable. Abdominal aorta is normal in caliber. LYMPH NODES: Unremarkable. No enlarged lymph nodes. CT/Abdomen/Pelvis without Cont IMPRESSION: No acute intra-abdominal process. Normal appendix. Reading Location: [facility] CC: Dr. Theodore Barron DO; NICOL Multani 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: Signed Normal [facility] Basic Metabolic Profile (BMP )on 09-30-2024 BUN/CRE 19.3 RATIO Normal 10-20 [facility] Comment on above: Performed By: #### L 100.0100, L500.2500, L700.6800 ####[facility] [address] [place], [address] Calcium [Mass/Vol] 9.4 mg/dL Normal 7.6-11.0 [facility] Comment on above: Performed By: #### L 100.0100, L500.2500, L700.6800 ####[facility] [address] [place], [address] Chloride [Moles/Vol] 103 mmol/L Normal 98-108 [facility] Comment on above: Performed By: #### L 100.0100, L500.2500, L700.6800 ####[facility] [address] [place], [address] CO2 [Moles/Vol] 23.3 mmol/L Normal 21.0-32.0 [facility] Comment on above: Performed By: #### L 100.0100, L500.2500, L700.6800 ####[facility] [address] [place], [address] Creatinine [Mass/Vol] 0.94 mg/dL Normal 0.70-1.20 [facility] Comment on above: Performed By: #### L 100.0100, L500.2500, [id number] ####[facility] [address] [place], [address] ECRCL 92.97 ml/min Normal 50-250 [facility] Comment on above: Performed By: #### L 100.0100, L500.2500, L700.6800 ####[facility] [address] [place], [address] GAP 13 Normal 5-15 [facility] Comment on above: Performed By: #### L 100.0100, L500.2500, L700.6800 ####[facility] [address] [place], [address] GFR/1.73 sq M.predicted among non-blacks MDRD (S/P/Bld) [Vol rate/Area] 75 mL/min/{1.73_m2} Normal >60 [facility] Comment on above: Result Comment: mL/m in/1.73m2 CKD-EPI Creatinine Equation (2020) Performed By: #### L 100.0100, L500.2500, L700.6800 ####[facility] [address] [place], [address] Glucose [Mass/Vol] 117 mg/dL High 70-99 [facility] Comment on above: Performed By: #### L 100.0100, L500.2500, L700.6800 ####[facility] [address] [place], [address] Potassium [Moles/Vol] 4.3 mmol/L Normal 3.3-5.1 [facility] Comment on above: Performed By: #### L 100.0100, L500.2500, L700.6800 ####[facility] [address] [place], [address] Sodium [Moles/Vol] 139 mmol/L Normal 133-145 [facility] Comment on above: Performed By: #### L 100.0100, L500.2500, L700.6800 ####[facility] [address] [place], [address] Urea nitrogen [Mass/Vol] 18 mg/dL Normal 4-19 [facility] Comment on above: Performed By: #### L 100.0100, L500.2500, L700.6800 ####[facility] [address] [place], [address] CBC W/Diff, Automatedon 06-0 3-2024 Absolute Lymph 2.83 X10 3/uL Normal 0.83-4.51 [facility] Comment on above: Performed By: #### L 100.0100, L500.2500, L700.6800 #### [facility] [address] [place], [address] Absolute Neut 8.3 X10 3/uL High 2.0-7.7 [facility] Comment on above: Performed By: #### L 100.0100, L500.2500, L700.6800 #### [facility] [address] [place], [address] Basophils/100 WBC (Bld) 0.4 % Normal 0-1 [facility] Comment on above: Performed By: #### L 100.0100, L500.2500, L700.6800 #### [facility] [address] [place], [address] Eosinophils/100 WBC (Bld) 1.6 % Normal 0-5 [facility] Comment on above: Performed By: #### L 100.0100, L500.2500, L700.6800 #### [facility] [address] [place], [address] Erythrocyte distribution width (RBC) [Ratio] 12.8 % Normal 11.6-14.6 [facility] Comment on above: Performed By: #### L 100.0100, L500.2500, L700.6800 #### [facility] [address] [place], [address] Hematocrit (Bld) [Volume fraction] 41.8 % Normal 37-47 [facility] Comment on above: Performed By: #### L 100.0100, L500.2500, L700.6800 #### [facility] [address] [place], [address] Hemoglobin (Bld) [Mass/Vol] 13.8 g/dL Normal 12.0-15.0 [facility] Comment on above: Performed By: #### L 100.0100, L500.2500, L700.6800 #### [facility] [address] [place], [address] IG% 0.400 Normal 0.0-0.9 [facility] Comment on above: Result Comment: IG% - Immature Granulocytes (promyelocytes, myelocytes and metamyelocytes) > 1% indicates that a LEFT SHIFT is Present. Performed By: #### L 100.0100, L500.2500, L700.6800 #### [facility] [address] [place], [address] Lymphocytes/100 WBC (Bld) 23.8 % Normal 19-41 [facility] Comment on above: Performed By: #### L 100.0100, L500.2500, L700.6800 #### [facility] [address] [place], [address] MCH (RBC) [Entitic mass] 28.5 pg Normal 27.0-32.0 [facility] Comment on above: Performed By: #### L 100.0100, L500.2500, L700.6800 #### [facility] [address] [place], [address] MCHC (RBC) [Mass/Vol] 33.0 g/dL Normal 32-36 [facility] Comment on above: Performed By: #### L 100.0100, L500.2500, L700.6800 #### [facility] [address] [place], [address] MCV (RBC) [Entitic vol] 86.2 fL Normal 81-99 [facility] Comment on above: Performed By: #### L 100.0100, L500.2500, L700.6800 #### [facility] [address] [place], [address] Monocytes/100 WBC (Bld) 4.3 % Normal 0-10 [facility] Comment on above: Performed By: #### L 100.0100, L500.2500, L700.6800 #### [facility] [address] [place], [address] Neutrophils/100 WBC (Bld) 69.5 % Normal 47-70 [facility] Comment on above: Performed By: #### L 100.0100, L500.2500, L700.6800 #### [facility] [address] [place], [address] Nucleated RBC (Bld) [#/Vol] 0 10*3/uL Normal 0-5 [facility] Comment on above: Performed By: #### L 100.0100, L500.2500, L700.6800 #### [facility] [address] [place], [address] Platelet mean volume (Bld) [Entitic vol] 10.7 fL Normal 6.2-12.0 [facility] Comment on above: Performed By: #### L 100.0100, L500.2500, L700.6800 #### [facility] [address] [place], [address] Platelets (Bld) [#/Vol] 279 10*3/uL Normal 150-450 [facility] Comment on above: Performed By: #### L 100.0100, L500.2500, L700.6800 #### [facility] [address] [place], [address] RBC (Bld) [#/Vol] 4.85 10*6/uL Normal 4.2-5.4 [facility] Comment on above: Performed By: #### L 100.0100, L500.2500, L700.6800 #### [facility] [address] [place], [address] RDW SD 40.0 fl Normal 35.1-43.9 [facility] Comment on above: Performed By: #### L 100.0100, L500.2500, L700.6800 #### [facility] [address] [place], [address] WBC (Bld) [#/Vol] 11.9 10*3/uL High 4.4-11.0 [facility] Comment on above: Performed By: #### L 100.0100, L500.2500, L700.6800 #### [facility] [address] [place], [address] CNTHERAPYon 09-30-2024 CNTHERAPY OT/PT/Speech Visit (PTWS) -------- SUMMER DRUMMOND ([id number]) 1975 F Date Time Provider Department 09/30/24 5:15 PM ARLENE FREITAS Date Time Provider Department [place] 09/30/2024 5:15 PM [id number] FREITAS PTANA [facility] Reason for Visit: Physical Therapy [503] Primary Visit Diagnosis:Chronic pain of both knees [M25.561, M25.562, G89.29] Allergies As of Date: 09/30/2024 (No Known Allergies) Date Reviewed: 08/27/2024 Reviewed by: Kalyani Truong MA - Fully Assessed Prescriptions as of 10/01/2024 - cholecalciferol, Vitamin D3, (VITAMIN D3) 1,250 mcg (50,000 unit) cap capsule Take 1 capsule by mouth one time a week for 8 doses. - valACYclovir (VALTREX) 1 gram tablet Take 1,000 mg by mouth two times a day. - Omeprazole Magnesium (PRILOSEC OTC) 20 mg tablet Take 20 mg by mouth once daily. Meds Comments as of 07/26/2018: Vitamin E, Vitamin D3, Vitamin C.5,000 mg on Sunday; 1,000 mg every day. Samara Jessica Ma Zantac prn, welbutrin 07-14-18 [place] [employer] Assistant And Feeder: Therapy (PT/OT/Speech/Resp) ID: [id number] 09/30/2024 5:27 PM Author: ARLENE FREITAS Signed by ARLENE FREITAS PT on 09/30/2024 at 5:27 PM Document text: Program_ID:[id number] Access Code: [email or web address] URL: [email or web address] Date: 09-30-2024 Prepared By: Arlene Freitas Program Notes Exercises - Sidelying Hip Abduction - 2 x daily - 7 x weekly - 4 sets - 5 reps - Sidelying Hip Abduction - 2 x daily - 7 x weekly - 4 sets - 5 reps - Supine Bridge - 2 x daily - 7 x weekly - 4 sets - 8 reps - Supine Gluteal Sets - 2 x daily - 7 x weekly - 2 sets - 10 reps Normal [facility] Emergency Department Summary on 09-30-2024 Emergency Department Summary [facility] Medical Records Department [address] [place] [address] Emergency Department Summary 09/30/24 MR#: [id number] Acct: [id number] Name: SUMMER DRUMMOND Rep #: [id number] : 1975 48 From: Theodore Barron DO PCP: NICOL Multani Status:DEP ER Location: ED HPI HPI - Female History of Present Illness Chief Complaint: Flank Pain Narrative Narrative: Chief complaint and HPI: Left flank pain. 48-year-old female with past medical history of urolithiasis, GERD, hysterectomy presents for evaluation of left flank pain. Patient states that she received physical therapy today due to chronic knee pain. States shortly after she was sitting in the car helping her work on a vehicle by pumping the brakes. States she felt generally unwell while doing this. Shortly had a bowel movement in which she became sweaty and nauseous. Patient states she then developed left upper flank pain. Describes it as intermittent and sharp. Denies any fever, chills, shortness of breath, chest pain, diarrhea, constipation, abdominal pain, dysuria, hematuria. Review of systems: See HPI Medications: As listed on the chart Allergies: As listed on the chart PFSH: Per chart Vital signs: As listed on the chart. Reviewed. Physical exam: Gen: A O x3, NAD Head: Normocephalic, atraumatic Eyes: No sclera icterus, conjunctiva clear ENT: Moist mucous membranes Neck: Trachea midline, No JVD CV: RRR, no murmurs, no peripheral edema Resp: Lungs CTA BL, no w/r/c GI: Abd soft, non-distended, non-tender, no r/r/g : No CVA tenderness Musc: Full ROM, no deformity, has mild tenderness to palpation of the left lower thoracic/upper paraspinal musculature-muscles are tense Skin: Warm, dry Neuro: Alert, oriented, grossly intact, sensation intact Psych: Cooperative, appropriate mood and affect [facility] Medical History Radial head fracture Radial neck fracture Scaphoid fracture of wrist Shortness of breath on exertion Keratosis, seborrheic Fibrocystic breast disease Constipation ADD (attention deficit disorder) Wears glasses Anxiety Fatty liver Back pain Gastric reflux Non-smoker Palpitations Gallbladder polyp Uterine fibroid Uterine fibroid Enlarged uterus Pelvic pain Menorrhagia with irregular cycle Hemangioma of liver Home Medications ???Medication ???Instructions ???Recorded ???Last Taken ???Type ascorbate calcium (vitamin C) 500 500 mg PO DAILY 07/21/20 Unknown History mg tablet cholecalciferol (vitamin D3) 50 50 mcg PO DAILY 03/29/21 Unknown H istory mcg (2,000 unit) capsule (Vitamin D3) zinc acetate 50 mg (zinc) capsule 50 mg PO PRN PRN PROPHYLACTIC 05/22 Unknown History cod liver oil 1 cap PO DAILY 06/25/23 Unknown Hi story omeprazole 20 mg capsule,delayed 20 mg PO DAILY #90 caps 08/27/24 U nknown Rx release ondansetron 4 mg disintegrating 4 mg PO Q8H PRN PRN Nausea #10 tab s 09/30/24 Unknown Rx tablet Allergy/AdvReac Type Severity Reaction Status Date / Time No Known Allergies Allergy Verified 09/30/24 19:46 Family History Mother uterine fibroid tumor Aunt Colon cancer Unknown Heart disease Hyperlipidemia Father Hypertension Surgical History S/P total hysterectomy ( 04/05/21) Social History household members: spouse and children number of children: 1 current occupational status: employed current occupation: [employer] history of recent travel: No sexually active: Yes Smoking Status: Never smoker alcohol intake: current alcohol intake frequency: holidays/special occasions only substance use type: does not use diet: low carbohydrate well-balanced diet: daily or most days what type of physical activity do you participate in: none seatbelt use: always do you feel safe at home: Yes additional social history: - Roman EXAM Physical Exam Const Vital Signs: 09/30/24 19:44 09/30/24 20:00 09/30/24 21:00 Temperature 97.7 F L Temperature Source Oral Pulse Rate 73 84 Respiratory Rate 18 18 Respiratory Effort Normal Non-Labored Respiratory Pattern Normal Blood Pressure 106/85 H 147/68 H Blood Pressure Mean 92 94 Pulse Ox 99 100 Oxygen Delivery Method Room Air Room Air 09/30/24 21:57 Temperature 98.2 F Temperature Source Pulse Rate 82 Respiratory Rate 18 Respiratory Effort Respiratory Pattern Blood Pressure 148/72 H Blood Pressure Mean 97 Pulse Ox 97 Oxygen Delivery Method MDM MDM MDM Narrative Medical decision making narrative: (more content not included)... Normal [facility] ,Serum,hCG Quali.on 09-30-2024 HCG, SERUM QUAL Normal [facility] Comment on above: Result Comment: Canc elled via OM: MD Ordered Performed By: #### L 100.0100, L500.2500, L700.6800 #### [facility] [address] [place], [address] INTERNAL QC OK? Normal [facility] Comment on above: Result Comment: Canc elled via OM: MD Ordered Performed By: #### L 100.0100, L500.2500, L700.6800 #### [facility] [address] [place], [address] RECORD KIT LOT# Normal [facility] Comment on above: Result Comment: Canc elled via OM: MD Ordered Performed By: #### L 100.0100, L500.2500, L700.6800 #### [facility] [address] [place], [place], [address] THERAPY NTon 09-30-2024 THERAPY NT HNO ID: [id number] Author: ARLENE FREITAS, PT Service: ? Author Type: Physical Therapist Type: Therapy (PT/OT/Speech/Resp) Filed: 09/30/2024 17:27 Note Text: Program_ID:[id number] Access Code: [email or web address] URL: [email or web address] Date: 09-30-2024 Prepared By: Arlene Freitas Program Notes Exercises - Sidelying Hip Abduction - 2 x daily - 7 x weekly - 4 sets - 5 reps - Sidelying Hip Abduction - 2 x daily - 7 x weekly - 4 sets - 5 reps - Supine Bridge - 2 x daily - 7 x weekly - 4 sets - 8 reps - Supine Gluteal Sets - 2 x daily - 7 x weekly - 2 sets - 10 reps Normal [facility] Urinalysis, Completeon 09-30 EPI,SQUAMOUS 0-5 SEEN Normal 5-10 [facility] Comment on above: Order Comment: CLEAN CATCH Performed By: #### L 400.0001 #### [facility] [address] [place], [address] RBC 0-5 SEEN Normal 0-5 [facility] Comment on above: Order Comment: CLEAN CATCH Performed By: #### L 400.0001 #### [facility] [address] [place], [address] WBC 5-10 SEEN Normal 0-5 [facility] Comment on above: Order Comment: CLEAN CATCH Performed By: #### L 400.0001 #### [facility] [address] [place], [address] BACTERIA 0 SEEN Normal None Seen [facility] Comment on above: Order Comment: CLEAN CATCH Performed By: #### L 400.0001 #### [facility] [address] [place], [address] Mucus Ql (Urine sed) 0 SEEN Normal [facility] Comment on above: Order Comment: CLEAN CATCH Performed By: #### L 400.0001 #### [facility] [address] [place], [place], [address] CNTHERAPYon 09-17-2024 CNTHERAPY OT/PT/Speech Visit (PTWS) -------- SUMMER DRUMMOND ([id number]) 1975 F Date Time Provider Department 09/17/24 3:45 PM ARLENE FREITAS PTWS Date Time Provider Department Center 09/17/2024 3:45 PM [id number] FREITAS PTWS [facility] Reason for Visit: PT Eval [747] Primary Visit Diagnosis:Chronic pain of both knees [M25.561, M25.562, G89.29] Allergies As of Date: 09/17/2024 (No Known Allergies) Date Reviewed: 08/27/2024 Reviewed by: Kalyani Truong MA - Fully Assessed Prescriptions as of 09/17/2024 - cholecalciferol, Vitamin D3, (VITAMIN D3) 1,250 mcg (50,000 unit) cap capsule Take 1 capsule by mouth one time a week for 8 doses. - valACYclovir (VALTREX) 1 gram tablet Take 1,000 mg by mouth two times a day. - Omeprazole Magnesium (PRILOSEC OTC) 20 mg tablet Take 20 mg by mouth once daily. Meds Comments as of 07/26/2018: Vitamin E, Vitamin D3, Vitamin C.5,000 mg on Sunday; 1,000 mg every day. Samara Jessica Ma Zantac prn, welbutrin 07-14-18 [place] Press Assistant And Feeder: Therapy (PT/OT/Speech/Resp) ID: [id number] 09/17/2024 4:06 PM Author: ARLENE FREITAS Signed by ARLENE FREITAS PT on 09/17/2024 at 4:06 PM Document text: Program_ID:[id number] Access Code: [email or web address] URL: [email or web address] Date: 09-17-2024 Prepared By: Arlene Freitas Program Notes Exercises - Sidelying Hip Abduction - 2 x daily - 7 x weekly - 4 sets - 5 reps - Sidelying Hip Abduction - 2 x daily - 7 x weekly - 4 sets - 5 reps - Supine Bridge - 2 x daily - 7 x weekly - 4 sets - 8 reps - Supine Gluteal Sets - 2 x daily - 7 x weekly - 2 sets - 10 reps Normal [facility] THERAPY NTon 09-17-2024 THERAPY NT HNO ID: [id number] Author: ARLENE FREITAS PT Service: ? Author Type: Physical Therapist Type: Therapy (PT/OT/Speech/Resp) Filed: 09/17/2024 16:06 Note Text: Program_ID:[id number] Access Code: [email or web address] URL: [email or web address] Date: 09-17-2024 Prepared By: Arlene Freitas Program Notes Exercises - Sidelying Hip Abduction - 2 x daily - 7 x weekly - 4 sets - 5 reps - Sidelying Hip Abduction - 2 x daily - 7 x weekly - 4 sets - 5 reps - Supine Bridge - 2 x daily - 7 x weekly - 4 sets - 8 reps - Supine Gluteal Sets - 2 x daily - 7 x weekly - 2 sets - 10 reps Normal [facility] Gastroenterology Visit Repor ton 09-12-2024 Gastroenterology Visit Report [facility]enter[facility] [address] [place] [address] OFFICE VISIT Date of Service: 09/12/24 MR#: [id number] Acct: [id number] Name: SUMMER DRUMMOND Rep #: [id number] : 1975 Provider: Manny Diamond DO Age/Sex: 48/F Location: [facility] Status: Signed Intake Vital Signs 06/27/24 08:06 Height 5 ft 5 in Weight: 247 lb 8 oz BMI 41.1 BP 138/86 H Intake Visit Reasons: Test Result Chief Complaint: f/u Allergies No Known Allergies Allergy (Verified 09/12/24 07:36) Medications ???Medication ???Instructions ???Recorded ???Confirmed ???Type ascorbate calcium (vitamin C) 500 500 mg PO DAILY 07/21/20 09/12/24 History mg tablet cholecalciferol (vitamin D3) 50 50 mcg PO DAILY 03/29/21 09/12/24 History mcg (2,000 unit) capsule (Vitamin D3) zinc acetate 50 mg (zinc) capsule 50 mg PO PRN PRN PROPHYLACTIC 05/2209/12/24 History cod liver oil 1 cap PO DAILY 06/25/23 09/12/24 H istory valacyclovir 1 gram tablet 1,000 mg PO BID 7 days #14 tabs 09/12/24 Rx (Valtrex) omeprazole 20 mg capsule,delayed 20 mg PO DAILY #90 caps 08/27/24 0 09/12/24 Rx release PFSH Medical History Radial head fracture Radial neck fracture Scaphoid fracture of wrist Shortness of breath on exertion Keratosis, seborrheic Fibrocystic breast disease Constipation ADD (attention deficit disorder) Wears glasses Anxiety Fatty liver Back pain Gastric reflux Non-smoker Palpitations Gallbladder polyp Uterine fibroid Uterine fibroid Enlarged uterus Pelvic pain Menorrhagia with irregular cycle Hemangioma of liver Surgical History S/P total hysterectomy ( 04/05/21) Family History Mother uterine fibroid tumor Aunt Colon cancer Unknown Heart disease Hyperlipidemia Father Hypertension Social History household members: spouse and children number of children: 1 current occupational status: employed current occupation: [employer] history of recent travel: No sexually active: Yes Smoking Status: Never smoker alcohol intake: current alcohol intake frequency: holidays/special occasions only substance use type: does not use diet: low carbohydrate well-balanced diet: daily or most days what type of physical activity do you participate in: none seatbelt use: always do you feel safe at home: Yes additional social history: - Roman HPI HPI Chief Complaint: f/u Details: SUMMER DRUMMOND, is a 48 F who presents to the office today for follow up. *BGI established 2 with reflux and need for screening colonoscopy. Heartburn has been a difficulty for the last 7 years; TUMS PRN and omeprazole PRN provide temporary relief, prefers to avoid medication.?EGD and colonoscopy 08.30.22???mucosal changes of EOE, >20eosin/field; LA Grade B esophagitis; small hiatal hernia; gastritis; duodenitis. Metaplasia neg.? Colonoscopy poor prep; diverticulosis. ??? OV 09.14.22 consider dupixent?US/ elastography 09.14.22???not completed??? OV 02.22.23 Pt reports she experiences intermittent esophageal spasms. Does not have any burning or dyphagia. Is only taking natural supplements. Does not want any medications. Also wanting to follow up on liver. Did not get US/Elastography we ordered at last visit. 08.24.23 pt reports that she is experiencing daily esophageal spasms. pt denies food getting stuck and HB. If pt does have heartburn she takes a Prilosec. Pt states that she would like to take a natural path to treat her symptoms. Pt denies pain, cramping, bloating; and states that she is having a formed bm every day or every other day. OV 02.20.24 pt reports that she thinks she may have a kidney stone and has been dealing with that, is currently on Macrobid. Pt reports gas and bloating after eating. Continues with Omeprazole 20mg daily. OV 08.11.24 pt reports increased bloating recently, but wonders if it's because she was taking amoxicillin for a tooth infection that she had at the end of May. Pt denies other GI symptoms of concern at this time. Continues with Omeprazole 20mg every other day. US abd/ elastography 08.29.24- Liver measures 18.1 cm, Stiffness 6.2 kPA OV 09.12.24- Pt well since last visit. Still has occasional bloating but takes daily probiotic and is helpful. No other GI concerns. ROS Const Constitutional: No fatigue, fever(s) or weight change ENT ENT: No difficulty swallowing Gastro GI: Positive for bloating and ex (more content not included)... Normal [facility] CNPNon 09-01-2024 CNPN Telephone ([facility]) -------- SUMMER DRUMMOND ([id number]) 1975 F Date Time Provider Department 09/01/24 LEVI BEE During your visit today, we recorded the following information about you: Myrna Evans MA 09/01/2024 9:48 AM Signed Additional Clinical Information Request Please reply all to this email Please provide the following information to facilitate or complete the prior authorization Clinical Information - See Comments Sign OV Notes Clarify Information Updated / Correct Insurance Updated diagnosis code on order and or office note x Medical Necessity Not Met Per Payer Guidelines Payer Request Additional Information Other (must complete Comment section) Patient Name: Summer Drummond Appt Date: HCPCS code(s) AND drug name(s): [id number] SYNVIS Comments: PT DOESN'T MEET PAYER POLICY. pt doesn't meet payer policy Failure of pt/hep [place]/fail of nasiad 2 csi injection Summer Velez MA 09/02/2024 2:47 PM Signed I called and left a message for the patient with the requirements below. Asked patient to contact the office back if she is interested in getting scheduled for PT and/or CSI. Allergies As of Date: 09/01/2024 (No Known Allergies) Date Reviewed: 08/27/2024 Reviewed by: Kalyani Truong MA - Fully Assessed Reason for Visit: Insurance Authorization [[id number]] Cmt: Prior Auth Delayed: Medical Necessity Not Met Prescriptions as of 09/02/2024 - cholecalciferol, Vitamin D3, (VITAMIN D3) 1,250 mcg (50,000 unit) cap capsule Take 1 capsule by mouth one time a week for 8 doses. - valACYclovir (VALTREX) 1 gram tablet Take 1,000 mg by mouth two times a day. - Omeprazole Magnesium (PRILOSEC OTC) 20 mg tablet Take 20 mg by mouth once daily. Meds Comments as of 07/26/2018: Vitamin E, Vitamin D3, Vitamin C.5,000 mg on Sunday; 1,000 mg every day. Samara Jessica Ma Zantac prn, welbutrin 19 [place] Problem List As Of Date 09/01/2024 Noted Resolved Attention deficit disorder of adult [F98.8] 05/17/2010 Fibrocystic breast disease [N60.19] 11/07/2013 Seborrheic keratosis [L82.1] 11/07/2013 Visit for routine ob/gyn physician exam [Z01.419] 02/16/2015 Constipation [K59.00] 09/15/2015 Encounter for screening for cardiovascular diso*09/15/2015 Encounter for screening for diabetes mellitus [*09/15/2015 Anxiety and depression [F41.9, F32.A] 09/15/2015 Gall bladder polyp [K82.4] 10/06/2015 Liver hemangioma [D18.03] 10/19/2015 Well adult exam [Z00.00] 02/10/2016 Other snf (current) drug therapy [Z79.899]01/30/2018 Obesity, Class II, BMI 35-39.9 [E66.812] 04/04/2019 Uterine fibroid [D25.9] 10/14/2020 Iron deficiency anemia [D50.9] 10/14/2020 Vitamin D deficiency [E55.9] 06/27/2022 GERD without esophagitis [K21.9] 06/27/2022 Fatty liver [K76.0] 07/28/2022 Eosinophilic esophagitis [K20.0] 09/17/2022 Spinal stenosis, thoracic [M48.04] 07/12/2023 Encounter Status:Closed by SUMMER VELEZ on 09/02/24 Normal [facility] ABD Limited w/ Elastographyo n 08-29-2024 ABD Limited w/ Elastography [facility] Imaging Services [address] [place], [place] [id number] ABD Limited w/ Elastography MR#: [id number] Acct: [id number] Name: SUMMER DRUMMOND Rep #: [id number] : 1975 F 48 From: Alphonso Lawrence MD PCP: NICOL Multani Status: [facility] CLI Study: ABD Limited w/ Elastography Date of Exam: 06/24 Exam# [id number] Ordering Dr: Manny Diamond DO PROCEDURE: ABD LIMITED W/ ELASTOGRAPHY, 08/29/2024 REASON FOR EXAM: FATTY LIVER COMPARISON: 02/23/2024 and 09/15/2020. TECHNIQUE: Grayscale and color Doppler imaging of the right upper quadrant was performed. Elastography was performed for non-invasive assessment of liver tissue stiffness utilizing a [employer] S-shear wave imaging unit. FINDINGS: Liver: Echogenic. 18.1 cm in length. Hypoechoic RIGHT lobe lesion measures 1.1 x 1.4 x 1.3 cm. There was a 7 mm hypodense lesion on CT 09/15/2020, uncertain if this represents the same lesion. Additional subcapsular hypoechoic area in the LEFT lobe measures 5.1 x 4.9 x 1.8 cm. This was not visible on either prior exam. Gallbladder: Echogenic non mobile likely polyp 3 x 4 x 3 mm. No detected vascularity. No definite shadowing stones, wall thickening or pericholecystic fluid. Reportedly, sonographic Gutiérrez's was negative. Biliary tree: Unremarkable. CBD measures 2 mm. Pancreas: Partially obscured by shadowing bowel gas, grossly unremarkable as visualized. Right kidney: Unremarkable. 13.3 cm in length. Other: No visualized free fluid. Hepatic elastography: Number of measurements: 15 measurements across 3 regions, 5 measurements per region. US probe: CA1-7A. EQI median: 6.2 kPa EQI median velocity: 1.41 m/s IQR/Med: 10.9-28.7% (kPa) and 6.0-15.1% (m/s). If the IQR/Med is IQR/median >30% (for kPa) or >15% in m/s, the variance in the measurements is a large and the accuracy of the measurement may be in question. f US/ABD Limited w/ Elastography IMPRESSION: 1. Appearance of the hepatic parenchyma most commonly associated with hepatic steatosis. Correlate for clinical and laboratory evidence of chronic liver disease.. 2. Liver stiffness is 6.2 kPa. Per the below 2020 SRU criteria, this rules out compensated advanced chronic liver disease in the absence of other known clinical signs. If there are known clinical signs, further testing may be needed for confirmation. 3. Indeterminate hepatic lesions up to 5.1 cm, largest may potentially reflect focal fatty sparing however this is not definite. Recommend multiphase hepatic protocol MRI abdomen with and without contrast, or less optimally multiphase hepatic protocol CT if there is a contraindication to MRI. 4. 3 mm gallbladder polyp. Some guidelines suggest follow-up in 6 months, others suggest no follow- up at this size. 5. Additional description as above. Assessment is per the Update to the U Liver Elastography Consensus Statement (2020) Note that the above assessment of liver fibrosis is vendor-neutral and intended for use in fibrosis related to viral etiologies and non-alcoholic fatty-liver disease (NAFLD); in causes other than viral hepatitis and NAFLD, the cutoff values are currently not well established. In some patients with NAFLD, the cutoff values for cACLD may be lower (7-9 kPa). Note also that in the setting of elevated LFTs, nonfasting or vascular congestion, the stage of lifer fibrosis may be overestimated. Previous [facility] reference values: <1.37 m/s (5.7kPa): No to mild fibrosis 1.37 m/s - 2.2 m/s: Moderate to severe fibrosis >2.2 m/s (15kPa): Significant fibrosis / cirrhosis Reading Location: [id number] CC: Manny Diamond DO; NICOL Multani 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: [facility]igned [facility] Office Visit (FRWS ) -------- SUMMER DRUMMOND ([id number]) 1975 F Date Time Provider Department 08/27/24 3:30 PM [facility] During your visit today, we recorded the following information about you: Kalyani Truong MA 08/27/2024 3:51 PM Signed Patient presents with: Bilateral Knee Pain: Referred by Suzette Elias AMB ROOMING INTAKE FLOWSHEET DATA Patient denies any pain today. Levi Bee V, 08/27/2024 3:51 PM Signed Subjective Summer is a 48-year-old female presenting with bilateral knee stiffness and instability. Summer reports a 10-year history of intermittent bilateral knee stiffness, which has recently become more consistent. She describes a sensation of inflammation and instability, particularly when descending stairs and transitioning from a sitting to a standing position. She notes a loss of strength in her knees, requiring her to hold onto something and push herself up when standing. She also reports a jarring sensation in her knees during this movement. She is unable to squat, kneel, or get up from the ground without support. She denies any history of knee injury or noticeable swelling. She has tried various treatments, including plasma replacement approximately 8-9 months ago, which she felt temporarily reduced inflammation. She has also engaged in physical therapy exercises through a chiropractor, which provided some relief. She has taken Relief Factor, a supplement containing omega-3 and turmeric, but is unsure of its efficacy. She has previously taken Mobic, but is cautious due to a liver condition and an upcoming liver scan. She has not tried Voltaren gel. She expresses frustration with her decreasing mobility and difficulty performing daily activities. She has an upcoming physical therapy appointment to improve knee mobility. 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 She is considering treatment options for this condition. Musculoskeletal: (+) bilateral knee stiffness, (+) occasional knee pain, (+) bilateral knee instability, (+) difficulty with stairs, (+) difficulty rising from seated, (+) inability to squat or kneel, (+) right foot pain, (+) decreased knee strength, (-) knee swelling PAST MEDICAL HISTORY Diagnosis Date Anxiety and [...] HYSTERECTOMY 04/05/2021 uterus removed- both Ovaries remain Current Outpatient Medications on File Prior to Visit Medication Sig cholecalciferol, Vitamin D3, (VITAMIN D3) 1,250 mcg (50,000 unit) cap capsule Take 1 capsule by mouth one time a week for 8 doses. valACYclovir (VALTREX) 1 gram tablet Take 1,000 mg by mouth two times a day. Omeprazole Magnesium (PRILOSEC OTC) 20 mg tablet Take 20 mg by mouth once daily. No current facility-administered medications on file prior to visit. Objective Last menstrual period 11/14/2018. General: No acute distress. MSK/Ext: Bilateral knee crepitus noted, right greater than left; no pain with patellar mobilization bilaterally; no pain with varus or valgus stress bilaterally; anterior drawer test negative bilaterally; Robert test negative bilaterally; Mary test negative bilaterally; dull pain noted with full extension of right knee; Thessaly test negative bilaterally. Labs: Tests: Imaging: - X-ray of both knees: - Front view: Joint spaces preserved; minimal medial compartment narrowing in the left knee. - Tunnel view: Offset positioning of the right patella. - Lateral view: No significant abnormalities. - [place] view: Patellofemoral space narrowing bilaterally, right worse than left, consistent with patellofemoral arthritic changes. 1. Chronic pain of both knees (M25.561) Patellofemoral arthritis (M17.10) Patient presents with chronic bilateral knee stiffness and instability, particularly when descending stairs and transitioning from sitting to standing. Denies significant pain but reports difficulty with squatting and kneeling. No history of knee injury. X-rays reveal mild joint space narrowing in the left knee's medial compartment and patellofemoral arthritic changes bilaterally, more pronounced in the right knee. Physical exam shows crepitus under the right patella, but no pain with varus, valgus, anterior drawer, McM (more content not included)... Normal [facility] 08-27-2024 CNPN Telephone (ORTHWS) -------- SUMMER DRUMMOND ([id number]) 1975 F Date Time Provider Department 08/27/24 LEVI BEE During your visit today, we recorded the following information about you: Summer Velez MA 08/27/2024 3:54 PM Signed Referral placed for Synvisc One into bilateral knees. Summer Velez MA 09/02/2024 2:49 PM Signed Insurance has denied viscosupplementation until the patient has had 2 cortisone injections, tried and failed PT and tried and failed NSAID. I called and left a detailed message on identified [employer] with that information and asked the patient to contact the office back if she wishes to pursue any of the above treatments. Allergies As of Date: 08/27/2024 (No Known Allergies) Date Reviewed: 08/27/2024 Reviewed by: Kalyani Truong MA - Fully Assessed Reason for Visit: Synvisc One referral [Other] Prescriptions as of 09/04/2024 - cholecalciferol, Vitamin D3, (VITAMIN D3) 1,250 mcg (50,000 unit) cap capsule Take 1 capsule by mouth one time a week for 8 doses. - valACYclovir (VALTREX) 1 gram tablet Take 1,000 mg by mouth two times a day. - Omeprazole Magnesium (PRILOSEC OTC) 20 mg tablet Take 20 mg by mouth once daily. Meds Comments as of 07/26/2018: Vitamin E, Vitamin D3, Vitamin C.5,000 mg on Sunday; 1,000 mg every day. Samara Jessica Ma Zantac prn, welbutrin 3-19 SC Problem List As Of Date 08/27/2024 Noted Resolved Attention deficit disorder of adult [F98.8] 05/17/2010 Fibrocystic breast disease [N60.19] 11/07/2013 Seborrheic keratosis [L82.1] 11/07/2013 Visit for routine ob/gyn physician exam [Z01.419] 02/16/2015 Constipation [K59.00] 09/15/2015 Encounter for screening for cardiovascular diso*09/15/2015 Encounter for screening for diabetes mellitus [*09/15/2015 Anxiety and depression [F41.9, F32.A] 09/15/2015 Gall bladder polyp [K82.4] 10/06/2015 Liver hemangioma [D18.03] 10/19/2015 Well adult exam [Z00.00] 02/10/2016 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.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]01/30/2018 Obesity, Class II, BMI 35-39.9 [E66.812] 04/04/2019 Uterine fibroid [D25.9] 10/14/2020 Iron deficiency anemia [D50.9] 10/14/2020 Vitamin D deficiency [E55.9] 06/27/2022 GERD without esophagitis [K21.9] 06/27/2022 Fatty liver [K76.0] 07/28/2022 Eosinophilic esophagitis [K20.0] 09/17/2022 Spinal stenosis, thoracic [M48.04] 07/12/2023 Encounter Status:Closed by SUMMER VELEZ on 09/04/24 [facility] XR KNEE 4V AP/PA/LAT/MERCH B [facility] 08-27-2024 XR KNEE 4V AP/PA/LAT/MERCH JOHN * * *Final Report* * * DATE OF EXAM: Aug 27 2024 3:21PM WRX [id number] - XR KNEE 4V AP/PA/LAT/MERCH JOHN / PROCEDURE REASON: multiple diagnoses * * * * Physician Interpretation * * * * EXAMINATION / TECHNIQUE: XR KNEE 4V AP/PA/LAT/MERCH JOHN HISTORY: Chronic intermittent bilateral knee pain, no known injuty. Pain in both knees, unspecified chronicity Pain in both knees, unspecified chronicity COMPARISON: None RESULT: No acute fracture or osseous malalignment is identified. The joint spaces are preserved bilaterally. Small joint effusions. IMPRESSION: No acute bony abnormality. 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: JULIA Transcribe Date/Time: Sep 02 2024 5:34A Dictated by : ANDREA BLAKE MD This examination was interpreted and the report reviewed and electronically signed by: ANDREA BLAKE MD on Sep 02 2024 5:35AM EST [id number] Normal [facility] 25(OH)D3 SerPl-mCncon 2024 25-hydroxyvitamin D3 [Mass/Vol] 26.0 ng/mL Low 31.0-80.0 [facility] Comment on above: Order Comment: Speci men Type: BLOOD SPECIMENOrdering Facility: [facility] Address: [address] [place] [address] Result Comment: Clas sification of 25 [place] Vitamin D status: Deficiency/Insufficiency: < or = 30 ng/ml. Sufficiency/Optimal Levels: 31-80 ng/mL Toxicity: > 100 ng/mL. Test performed by chemiluminescent immunoassay. Performed By: #### 1 989-3 ####[facility] [id number] [place] [address] [place] CBC W Auto Differential pane l (Bld)on 08-21-2024 Basophils (Bld) [#/Vol] 0.05 10*3/uL Normal <0.11 [facility] Comment on above: Order Comment: Speci men Type: BLOOD SPECIMENOrdering Facility: [facility] Address: [address] [place] [address] Performed By: #### 5 7021-8 ####[facility] [id number] [place] [address] [place] Basophils/100 WBC (Bld) 0.5 % Normal [facility] Comment on above: Order Comment: Speci men Type: BLOOD SPECIMENOrdering Facility: [facility] Address: [address] [place] [address] Performed By: #### 5 7021-8 ####[facility] [id number] [place] [address] [place] Differential cell count method Nom (Bld) Auto Normal [facility] Comment on above: Order Comment: Speci men Type: BLOOD SPECIMENOrdering Facility: [facility] Address: [address] [place] [address] Performed By: #### 5 7021-8 ####[facility] [id number] [place] [address] [place] Eosinophils (Bld) [#/Vol] 0.19 10*3/uL Normal <0.46 [facility] Comment on above: Order Comment: Speci men Type: BLOOD SPECIMENOrdering Facility: [facility] Address: [address] [place] [address] Performed By: #### 5 7021-8 ####[facility] [id number] [place] [address] [place] Eosinophils/100 WBC (Bld) 1.9 % Normal [facility] Comment on above: Order Comment: Speci men Type: BLOOD SPECIMENOrdering Facility: [facility] Address: [address] [place] [address] Performed By: #### 5 7021-8 ####[facility] [id number] [place] [address] [place] Erythrocyte distribution width (RBC) [Ratio] 12.8 % Normal 11.5-15.0 [facility] Comment on above: Order Comment: Speci men Type: BLOOD SPECIMENOrdering Facility: [facility] Address: [address] [place] [address] Performed By: #### 5 7021-8 ####[facility] [id number] [place] [address] [place] Hematocrit (Bld) [Volume fraction] 43.2 % Normal 36.0-46.0 [facility] Comment on above: Order Comment: Speci men Type: BLOOD SPECIMENOrdering Facility: [facility] Address: [address] [place] [address] Performed By: #### 5 7021-8 ####[facility] [id number] [place] [address] [place] Hemoglobin (Bld) [Mass/Vol] 14.0 g/dL Normal 11.5-15.5 [facility] Comment on above: Order Comment: Speci men Type: BLOOD SPECIMENOrdering Facility: [facility] Address: [address] [place] [address] Performed By: #### 5 7021-8 ####[facility] [id number] [place] [address] [place] Immature granulocytes (Bld) [#/Vol] 0.07 10*3/uL Normal <0.10 [facility] Comment on above: Order Comment: Speci men Type: BLOOD SPECIMENOrdering Facility: [facility] Address: [address] [place] [address] Performed By: #### 5 7021-8 ####[facility] [id number] [place] [address] [place] Immature granulocytes/100 WBC (Bld) 0.7 % Normal [facility] Comment on above: Order Comment: Speci men Type: BLOOD SPECIMENOrdering Facility: [facility] Address: [address] [place] [address] Performed By: #### 5 7021-8 ####[facility] [id number] [place] [address] [place] Lymphocytes (Bld) [#/Vol] 2.55 10*3/uL Normal 1.00-4.00 [facility] Comment on above: Order Comment: Speci men Type: BLOOD SPECIMENOrdering Facility: [facility] Address: [address] [place] [address] Performed By: #### 5 7021-8 ####[facility] [id number] [place] [address] [place] Lymphocytes/100 WBC (Bld) 25.2 % Normal [facility] Comment on above: Order Comment: Speci men Type: BLOOD SPECIMENOrdering Facility: [facility] Address: [address] [place] [address] Performed By: #### 5 7021-8 ####[facility] [id number] [address] STATES [facility] MCH (RBC) [Entitic mass] 28.2 pg Normal 26.0-34.0 [facility] Comment on above: Order Comment: Speci men Type: BLOOD SPECIMENOrdering Facility: [facility] Address: [address] [place] [address] Performed By: #### 5 7021-8 ####[facility] [id number] [place] [address] [place] MCHC (RBC) [Mass/Vol] 32.4 g/dL Normal 30.5-36.0 [facility] Comment on above: Order Comment: Speci men Type: BLOOD SPECIMENOrdering Facility: [facility] Address: [address] [place] [address] Performed By: #### 5 7021-8 ####[facility] [id number] [place] [address] [place] MCV (RBC) [Entitic vol] 86.9 fL Normal 80.0-100.0 [facility] Comment on above: Order Comment: Speci men Type: BLOOD SPECIMENOrdering Facility: [facility] Address: [address] [place] [address] Performed By: #### 5 7021-8 ####[facility] [id number] [place] [address] [place] Monocytes (Bld) [#/Vol] 0.63 10*3/uL Normal <0.87 [facility] Comment on above: Order Comment: Speci men Type: BLOOD SPECIMENOrdering Facility: [facility] Address: [address] [place] [address] Performed By: #### 5 7021-8 ####[facility] [id number] [address] [place] [address] [place] Monocytes/100 WBC (Bld) 6.2 % Normal [facility] Comment on above: Order Comment: Speci men Type: BLOOD SPECIMENOrdering Facility: [facility] Address: [address] [place] [address] Performed By: #### 5 7021-8 ####[facility] [id number] [address] [place] [address] [place] Neutrophils (Bld) [#/Vol] 6.62 10*3/uL Normal 1.45-7.50 [facility] Comment on above: Order Comment: Speci men Type: BLOOD SPECIMENOrdering Facility: [facility] Address: [address] [place] [address] Performed By: #### 5 7021-8 ####[facility] [id number] [address] [place] [address] [place] Neutrophils/100 WBC (Bld) 65.5 % Normal [facility] Comment on above: Order Comment: Speci men Type: BLOOD SPECIMENOrdering Facility: [facility] Address: [address] [place] [address] Performed By: #### 5 7021-8 ####[facility] [id number] [address] [address] [place] Nucleated RBC (Bld) [#/Vol] 10*3/uL Normal <0.01 [facility] Comment on above: Order Comment: Speci men Type: BLOOD SPECIMENOrdering Facility: [facility] Address: [address] [place] [address] Performed By: #### 5 7021-8 ####[facility] [id number] [address] [place] [address] [place] Nucleated RBC/100 WBC (Bld) [Ratio] 0.0 /100 WBC Normal [facility] Comment on above: Order Comment: Speci men Type: BLOOD SPECIMENOrdering Facility: [facility] Address: [address] [place] [address] Performed By: #### 5 7021-8 ####[facility] LAB[facility] [id number] [place] [address] [place] Platelet mean volume (Bld) [Entitic vol] 11.5 fL Normal 9.0-12.7 [facility] Comment on above: Order Comment: Speci men Type: BLOOD SPECIMENOrdering Facility: [facility] Address: [address] [place] [address] Performed By: #### 5 7021-8 ####[facility] [id number] [place] [address] [place] Platelets (Bld) [#/Vol] 310 10*3/uL Normal 150-400 [facility] Comment on above: Order Comment: Speci men Type: BLOOD SPECIMENOrdering Facility: [facility] Address: [address] [place] [address] Result Comment: No c lot detected. Performed By: #### 5 7021-8 ####[facility] [id number] [place] [address] [place] RBC (Bld) [#/Vol] 4.97 10*6/uL Normal 3.90-5.20 [facility] Comment on above: Order Comment: Speci men Type: BLOOD SPECIMENOrdering Facility: [facility] Address: [address] [place] [address] Performed By: #### 5 7021-8 ####[facility] LAB[facility] [id number] [place] [address] [place] WBC (Bld) [#/Vol] 10.11 10*3/uL Normal 3.70-11.[address] [facility] Comment on above: Order Comment: Speci men Type: BLOOD SPECIMENOrdering Facility: [facility] Address: [address] [place] [address] Performed By: #### 5 7021-8 ####[facility] MARIA [id number] [place] [address] [place] CNOVon 08-21-2024 CNOV Office Visit (FAMPWS ) -------- SUMMER DRUMMOND ([id number]) 1975 F Date Time Provider Department 08/21/24 7:00 AM SUZETTE ELIAS FAMPWS During your visit today, we recorded the following information about you: Temperature Pulse Respiration Blood pressure 98.1 degrees 80/minute 18/minute 130/86 Weight Height 112.9 kg 1.645 m Suzette Elias PA-C 08/21/2024 8:15 AM Signed Chief Complaint Patient presents with: Yearly Exam HPI Summer Drummond is a 48 year old female who presents here today for physical. Annual Wellness Exam: - No significant medical changes in past year. - Only medication is omeprazole. - Hepatitis B vaccine series completed in 2010 following a needle stick injury. - Seen by Dr. Diamond last week; scheduled for FibroScan, upper endoscopy, and gallbladder ultrasound. - Interested in coronary calcium scoring test. Eosinophilic Esophagitis: - Managed with omeprazole. - Scheduled for upper endoscopy. GERD: - Managed with omeprazole. Weight Management: - Struggles with weight; fluctuates in the 240s. - Interested in weight loss medications. - Attempts to eat healthily but finds it challenging. - Drinks 80-100 oz of water daily. - Walks for 30 minutes daily but finds it difficult due to knee pain. - Participated in the [employer] program for over a month without weight loss. - Consumes a salad and chicken for lunch Knee Pain: - Chronic knee pain for 10 years, worsening in the last few years. - Describes pain as arthritic, achy, and stiff. - Difficulty transitioning from sitting to standing without support. - Plasma replacement therapy provided relief for six months. (per chiropractor) - Interested in physical therapy and orthopedic evaluation. Sleep Disturbances: - Difficulty staying asleep; wakes up around 02:00-03:00 and struggles to fall back asleep. - Falls asleep quickly initially. - Believes sleep disturbances may be related to liver issues or pre-menopausal symptoms. Past medical history, appointments, medications, allergies reviewed. [...] on File Prior to Visit Medication Sig valACYclovir (VALTREX) 1 gram tablet Take 1,000 mg by mouth two times a day. Omeprazole Magnesium (PRILOSEC OTC) 20 mg tablet [...] Never Used Substance Use Topics Alcohol use: Not Currently Comment: occasionally Drug use: No Review of [...] leg swelling, hypertension, CHF or palpitations GI: Negative for abdominal discomfort, blood in stools or black stools, change in bowel habit, heart burn, nausea, vomiting : No history of dysuria, frequency or incontinence MUSCULOSKELETAL: see hpi SKIN: Negative for lesions, rash, and itching PSYCH: Negative for sleep disturbance, mood disorder and recent psychosocial stressors HEMATOLOGY/LYMPHOLOGY: Negative for prolonged bleeding, bruising easily or swollen nodes ENDOCRINE: Negative for cold or (more content not included)... Normal [facility] Comprehensive metabolic 2000 panelon 08-21-2024 Albumin [Mass/Vol] 4.2 g/dL Normal 3.9-4.9 [facility] Comment on above: Order Comment: Speci men Type: BLOOD SPECIMENOrdering Facility: [facility] Address: [address] [place] [address] Performed By: #### 2 4331-1, 06166-5, 29197-3, ####[facility] [id number] [place] [address] [place] ALP [Catalytic activity/Vol] 90 U/L Normal 34-123 [facility] Comment on above: Order Comment: Speci men Type: BLOOD SPECIMENOrdering Facility: [facility] Address: [address] [place] [address] Performed By: #### 2 4331-1, 77732-8, 73468-2, 71759-0 ####[facility] [id number] [place] [address] [place] ALT [Catalytic activity/Vol] 18 U/L Normal 7-38 [facility] Comment on above: Order Comment: Speci men Type: BLOOD SPECIMENOrdering Facility: [facility] Address: [address] [place] [address] Performed By: #### 2 4331-1, 29612-4, 56905-6, 28909-7 ####[facility] [id number] [address] [address] [place] Anion gap [Moles/Vol] 12 mmol/L Normal 8-15 [facility] Comment on above: Order Comment: Speci men Type: BLOOD SPECIMENOrdering Facility: [facility] Address: [address] [place], [place] [address] Performed By: #### 2 4331-1, 53173-4, 93241-2, ####[facility] [id number] [address] [address] [place] AST [Catalytic activity/Vol] 16 U/L Normal 13-35 [facility] Comment on above: Order Comment: Speci men Type: BLOOD SPECIMENOrdering Facility: [facility] Address: [address] [place], [place] [address] Performed By: #### 2 4331-1, 91345-7, 54266-7, ####[facility] [id number] [address] [address] [place] Bilirubin [Mass/Vol] 0.4 mg/dL Normal 0.2-1.[address] [facility] Comment on above: Order Comment: Speci men Type: BLOOD SPECIMENOrdering Facility: [facility] Address: [address] [place] [address] Performed By: #### 2 4331-1, 06582-6, 79945-2, 99370-0 ####[facility] [id number] [address] [address] [place] Calcium [Mass/Vol] 9.3 mg/dL Normal 8.5-10.2 [facility] Comment on above: Order Comment: Speci men Type: BLOOD SPECIMENOrdering Facility: [facility] Address: [address] [place], [place] [address] Performed By: #### 2 4331-1, 29105-6, 12122-6, 78149-8 ####[facility] [id number] [address] [address] [place] Chloride [Moles/Vol] 99 mmol/L Normal 98-[address] [facility] Comment on above: Order Comment: Speci men Type: BLOOD SPECIMENOrdering Facility: [facility] Address: [address] [place] [address] Performed By: #### 2 4331-1, 35700-7, 11067-6, 07701-6 ####[facility] [id number] [address] [address] [place] CO2 [Moles/Vol] 25 mmol/L Normal 22-30 [facility] Comment on above: Order Comment: Speci men Type: BLOOD SPECIMENOrdering Facility: [facility] Address: [address] [place] [address] Performed By: #### 2 4331-1, 32118-5, 18125-1, 77276-6 ####[facility] [id number] [address] [address] [place] Creatinine [Mass/Vol] 0.69 mg/dL Normal 0.58-0.96 [facility] Comment on above: Order Comment: Speci men Type: BLOOD SPECIMENOrdering Facility: [facility] Address: [address] [place], [place] [address] Performed By: #### 2 4331-1, 75209-7, 18048-0, 05806-7 ####[facility] [id number] [address] [address] [place] Creatinine and Glomerular filtration rate.predicted panel (S/P/Bld) 108 mL/min/1.73m??? Normal >=60 [facility] Comment on above: Order Comment: Maral rajput Type: BLOOD SPECIMENOrdering Facility: [facility] Address: [address] [place] [address] Result Comment: Kaylin mated Glomerular Filtration Rate [...] reflect actual GFR. Performed By: #### 2 4331-1, 23382-9, 28358-9, 71878-9 ####[facility] [id number] [address] [address] [place] Glucose [Mass/Vol] 103 mg/dL High 74-99 [facility] Comment on above: Order Comment: Maral rajput Type: BLOOD SPECIMENOrdering Facility: [facility] Address: [address] [place] [address] Result Comment: The [place] Diabetes Association (ADA) provides guidance for cutoff [...] Standards of Medical Care in Diabetes 2016, Scottish Diabetes Association. Diabetes Care. 2016.39(Suppl 1). Performed By: #### 2 4331-1, 78265-8, 14154-9, 49491-8 ####[facility] [id number] [address] [address] [place] Potassium [Moles/Vol] 4.1 mmol/L Normal 3.7-5.1 [facility] Comment on above: Order Comment: Speci men Type: BLOOD SPECIMENOrdering Facility: [facility] Address: [address] [place] [address] Performed By: #### 2 4331-1, 22230-6, 72744-3, 83810-8 ####[facility] [id number] [address] [place] [address] [place] Protein [Mass/Vol] 7.2 g/dL Normal 6.3-8.0 [facility] Comment on above: Order Comment: Speci men Type: BLOOD SPECIMENOrdering Facility: [facility] Address: [address] [place], [place] [address] Performed By: #### 2 4331-1, 71234-9, 38416-9, 24086-8 ####[facility] [id number] [address] [address] [place] Sodium [Moles/Vol] 136 mmol/L Normal 136-144 [facility] Comment on above: Order Comment: Speci men Type: BLOOD SPECIMENOrdering Facility: [facility] Address: [address] [place], [place] [address] Performed By: #### 2 4331-1, 39516-3, 99362-3, 56466-4 ####[facility] [id number] [address] [place] [address] [place] Urea nitrogen [Mass/Vol] 11 mg/dL Normal 7-21 [facility] Comment on above: Order Comment: Speci men Type: BLOOD SPECIMENOrdering Facility: [facility] Address: [address] [place] [address] Performed By: #### 2 4331-1, 12873-5, 47430-7, 96347-2 ####[facility] [id number] [address] [place] [address] [place] HbA1c (Bld)on 08-21-2024 Average glucose Estimated from glycated hemoglobin (Bld) [Mass/Vol] 103 mg/dL Normal [facility] Comment on above: Order Comment: Speci men Type: BLOOD SPECIMENOrdering Facility: [facility] Address: [address] [place] [address] Result Comment: eAG: (Estimated average glucose) is a calculated value from HgbA1c and is claim representative of the average blood glucose level in the last 2-3 month period. Performed By: #### 5 5454-3 ####[facility] [id number] [place] [address] [place] HbA1c (Bld) [Mass fraction] 5.2 % Normal 4.3-5.6 [facility] Comment on above: Order Comment: Speci men Type: BLOOD SPECIMENOrdering Facility: [facility] Address: [address] [place] [address] Result Comment: [place] Diabetes Association guidelines indicate that patients with HgbA1c in the range 5.7-6.4% are at increased risk for development of diabetes, and intervention by lifestyle modification may be beneficial. HgbA1c greater or equal to 6.5% is considered diagnostic of diabetes. Performed By: #### 5 5454-3 ####[facility] [id number] [place] [address] [place] Iron and Iron binding capaci ty panelon 08-21-2024 Iron [Mass/Vol] 62 ug/dL Normal 41-186 [facility] Comment on above: Order Comment: Speci men Type: BLOOD SPECIMENOrdering Facility: [facility] Address: [address] [place] [address] Performed By: #### 2 4331-1, 60374-0, 71148-2, 06012-1 ####[facility] [id number] [place] [address] [place] Iron binding capacity [Mass/Vol] 305 ug/dL Normal 232-386 [facility] Comment on above: Order Comment: Speci men Type: BLOOD SPECIMENOrdering Facility: [facility] Address: [address] [place] [address] Performed By: #### 2 4331-1, 63371-6, 90837-9, ####[facility] [id number] [address] [place] [address] [place] Iron/TIBC [Molar ratio] 20.3 % Normal 15.0-57.0 [facility] Comment on above: Order Comment: Speci men Type: BLOOD SPECIMENOrdering Facility: [facility] Address: [address] [place] [address] Performed By: #### 2 4331-1, 35441-6, 13433-6, ####[facility] [id number] [address] [place] [address] [place] Lipid 1996 panelon 5 Cholesterol [Mass/Vol] 195 mg/dL Normal <200 [facility] Comment on above: Order Comment: Speci men Type: BLOOD SPECIMENOrdering Facility: [facility] Address: [address] [place] [address] Result Comment: <200 mg/dL, Desirable 200-239 mg/dL, Borderline high >239 mg/dL, High Performed By: #### 2 4331-1, 80001-1, 17332-0, ####[facility] [id number] [address] [place] [address] [place] Cholesterol in HDL [Mass/Vol] 43 mg/dL Normal >39 [facility] Comment on above: Order Comment: Speci men Type: BLOOD SPECIMENOrdering Facility: [facility] Address: [address] [place] [address] Result Comment: 40-5 9 mg/dL, Acceptable >59 mg/dL, High: Negative risk factor for coronary heart disease <40 mg/dL, Low: Positive risk factor for coronary heart disease Performed By: #### 2 4331-1, 14708-3, 60685-6, ####[facility] [id number] [address] [place] [address] [place] Cholesterol in LDL [Mass/Vol] 121 mg/dL High <100 [facility] Comment on above: Order Comment: Speci men Type: BLOOD SPECIMENOrdering Facility: [facility] Address: [address] [place] [address] Result Comment: <100 mg/dL, Optimal 100-129 mg/dL, Near optimal/above optimal 130-159 mg/dL, Borderline high 160-189 mg/dL, High >189 mg/dL, Very high Secondary prevention optimal LDL Cholesterol levels are recommended to be <70 mg/dL LDL cholesterol is calculated using the Vela-NIH equation. Performed By: #### 2 4331-1, 06100-6, 25703-0, ####[facility] [id number] [place] [id number] [place] Cholesterol in LDL/Cholesterol in HDL [Mass ratio] 2.81 {ratio} High <2.54 [facility] Comment on above: Order Comment: Speci men Type: BLOOD SPECIMENOrdering Facility: [facility] Address: [address] [place] [address] Result Comment: Refe rence: 1. National Cholesterol Education Program ATP III Guideline At-A-Glance Quick Desk Reference: National Heart, Lung, and Blood [place]. National Institutes of Health. 2001: NIH Publication No. 01-3305. 2. An International Atherosclerosis Society position paper: global recommendations for the management of dyslipidemia: executive summary, Atherosclerosis. 2014: 232(2):410-413. Performed By: #### 2 4331-1, 61130-1, 42958-9, ####[facility] [id number] [address] [address] [place] Cholesterol in VLDL [Mass/Vol] 31 mg/dL High <30 [facility] Comment on above: Order Comment: Maral rajput Type: BLOOD SPECIMENOrdering Facility: [facility] Address: [address] [place] [address] Performed By: #### 2 4331-1, 18217-1, 13733-1, ####[facility] [id number] [facility] [id number] [address] [place] Cholesterol non HDL [Mass/Vol] 152 mg/dL High <130 [facility] Comment on above: Order Comment: Speci men Type: BLOOD SPECIMENOrdering Facility: [facility] Address: [address] [place] [address] Result Comment: <130 mg/dL, Optimal 130-159 mg/dL, Near optimal/above optimal 160-189 mg/dL, Borderline high 190-219 mg/dL, High >219 mg/dL, Very high Secondary prevention optimal non HDL Cholesterol levels are recommended to be <100 mg/dL Performed By: #### 2 4331-1, 79784-6, 43525-5, ####[facility] [id number] [facility] [address] [place] [address] [place] Cholesterol.total/Ch olesterol in HDL [Mass ratio] 4.53 {ratio} Normal <5.10 [facility] Comment on above: Order Comment: Speci men Type: BLOOD SPECIMENOrdering Facility: [facility] Address: [address] [place] [address] Performed By: #### 2 4331-1, 92816-2, , ####[facility] [id number] [facility] [address] [place] [address] [place] FASTING TIME 12 hrs Normal [facility] Comment on above: Order Comment: Speci men Type: BLOOD SPECIMENOrdering Facility: [facility] Address: [address] [place], [place] [address] Performed By: #### 2 4331-1, 25525-0, , ####[facility] [id number] [facility] [id number] [address] [place] Triglyceride [Mass/Vol] 176 mg/dL High <150 [facility] Comment on above: Order Comment: Speci men Type: BLOOD SPECIMENOrdering Facility: [facility] Address: [address] [place] [address] Result Comment: <150 mg/dL, Normal 150-199 mg/dL, Borderline high 200-499 mg/dL, High >499 mg/dL, Very high Performed By: #### 2 4331-1, 19370-3, 52283-5, 35066-8 ####[facility] [id number] [place] [address] [place] Magnesium SerPl-ncon 08-21 Magnesium [Mass/Vol] 1.8 mg/dL Normal 1.7-2.[address] [facility] Comment on above: Order Comment: Speci men Type: BLOOD SPECIMENOrdering Facility: [facility] Address: [address] [place] [address] Performed By: #### 2 4331-1, 09383-0, 32618-0, ####[facility] [id number] [place] [id number] [place] Vit B12 SerPl-mCncon 025 Cobalamin (Vitamin B12) [Mass/Vol] 418 pg/mL Normal 232-1245 [facility] Comment on above: Order Comment: Speci men Type: BLOOD SPECIMENOrdering Facility: [facility] Address: [address] [place] [address] Performed By: #### 2 132-9 ####[facility] [id number] [place] [id number] [place] Gastroenterology Visit Repor ton 08-12-2024 Gastroenterology Visit Report [facility] [address] [place] [address] OFFICE VISIT Date of Service: 08/12/24 MR#: [id number] Acct: [id number] Name: SUMMER DRUMMOND Rep #: [id number] : 1975 Provider: Manny Diamond DO Age/Sex: 48/F Location: [facility] Status: Signed Intake Vital Signs 09/26/23 16:30 06/27/24 08:06 Height 5 ft 5 in 5 ft 5 in Intake Visit Reasons: 6 M FU Allergies No Known Allergies Allergy (Verified 06/27/24 08:04) Medications ???Medication ???Instructions ???Recorded ???Confirmed ???Type ascorbate calcium (vitamin C) 500 500 mg PO DAILY 07/21/20 08/12/24 History mg tablet cholecalciferol (vitamin D3) 50 50 mcg PO DAILY 03/29/21 08/12/24 History mcg (2,000 unit) capsule (Vitamin D3) zinc acetate 50 mg (zinc) capsule 50 mg PO PRN PRN PROPHYLACTIC 05/2208/12/24 History cod liver oil 1 cap PO DAILY 06/25/23 08/12/24 H istory omeprazole 20 mg capsule,delayed 20 mg PO DAILY #30 caps 08/24/23 0 08/12/24 Rx release valacyclovir 1 gram tablet 1,000 mg PO BID 7 days #14 tabs 08/12/24 Rx (Valtrex) PFSH Medical History Radial head fracture Radial neck fracture Scaphoid fracture of wrist Shortness of breath on exertion Keratosis, seborrheic Fibrocystic breast disease Constipation ADD (attention deficit disorder) Wears glasses Anxiety Fatty liver Back pain Gastric reflux Non-smoker Palpitations Gallbladder polyp Uterine fibroid Uterine fibroid Enlarged uterus Pelvic pain Menorrhagia with irregular cycle Hemangioma of liver Surgical History S/P total hysterectomy ( 04/05/21) Family History Mother uterine fibroid tumor Aunt Colon cancer Unknown Heart disease Hyperlipidemia Father Hypertension Social History household members: spouse and children number of children: 1 current occupational status: employed current occupation: [employer] history of recent travel: No sexually active: Yes Smoking Status: Never smoker alcohol intake: current alcohol intake frequency: holidays/special occasions only substance use type: does not use diet: low carbohydrate well-balanced diet: daily or most days what type of physical activity do you participate in: none seatbelt use: always do you feel safe at home: Yes additional social history: - Roman HPI HPI Details: SUMMER DRUMMOND, is a 48 F who presents to the office today for follow up. *BGI established 06.23.22 with reflux and need for screening colonoscopy. Heartburn has been a difficulty for the last 7 years; TUMS PRN and omeprazole PRN provide temporary relief, prefers to avoid medication.?EGD and colonoscopy 08.30.22???mucosal changes of EOE, >20eosin/field; LA Grade B esophagitis; small hiatal hernia; gastritis; duodenitis. Metaplasia neg.? Colonoscopy poor prep; diverticulosis. ??? OV 09.14.22 consider dupixent?US/ elastography 09.14.22???not completed??? OV 02.22.23 Pt reports she experiences intermittent esophageal spasms. Does not have any burning or dyphagia. Is only taking natural supplements. Does not want any medications. Also wanting to follow up on liver. Did not get US/Elastography we ordered at last visit. 08.24.23 pt reports that she is experiencing daily esophageal spasms. pt denies food getting stuck and HB. If pt does have heartburn she takes a prilosec. Pt states that she would like to take a natural path to treat her symptoms. Pt denies pain, cramping, bloating; and states that she is having a formed bm every day or every other day. OV 02.20.24 pt reports that she thinks she may have a kidney stone and has been dealing with that, is currently on Macrobid. Pt reports gas and bloating after eating. Continues with Omeprazole 20mg daily. OV 4.. pt reports increased bloating recently, but wonders if it's because she was taking amoxicillin for a tooth infection that she had at the end of May. Pt denies other GI symptoms of concern at this time. Continues with Omeprazole 20mg every other day. ROS Const Constitutional: No fatigue, fever(s) or weight change ENT ENT: No difficulty swallowing Gastro GI: Positive for bloating, heartburn and excessive flatus; No abdominal pain, belching, change in bowel habits, change in stool character, coffee ground emesis, constipation, cramping, diarrhea, difficulty swallowing, feeling full early, incontinent of stools, Vomiting blood/hematemesis, Blood in stool, loose stools, Black,tarry s (more content not included)... Normal [facility] Breast imaging reportOrdered By: Hansa Pfeiffer on 08-06-2024 Study report [facility] Imaging Services [address] [place], [place] [address] SCRN MAMM (CAD)W/POOJA BILAT MR#: [id number] Acct: [id number] Name: SUMMER DRUMMOND Rep #: [id number] : 1975 F 48 From: Muriel Pfeiffer MD PCP: Dr. Ronaldo Medley MD Status: [facility] Study:SCRN MAMM (CAD)W/POOJA BILAT Date of Exa m: 08/06/24 Exam# [id number] Ordering Dr: Mariaa Stephen DO EXAM: SCRN MAMM (CAD)W/POOJA BILAT 08/06/2024 CLINICAL HISTORY: F, Age 48 y/o , SCREENING MAMMOGRAM TECHNIQUE: Bilateral screening digital breast tomosynthesis with 2D and 3D images. Computeraided detection. COMPARISON: Prior exam(s) dated 07/10/2023. FINDINGS: TISSUE DENSITY: The breast tissue is composed of scattered area of fibroglandular density. Bilateral Breast Mammographic Findings: No significant masses, calcifications or other abnormalities are identified. BI/SCRN MAMM (CAD)W/POOJA BILAT IMPRESSION: Right Breast: BIRADS 1 NEGATIVE. Left Breast: BIRADS 1 NEGATIVE. OVERALL FINAL ASSESSMENT: BIRADS 1 NEGATIVE. RECOMMENDATION: Routine annual follow-up in 1 Year A letter with findings and recommendations will be mailed to the patient. Reading Location: [facility] CC: Dr. Ronaldo Medley MD; Dr. Mariaa Goodman DO ~ 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: Signed [facility] SCRN MAMM (CAD)W/POOJA BILATo n 08-06-2024 SCRN MAMM (CAD)W/POOJA BILAT [facility] Imaging Services [address] [place] [address] SCRN MAMM (CAD)W/POOJA BILAT MR#: [id number] Acct: [id number] Name: SUMMER DRUMMOND Rep #: [id number] : 1975 F 48 From: Hansa Pfeiffer MD PCP: Dr. Ronaldo Medley MD Status: REG CLI Study: SCRN MAMM (CAD)W/POOJA BILAT Date of Exam: 01/22 Exam# [id number] Ordering Dr: Mariaa Goodman DO EXAM: SCRN MAMM (CAD)W/POOJA BILAT 08/06/2024 CLINICAL HISTORY: F, Age 48 y/o , SCREENING MAMMOGRAM TECHNIQUE: Bilateral screening digital breast tomosynthesis with 2D and 3D images. Computer aided detection. COMPARISON: Prior exam(s) dated 07/10/2023. FINDINGS: TISSUE DENSITY: The breast tissue is composed of scattered area of fibroglandular density. Bilateral Breast Mammographic Findings: No significant masses, calcifications or other abnormalities are identified. BI/SCRN MAMM (CAD)W/POOJA BILAT IMPRESSION: Right Breast: BIRADS 1 NEGATIVE. Left Breast: BIRADS 1 NEGATIVE. OVERALL FINAL ASSESSMENT: BIRADS 1 NEGATIVE. RECOMMENDATION: Routine annual follow-up in 1 Year A letter with findings and recommendations will be mailed to the patient. Reading Location: [facility] CC: Dr. Ronaldo Medley MD; Dr. Mariaa Goodman DO 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: Signed Normal [facility] Plaster Mold Maker Office Visit Reporton 06-27-2024 Plaster [employer] [facility] Office Visit Report [place] [facility] [address], [address] [place] [address] OFFICE VISIT Date of Service: 06/27/24 MR#: [id number] Acct: [id number] Name: SUMMER DRUMMOND Rep #: [id number] : 1975 Provider: Dr. 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) Nuclear Pharmacist Required: No Is patient in pain?: No Allergies No Known Allergies Allergy (Verified 06/27/24 08:04) Medications ???Medication ???Instructions ???Recorded ???Confirmed ???Type ascorbate calcium (vitamin C) 500 500 mg PO DAILY 07/21/20 06/27/24 History mg tablet cholecalciferol (vitamin D3) 50 50 mcg PO DAILY 03/29/21 06/27/24 History mcg (2,000 unit) capsule (Vitamin D3) zinc acetate 50 mg (zinc) capsule 50 mg PO PRN PRN PROPHYLACTIC 05/2206/27/24 History cod liver oil 1 cap PO DAILY 06/25/23 06/27/24 H istory omeprazole 20 mg capsule,delayed 20 mg PO DAILY #30 caps 08/24/23 0 06/27/24 Rx release valacyclovir 1 gram tablet 1,000 mg PO BID 7 days #14 tabs 06/27/24 Rx (Valtrex) Post menopausal: No Patient : No : No PFSH Medical History Radial head fracture Radial neck fracture Scaphoid fracture of wrist Shortness of breath on exertion Keratosis, seborrheic Fibrocystic breast disease Constipation ADD (attention deficit disorder) Wears glasses Anxiety Fatty liver Back pain Gastric reflux Non-smoker Palpitations Gallbladder polyp Uterine fibroid Uterine fibroid Enlarged uterus Pelvic pain Menorrhagia with irregular cycle Hemangioma of liver Surgical History S/P total hysterectomy ( 04/05/21) Family History Mother uterine fibroid tumor Aunt Colon cancer Unknown Heart disease Hyperlipidemia Father Hypertension Social History household members: spouse and children number of children: 1 current occupational status: employed current occupation: [employer] history of recent travel: No sexually active: Yes Smoking Status: Never smoker alcohol intake: current alcohol intake frequency: holidays/special occasions only substance use type: does not use diet: low carbohydrate well-balanced diet: daily or most days what type of physical activity do you participate in: none seatbelt use: always do you feel safe at home: Yes additional social history: - Roman History 1 Elective abortions Hx Para 1 Spontaneous abortions Hx # Term Pregnancies Ectopic pregnancies Hx # Pregnancies Multiple births # of living children 1 Past Pregnancies Del. Date Name GA/Weeks Outcome Route Bth Weight Infant Gen Labor Lgth Anesthesia Del Locatn Provider FOB Unknown [place] 1999 HPI Encounter for routine gynecological examination Details: SUMMER DRUMMOND is a 48 year old who presents for annual exam. Still working with Dr Felix fish Eosinophilic esophogitis. Had kidney stone in February. Last PAP: prior to hyst History of abnormal PAP: no Last mammogram: 07/10/23 History of abnormal mammogram: no Colon cancer screening: up to date Other preventative health care screenings: up to date and followed by pcp. Female Reproductive History Questions: metorrhagia: No, sexually active: Yes, dyspareunia: No and PCB: No Menopausal Symptoms: No hot flashes, No night sweats, No weight change, No mood changes, No difficulty concentrating, No sleep problems and No change in libido ROS Const Constitutional: Reports as per HPI; Denies fatigue, increased appetite, poor appetite, night sweats, weight gain or weight loss Cardio Card: Denies chest pain Resp Resp: Denies cough or dyspnea GI GI: Reports as per HPI; Denies abdominal pain, bloating, constipation, nausea or vomiting : Reports as per HPI and other; Denies difficulty voiding, dysuria, hematuria, hot flashes, nipple discharge, pelvic pain, prolapse symptoms, urinary frequency, urinary incontinence, urinary urgency, vaginal discharge, vaginal dryness, vaginal odor or vaginal pruritus Skin Skin/Breast: Denies changing lesions, breast mass, breast pain, breast skin changes or nipple discharge Psych Psych: Denies anxiety, change in libido, depression or difficulty concentrating Exam Const General: cooperative, healthy appearing, comfortable, no acute distress, well developed and well groomed [facility] Head: normal to inspection and normocephalic Ear (more content not included)... Normal [facility] Urine Cultureon 02-26-2024 URC Mixed Gram Positive Organisms Pep Count 11,000-25,000 MIXC Mixed contaminants. Submit a new specimen if indicated. Normal [facility] Comment on above: Performed By: #### M 100.2200 ####[facility] [id number] [facility] [place], [place], [id number] Abdomen/Pelvis without Conto n 02-23-2024 Abdomen/Pelvis without Cont [facility] [address] [place], [place] [address] Abdomen/Pelvis without Cont MR#: [id number] Acct: [id number] Name: SUMMER DRUMMOND Rep #: [id number] : 1975 F 48 From: Ayala webb MD PCP: Dr. Ronaldo Medley MD Status: REG ER Study: Abdomen/Pelvis without Cont Date of Exam: 01/29 10/21 Exam# [id number] Ordering Dr: Jim Isaac DO [id number] EXAM: CT ABDOMEN AND PELVIS WITHOUT INTRAVENOUS CONTRAST CLINICAL INDICATION: Kidney Stone TECHNIQUE: Helically acquired images were obtained of the abdomen and pelvis without intravenous contrast. This CT exam was performed using one or more of the following dose reduction techniques: automated exposure control, adjustment of the mA and/or kV according to patient size, and/or use of iterative reconstruction technique. COMPARISON: No relevant prior studies available. FINDINGS: LOWER THORAX: Unremarkable. Lung bases are clear. No cardiomegaly. No significant pericardial effusion. ABDOMEN: LIVER: Unremarkable. Homogeneous. GALLBLADDER AND BILE DUCTS: Unremarkable. No calcified gallstones. No gallbladder distention or wall edema. No intra- or extrahepatic biliary ductal dilation. PANCREAS: Unremarkable. No focal cystic mass. SPLEEN: Unremarkable. Normal size without focal cystic or solid mass. ADRENALS: Unremarkable. No nodules. KIDNEYS AND URETERS: Mild right hydronephrosis. Mild right hydroureter. 2 mm stone in the right distal ureter. Normal renal size and position. Left kidney is unremarkable with no stones or hydronephrosis. STOMACH AND BOWEL: Unremarkable. No stomach or bowel distention. No focal inflammatory change. PELVIS: APPENDIX: No evidence of acute appendicitis. BLADDER: Unremarkable. REPRODUCTIVE: Unremarkable as visualized. No mass. ABDOMEN and PELVIS: INTRAPERITONEAL SPACE: Unremarkable. No ascites or other fluid collection. No free air. BONES/JOINTS: Unremarkable. No suspicious lytic or blastic abnormality. SOFT TISSUES: Unremarkable. No discrete abdominal or pelvic wall hernia. VASCULATURE: Unremarkable. Abdominal aorta is normal in caliber. LYMPH NODES: Unremarkable. No enlarged lymph nodes. CT/Abdomen/Pelvis without Cont IMPRESSION: Small stone right distal ureter with mild proximal hydroureteronephrosis. Electronically Signed: Ayala Eng MD at 21:29 EDT Reading Location ID and State: [id number] / Tel , Service support , CC: Dr. Ronaldo Medley MD; Dr. Jim Isaac DO 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: Signed Normal [facility] Basic Metabolic Profile (BMP )on 02-23-2024 BUN/CRE 16.1 RATIO Normal 02-16 [facility] Comment on above: Performed By: #### L 100.0100, L500.2500 #### [facility] [address] [place], [address] CA,Total 9.3 mg/dL Normal 8.5-10.1 [facility] Comment on above: Performed By: #### L 100.0100, L500.2500 #### [facility] [address] [place], [address] Chloride [Moles/Vol] 106 mmol/L Normal 98-107 [facility] Comment on above: Performed By: #### L 100.0100, L500.2500 #### [facility] [address] [place], [address] CO2 [Moles/Vol] 23.0 mmol/L Normal 21.0-32.0 [facility] Comment on above: Performed By: #### L 100.0100, L500.2500 #### [facility] [address] [place], [address] Creatinine [Mass/Vol] 0.93 mg/dL Normal 0.55-1.02 [facility] Comment on above: Result Comment: The validity of the calculated GFR GFRAA in patients over 70 years has not been determined. Clinical correlation is essential. Performed By: #### L 100.0100, L500.2500 #### [facility] [address] [place], [address] ECRCL 93.41 ml/min Normal [facility] Comment on above: Performed By: #### L 100.0100, L500.2500 #### [facility] [address] [place], [address] EST GFR - AA 83 mL/min Normal >60 [facility] Comment on above: Result Comment: Afri can Scottish GFR Calc Performed By: #### L 100.0100, L500.2500 #### [facility] [address] [place], [address] GAP 9 Normal 5-15 [facility] Comment on above: Performed By: #### L 100.0100, L500.2500 #### [facility] [address] [place], [address] GFR/1.73 sq M.predicted among non-blacks MDRD (S/P/Bld) [Vol rate/Area] 68 mL/min/{1.73_m2} Normal >60 [facility] Comment on above: Result Comment: Non- GFR Calc Performed By: #### L 100.0100, L500.2500 #### [facility] [address] [place], [address] Glucose [Mass/Vol] 112 mg/dL High 74-106 [facility] Comment on above: Result Comment: Fast ing Glucose result from 100 to 125 mg/dL suggests IMPAIRED HOMEOSTASIS per A.D.A. criteria. Performed By: #### L 100.0100, L500.2500 #### [facility] [address] [place], [address] Potassium [Moles/Vol] 3.4 mmol/L Low 3.5-5.1 [facility] Comment on above: Performed By: #### L 100.0100, L500.2500 #### [facility] [address] [place], [address] Sodium [Moles/Vol] 138 mmol/L Normal 136-145 [facility] Comment on above: Performed By: #### L 100.0100, L500.2500 #### [facility] [address] [place], [address] Urea nitrogen [Mass/Vol] 15 mg/dL Normal 7-18 [facility] Comment on above: Performed By: #### L 100.0100, L500.2500 #### [facility] [address] [place], [address] CBC W/Diff, Automatedon 10-2 -2023 Absolute Lymph 3.54 X10 3/uL Normal 0.83-4.51 [facility] Comment on above: Performed By: #### L 100.0100, L500.2500 #### [facility] [address] [place], [address] Absolute Neut 7.3 X10 3/uL Normal 2.0-7.7 [facility] Comment on above: Performed By: #### L 100.0100, L500.2500 #### [facility] [address] [place], [address] Basophils/100 WBC (Bld) 0.5 % Normal 0-1 [facility] Comment on above: Performed By: #### L 100.0100, L500.2500 #### [facility] [address] [place], [address] Eosinophils/100 WBC (Bld) 1.8 % Normal 0-5 [facility] Comment on above: Performed By: #### L 100.0100, L500.2500 #### [facility] [address] [place], [address] Erythrocyte distribution width (RBC) [Ratio] 12.5 % Normal 11.6-14.6 [facility] Comment on above: Performed By: #### L 100.0100, L500.2500 #### [facility] [address] [place], [address] Hematocrit (Bld) [Volume fraction] 40.7 % Normal 37-47 [facility] Comment on above: Performed By: #### L 100.0100, L500.2500 #### [facility] [address] [place], [address] Hemoglobin (Bld) [Mass/Vol] 13.6 g/dL Normal 12.0-15.0 [facility] Comment on above: Performed By: #### L 100.0100, L500.2500 #### [facility] [address] [place], [address] IG% 0.400 Normal 0.0-0.9 [facility] Comment on above: Result Comment: IG% - Immature Granulocytes (promyelocytes, myelocytes and metamyelocytes) > 1% indicates that a LEFT SHIFT is Present. Performed By: #### L 100.0100, L500.2500 #### [facility] [address] [place], [address] Lymphocytes/100 WBC (Bld) 29.7 % Normal 19-41 [facility] Comment on above: Performed By: #### L 100.0100, L500.2500 #### [facility] [address] [place], [address] MCH (RBC) [Entitic mass] 28.7 pg Normal 27.0-32.0 [facility] Comment on above: Performed By: #### L 100.0100, L500.2500 #### [facility] [address] [place], [address] MCHC (RBC) [Mass/Vol] 33.4 g/dL Normal 32-36 [facility] Comment on above: Performed By: #### L 100.0100, L500.2500 #### [facility] [address] [place], [address] MCV (RBC) [Entitic vol] 85.9 fL Normal 81-99 [facility] Comment on above: Performed By: #### L 100.0100, L500.2500 #### [facility] [address] [place], [address] Monocytes/100 WBC (Bld) 6.1 % Normal 0-10 [facility] Comment on above: Performed By: #### L 100.0100, L500.2500 #### [facility] [address] [place], [address] Neutrophils/100 WBC (Bld) 61.5 % Normal 47-70 [facility] Comment on above: Performed By: #### L 100.0100, L500.2500 #### [facility] [address] [place], [address] Nucleated RBC (Bld) [#/Vol] 0 10*3/uL Normal 0-5 [facility] Comment on above: Performed By: #### L 100.0100, L500.2500 #### [facility] [address] [place], [address] Platelet mean volume (Bld) [Entitic vol] 10.5 fL Normal 6.2-12.0 [facility] Comment on above: Performed By: #### L 100.0100, L500.2500 #### [facility] [address] [place], [address] Platelets (Bld) [#/Vol] 325 10*3/uL Normal 150-450 [facility] Comment on above: Performed By: #### L 100.0100, L500.2500 #### [facility] [address] [place], [address] RBC (Bld) [#/Vol] 4.74 10*6/uL Normal 4.2-5.4 [facility] Comment on above: Performed By: #### L 100.0100, L500.2500 #### [facility] [address] [place], [address] RDW SD 38.9 fl Normal 35.1-43.9 [facility] Comment on above: Performed By: #### L 100.0100, L500.2500 #### [facility] [address] [place], [address] WBC (Bld) [#/Vol] 11.9 10*3/uL High 4.4-11.0 [facility] Comment on above: Performed By: #### L 100.0100, L500.2500 #### [facility] [address] [place], [address] Emergency Department Summary on 02-23-2024 Emergency Department Summary [facility] Medical Records Department [address] [address] Emergency Department Summary 02/23/24 MR#: [id number] Acct: [id number] Name: SUMMER DRUMMOND Rep #: [id number] : 1975 48 From: Jim Isaac DO PCP: Dr. Ronaldo Medley MD Status:REG ER Location: ED HPI HPI - Female History of Present Illness Chief Complaint: Complaint [facility] Medical History (Updated 02/23/24 @ 22:[address] Jim Isaac DO) Shortness of breath on exertion Keratosis, seborrheic Fibrocystic breast disease Constipation ADD (attention deficit disorder) Wears glasses Anxiety Fatty liver Back pain Gastric reflux Non-smoker Palpitations Gallbladder polyp Uterine fibroid Uterine fibroid Enlarged uterus Pelvic pain Menorrhagia with irregular cycle Hemangioma of liver Home Medications ???Medication ???Instructions ???Recorded ???Last Taken ???Type ascorbate calcium (vitamin C) 500 500 mg PO DAILY 07/21/20 Unknown History mg tablet cholecalciferol (vitamin D3) 50 50 mcg PO DAILY 03/29/21 Unknown History mcg (2,000 unit) capsule (Vitamin D3) zinc acetate 50 mg (zinc) capsule 50 mg PO PRN PRN PROPHYLACTIC 05/31/22 Unknown History cod liver oil 1 cap PO DAILY 06/25/23 Unknown History omeprazole 20 mg capsule,delayed 20 mg PO DAILY #30 caps 08/24/23 Unknown Rx release ondansetron 4 mg disintegrating 4 mg PO Q8H PRN PRN Nausea #10 tabs 02/23/24 Unknown Rx tablet oxycodone 5 mg tablet 5 mg PO Q6H PRN pain 3 days #9 tabs 02/23/24 Unknown Rx sulfamethoxazole 800 1 tab PO BID #14 tabs 02/23/24 Unknown Rx mg-trimethoprim 160 mg tablet (Bactrim DS) Allergy/AdvReac Type Severity Reaction Status Date / Time No Known Allergies Allergy Verified 02/23/24 19:40 Family History Mother uterine fibroid tumor Aunt Colon cancer Unknown Heart disease Hyperlipidemia Father Hypertension Surgical History S/P total hysterectomy ( 04/05/21) Social History household members: spouse and children number of children: 1 current occupational status: employed current occupation: [employer] history of recent travel: No sexually active: Yes Smoking Status: Never smoker alcohol intake: current alcohol intake frequency: holidays/special occasions only substance use type: does not use diet: low carbohydrate well-balanced diet: daily or most days what type of physical activity do you participate in: none seatbelt use: always do you feel safe at home: Yes additional social history: - Roman EXAM Physical Exam Const Vital Signs: 02/23/24 19:39 02/23/24 20:43 Temperature 98.1 F Temperature Source Oral Pulse Rate 96 83 Respiratory Rate 16 18 Blood Pressure 154/90 H 152/80 H Blood Pressure Mean 111 104 Pulse Ox 98 100 Oxygen Delivery Method Room Air Room Air [facility] Narrative Medical decision making narrative: HISTORY OF PRESENT ILLNESS: 48-year-old female presents with flank pain/back pain wraparound to the groin. She notes that a kidney stone approximately 25 years ago. She notes for the past 4 days she has had burning and frequency with urination. REVIEW OF SYSTEMS: Pertinent positives: As per HPI Pertinent negatives: Syncope PHYSICAL EXAM: Nursing triage notes reviewed, Vital signs reviewed Constitutional: please see mdm HENT: MMM Eyes: Pupils equal round and reactive to light, Extraocular muscles intact Neck: No stridor, no JVD, full neck ROM Lungs: Clear to auscultation, No wheezing or rales. No increased work of breathing, no conversational dyspnea, no accessory muscle use, no nasal flaring. No respiratory distress noted Heart: Regular rate and rhythm, No murmurs, No rubs and No gallops, 2+ distal pulses (radial, femoral, posterior tibial) in all extremities Abdomen: Soft, there is no tenderness, rigidity, rebound or guarding, no obvious peritoneal signs, no palpable pulsatile abdominal masses, no auscultated abdominal bruit : Right CVA tenderness Extremities: No edema Neuro: No focal neurological deficits, cranial nerves II through XII intact, 5/5 strength in all extremities. Intact sensation to light touch in all extremities, 2+ reflexes bilateral patella te ndons. Normal gait. No ataxia. Skin: No rash or lesions noted MEDICAL DECISION MAKING: Chief Complaint: Urinary frequency, urgency, back pain [facility] Narrative: The patient was hemodynamically stable, afebrile and nontoxic-appearing. Exam with right CVA tenderness. No pulse abdominal masses auscultated bruits. I considered the following differential diagnosis: Nephrolithiasis, pyelonephritis, UTI, AAA (more content not included)... Normal [facility] Urinalysis, Completeon 02-22 BACTERIA 1+ /hpf Normal None Seen [facility] Comment on above: Order Comment: COLOR OF URINE MAY AFFECT DIPSTICK RESULTS. CLEAN CATCH Performed By: #### L 400.0001 #### [facility] [address] [place], [address] CA OX CRYSTAL 3+ /hpf Normal [facility] Comment on above: Order Comment: COLOR OF URINE MAY AFFECT DIPSTICK RESULTS. CLEAN CATCH Performed By: #### L 400.0001 #### [facility] [address] [place], [address] CAST,HYALINE 0-5 SEEN Normal 0-5 [facility] Comment on above: Order Comment: COLOR OF URINE MAY AFFECT DIPSTICK RESULTS. CLEAN CATCH Performed By: #### L 400.0001 #### [facility] [address] [place], [address] EPI,SQUAMOUS 10-25 SEEN Normal 5-10 [facility] Comment on above: Order Comment: COLOR OF URINE MAY AFFECT DIPSTICK RESULTS. CLEAN CATCH Performed By: #### L 400.0001 #### [facility] [address] [place], [address] RBC 5-10 SEEN Normal 0-5 [facility] Comment on above: Order Comment: COLOR OF URINE MAY AFFECT DIPSTICK RESULTS. CLEAN CATCH Performed By: #### L 400.0001 #### [facility] [address] [place], [address] BILIRUBIN URINE 3 mg/dL Abnormal Negative [facility] Comment on above: Order Comment: COLOR OF URINE MAY AFFECT DIPSTICK RESULTS. CLEAN CATCH Result Comment: COLO R OF URINE MAY AFFECT DIPSTICK RESULTS. Performed By: #### L 400.0001 #### [facility] [address] [place], [address] Clarity (U) Sl. Cloudy Normal Clear [facility] Comment on above: Order Comment: COLOR OF URINE MAY AFFECT DIPSTICK RESULTS. CLEAN CATCH Performed By: #### L 400.0001 #### [facility] [address] [place], [address] Color (U) Red Normal Yellow [facility] Comment on above: Order Comment: COLOR OF URINE MAY AFFECT DIPSTICK RESULTS. CLEAN CATCH Performed By: #### L 400.0001 #### [facility] [address] [place], [address] GLUCOSE, UR Normal Normal Normal [facility] Comment on above: Order Comment: COLOR OF URINE MAY AFFECT DIPSTICK RESULTS. CLEAN CATCH Performed By: #### L 400.0001 #### [facility] [address] [place], [address] KETONE UR Negative Normal Negative [facility] Comment on above: Order Comment: COLOR OF URINE MAY AFFECT DIPSTICK RESULTS. CLEAN CATCH Performed By: #### L 400.0001 #### [facility] [address] [place], [address] LEUK ESTERASE Negative Normal Negative [facility] Comment on above: Order Comment: COLOR OF URINE MAY AFFECT DIPSTICK RESULTS. CLEAN CATCH Performed By: #### L 400.0001 #### [facility] [address] [place], [address] Nitrite Ql (U) Positive Abnormal Negative [facility] Comment on above: Order Comment: COLOR OF URINE MAY AFFECT DIPSTICK RESULTS. CLEAN CATCH Performed By: #### L 400.0001 #### [facility] [address] [place], [address] OCCULT BLOOD-UR 50 /ul Abnormal Negative [facility] Comment on above: Order Comment: COLOR OF URINE MAY AFFECT DIPSTICK RESULTS. CLEAN CATCH Performed By: #### L 400.0001 #### [facility] [address] [place], [address] pH UR 5.0 Normal 5.0 - 8.0 [facility] Comment on above: Order Comment: COLOR OF URINE MAY AFFECT DIPSTICK RESULTS. CLEAN CATCH Performed By: #### L 400.0001 #### [facility] [address] [place], [address] PROT DIPSTX 30 mg/dl Abnormal Negative [facility] Comment on above: Order Comment: COLOR OF URINE MAY AFFECT DIPSTICK RESULTS. CLEAN CATCH Performed By: #### L 400.0001 #### [facility] [address] [place], [address] SP.GR. DIPSTX 1.025 Normal 1.002-1.030 [facility] Comment on above: Order Comment: COLOR OF URINE MAY AFFECT DIPSTICK RESULTS. CLEAN CATCH Performed By: #### L 400.0001 #### [facility] [address] [place], [address] UROBILI 8 mg/dl Abnormal Normal [facility] Comment on above: Order Comment: COLOR OF URINE MAY AFFECT DIPSTICK RESULTS. CLEAN CATCH Performed By: #### L 400.0001 #### [facility] [address] [place], [address] Mucus Ql (Urine sed) 0 SEEN Normal [facility] Comment on above: Order Comment: COLOR OF URINE MAY AFFECT DIPSTICK RESULTS. CLEAN CATCH Performed By: #### L 400.0001 #### [facility] [address] [place], [address] WBC 0 SEEN Normal 0-5 [facility] Comment on above: Order Comment: COLOR OF URINE MAY AFFECT DIPSTICK RESULTS. CLEAN CATCH Performed By: #### L [id number] #### [facility] [address] [place], [address] [facility] CNPN Telephone ([facility]) -------- SUMMER DRUMMOND ([id number]) 1975 F Date Time Provider Department 02/21/24 SUZETTE ELIAS During your visit today, we recorded the following information about you: Geno Rodriguez RN 02/21/2024 9:10 AM Signed Patient reports she [...] not see blood in her urine. Asking Suzette to please advise patient. [phone] Suzette Elias PA-C 02/21/2024 9:25 AM Signed Have her push fluids. Cont with atb for now. Follow up next week if not improving. If she develops pain she is to return for re-evaluation Chen Lindsey RN 02/21/2024 9:52 AM Signed Pt called [...] but will make her urine orange. Erna Hernadez LPN 02/21/2024 11:50 AM Signed Pt notified of Suzette's message and instructions. Pt verbalizes understanding. Erna Hernadez LPN Allergies As of Date: 02/21/2024 (No Known Allergies) Date Reviewed: 02/19/2024 Reviewed by: Erna Hernadez LPN - Fully Assessed Reason for Visit: Patient Update [1234] Order(s):phenazopyridine (PYRIDIUM) 200 mg tabletTake 1 tablet by [...] Samara Jessica Ma Zantac prn, welbutrin 07-14-18 [place] Problem List As Of Date 02/21/2024 Noted Resolved Attention deficit disorder of adult [F98.8] 05/17/2010 Fibrocystic breast disease [N60.19] 11/07/2013 Seborrheic keratosis [L82.1] 11/07/2013 Visit for routine ob/gyn physician exam [Z01.419] 02/16/2015 Constipation [K59.00] 09/15/2015 Encounter for screening for cardiovascular diso*09/15/2015 Encounter for screening for diabetes mellitus [*09/15/2015 Anxiety and depression [F41.9, F32.A] 09/15/2015 Gall bladder polyp [K82.4] 10/06/2015 Liver hemangioma [D18.03] 10/19/2015 Well adult exam [Z00.00] 02/10/2016 Other snf (current) drug therapy [Z79.899]01/30/2018 Obesity, Class II, [...] to 2 days. Encounter Status:Closed by ERNA HERNADEZ on 02/21/24 [facility] 02-20-2024 [facility] Telephone (FAMWS) -------- SUMMER DRUMMOND ([id number]) 1975 F Date Time Provider Department 02/20/24 SUZETTE ELIAS [facility] During your visit today, we recorded the following information about you: Suzette Elias PA-C 02/20/2024 12:51 PM Signed Urine negative. I want patient to finish atb and get repeat urine in 2 weeks to make sure no more blood. JACKIE Multani Sherill A, LPN 02/20/2024 1:13 PM Signed Patient notified of results and provider's instructions. Patient verbalizes understanding. Erna Hernadez LPN Allergies As of Date: 02/20/2024 (No Known Allergies) Date Reviewed: 02/19/2024 Reviewed by: Erna Hernadez LPN - Fully Assessed Reason for Visit: Results [95] Primary Visit Diagnosis:Microscopic hematuria [R31.29] Order(s):URINALYSIS, WITH MICROSCOPIC [SQUAWMIC] Order #: [id number] FUTURE Prescriptions as of 02/20/2024 - Omeprazole [...] day. Samara Jessica Ma Zantac prn, welbutrin 07-14- SC Problem List As Of Date 02/20/2024 Noted Resolved Attention deficit disorder of adult [F98.8] 05/17/2010 Fibrocystic breast disease [N60.19] 11/07/2013 Seborrheic keratosis [L82.1] 11/07/2013 Visit for routine ob/gyn physician exam [Z01.419] 02/16/2015 Constipation [K59.00] 09/15/2015 Encounter for screening for cardiovascular diso*09/15/2015 Encounter for screening for diabetes mellitus [*09/15/2015 Anxiety and depression [F41.9, F32.A] 09/15/2015 Gall bladder polyp [K82.4] 10/06/2015 Liver hemangioma [D18.03] 10/19/2015 Well adult exam [Z00.00] 02/10/2016 Other snf (current) drug therapy [Z79.899]01/30/2018 Obesity, Class II, BMI 35-39.9 [E66.812] 04/04/2019 Uterine fibroid [D25.9] 10/14/2020 Iron deficiency anemia [D50.9] 10/14/2020 Vitamin D deficiency [E55.9] 06/27/2022 GERD without esophagitis [K21.9] 06/27/2022 Fatty liver [K76.0] 07/28/2022 Eosinophilic esophagitis [K20.0] 09/17/2022 Spinal stenosis, thoracic [M48.04] 07/12/2023 Encounter Status:Closed by ERNA HERNADEZ on 02/20/24 Normal [facility] Gastroenterology Visit Repor ton 02-20-2024 Gastroenterology Visit Report [facility]enterology [address] [place] [address] OFFICE VISIT Date of Service: 02/20/24 MR#: [id number] Acct: [id number] Name: SUMMER DRUMMOND Rep #: [id number] : 1975 Provider: Manny Diamond DO Age/Sex: 48/F [place] [facility] [place]: Signed Intake Vital Signs 08/14/23 08:32 09/26/23 16:30 Height 5 ft 5 in 5 ft 5 in Intake Visit Reasons: 6 M FU Allergies No Known Allergies Allergy (Verified 06/25/23 16:09) Medications ???Medication ???Instructions ???Recorded ???Confirmed ???Type ascorbate calcium (vitamin C) 500 500 mg PO DAILY 07/21/20 02/20/24 History mg tablet cholecalciferol (vitamin D3) 50 50 mcg PO DAILY 03/29/21 02/20/24 History mcg (2,000 unit) capsule (Vitamin D3) zinc acetate 50 mg (zinc) capsule 50 mg PO PRN PRN PROPHYLACTIC 05/31/22 02/20/24 History cod liver oil 1 cap PO DAILY 06/25/23 02/20/24 History omeprazole 20 mg capsule,delayed 20 mg PO DAILY #30 caps 08/24/23 02/20/24 Rx release PFSH Medical History (Updated 02/20/24 @ 10:[address] Bryant Friend, DO) Shortness of breath on exertion Keratosis, seborrheic Fibrocystic breast disease Constipation ADD (attention deficit disorder) Wears glasses Anxiety Fatty liver Back pain Gastric reflux Non-smoker Palpitations Gallbladder polyp Uterine fibroid Uterine fibroid Enlarged uterus Pelvic pain Menorrhagia with irregular cycle Hemangioma of liver Surgical History S/P total hysterectomy ( 04/05/21) Family History Mother uterine fibroid tumor Aunt Colon cancer Unknown Heart disease Hyperlipidemia Father Hypertension Social History household members: spouse and children number of children: 1 current occupational status: employed current occupation: [employer] history of recent travel: No sexually active: Yes Smoking Status: Never smoker alcohol intake: current alcohol intake frequency: holidays/special occasions only substance use type: does not use diet: low carbohydrate well-balanced diet: daily or most days what type of physical activity do you participate in: none seatbelt use: always do you feel safe at home: Yes additional social history: - Roman HPI HPI Details: SUMMER DRUMMOND, is a 48 F who presents to the office today for follow up. *BGI established 06.23.22 with reflux and need for screening colonoscopy. Heartburn has been a difficulty for the last 7 years; TUMS PRN and omeprazole PRN provide temporary relief, prefers to avoid medication.?EGD and colonoscopy 08.30.22???mucosal changes of EOE, >20eosin/field; LA Grade B esophagitis; small hiatal hernia; gastritis; duodenitis. Metaplasia neg.? Colonoscopy poor prep; diverticulosis. ??? OV 09.14.22 consider dupixent?US/ elastography 09.14.22???not completed??? OV 02.22.23 Pt reports she experiences intermittent esophageal spasms. Does not have any burning or dyphagia. Is only taking natural supplements. Does not want any medications. Also wanting to follow up on liver. Did not get US/Elastography we ordered at last visit. 08.24.23 pt reports that she is experiencing daily esophageal spasms. pt denies food getting stuck and HB. If pt does have heartburn she takes a prilosec. Pt states that she would like to take a natural path to treat her symptoms. Pt denies pain, cramping, bloating; and states that she is having a formed bm every day or every other day. OV 02.20.24 pt reports that she thinks she may have a kidney stone and has been dealing with that, is currently on Macrobid. Pt reports gas and bloating after eating. Continues with Omeprazole 20mg d aily. ROS Const Constitutional: No fatigue, fever(s) or weight change ENT ENT: No difficulty swallowing Gastro GI: Positive for bloating, heartburn and excessive flatus; No abdominal pain, belching, change in bowel habits, change in stool character, coffee ground emesis, constipation, cramping, diarrhea, difficulty swallowing, feeling full early, incontinent of stools, Vomiting blood/hematemesis, Blood in stool, loose stools, Black,tarry stools, nausea/dyspepsia, pain with swallowing, vomiting or other Musc Musculoskeletal: Positive for joint pain and stiffness Skin Skin: No yellowing of the eye or itchy eyes Psych Psychiatric: Positive for anxiety and No depression Endo Endocrine: No fatigue or weight change Aller/Imm Allergy/Immunologic: No itchy eyes Jd/Lymp Hematologic/Lymphatic: No easy bleeding or easy bruising Exam Const General: cooperative and (more content not included)... Normal [facility] Bacteria Ur Culton Bacteria identified Cx Nom (U) ORGANISM ID: 1 10,000 -<50,000 CFU/ml Normal urogenital leann Normal [facility] Comment on above: Performed By: #### 6 30-4 ####[facility] [id number] [place] [address] [place] CNOVon 02-19-2024 CNOV Office Visit (FAMPWS ) -------- SUMMER DRUMMOND ([id number]) 1975 F Date Time Provider Department 02/19/24 8:20 AM [facility] During your visit today, we recorded the following information about you: Temperature Pulse Respiration Blood pressure 98.8 degrees 84/minute 18/minute 138/86 Weight 111.6 kg Suzette Elias PA-C 02/19/2024 8:43 AM Signed Chief Complaint Patient presents with: Urinary Problem: Urgency and frequency HPI Summer Drummond is a 48 year old female who [...] Cancer Screening due on 07/22/2023 Covid-19 Vaccine( season) Never done Mammogram Screening due on [...] atb Check urine culture - URINE CULTURE Suzette Elias PA-C Allergies As of Date: 02/19/2024 (No Known Allergies) Date Reviewed: 02/19/2024 Reviewed by: Erna Hernadez LPN - Fully Assessed Reason for Visit: Urinary Problem [252] Cmt: Urgency and frequency Primary Visit Diagnosis:Urinary urgency [R39.15] Order(s):UA DIP, URINE (POC) [5080043] Order #: [id number]. #:[id number] (more content not included)... Normal [facility] UA DIP, URINE (POC)on 2023 BILIRUBIN UA (POCT) Negative Negative [facility] CLARITY UA (POCT) Slightly Cloudy [facility] COLOR UA (POCT) Light yellow [facility] GLUCOSE UA (POCT) Negative Negative mg/dL [facility] Hemoglobin Ql (U) Large Abnormal Negative [facility] Interpretation and review of laboratory results Abnormal [facility] KETONE UA (POCT) Negative Negative mg/dL [facility] LEUKOCYTES UA (POCT) Negative [facility] NIT[facility] (POCT) Negative Negative [facility] PH UA (POCT) 6.5 4.5 - 8.0 [facility] Protein Ql (U) Trace Abnormal Negative mg/dL [facility] SPECIFIC GRAVITY UA (POCT) >=1.030 1.005 - 1.030 [facility] UROBILINOGEN UA (POCT) 0.2 Normal E.U./dL [facility] Location:[facility], [address] [place] [address], [place], [place], [id number] [place] [address] POINT OF CARE [facility] XR Thoracic and lumbar spine Views for scoliosison 01-23-2023 IMPRESSION: Mild multilevel degenerative disc disease. No significant scoliosis. Superior left pelvic tilt. OLOGY EXAM: XR SPINE SCOLI OSIS 2/3 VIEWS, 01/23/2023 12:02 PM COMPARISON: No [...] No significant scoliosis. Superior left pelvic tilt. [facility] Radiology Study observation (narrative) [facility] XR Thoracic and lumbar spine Views for scoliosisOrdered By: Camilo Del Toro on 01-23-2023 [facility] Work Phone: XR Thoracic spine 2 Viewson 01-23-2023 IMPRESSION: Mild multilevel degenerative disc disease. OLOGY EXAM: XR SPINE THORA CIC 2 VIEWS, 01/23/2023 12:01 PM COMPARISON: Outside [...] IMPRESSION IMPRESSION: Mild multilevel degenerative disc disease. [facility] Radiology Study observation (narrative) [facility] XR Thoracic spine 2 ViewsOrd ered By: Camilo Del Toro on 01-23-2023 [facility] Work Phone: XR Abdomen Supine and Uprigh ton 11-16-2022 IMPRESSION: Nonobstructive bowel gas pattern. 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 DIVISION OF RADIOLOGY Provider, [facility] - 11/16/2022 * * *Final Report* * [...] intact. IMPRESSION IMPRESSION: Nonobstructive bowel gas pattern. 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: [facility] Transcribe Date/Time: Nov 16 2022 4:52P Dictated by : YOLY DUMAS MD This examination was interpreted and the report reviewed and electronically signed by: YOLY DUMAS MD on Nov 16 2022 4:53PM EST [facility] XR Abdomen Supine and Uprigh tOrdered By: [facility] Provider on 11-16-2022 [facility] XR Abdomen Supine and Uprigh ton 11-15-2022 Radiology Study observation (narrative) [facility] US ABD RT UPPER QUADRANTon 0 07-26-2022 [facility] CBC W Auto Differential pane l (Bld)on 08-09-2021 Abs Immature Gran 0.03 k/uL <0.10 k/uL [facility] Basophils (Bld) [#/Vol] 0.06 10*3/uL <0.11 k/uL [facility] Basophils/100 WBC (Bld) 0.7 % [facility] Differential cell count method Nom (Bld) Auto [facility] Eosinophils (Bld) [#/Vol] 0.29 10*3/uL <0.46 k/uL [facility] Eosinophils/100 WBC (Bld) 3.2 % [facility] Erythrocyte distribution width (RBC) [Ratio] 13.1 % 11.5 - 15.0 % [facility] Hematocrit (Bld) [Volume fraction] 40.9 % 36.0 - 46.0 % [facility] Hemoglobin (Bld) [Mass/Vol] 13.2 g/dL 11.5 - 15.5 g/dL [facility] Immature Gran % 0.3 % [facility] Lymphocytes (Bld) [#/Vol] 2.76 10*3/uL 1.00 - 4.00 k/uL [facility] Lymphocytes/100 WBC (Bld) 30.8 % [facility] MCH (RBC) [Entitic mass] 28.6 pg 26.0 - 34.0 pg [facility] MCHC (RBC) [Mass/Vol] 32.3 g/dL 30.5 - 36.0 g/dL [facility] MCV (RBC) [Entitic vol] 88.7 fL 80.0 - 100.0 fL [facility] Monocytes (Bld) [#/Vol] 0.51 10*3/uL <0.87 k/uL [facility] Monocytes/100 WBC (Bld) 5.7 % [facility] Neutrophils (Bld) [#/Vol] 5.31 10*3/uL 1.45 - 7.50 k/uL [facility] Neutrophils/100 WBC (Bld) 59.3 % [facility] Nucleated RBC (Bld) [#/Vol] 10*3/uL <0.01 k/uL [facility] Nucleated RBC/100 WBC (Bld) [Ratio] 0.0 /100 WBC [facility] Platelet mean volume (Bld) [Entitic vol] 11.0 fL 9.0 - 12.7 fL [facility] Platelets (Bld) [#/Vol] 284 10*3/uL 150 - 400 k/uL [facility] RBC (Bld) [#/Vol] 4.61 10*6/uL 3.90 - 5.2 0 m/uL [facility] WBC (Bld) [#/Vol] 8.96 10*3/uL 3.70 - 11. 00 k/uL [facility] ESR Westergren method (Bld) [Velocity]on 08-09-2021 ESR (Bld) [Velocity] 9 mm/h 0 - 20 mm/hr [facility] MRI LIVER W/WO IV CONon 11-0 MRI LIVER W/WO IV CON Performed at [facility] APPROVED BY: Guanaco Ham MD EXAM [...] of exam is unremarkable. Normal [facility] Vital Signs Date Time Vital Sign Value Performing Clinician Facility 06-27-2024 08:06-0500 Body height 165.[address] Ronaldo Medley MD Work Phone: [facility] 06-27-2024 08:06-0500 Body mass index (BMI) [Ratio] 41.1 kg/m2 Dr. Ronaldo Medley MD Work Phone: [facility] 06-27-2024 08:06-0500 Body weight 112.[address] Ronaldo Medley MD Work Phone: [facility] 06-27-2024 08:06-0500 Diastolic blood pressure 86 mm[Hg] Dr. Ronaldo Medley MD Work Phone: [facility] 06-27-2024 08:06-0500 Systolic blood pressure 138 mm[Hg] Dr. Ronaldo Medley MD Work Phone: [facility] 02-19-2024 08:15-0400 Body mass index (BMI) [Ratio] 40.25 kg/m2 Suzette Elias PA-C Work Phone: [facility] 02-19-2024 08:15-0400 Body temperature 98.8 [degF] Suzette Elias PA-C Work Phone: [facility] 02-19-2024 08:15-0400 Body weight 111.58 kg Suzette Elias PA-C Work Phone: [facility] 02-19-2024 08:15-0400 Diastolic blood pressure 86 mm[Hg] Suzette Elias PA-C Work Phone: [facility] 02-19-2024 08:15-0400 Heart rate 84 /min Suzette Elias PA-C Work Phone: [facility] 02-19-2024 08:15-0400 Respiratory rate 18 /min Suzette Elias PA-C Work Phone: [facility] 02-19-2024 08:15-0400 SaO2% (BldA) [Mass fraction] 97 % Suzette Elias PA-C Work Phone: [facility] 02-19-2024 08:15-0400 Systolic blood pressure 138 mm[Hg] Suzette Elias PA-C Work Phone: [facility] 08-14-2023 08:32-0400 Body height 165.[address] Ronaldo Medley Work Phone: [facility] 08-14-2023 08:32-0400 Body weight 108.[address] Ronaldo Medley Work Phone: [facility] 07-12-2023 07:54-0400 Diastolic blood pressure 86 mm[Hg] Suzette Elias PA-C Work Phone: [facility] 07-12-2023 07:54-0400 Heart rate 72 /min Suzette Elias PA-C Work Phone: [facility] 07-12-2023 07:54-0400 Systolic blood pressure 126 mm[Hg] Suzette Elias PA-C Work Phone: [facility] 07-12-2023 07:07-0400 Body height 166.5 cm Suzette Elias PA-C Work Phone: [facility] 07-12-2023 07:07-0400 Body temperature 99.19 [degF] Suzette Elias PA-C Work Phone: [facility] 07-12-2023 07:07-0400 Body weight 108.41 kg Suzette Elias PA-C Work Phone: [facility] 07-12-2023 07:07-0400 Respiratory rate 18 /min Suzette Elias PA-C Work Phone: [facility] 06-25-2023 16:05-0500 Body height 165.[address] Ronaldo Medley Work Phone: [facility] 06-25-2023 16:05-0500 Body mass index (BMI) [Ratio] 40.3 kg/m2 Dr. Ronaldo Medley Work Phone: [facility] 06-25-2023 16:05-0500 Body weight 109.[address] Ronaldo Medley Work Phone: [facility] 06-25-2023 16:05-0500 Diastolic blood pressure 85 mm[Hg] Dr. Ronaldo Medley Work Phone: [facility] 06-25-2023 16:05-0500 Systolic blood pressure 137 mm[Hg] Dr. Rnoaldo Medley Work Phone: [facility] 01-23-2023 12:24-0400 Body height 165.1 cm Regis Souza MD Work Phone: [facility] 01-23-2023 12:24-0400 Body mass index (BMI) [Ratio] 38.44 kg/m2 Regis Souza MD Work Phone: [facility] 01-23-2023 12:24-0400 Body temperature 98.01 [degF] Regis Souza MD Work Phone: [facility] 01-23-2023 12:24-0400 Body weight 104.78 kg Regis Souza MD Work Phone: [facility] 01-23-2023 12:24-0400 Diastolic blood pressure 79 mm[Hg] Regis Souza MD Work Phone: [facility] 01-23-2023 12:24-0400 Heart rate 70 /min Regis Souza MD Work Phone: [facility] 01-23-2023 12:24-0400 SaO2% (BldA) [Mass fraction] 99 % Regis Souza MD Work Phone: [facility] 01-23-2023 12:24-0400 Systolic blood pressure 145 mm[Hg] Regis Souza MD Work Phone: [facility] 11-15-2022 06:58-0400 Body temperature 99.1 [degF] Suzette Elias PA-C Work Phone: [facility] 11-15-2022 06:58-0400 Body weight 104.78 kg Suzette Elias PA-C Work Phone: [facility] 11-15-2022 06:58-0400 Diastolic blood pressure 86 mm[Hg] Suzetterufus Elias PA-C Work Phone: [facility] 11-15-2022 06:58-0400 Heart rate 96 /min Suzette Elias PA-C Work Phone: [facility] 11-15-2022 06:58-0400 Respiratory rate 18 /min Suzetterufus Elias PA-C Work Phone: [facility] 11-15-2022 06:58-0400 Systolic blood pressure 136 mm[Hg] Suzetterufus Elias PA-C Work Phone: [facility] 08-30-2022 11:18-0400 Body temperature 97.8 [degF] Dr. Ronaldo Medley Work Phone: [facility] 08-30-2022 11:18-0400 Diastolic blood pressure 77 mm[Hg] Dr. Ronaldo Medley Work Phone: [facility] 08-30-2022 11:18-0400 Heart rate 81 /min Dr. Ronaldo Medley Work Phone: [facility] 08-30-2022 11:18-0400 Respiratory rate 16 /min Dr. Ronaldo Medley Work Phone: [facility] 08-30-2022 11:18-0400 SaO2% (BldA) [Mass fraction] 100 % Dr. Ronaldo Medley Work Phone: [facility] 08-30-2022 11:18-0400 Systolic blood pressure 114 mm[Hg] Dr. Ronaldo Medley Work Phone: [facility] 08-30-2022 09:38-0400 Body height 165.[address] Ronaldo Medley Work Phone: [facility] 08-30-2022 09:38-0400 Body mass index (BMI) [Ratio] 38.1 kg/m2 Dr. Ronaldo Medley Work Phone: [facility] 08-30-2022 09:38-0400 Body weight [address] Ronaldo Medley Work Phone: [facility] 07-14-2022 07:43-0400 Diastolic blood pressure 83 mm[Hg] Suzette Elias PA-C Work Phone: [facility] 07-14-2022 07:43-0400 Systolic blood pressure 124 mm[Hg] Suzette Elias PA-C Work Phone: [facility] 07-14-2022 07:08-0400 Body weight 105.23 kg Suzette Elias PA-C Work Phone: [facility] 07-14-2022 07:08-0400 Heart rate 86 /min Suzette Elias PA-C Work Phone: [facility] 07-14-2022 07:08-0400 Respiratory rate 18 /min Suzette Elias PA-C Work Phone: [facility] 07-14-2022 07:08-0400 SaO2% (BldA) [Mass fraction] 97 % Suzette Elias PA-C Work Phone: [facility] 06-27-2022 14:25-0500 Diastolic blood pressure 71 mm[Hg] Suzette Elias PA-C Work Phone: [facility] 06-27-2022 14:25-0500 Heart rate 67 /min Suzette Elias PA-C Work Phone: [facility] 06-27-2022 14:25-0500 Systolic blood pressure 123 mm[Hg] Suzette Elias PA-C Work Phone: [facility] 06-27-2022 13:17-0500 Body height 166 cm Suzette Elias PA-C Work Phone: [facility] 06-27-2022 13:17-0500 Body weight 106.59 kg Suzette Elias PA-C Work Phone: [facility] 06-27-2022 13:17-0500 Respiratory rate 16 /min Suzette Elias PA-C Work Phone: [facility] 06-27-2022 13:17-0500 SaO2% (BldA) [Mass fraction] 97 % Suzette Elias PA-C Work Phone: [facility] 06-23-2022 15:19-0500 Body mass index (BMI) [Ratio] 39.1 kg/m2 Dr. Ronaldo Medely Work Phone: [facility] 06-23-2022 15:19-0500 Body weight 106.[address] Ronaldo Medley Work Phone: [facility] 05-31-2022 15:04-0500 Body height 165.[address] Ronaldo Medley Work Phone: [facility] 05-31-2022 15:04-0500 Body mass index (BMI) [Ratio] 39.3 kg/m2 Dr. Ronaldo Medley Work Phone: [facility] 05-31-2022 15:04-0500 Body weight 107.[address] Ronaldo Medley Work Phone: [facility] 05-31-2022 15:04-0500 Diastolic blood pressure 85 mm[Hg] Dr. Ronaldo Medley Work Phone: [facility] 05-31-2022 15:04-0500 Systolic blood pressure 144 mm[Hg] Dr. Ronaldo Medley Work Phone: [facility] 03-08-2022 19:25-0500 Body temperature 98.1 [degF] Ronaldo Coronel GAME TECHNICIAN.HAND BUTTON SPLITTER Work Phone: [facility] 03-08-2022 19:25-0500 Body weight 109.05 kg Ronaldo Coronel GAME TECHNICIAN.HAND BUTTON SPLITTER Work Phone: [facility] 03-08-2022 19:25-0500 Diastolic blood pressure 82 mm[Hg] Ronaldo Coronel GAME TECHNICIAN.HAND BUTTON SPLITTER Work Phone: [facility] 03-08-2022 19:25-0500 Heart rate 84 /min Ronaldo Coronel GAME TECHNICIAN.HAND BUTTON SPLITTER Work Phone: [facility] 03-08-2022 19:25-0500 Respiratory rate 18 /min Ronaldo Coronel GAME TECHNICIAN.HAND BUTTON SPLITTER Work Phone: [facility] 03-08-2022 19:25-0500 SaO2% (BldA) [Mass fraction] 98 % Ronaldo Coronel GAME TECHNICIAN.HAND BUTTON SPLITTER Work Phone: [facility] 03-08-2022 19:25-0500 Systolic blood pressure 122 mm[Hg] Ronaldo Coronel GAME TECHNICIAN.HAND BUTTON SPLITTER Work Phone: [facility] 11-15-2021 11:52-0400 Body height 165.[address] Ronaldo Medley Work Phone: [facility] Work Phone: 11-06-2021 12:07-0400 Body height 165.[address] Ronaldo Medley Work Phone: [facility] Work Phone: 11-06-2021 12:07-0400 Body mass index (BMI) [Ratio] 39.9 kg/m2 Dr. Ronaldo Medley Work Phone: [facility] Work Phone: 11-06-2021 12:07-0400 Body temperature 97.9 [degF] Dr. Ronaldo Medley Work Phone: [facility] Work Phone: 11-06-2021 12:07-0400 Body weight 108.[address] Ronaldo Medley Work Phone: [facility] Work Phone: 11-06-2021 12:07-0400 Diastolic blood pressure 94 mm[Hg] Dr. Ronaldo Medley Work Phone: [facility] Work Phone: 11-06-2021 12:07-0400 Heart rate 102 /min Dr. Ronaldo Medley Work Phone: [facility] Work Phone: 11-06-2021 12:07-0400 Respiratory rate 18 /min Dr. Ronaldo Medley Work Phone: [facility] Work Phone: 11-06-2021 12:07-0400 SaO2% (BldA) [Mass fraction] 99 % Dr. Ronaldo Medley Work Phone: [facility] Work Phone: 11-06-2021 12:07-0400 Systolic blood pressure 163 mm[Hg] Dr. Ronaldo Medley Work Phone: [facility] Work Phone: 09-21-2021 07:03-0400 Body temperature 98.1 [degF] Suzette Elias PA-C Work Phone: [facility] 09-21-2021 07:03-0400 Body weight 109.32 kg Suzette Elias PA-C Work Phone: [facility] 05-25-2022 07:03-0400 Diastolic blood pressure 86 mm[Hg] Suzette Elias PA-C Work Phone: [facility] 09-21-2021 07:03-0400 Heart rate 80 /min Suzetterufus Elias PA-C Work Phone: [facility] 09-21-2021 07:03-0400 Respiratory rate 18 /min Suzette Elias PA-C Work Phone: [facility] 09-21-2021 07:03-0400 Systolic blood pressure 136 mm[Hg] Suzette Elias PA-C Work Phone: [facility] 08-23-2021 11:28-0400 Diastolic blood pressure 81 mm[Hg] Suzette Elias PA-C Work Phone: [facility] 08-23-2021 11:28-0400 Heart rate 86 /min Suzette Elias PA-C Work Phone: [facility] 08-23-2021 11:28-0400 Systolic blood pressure 127 mm[Hg] Suzette Elias PA-C Work Phone: [facility] 08-23-2021 10:51-0400 Body temperature 98.8 [degF] Suzette Elias PA-C Work Phone: [facility] 08-23-2021 10:51-0400 Body weight 108.41 kg Suzette Elias PA-C Work Phone: [facility] 08-23-2021 10:51-0400 Respiratory rate 18 /min Suzette Elias PA-C Work Phone: [facility] 08-09-2021 10:45-0400 Diastolic blood pressure 83 mm[Hg] Suzette Elias PA-C Work Phone: [facility] 08-09-2021 10:45-0400 Heart rate 64 /min Suzette Elias PA-C Work Phone: [facility] 08-09-2021 10:45-0400 Systolic blood pressure 129 mm[Hg] Suzetterufus Elias PA-C Work Phone: [facility] 08-09-2021 09:32-0400 Body height 165.5 cm Suzette CAMARENA-C Work Phone: [facility] 08-09-2021 09:32-0400 Body temperature 99.5 [degF] Suzette CAMARENA-C Work Phone: [facility] 08-09-2021 09:32-0400 Body weight 109.32 kg Suzette CAMARENA-C Work Phone: [facility] 08-09-2021 09:32-0400 Respiratory rate 18 /min Suzette CAMARENA-C Work Phone: [facility] 07-13-2021 15:53-0400 Body height 165.[address] Ronaldo Medley Work Phone: [facility] Work Phone: 07-13-2021 15:53-0400 Body mass index (BMI) [Ratio] 39.9 kg/m2 Dr. Ronaldo Medley Work Phone: [facility] Work Phone: 07-13-2021 15:53-0400 Body weight 108.[address] Ronaldo Medley Work Phone: [facility] Work Phone: 07-13-2021 15:53-0400 Diastolic blood pressure 90 mm[Hg] Dr. Ronaldo Medley Work Phone: [facility] Work Phone: 07-13-2021 15:53-0400 Systolic blood pressure 118 mm[Hg] Dr. Ronaldo Medley Work Phone: [facility] Work Phone: Encounters Encounter Date Encounter Type Care Provider Facility Start: 10-02-2024 ambulatory Suzette CAMARENA Fac ility:[facility] Start: 09-30-2024 End: 09-30-2024 Emergency department patient visit Suzette CAMARENA Facility:[facility] Start: 09-30-2024 End: 09-30-[address] [facility] Facility:[facility] Start: 09-17-2024 End: 09-17-[address] [facility] Facility:[facility] Start: 09-12-2024 End: 09-12-2024 Patient encounter procedure Manny Diamond DO -[facility] Work Phone: Start: 09-12-2024 End: 09-12-[address] Ronaldo Medley MD Work Phone: [facility] Work Phone: Start: 09-02-2024 End: 09-02-2024 Orders Only Levi Bee DO Work Phone: Orthopaedics Comment on above: Patellofemoral arthr itis (Primary Dx) Start: 09-01-2024 End: 09-02-2024 Telephone encounter Levi Bee Work Phone: [facility] -[facility] Comment on above: Insurance Authorizat ion (Prior Auth Delayed: Medical Necessity Not Met) Start: 08-29-2024 End: 08-29-[address] Ronaldo Medley MD Work Phone: [facility] Work Phone: Start: 08-29-2024 End: 08-29-2024 Patient encounter procedure Manny Diamond DO -[facility] Work Phone: Start: 08-29-2024 End: 08-29-2024 ambulatory Suzette CAMARENA Facility:[facility] Start: 08-27-2024 End: 08-27-2024 Patient encounter procedure Levi Bee DO Work Phone: [facility] Comment on above: Patellofemoral arthr itis (Primary Dx); Chronic pain of both knees Start: 08-27-2024 End: 08-27-2024 ambulatory LEVI BEE Facility:[facility] Start: 08-27-2024 End: 08-27-2024 Subsequent hospital visit by physician [facility] Work Phone: Radiology Comment on above: Pain in both knees, unspecified chronicity [M25.561, M25.562] Start: 08-27-2024 End: 09-04-2024 Telephone encounter Levi Bee DO Work Phone: Orthopaedics Comment on above: [facility] [facility] referral Start: 08-26-2024 End: 08-26-2024 Orders Only Levi Rohit DO Work Phone: Orthopaedics Comment on above: Pain in both knees, unspecified chronicity (Primary Dx) Start: 08-21-2024 Patient encounter status Levi Bee V, DO Work Phone: [facility] Start: 08-21-2024 End: 08-21-2024 ambulatory SUZETTE ELIAS Facility:[facility] Start: 08-21-2024 Encounter for genera l adult medical examination without abnormal findings SUZETTE ELIAS [facility] Start: 08-21-2024 End: 08-21-2024 ambulatory SUZETTE ELIAS Facility:[facility] Start: 08-12-2024 End: 08-12-2024 Patient encounter procedure Manny Diamond DO -[facility] Work Phone: Start: 08-12-2024 End: 08-12-2024 ambulatory Ronaldo Medley Facility:[facility] Start: 08-06-2024 End: 08-06-[address] Ronaldo Medley MD Work Phone: [facility] Work Phone: Start: 08-06-2024 End: 08-06-[address] Mariaa Goodman DO -Outpatient Breast Imaging Work Phone: Start: 08-06-2024 End: 08-06-2024 ambulatory Mariaa Goodman Facility:[facility] Start: 06-27-2024 Encounter for gynecological examination (general) (routine) without abnormal findings Mariaa Goodman [facility] Start: 06-27-2024 End: 06-27-[address] Mariaa Goodman DO -[facility] Work Phone: Start: 06-27-2024 End: 06-27-[address] Mariaa Goodman DO [facility] Start: 06-27-2024 End: 06-27-2024 ambulatory Mariaa Goodman Facility:[facility] Start: 02-26-2024 End: 02-26-2024 Chart abstracting Ronaldo Medley MD Work Phone: [facility] Comment on above: ER Discharge Summary Start: 02-23-2024 End: 02-23-2024 Emergency department patient visit Ronaldo Medley Facility:[facility] Start: 02-21-2024 End: 02-21-2024 Telephone encounter Suzette Elias PA-C Work Phone: [facility] Comment on above: Patient Update Start: 02-20-2024 End: 02-20-2024 Telephone encounter Suzette Elias PA-C Work Phone: [facility] Comment on above: Results Start: 02-20-2024 End: 02-20-2024 ambulatory Ronaldo Medley Facility:[facility] Start: 02-19-2024 End: 02-19-2024 ambulatory SUZETTE ELIAS Facility:[facility] Start: 02-19-2024 End: 02-19-2024 Patient encounter procedure Suzette Elias PA-C Work Phone: [facility] Comment on above: Urinary urgency (Chantel rajat Dx) Start: 12-10-2023 ambulatory Suzette schmitzty:[facility] Start: 08-24-2023 End: 08-24-[address] Ronaldo Medley Work Phone: [facility] Work Phone: Start: 08-14-2023 End: 08-28-[address] Ronaldo Medley Work Phone: [facility] Work Phone: Start: 08-14-2023 End: 08-28-[address] Ronaldo Medley Work Phone: [facility] Work Phone: Start: 07-13-2023 Telephone encounter Suzette weinstein PA-C Work Phone: [facility] Comment on above: Results Start: 07-12-2023 Chart abstracting Ronaldo moncada MD Work Phone: [facility] Comment on above: Opened In Error Start: 07-12-2023 End: 07-12-2023 Patient encounter procedure Suzette Elias PA-C [facility] Comment on above: Well adult exam (Chantel rajat Dx); Eosinophilic esophagitis; Obesity, Class II, BMI 35-39.9; Fatty liver; Spinal stenosis, thoracic; GERD without esophagitis; Vitamin D deficiency; Iron deficiency anemia, unspecified iron deficiency anemia type; Encounter for screening for diabetes mellitus; Encounter for screening for cardiovascular disorders; Medication management; Family history of thyroid disorder Start: 07-12-2023 End: 07-12-2023 Patient encounter status Suzette Elias PA-C Work Phone: [facility] Work Phone: Start: 07-11-2023 Chart abstracting Ronaldo moncada MD Work Phone: [facility] Comment on above: Outside Mammogram Start: 07-10-2023 End: 07-10-[address] Ronaldo Medley Work Phone: [facility] Work Phone: Start: 07-10-2023 End: 07-10-[address] Ronaldo Medley Work Phone: [facility]-Outpatient Breast Imaging Work Phone: Start: 06-25-2023 End: 06-25-[address] Ronaldo Medley Work Phone: [facility] Work Phone: Start: 01-23-2023 End: 01-23-2023 Office consultation new/estab patient 80 min Regis Souza MD Work Phone: [facility] [place] Comment on above: Spinal stenosis, tho racic region (Primary Dx) Start: 01-23-2023 End: 01-23-2023 Subsequent hospital visit by physician Regis Souza MD Work Phone: [facility] [place] Comment on above: Arrived Start: 11-16-2022 Telephone encounter Ronaldo Medley MD Work Phone: [facility] Comment on above: Results Start: 11-15-2022 End: 11-15-2022 Subsequent hospital visit by physician [facility] Work Phone: Radiology Comment on above: Diarrhea, unspecifie d type [R19.7] Start: 11-15-2022 End: 11-15-2022 Patient encounter procedure Suzette Elias PA-C Work Phone: [facility] Comment on above: Diarrhea, unspecifie d type (Primary Dx) Start: 11-14-2022 ambulatory Ronaldo bello MD Work Phone: [facility] Comment on above: Nausea; Diarrhea Start: 08-30-2022 Non-patient / Non-visit Dr. Sreedhar Medley Work Phone: [facility] Start: 08-30-2022 End: 08-30-2022 Admission to same day surgery center Dr. Ronaldo Medley Work Phone: [facility]-Endoscopy Start: 08-30-2022 End: 08-30-[address] Ronaldo Medley Work Phone: [facility] Work Phone: Start: 07-28-2022 Telephone encounter Suzette weinstein PA-C Work Phone: [facility] Comment on above: Results Start: 07-26-2022 End: 07-26-2022 Subsequent hospital visit by physician [facility] Work Phone: Radiology Comment on above: Gall bladder polyp [ K82.4] Start: 07-14-2022 End: 07-14-2022 Patient encounter procedure Suzette Elias PA-C Work Phone: [facility] Comment on above: Strain of neck muscl e, initial encounter (Primary Dx) Start: 07-13-2022 Telephone encounter Suzette Trish weinstein PA-C Work Phone: [facility] Comment on above: Results Start: 06-27-2022 Telephone encounter Suzette Trish weinstein PA-C Work Phone: [facility] Comment on above: Consult (To Derm) Start: 06-27-2022 End: 06-27-2022 Patient encounter procedure Suzette Elias PA-C Work Phone: [facility] [place] Comment on above: Well adult exam ([facility] rajat Dx); Anxiety and depression; Obesity, Class II, BMI 35-39.9; Constipation, unspecified constipation type; Screening for diabetes mellitus; Vitamin D deficiency; Encounter for screening for cardiovascular disorders; Encounter for screening for diabetes mellitus; Iron deficiency anemia, unspecified iron deficiency anemia type; Gall bladder polyp; Atypical nevus; GERD without esophagitis Start: 06-27-2022 End: 06-27-2022 Patient encounter status Suzetterufus Elias PA-C [facility] Start: 06-26-2022 Chart abstracting Ronaldo moncada MD Work Phone: [facility] Comment on above: Consult (Gastro [facility] ) Start: 06-23-2022 End: 06-23-[address] Ronaldo Medley Work Phone: [facility] Start: 06-12-2022 End: 06-12-[address] Ronaldo Medley Work Phone: [facility] Work Phone: Start: 06-12-2022 End: 06-12-[address] Ronaldo Medley Work Phone: [facility]-Outpatient Breast Imaging Start: 05-31-2022 End: 05-31-[address] Ronaldo Medley Work Phone: [facility] Start: 03-08-2022 End: 03-08-2022 Patient encounter procedure Ronaldo Coronel APRN.CNP Work Phone: [facility] Comment on above: Tick bite of back, i nitial encounter (Primary Dx) Start: 11-18-2021 End: 11-18-[address] Ronaldo Medley Work Phone: [facility] Start: 11-15-2021 End: 11-15-[address] Ronaldo Medley Work Phone: [facility] Start: 11-10-2021 End: 11-10-[address] Ronaldo Medley Work Phone: [facility] Start: 11-06-2021 End: 11-06-2021 Emergency department patient visit Dr. Ronaldo Medley Work Phone: [facility]-Emergency Department Start: 10-19-2021 End: 10-19-2021 [facility] Suzette Elias PA-C [facility] Phone[facility] Comment on above: Attention deficit di sorder of adult Start: 09-21-2021 End: 09-21-2021 Patient encounter procedure Suzette Elias PA-C Work Phone: [facility] [place] Comment on above: Attention deficit di sorder of adult Start: 09-14-2021 ambulatory Ronaldo bello MD Work Phone: [facility] [place] Start: 08-23-2021 End: 08-23-2021 Patient encounter procedure Suzette Elias PA-C Work Phone: [facility] [place] Comment on above: Attention deficit di sorder of adult (Primary Dx); Medication management Start: 08-15-2021 End: 08-15-[address] Ronaldo Medley Work Phone: [facility]-Physical Therapy Start: 08-10-2021 Telephone encounter Suzette weinstein PA-C Work Phone: [facility] Comment on above: Results Start: 08-09-2021 End: 08-09-2021 Patient encounter procedure Suzette Elias PA-C [facility] Comment on above: Well adult exam (Chantel rajat Dx); Encounter for gynecological examination without abnormal [...] Start: 08-09-2021 End: 08-09-2021 Patient encounter status Suzette Elias PA-C [facility] Start: 07-20-2021 Telephone encounter Ronaldo Medley MD Work Phone: [facility] Comment on above: Orders Start: 07-13-2021 End: 07-13-[address] Ronaldo Medley Work Phone: [facility] Start: 10-14-2020 Patient encounter status Ronaldo Medley MD Work Phone: [facility] Work Phone: Start: 03-08-2018 End: 03-09-2018 Patient encounter procedure [facility] Facility:[facility] Start: 02-10-2016 Patient encounter status Roanldo Medley MD Work Phone: [facility] Work Phone: Procedures Date Procedure Procedure Detail Performing Clinician Start: 08-29-[address] Ronaldo Medley MD Work Phone: Start: 08-21-2024 Lipid 1996 panel - Serum or Plasma Levi Castillo DO Work Phone: Start: 08-06-[address] Ronaldo Medley MD Work Phone: Start: 02-19-2024 Urnls dip stick/tablet rgnt auto w/o microscopy Suzette Elias PA-C Work Phone: Start: 07-12-2023 Lipid 1996 panel - Serum or Plasma Suzette Elias PA-C Work Phone: Start: 07-10-[address] Ronaldo Medley Work Phone: Start: 01-23-2023 End: 01-23-2023 Radex spine thoracic 2 views Regis Souza MD Work Phone: Start: 11-15-2022 Radiologic exam abdomen 1 view Suzette Elias PA-C Work Phone: Start: 08-30-2022 End: 08-30-[address] Ronaldo Medley Work Phone: Start: 07-26-2022 Us abdominal real time w/image limited Suzette Elias PA-C Work Phone: Start: 07-12-2022 Lipid 1996 panel - Serum or Plasma Us 2 Work Phone: Start: 06-12-2022 End: 06-12-[address] Ronaldo Medley Work Phone: Start: 11-18-2021 Plain x-ray of elbow Dr. Ronaldo Medley Work Phone: Start: 11-15-2021 MRI of joint of lower extremity Dr. Ronaldo Medley Work Phone: Start: 11-10-2021 Plain x-ray of elbow Dr. Ronaldo Medley Work Phone: Start: 11-10-2021 Plain x-ray of wrist Dr. Ronaldo Medley Work Phone: Start: 11-06-2021 Plain x-ray of hand Dr. Ronaldo Medley Work Phone: Start: 11-06-2021 Plain x-ray of humerus Dr. Ronaldo barreto Work Phone: Start: 11-06-2021 X-ray of radius and ulna Dr. Ronaldo johnson Work Phone: Start: 08-04-2020 Mammography Ronaldo Medley MD Work Phone: H/O: hysterectomy Status post hysterectom y Dr. Ronaldo Medley Work Phone: Plan of Treatment Date Care Activity Detail Author Start: 08-21-2029 Lipid panel Lipid Screening [facility] Start: 07-11-2028 Lipid panel Lipid Screening [facility] Start: 08-31-2027 Colonoscopy COLONOSCOPY [facility] Start: 08-31-2027 COLORECTAL CANCER SCREENING COLORECTAL CANCER SCREENING [facility] Start: 08-31-2027 Screening for malign ant neoplasm of colon [facility] Start: 08-22-2027 Diabetes Screening Diabetes Screenin g [facility] Start: 07-13-2027 Lipid 1996 panel - S joe or Plasma Lipid Screening [facility] Start: 07-13-2027 Lipid panel Lipid Screening [facility] Start: 07-13-2027 LIPID SCREEN LIPID SCREEN [facility] Start: 08-09-2026 LIPID SCREEN LIPID SCREEN [facility] Start: 07-11-2026 Diabetes Screening Diabetes Screenin g [facility] Start: 11-15-2025 DIABETES SCREEN DIABETES SCREEN [facility] Start: 11-15-2025 Diabetes Screening Diabetes Screenin g [facility] Start: 08-21-2025 Covid-19 Vaccine () Covid-19 Vaccine () [facility] Comment on above: Postponed from 12/29 (Declined at this time) Start: 08-21-2025 Urine microalbumin profile DTaP,Tdap,Td Vaccine (2 - Td or Tdap) [facility] Comment on above: Postponed from 05/17 (Declined at this time) Start: 08-06-2025 Screening for malign ant neoplasm of breast Mammogram Screening [facility] Start: 07-21-2025 HPV TESTING HPV TESTING [facility] Start: 07-21-2025 PAP TESTING PAP TESTING [facility] Start: 07-21-2025 Screening for malign ant neoplasm of cervix [facility] Start: 07-12-2025 DIABETES SCREEN DIABETES SCREEN [facility] Start: 09-17-2024 End: 09-17-2024 ambulatory 09/17/2024 3:45 PM EDT OT/PT/Speech Visit [place] [facility] [address] [place] [address] Arlene Freitas, PT Dx: Chronic pain of both knees [M25.561, M25.562, G89.29] [place] [facility] Comment on above: Dx: Chronic pain of both knees [M25.561, M25.562, G89.29] Start: 08-27-2024 End: 08-27-2024 Patient encounter procedure Radiology Comment on above: xray Dx: Chronic pain of both knees [M25.561, M25.562, G89.29] Start: 08-09-2024 DIABETES SCREEN DIABETES SCREEN [facility] Start: 07-11-2024 Covid-19 Vaccine () Covid-19 Vaccine () [facility] Comment on above: Postponed from 12/29 (Declined at this time) Start: 07-11-2024 Urine microalbumin profile DTaP,Tdap,Td Vaccine (2 - Td or Tdap) [facility] Comment on above: Postponed from 05/17 (Declined at this time) Start: 07-09-2024 Screening for malign ant neoplasm of breast Mammogram Screening [facility] Start: 03-05-2024 End: 06-04-2024 Urinalysis complete panel - Urine URINALYSIS, WITH MICROSCOPIC Lab Routine Microscopic hematuria Expected: 03/05/2024, Expires: 06/04/2024 [facility] Work Phone: Comment on above: Expected: 03/05/2024 , Expires: 06/04/2024 Start: 02-19-2024 End: 05-20-2024 Bacteria identified in Urine by Culture [facility] Work Phone: Comment on above: Expected: 02/19/2024 , Expires: 05/20/2024 Start: 12-30-2023 Covid-19 Vaccine (1 - 2023-24 season) Covid-19 Vaccine () [facility] Start: 12-30-2023 Covid-19 Vaccine () Covid-19 Vaccine () [facility] Start: 07-22-2023 Screening for malign ant neoplasm of cervix Cervical Cancer Screening [facility] Start: 07-12-2023 End: 10-11-2023 25-hydroxyvitamin D3 [Mass/volume] in Serum or Plasma [facility] Work Phone: Comment on above: Expected: 07/12/2023 , Expires: 10/11/2023 Start: 07-12-2023 End: 10-11-2023 CBC W Auto Differential panel - Blood [facility] Work Phone: Comment on above: Expected: 07/12/2023 , Expires: 10/11/2023 Start: 07-12-2023 End: 10-11-2023 Cobalamin (Vitamin B12) [Mass/volume] in Serum or Plasma [facility] Work Phone: Comment on above: Expected: 07/12/2023 , Expires: 10/11/2023 Start: 07-12-2023 End: 10-11-2023 Comprehensive metabolic 2000 panel - Serum or Plasma [facility] Work Phone: Comment on above: Expected: 07/12/2023 , Expires: 10/11/2023 Start: 07-12-2023 End: 10-11-2023 Cortisol [Mass/volume] in Serum or Plasma [facility] Work Phone: Comment on above: Expected: 07/12/2023 , Expires: 10/11/2023 Start: 07-12-2023 End: 10-11-2023 Ferritin [Mass/volume] in Serum or Plasma [facility] Work Phone: Comment on above: Expected: 07/12/2023 , Expires: 10/11/2023 Start: 07-12-2023 End: 10-11-2023 Folate [Mass/volume] in Serum or Plasma [facility] Work Phone: Comment on above: Expected: 07/12/2023 , Expires: 10/11/2023 Start: 07-12-2023 End: 10-11-2023 Hemoglobin A1c in Blood [facility] Work Phone: Comment on above: Expected: 07/12/2023 , Expires: 10/11/2023 Start: 07-12-2023 End: 10-11-2023 Iron and Iron binding capacity panel - Serum or Plasma [facility] Work Phone: Comment on above: Expected: 07/12/2023 , Expires: 10/11/2023 Start: 07-12-2023 End: 10-11-2023 LIPID PANEL, NONFASTING [facility] Work Phone: Comment on above: Expected: 07/12/2023 , Expires: 10/11/2023 Start: 07-12-2023 End: 10-11-2023 Magnesium [Mass/volume] in Serum or Plasma [facility] Work Phone: Comment on above: Expected: 07/12/2023 , Expires: 10/11/2023 Start: 07-12-2023 End: 10-11-2023 Thyrotropin [Units/volume] in Serum or Plasma [facility] Work Phone: Comment on above: Expected: 07/12/2023 , Expires: 10/11/2023 Start: 06-27-2023 COVID-19 VACCINE (#1) COVID-19 VACCI NE (#1) [facility] Comment on above: Postponed from 05/30 (Declined at this time) Start: 06-27-2023 HEPATITIS B (1 of 3 - 3-dose series) HEPATITIS B (1 of 3 - 3-dose series) [facility] Comment on above: Postponed from 11/27 (Declined at this time) Start: 06-27-2023 Hepatitis B Vaccine (1 of 3 - 3-dose series) Hepatitis B Vaccine (1 of 3 - 3-dose series) [facility] Comment on above: Postponed from 11/27 (Declined at this time) Start: 02-28-2024 Urine microalbumin profile [facility] Comment on above: Postponed from 05/17 (Declined at this time) Start: 06-12-2023 Mammography [facility] Start: 12-29-2022 Covid-19 Vaccine ( season) Covid-19 Vaccine ( season) [facility] Start: 12-29-2022 Influenza vaccination INFLUENZA VACC INE (#1) [facility] Start: 11-15-2022 End: 01-15-2023 Comprehensive metabolic 2000 panel - Serum or Plasma [facility] [place] Work Phone: Comment on above: Expected: 11/15/2022 , Expires: 01/15/2023 Start: 08-30-2022 Patient discharge [facility] Start: 06-27-2022 End: 08-27-2022 25-hydroxyvitamin D3 [Mass/volume] in Serum or Plasma VITAMIN D 25 HYDROXY Lab Routine Vitamin D deficiency Expected: 06/27/2022, Expires: 08/27/2022 [facility] Work Phone: Comment on above: Expected: 06/27/2022 , Expires: 08/27/2022 Start: 06-27-2022 End: 08-27-2022 Basic metabolic 2000 panel - Serum or Plasma BASIC METABOLIC PNL Lab Routine Constipation, unspecified constipation type Expected: 06/27/2022, Expires: 08/27/2022 [facility] Work Phone: Comment on above: Expected: 06/27/2022 , Expires: 08/27/2022 Start: 06-27-2022 End: 08-27-2022 CBC W Auto Differential panel - Blood CBC + DIFF Lab Routine Iron deficiency anemia, unspecified iron deficiency anemia type Expected: 06/27/2022, Expires: 08/27/2022 [facility] Work Phone: Comment on above: Expected: 06/27/2022 , Expires: 08/27/2022 Start: 06-27-2022 End: 08-27-2022 Hemoglobin A1c in Blood HGB A1C Lab Routine Encounter for screening for diabetes mellitus Expected: 06/27/2022, Expires: 08/27/2022 [facility] Work Phone: Comment on above: Expected: 06/27/2022 , Expires: 08/27/2022 Start: 06-27-2022 End: 08-27-2022 LIPID PANEL, NONFASTING LIPID PANEL, NONFASTING Lab Routine Encounter for screening for cardiovascular disorders Expected: 06/27/2022, Expires: 08/27/2022 [facility] Work Phone: Comment on above: Expected: 06/27/2022 , Expires: 08/27/2022 Start: 06-27-2022 End: 08-27-2022 Thyrotropin [Units/volume] in Serum or Plasma TSH BLD Lab Routine Constipation, unspecified constipation type Expected: 06/27/2022, Expires: 08/27/2022 [facility] Work Phone: Comment on above: Expected: 06/27/2022 , Expires: 08/27/2022 Start: 2021 COLOGUARD (FIT-DNA) COLOGUARD (FIT-D NA) [facility] Start: 2021 Colonoscopy COLONOSCOPY [facility] Start: 2021 COLORECTAL CANCER SCREENING COLORECTAL CANCER SCREENING [facility] Start: [address] COLONOGRAPHY [facility] Start: 2021 FECAL OCCULT BLOOD FECAL OCCULT BLOO D [facility] Start: 2021 Screening for malign ant neoplasm of colon [facility] Start: 2021 SIGMOIDOSCOPY SIGMOIDOSCOPY [facility] Start: 10-14-2021 COVID-19 VACCINE (#1) COVID-19 VACCI NE (#1) [facility] Comment on above: Postponed from 11/27 (Declined at this time) Start: 10-14-2021 COVID-19 VACCINE (1) COVID-19 VACCIN E (1) [facility] Comment on above: Postponed from 11/27 (Declined at this time) Start: 10-14-2021 Urine microalbumin profile DTAP,TDAP,TD (2 - Td or Tdap) [facility] Comment on above: Postponed from 05/17 (Declined at this time) Start: 08-23-2021 End: 10-23-2021 PAIN PANEL, UR QUANT PAIN PANEL, UR QUANT Lab Routine Attention deficit disorder of adult Medication management Expected: 08/23/2021, Expires: 10/23/2021 [facility] Work Phone: Comment on above: Expected: 08/23/2021 , Expires: 10/23/2021 Start: 08-23-2021 End: 10-23-2021 TOX SCREEN ROUT UR TOX SCREEN ROUT UR Lab Routine Attention deficit disorder of adult Medication management Expected: 08/23/2021, Expires: 10/23/2021 [facility] Work Phone: Comment on above: Expected: 08/23/2021 , Expires: 10/23/2021 Start: 08-09-2021 End: 10-09-2021 VALERIO BY IFA SCREEN [facility] Work Phone: Comment on above: Expected: 08/09/2021 , Expires: 10/09/2021 Start: 08-09-2021 End: 10-09-2021 C reactive protein [Mass/volume] in Serum or Plasma [facility] [place] Work Phone: Comment on above: Expected: 08/09/2021 , Expires: 10/09/2021 Start: 08-09-2021 End: 10-09-2021 Comprehensive metabolic 2000 panel - Serum or Plasma [facility] [place] Work Phone: Comment on above: Expected: 08/09/2021 , Expires: 10/09/2021 Start: 08-09-2021 End: 10-09-2021 Hemoglobin A1c/Hemoglobin.total in Blood [facility] [place] Work Phone: Comment on above: Expected: 08/09/2021 , Expires: 10/09/2021 Start: 08-09-2021 End: 10-09-2021 IRON + TIBC [facility] [place] Work Phone: Comment on above: Expected: 08/09/2021 , Expires: 10/09/2021 Start: 08-09-2021 End: 10-09-2021 LIPID PANEL, NONFASTING [facility] [place] Work Phone: Comment on above: Expected: 08/09/2021 , Expires: 10/09/2021 Start: 08-09-2021 End: 10-09-2021 T4 FREE/FREE THYROX [facility] [place] Work Phone: Comment on above: Expected: 08/09/2021 , Expires: 10/09/2021 Start: 08-09-2021 End: 10-09-2021 Thyrotropin [Units/volume] in Serum or Plasma [facility] [place] Work Phone: Comment on above: Expected: 08/09/2021 , Expires: 10/09/2021 Start: 08-09-2021 End: 10-09-2021 VITAMIN B12 BLOOD [facility] [place] Work Phone: Comment on above: Expected: 08/09/2021 , Expires: 10/09/2021 Start: 08-09-2021 End: 10-09-2021 VITAMIN D 25 HYDROXY [facility] [place] Work Phone: Comment on above: Expected: 08/09/2021 , Expires: 10/09/2021 Start: 08-04-2021 Mammography MAMMOGRAM [facility] Start: 07-20-2021 End: 09-19-2021 CBC W Auto Differential panel - Blood CBC + DIFF Lab Routine Iron deficiency anemia, unspecified iron deficiency anemia type Expected: 07/20/2021, Expires: 09/19/2021 [facility] Work Phone: Comment on above: Expected: 07/20/2021 , Expires: 09/19/2021 Start: 07-20-2021 End: 09-19-2021 Hemoglobin A1c/Hemoglobin.total in Blood HGB A1C Lab Routine Encounter for screening for diabetes mellitus Expected: 07/20/2021, Expires: 09/19/2021 [facility] Work Phone: Comment on above: Expected: 07/20/2021 , Expires: 09/19/2021 Start: 07-20-2021 End: 09-19-2021 IRON + TIBC IRON + TIBC Lab Routine Iron deficiency anemia, unspecified iron deficiency anemia type Expected: 07/20/2021, Expires: 09/19/2021 [facility] Work Phone: Comment on above: Expected: 07/20/2021 , Expires: 09/19/2021 Start: 07-20-2021 End: 09-19-2021 LIPID PANEL, NONFASTING LIPID PANEL, NONFASTING Lab Routine Encounter for screening for cardiovascular disorders Expected: 07/20/2021, Expires: 09/19/2021 [facility] Work Phone: Comment on above: Expected: 07/20/2021 , Expires: 09/19/2021 Start: 07-14-2021 Patient referral [facility] Work Phone: Start: 05-17-2020 Tetanus vaccination TETANUS [facility] Start: 05-17-2020 Urine microalbumin profile [facility] Start: 2016 Lipid panel LIPID SCREENING [facility] Start: 2016 Screening for malign ant neoplasm of breast MAMMOGRAM SCREENING DISCUSSION [facility] Start: 1997 Screening for malign ant neoplasm of cervix CERVICAL CANCER SCREENING DISCUSSION [facility] Start: 11-28-1995 Hepatitis B Vaccine (1 of 3 - 19+ 3-dose series) Hepatitis B Vaccine (1 of 3 - 19+ 3-dose series) [facility] Start: 11-28-1991 HIV screening HIV SCREENING DISCUSSI ON [facility] Start: 1981 COVID-19 VACCINE (#1) COVID-19 VACCI NE (#1) [facility] Start: 05-30-1977 COVID-19 VACCINE (#1) COVID-19 VACCI NE (#1) [facility] Start: 1976 HEPATITIS B (1 of 3 - 3-dose series) HEPATITIS B (1 of 3 - 3-dose series) [facility] Start: 1976 Hepatitis C screening HEPATITI S C VIRUS SCREENING [facility] CBC W Auto Different ial panel - Blood CBC + DIFF Lab Routine Diarrhea, unspecified type 11/15/2022 7:48 AM EDT [facility] Work Phone: Clostridioides diffi cile toxin genes [Presence] in Stool by HERNESTO with probe detection C. DIFFICILE PCR Lab Routine Diarrhea, unspecified type Ordered: 11/15/2022 [facility] Work Phone: Comment on above: Ordered: 11/15/2022 ENTERIC BACTERIAL PA KALEB BY PCR ENTERIC BACTERIAL PANEL BY PCR Lab Routine Diarrhea, unspecified type Ordered: 11/15/2022 [facility] Work Phone: Comment on above: Ordered: 11/15/2022 FAT, FECAL QUAL FAT, FECAL QUAL Lab Routine Diarrhea, unspecified type Ordered: 11/15/2022 [facility] Work Phone: Comment on above: Ordered: 11/15/2022 FECAL LACTOFERRIN/LEUKOCYTES FECAL LACTOFERRIN/LEUKOCYTES Lab Routine Diarrhea, unspecified type Ordered: 11/15/2022 [facility] Work Phone: Comment on above: Ordered: 11/15/2022 Liver stiffness by US.transient elastography [facility] Liver stiffness by US.transient elastography [facility] MG Breast - bilatera l Screening [facility] Work Phone: MG Breast - bilatera l Screening [facility] Patient Education ED Radial Head Fracture ED Wrist Sprain [facility] Work Phone: Patient referral [facility] Work Phone: End: 10-14-2022 Screening mammography bi 2-view breast inc cad ZEUS SCREENING Radiology Routine Encounter for screening mammogram for breast cancer 1 Occurrences starting 09/14/2021 until 10/14/2022 [facility] Work Phone: Comment on above: 1 Occurrences starti ng 09/14/2021 until 10/14/2022 End: 09-08-2022 Us abdominal real time w/image limited US ABD RT UPPER QUADRANT Radiology Routine Gall bladder polyp 1 Occurrences starting 08/09/2021 until 09/08/2022 [facility] Work Phone: Comment on above: 1 Occurrences starti ng 08/09/2021 until 09/08/2022 End: 07-27-2023 Us abdominal real time w/image limited US ABD RT UPPER QUADRANT Radiology Routine Gall bladder polyp 1 Occurrences starting 06/27/2022 until 07/27/2023 [facility] Work Phone: Comment on above: 1 Occurrences starti ng 06/27/2022 until 07/27/2023 End: 12-15-2023 XR ABDOMEN 1V SUPINE XR ABDOMEN 1V SUPINE Radiology Routine Diarrhea, unspecified type 1 Occurrences starting 11/15/2022 until 12/15/2023 [facility] Work Phone: Comment on above: 1 Occurrences starti ng 11/15/2022 until 12/15/2023 XR ABDOMEN 1V SUPINE XR ABDOMEN 1V SUPINE Radiology Routine Diarrhea, unspecified type 11/15/2022 8:22 AM EDT [facility] Work Phone: End: 09-25-2025 XR Knee - bilateral 4 Views XR KNEE GENERAL 4V AP BOTH/PA BOTH/LAT/MERC BILATERAL Radiology Routine Pain in both knees, unspecified chronicity 1 Occurrences starting 08/26/2024 until 09/25/2025 [facility] Work Phone: Comment on above: 1 Occurrences starti ng 08/26/2024 until 09/25/2025 XR Knee - bilateral 4 Views XR KNEE GENERAL 4V AP BOTH/PA BOTH/LAT/MERC BILATERAL Radiology Routine Pain in both knees, unspecified chronicity 08/27/2024 3:21 PM EDT [facility] Work Phone: [facility] Immunizations Immunization Date Immunization [facility] tetanus toxoid, redu korin diphtheria toxoid, and acellular pertussis vaccine, adsorbed Ronaldo Medley MD Work Phone: [facility] Work Phone: Payers Date Payer Category Payer Unknown [id number] 2023 Self-pay [id number] 2019 Private Health Insurance [employer] [place] ETNA CHOICE POS II [id number] 2019-Present [phone] [address] [place] [address] POS [id number] 2019 Private Health Insurance [id number] 2019 Private Health Insurance [id number] 1975 Unknown [id number] 79 Unknown [id number] 62 Unknown [id number] 62 Unknown [id number] 62 Unknown [id number] 62 Unknown [id number] 62 Unknown [id number] 62 Unknown [id number] 62 Unknown [id number] 62 Unknown [id number] 62 Unknown [id number] 62 Social History Date Type Detail Facility Start: 03-08-2022 End: 02-23-2024 Tobacco smoking status NHIS Never smoked tobacco [facility] Start: 03-15-2021 End: 02-19-2024 Alcohol intake Current drinker of alcohol (finding) [facility] Start: 05-17-2010 History SDOH Alcohol Comment occasionally [facility] Start: 1975 Sex Assigned At Not on file C [facility] Start: 07-30-2021 End: 09-21-2021 Exposure to SARS-CoV-2 (event) Not sure [facility] Start: 1975 Sex Assigned At Female C [facility] Start: 07-13-2021 End: 06-25-2023 Tobacco smoking status NHIS Unknown if ever smoked [facility] Start: 03-08-2022 End: 01-23-2023 Tobacco use and exposure Smokeless tobacco non-user [facility] Start: 09-17-2022 End: 11-15-2022 History of Social function [facility] Start: 09-17-2022 End: 11-15-2022 Tobacco use panel [facility] Adult Depression Screening Assessment 0 [facility] Start: 10-19-2021 Gender identity Identifies as female gender (finding) [facility] Start: 01-23-2023 Alcohol intake Lifetime non-d woodrow (finding) [facility] Start: 08-12-2024 Sex Female (finding) [facility] Start: 08-21-2024 Alcoholic beverage intake Ex-drinker (finding) [facility] NEGATED: Highlighted row [facility] Goals Date Patient Goal Desired Activity /State Functional Status Date Assessment Result Facility 11-19-2014 Are you deaf, or do you have serious difficulty hearing No 11/19/2014 5:57 PM Sofia Poole LPN No [facility] 11-19-2014 Are you blind, or do you have serious difficulty seeing, even when wearing glasses No 11/19/2014 5:57 PM Sofia Poole LPN No [facility] 11-19-2014 Do you have serious difficulty walking or climbing stairs No 11/19/2014 5:57 PM Sofia Poole LPN No [facility] 11-19-2014 Do you have difficul ty dressing or bathing No 11/19/2014 5:57 PM Sofia Poole LPN No [facility] 11-19-2014 Because of a physica l, mental, or emotional condition, do you have difficulty doing errands alone such as visiting a physician's office or shopping No 11/19/2014 5:57 PM EDT Sofia Evans LPN No [facility] Mental Status Date Assessment Result Facility 08-30-2022 Cognitive function Level Of Cons ciousness Follows Commands;Drowsy [facility] Work Phone: 08-30-2022 Cognitive function Voice/Name [facility] Work Phone: 11-19-2014 Because of a physica l, mental, or emotional condition, do you have serious difficulty concentrating, remembering, or making decisions No 11/19/2014 5:57 PM EDT Sofia Evans LPN No [facility] Clinical Notes 07-20-2021 to 09-30-2024 Telephone Encounter - Summer Velez MA - 09/02/2024 2:47 PM EDTTelephone Encounter - Summer Velez MA - 09/02/2024 2:47 PM EDTTelephone Encounter - Summer Velez MA - 08/27/2024 3:50 PM EDT Note Date & Type Note Facility 09-30-2024 Note HNO ID: [id number] Author: ARLENE FREITAS PT Service: ? Author Type: Physical Therapist Type: Progress Notes Filed: 10/01/2024 09:00 Note Text: Episode Visit Count: 2 Therapist That Will Accept/Oversee The Plan Of Care: Arlene Freitas Start of Care Date: 09/17/24 Onset Date: 09/17/14 REHABILITATION AND SPORTS THERAPY PHYSICAL THERAPY TREATMENT NOTE ASSESSMENT: Summer Drummond tolerated the session with fatigue. She demonstrated improvements in standing up from seated in a chair without use of BUE support. The patient will continue to benefit from ongoing skilled physical therapy to progress toward set goals. PLAN FOR NEXT VISIT: 1/2 knee to stand wtihout UE support - leading with either LE SUBJECTIVE: Pt. just had a dentist appointment. squats off a chair cause increased pain. Pt.had difficulty getting to her HEP exercises. Patient Goals: reduce knee pain with 15-20 minutes of standing, improve leg strength Functional Limitations: stair negotiation, rising from a chair, sitting, walking in the community Pain: Pain Pain Level: 0 Pain Location: Knee - Left Description: Aching Frequency: At rest Post Treatment Pain Post Treatment Pain Location: Knee - Right, Knee - Left OBJECTIVE MEASURES WITH LEVEL OF FUNCTION: TREATMENT: Therapeutic Exercise: 1: scifit seat 13, level 2, 5 min 1:1 throughout, subjective collected 2: lateral step ups 6 2x12 No UE support 3: SL hip abd 2x15 4: sit <> stand without UE support 2x5 19 standard chair 5: heel lower 8 step 3x10 BUE support at // bars (max cues using mirror and tactile, verbal to avoid anterior glide of the knee) 6: standing PPT 1x10 7: 1/2 knee to stand 1x with LLE lead 8: squat 1x Skilled Intervention: Patient was educated in proper exercise technique and purpose for exercises. Skilled judgment was used in selection of appropriate interventions. Provided written instruction for home exercise program to facilitate proper performance and compliance. Correct performance of therapeutic exercises was facilitated with verbal, visual, and tactile cuing. Educated patient on rationale for performing exercises in regards to decreasing fatigue , including balance, increase ease of ADL, and ROM and function . Patient education as noted. Self-Fdc Management: 1: substantial time answering questions regarding purpose of exercises and importance of technique with squats. Discussed reasons to not continue exercises that increase pain Skilled Intervention: Skilled judgment in the selection of proper modification for activity of daily living/home management based on clinical presentation, deficits, and needs. Provided written instruction for activities of daily living techniques to facilitate proper performance and compliance. Reviewed patient specific diagnosis in relation to activities of daily living/home management. Activity progression based on professional judgement. Reviewed and educated patient on additions/changes for home program as noted above with an (*). Provided written instruction for home program to facilitate proper performance and compliance. Billing Therapeutic Exercise Treatment Minutes: 35 Self-Care/Home Management Treatment Minutes: 10 Skilled Treatment Time Minutes (timed and untimed codes): 45 Total Session Time (minutes): 45 Session Start Time : 1715 Session Stop Time : 1800 Arlene Freitas PT [facility] 09-17-2024 Note HNO ID: [id number] Author: ARLENE FREITAS PT Service: ? Author Type: Physical Therapist Type: Progress Notes Filed: 09/17/2024 16:41 Note Text: Episode Visit Count: 1 Therapist That Will Accept/Oversee The Plan Of Care: Arlene Freitas Start of Care Date: 09/17/24 Onset Date: 09/17/14 Patient Identified by Name and Date of : Yes REHABILITATION AND SPORTS THERAPY PHYSICAL THERAPY EVALUATION PLAN OF CARE: Assessment: Summer Drummond presents with diagnosis of chronic pain of both knees that interferes with stair negotiation, rising from a chair, sitting, walking in the community . The patient presents with impairments in ADL's and independence in exercise. Patient did not complete the PROMIS? (Patient Reported Outcome Measures Information System). Prognosis for therapy is Good due to: within-session changes, good support system/ coping skills, acuteness of condition, good overall health status, current objective clinical presentation . The patient will benefit from skilled therapy services to meet the goals established for this plan of care as noted below. Goals for Episode of Care: established 09/17/24 [place] in home exercise program. Patient will decrease pain to 1-2/10 with functional activities to allow patient to improve ambulation, transfers, and standing tolerance for ADLs. Patient will increase active ROM of L knee flexion to 115 degrees to allow pt to to improve postural alignment, to improve performance of ADLs, to improve gait mechanics / gait pattern , and to decrease falls risks . Patient will demonstrate increase in B hip abductor strength to 4/5 during manual muscle testing in order to improve function for prior functional tasks. Patient will increase flexibility of B quadriceps to WNL to decrease pain. Perform sit<> stand without UE support from a 19 height surface or lower with decreased report of symptoms/pain in 6 weeks. Patient Goals: reduce knee pain with 15-20 minutes of standing, improve leg strength Time Frame for Goals and Treatment : 10/29/24 Planned Interventions, Frequency, and Duration: Current Frequency: 1x/week Duration: 6 weeks Total Number of Visits Planned: 6 Planned Treatment Interventions: Therapeutic exercise (56346), Manual therapy (33981), Therapeutic activities (46022), Self-alf management (92671), Gait Training (84236), Neuromuscular re-education (75789) PLAN FOR NEXT VISIT: hip and core strengthening Patient demonstrates good understanding of plan of care and treatment. The above goals and plan of care were discussed and agreed upon by patient/family. SUBJECTIVE: for B knee pain that onset about 10 years ago. Pt. had chiropractor a year ago which included some exercises. Prolonged standing, stair negociation, prolonged walking, requires use of BUE's to sit > stand. 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 Intake Information: Prescription present Previous Treatment: Chiropractor Falls Interview: No positive findings with falls interview Pain: Pain Pain Level: 0 Pain Location: Knee - Left Description: Aching Frequency: At rest Post Treatment Pain Post Treatment Pain Level: No Change Post Treatment Pain Location: Knee - Right, Knee - Left OBJECTIVE MEASURES WITH LEVEL OF FUNCTION: Knee Observations R Knee Palpation Tenderness: Quadriceps tendon, Quadriceps (quadriceps) L Knee Palpation Tenderness: Quadriceps, Quadriceps tendon Sensation - Lower Extremity LE Light Touch Sensation: Grossly Intact LE AROM R Knee Extension: 0 Degrees R Knee Flexion: 120 Degrees L Knee Extension: 0 Degrees L Knee Flexion: 107 Degrees LE Flexibility Flexibility: Quadriceps Flexibility, Gastrocnemius Flexibility L Quadriceps Flexibility: limited R Gastrocnemius Flexibility: limited L Gastrocnemius Flexibility: limited LE Strength R Hip Extension: 2-/5 R Hip Flexion (L2): 3/5 R Hip ABduction: 2+/5 R Knee Extension (L3): 5/5 R Knee Flexion: 3-/5 L Hip Extension: 2-/5 L Hip Flexion (L2): 3/5 L Hip ABduction: 2+/5 L Knee Extension (L3): 5/5 L Knee Flexion: 3-/5 Special Tests - Hip and Spine Hip and Spine Special Tests: FADDIR Test, ASMITA Test, Scour Test, SLR Test SLR Test: Right Negative, Left Negative ASMITA Test: Right Negative, Left Negative FADDIR Test: Left Negative, Right Negative Scour Test: Left Negative, Right Negative Gait Gait: Independent Gait Distance (feet): 50 Gait Device: None Gait Deviations: General Deviations General Deviations/Observations: Step length decreased (lacks heel strike and toe push off, some lateral sway) Education: Education Learning Preferences: [employer] (more content not included)... [facility] 09-02-2024 Telephone encounter Note Insurance has denied viscosupplementation until the patient has had 2 cortisone injections, tried and failed PT and tried and failed NSAID. I called and left a detailed message on identified voicemail with that information and asked the patient to contact the office back if she wishes to pursue any of the above treatments. [facility] 09-02-2024 Miscellaneous Notes Insurance has denied viscosupplementation until the patient has had 2 cortisone injections, tried and failed PT and tried and failed NSAID. I called and left a detailed message on identified voicemail with that information and asked the patient to contact the office back if she wishes to pursue any of the above treatments. Referral placed for Synvisc One into bilateral knees. documented in this encounter [facility] 09-02-2024 Telephone encounter Note I called and left a message for the patient with the requirements below. Asked patient to contact the office back if she is interested in getting scheduled for PT and/or CSI. [facility] 09-02-2024 Miscellaneous Notes I called and left a message for the patient with the requirements below. Asked patient to contact the office back if she is interested in getting scheduled for PT and/or CSI. Additional Clinical Information Request Please reply all to this email Please provide the following information to facilitate or complete the prior authorization Clinical Information - See Comments Sign OV Notes Clarify Information Updated / Correct Insurance Updated diagnosis code on order and or office note x Medical Necessity Not Met Per Payer Guidelines Payer Request Additional Information Other (must complete Comment section) Patient Name: Summer Drummond Appt Date: [facility] HCPCS code(s) & drug name(s): [id number] SYNVISC Comments: PT DOESN'T MEET PAYER POLICY. pt doesn't meet payer policy Failure of pt/hep [place]/fail of nasiad 2 csi injection documented in this encounter [facility] 09-01-2024 Telephone encounter Note Additional Clinical Information Request Please reply all to this email Please provide the following information to facilitate or complete the prior authorization Clinical Information - See Comments Sign OV Notes Clarify Information Updated / Correct Insurance Updated diagnosis code on order and or office note x Medical Necessity Not Met Per Payer Guidelines Payer Request Additional Information Other (must complete Comment section) Patient Name: Summer Drummond Appt Date: [facility] HCPCS code(s) & drug name(s): [id number] SYNVISC Comments: PT DOESN'T MEET PAYER POLICY. pt doesn't meet payer policy Failure of pt/hep [place]/fail of nasiad 2 csi injection [facility] 08-29-2024 Radiology Diagnostic study note [facility] Imaging Services [address] [place] [address] ABD Limited w/ Elastography MR#: [id number] Acct: [id number] Name: SUMMER DRUMMOND Rep #: [id number] : 1975 F 48 From: Leah Lawrence MD PCP: NICOL Multani Status: REG C VIRAL Study:ABD Limited w/ Elastography Date of Exa m: 08/29/24 Exam# [id number] Ordering Dr: Ale Diamond DO PROCEDURE: ABD LIMITED W/ ELASTOGRAPHY, 08/29/2024 REASON FOR EXAM: FATTY LIVER COMPARISON: 02/23/2024 and 09/15/2020. TECHNIQUE: Grayscale and color Doppler imaging of the right upper quadrant was performed. Elastography was performed for non-invasive assessment of liver tissue stiffness utilizing a [employer] S-shear wave imaging unit. FINDINGS: Liver: Echogenic. 18.1 cm in length. Hypoechoic RIGHT lobe lesion measures 1.1 x 1.4 x 1.3 cm. There was a 7 mm hypodense lesion on CT 09/15/2020, uncertain if this represents the same lesion. Additional subcapsular hypoechoic area in the LEFT lobe measures 5.1 x 4.9 x 1.8 cm. This was not visible on either prior exam. Gallbladder: Echogenic non mobile likely polyp 3 x 4 x 3 mm. No detected vascularity. No definite shadowing stones, wall thickening or pericholecystic fluid. Reportedly, sonographic Gutiérrez's was negative. Biliary tree: Unremarkable. CBD measures 2 mm. Pancreas: Partially obscured by shadowing bowel gas, grossly unremarkable as visualized. Right kidney: Unremarkable. 13.3 cm in length. Other: No visualized free fluid. Hepatic elastography: Number of measurements: 15 measurements across 3 regions, 5 measurements per region. US probe: CA1-7A. EQI median: 6.2 kPa EQI median velocity: 1.41 m/s IQR/Med: 10.9-28.7% (kPa) and 6.0-15.1% (m/s). If the IQR/Med is IQR/median >30%(for kPa) or >15% in m/s, the variance in the measurements is a large and the accuracy of the measurement may be in question. f US/ABD Limited w/ Elastography IMPRESSION: 1. Appearance of the hepatic parenchyma most commonly associated with hepatic steatosis. Correlate for clinical and laboratory evidence of chronic liver disease.. 2. Liver stiffness is 6.2 kPa. Per the below 2020 SRU criteria, this rules out compensated advanced chronic liver disease in the absence of other known clinical signs. If there are known clinical signs, further testing may be needed for confirmation. 3. Indeterminate hepatic lesions up to 5.1 cm, largest may potentially reflect focal fatty sparing however this is not definite. Recommend multiphase hepatic protocol MRI abdomen with and without contrast, or less optimally multiphase hepatic protocol CT if there is a contraindication to MRI. 4. 3 mm gallbladder polyp. Some guidelines suggest follow-up in 6 months, others suggest no follow-up at this size. 5. Additional description as above. Assessment is per the Update to the SRU Liver Elastography Consensus Statement (2020) Note that the above assessment of liver fibrosis is vendor-neutral and intended for use in fibrosis related to viral etiologies and non-alcoholic fatty-liver disease (NAFLD); in causes other than viral hepatitis and NAFLD, the cutoff values are currently not well established. In some patients with NAFLD, the cutoff values for cACLD may be lower (7-9 kPa). Note also that in the setting of elevated LFTs, nonfasting or vascular congestion, the stage of lifer fibrosis may be overestimated. Previous [facility] reference values: <1.37 m/s (5.7kPa): No to mild fibrosis 1.37 m/s - 2.2 m/s: Moderate to severe fibrosis >2.2 m/s (15kPa): Significant fibrosis / cirrhosis Reading Location: [id number] CC: Manny Diamond DO; NICOL Multani ~ 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: Signed [facility] 08-27-2024 Note HNO ID: [id number] Author: LEVI BEE DO Service: ? Author Type: Physician Type: Progress Notes Filed: 08/27/2024 15:51 Note Text: Madhu Wheeler is a 48-year-old female presenting with bilateral knee stiffness and instability. Summer reports a 10-year history of intermittent bilateral knee stiffness, which has recently become more consistent. She describes a sensation of inflammation and instability, particularly when descending stairs and transitioning from a sitting to a standing position. She notes a loss of strength in her knees, requiring her to hold onto something and push herself up when standing. She also reports a jarring sensation in her knees during this movement. She is unable to squat, kneel, or get up from the ground without support. She denies any history of knee injury or noticeable swelling. She has tried various treatments, including plasma replacement approximately 8-9 months ago, which she felt temporarily reduced inflammation. She has also engaged in physical therapy exercises through a chiropractor, which provided some relief. She has taken Relief Factor, a supplement containing omega-3 and turmeric, but is unsure of its efficacy. She has previously taken Mobic, but is cautious due to a liver condition and an upcoming liver scan. She has not tried Voltaren gel. She expresses frustration with her decreasing mobility and difficulty performing daily activities. She has an upcoming physical therapy appointment to improve knee mobility. 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 She is considering treatment options for this condition. Musculoskeletal: (+) bilateral knee stiffness, (+) occasional knee pain, (+) bilateral knee instability, (+) difficulty with stairs, (+) difficulty rising from seated, (+) inability to squat or kneel, (+) right foot pain, (+) decreased knee strength, (-) knee swelling PAST MEDICAL HISTORY Diagnosis Date Anxiety and [...] HYSTERECTOMY 04/05/2021 uterus removed- both Ovaries remain Current Outpatient Medications on File Prior to Visit Medication Sig cholecalciferol, Vitamin D3, (VITAMIN D3) 1,250 mcg (50,000 unit) cap capsule Take 1 capsule by mouth one time a week for 8 doses. valACYclovir (VALTREX) 1 gram tablet Take 1,000 mg by mouth two times a day. Omeprazole Magnesium (PRILOSEC OTC) 20 mg tablet Take 20 mg by mouth once daily. No current facility-administered medications on file prior to visit. Objective Last menstrual period 11/14/2018. General: No acute distress. MSK/Ext: Bilateral knee crepitus noted, right greater than left; no pain with patellar mobilization bilaterally; no pain with varus or valgus stress bilaterally; anterior drawer test negative bilaterally; Robert test negative bilaterally; Mary test negative bilaterally; dull pain noted with full extension of right knee; Thessaly test negative bilaterally. Labs: Tests: Imaging: - X-ray of both knees: - Front view: Joint spaces preserved; minimal medial compartment narrowing in the left knee. - Tunnel view: Offset positioning of the right patella. - Lateral view: No significant abnormalities. - [place] view: Patellofemoral space narrowing bilaterally, right worse than left, consistent with patellofemoral arthritic changes. 1. Chronic pain of both knees (M25.561) Patellofemoral arthritis (M17.10) Patient presents with chronic bilateral knee stiffness and instability, particularly when descending stairs and transitioning from sitting to standing. Denies significant pain but reports difficulty with squatting and kneeling. No history of knee injury. X-rays reveal mild joint space narrowing in the left knee's medial compartment and patellofemoral arthritic changes bilaterally, more pronounced in the right knee. Physical exam shows crepitus under the right patella, but no pain with varus, valgus, anterior drawer, Robert, or Mary tests. Fessley's test is negative bilaterally. - Initiate physical therapy focusing on patellar tracking and quadriceps balance; patient already has an appointment scheduled at the end of August. - Discussed and recommended trial of Voltaren gel, applied topically to both knees twice daily. - Initiate prior authorization process for viscosupplementation (more content not included)... [facility] 08-27-2024 Telephone encounter Note Referral placed for Synvisc One into bilateral knees. [facility] 08-27-2024 History of Present illness Narrative Subjective Summer is a 48-year-old female presenting with bilateral knee stiffness and instability. Summer reports a 10-year history of intermittent bilateral knee stiffness, which has recently become more consistent. She describes a sensation of inflammation and instability, particularly when descending stairs and transitioning from a sitting to a standing position. She notes a loss of strength in her knees, requiring her to hold onto something and push herself up when standing. She also reports a jarring sensation in her knees during this movement. She is unable to squat, kneel, or get up from the ground without support. She denies any history of knee injury or noticeable swelling. She has tried various treatments, including plasma replacement approximately 8-9 months ago, which she felt temporarily reduced inflammation. She has also engaged in physical therapy exercises through a chiropractor, which provided some relief. She has taken Relief Factor, a supplement containing omega-3 and turmeric, but is unsure of its efficacy. She has previously taken Mobic, but is cautious due to a liver condition and an upcoming liver scan. She has not tried Voltaren gel. She expresses frustration with her decreasing mobility and difficulty performing daily activities. She has an upcoming physical therapy appointment to improve knee mobility. 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 She is considering treatment options for this condition. Musculoskeletal: (+) bilateral knee stiffness, (+) occasional knee pain, (+) bilateral knee instability, (+) difficulty with stairs, (+) difficulty rising from seated, (+) inability to squat or kneel, (+) right foot pain, (+) decreased knee strength, (-) knee swelling PAST MEDICAL HISTORY Diagnosis Date Anxiety and [...] HYSTERECTOMY 04/05/2021 uterus removed- both Ovaries remain Current Outpatient Medications on File Prior to Visit Medication Sig cholecalciferol, Vitamin D3, (VITAMIN D3) 1,250 mcg (50,000 unit) cap capsule Take 1 capsule by mouth one time a week for 8 doses. valACYclovir (VALTREX) 1 gram tablet Take 1,000 mg by mouth two times a day. Omeprazole Magnesium (PRILOSEC OTC) 20 mg tablet Take 20 mg by mouth once daily. No current facility-administered medications on file prior to visit. Objective Last menstrual period 11/14/2018. General: No acute distress. MSK/Ext: Bilateral knee crepitus noted, right greater than left; no pain with patellar mobilization bilaterally; no pain with varus or valgus stress bilaterally; anterior drawer test negative bilaterally; Robert test negative bilaterally; Mary test negative bilaterally; dull pain noted with full extension of right knee; Thessaly test negative bilaterally. Labs: Tests: Imaging: - X-ray of both knees: - Front view: Joint spaces preserved; minimal medial compartment narrowing in the left knee. - Tunnel view: Offset positioning of the right patella. - Lateral view: No significant abnormalities. - [place] view: Patellofemoral space narrowing bilaterally, right worse than left, consistent with patellofemoral arthritic changes. 1. Chronic pain of both knees (M25.561) Patellofemoral arthritis (M17.10) Patient presents with chronic bilateral knee stiffness and instability, particularly when descending stairs and transitioning from sitting to standing. Denies significant pain but reports difficulty with squatting and kneeling. No history of knee injury. X-rays reveal mild joint space narrowing in the left knee's medial compartment and patellofemoral arthritic changes bilaterally, more pronounced in the right knee. Physical exam shows crepitus under the right patella, but no pain with varus, valgus, anterior drawer, Robert, or Mary tests. Fessley's test is negative bilaterally. - Initiate physical therapy focusing on patellar tracking and quadriceps balance; patient already has an appointment scheduled at the end of August. - Discussed and recommended trial of Voltaren gel, applied topically to both knees twice daily. - Initiate prior authorization process for viscosupplementation with Synvisc-1 injections. - Advised patient to avoid activities that exacerbate symptoms, such as biking with resistance and downhill walking. - Follow-up appointment to be scheduled after completion of initial physical therapy sessions to assess progress and response to treatment. Attestation Recording using [employer] software for draft documentation of the visit was discussed with the patient/authorized claim representative; all questions welcomed and answered. Patient/authorized claim representative agreed to proceed Patient presents with: Bilateral Knee Pain: Referred by Suzette JASSO [facility] INTAKE FLOWSHE[employer] DATA Patient denies any pain today. documented in this encounter [facility] 08-27-2024 Note HNO ID: [id number] Author: KALYANI TRUONG MA Service: ? Author Type: Show Design Supervisor Type: Progress Notes Filed: 08/27/2024 15:51 Note Text: Patient presents with: Bilateral Knee Pain: Referred by Suzette JASSO [facility] DATA Patient denies any pain today. [facility] 08-27-2024 History of Present illness Narrative Radiology Service Progress Note PATIENT NAME: Summer Drummond DATE OF SERVICE: August 27, 2024 TIME: 2:57 PM PATIENT IDENTITY VERIFICATION COMPLETED USING TWO (2) IDENTIFIERS: Name and Date of confirmed by patient verbally. FALL SCREENING: Has the patient had 2 falls in the last year or 1 fall with injury or currently using an Ambulatory Assistive Device (Walker, Cane, Wheelchair, Crutches, etc.)? No PATIENT GENDER DATA: Assigned female at . status: : No status: NO. PATIENT RELEVANT IMPLANT DATA REVIEWED: Yes PATIENT PRESENTS WITH AN IMPLANTABLE OR ATTACHED NURSE EXECUTIVE: No RADIOLOGY DEPARTMENT: General X-ray: Exam(s) Completed: Lower Extremity X-Ray(s): Knee, AP / Lat / Tunne / Merchant Bilateral PERIPHERAL IV DATA: Not applicable SIGNED BY: Jen Venegas RT(R) August 27, 2024 2:57 PM documented in this encounter [facility] 08-27-2024 Note HNO ID: [id number] Author: JEN VENEGAS RT(R) Service: ? Author Type: Analytical Data Scientist Type: Progress Notes Filed: 08/27/2024 15:20 Note Text: Radiology Service Progress Note PATIENT NAME: Summer Drummond DATE OF SERVICE: August 27, 2024 TIME: 2:57 PM PATIENT IDENTITY VERIFICATION COMPLETED USING TWO (2) IDENTIFIERS: Name and Date of confirmed by patient verbally. FALL SCREENING: Has the patient had 2 falls in the last year or 1 fall with injury or currently using an Ambulatory Assistive Device (Walker, Cane, Wheelchair, Crutches, etc.)? No PATIENT GENDER DATA: Assigned female at . status: : No status: NO. PATIENT RELEVANT IMPLANT DATA REVIEWED: Yes PATIENT PRESENTS WITH AN IMPLANTABLE OR ATTACHED NURSE EXECUTIVE: No RADIOLOGY DEPARTMENT: General X-ray: Exam(s) Completed: Lower Extremity X-Ray(s): Knee, AP / Lat / Tunne / Merchant Bilateral PERIPHERAL IV DATA: Not applicable SIGNED BY: RT Shaq(R) August 27, 2024 2:57 PM [facility] 08-21-2024 Note HNO ID: [id number] Author: SUZETTE ELIAS PA-C Service: ? Author Type: Physician Licensing Engineer Type: Progress Notes Filed: 08/21/2024 08:15 Note Text: Chief Complaint Patient presents with: Yearly Exam HPI Summer Drummond is a 48 year old female who presents here today for physical. Annual Wellness Exam: - No significant medical changes in past year. - Only medication is omeprazole. - Hepatitis B vaccine series completed in 2010 following a needle stick injury. - Seen by Dr. Diamond last week; scheduled for FibroScan, upper endoscopy, and gallbladder ultrasound. - Interested in coronary calcium scoring test. Eosinophilic Esophagitis: - Managed with omeprazole. - Scheduled for upper endoscopy. GERD: - Managed with omeprazole. Weight Management: - Struggles with weight; fluctuates in the 240s. - Interested in weight loss medications. - Attempts to eat healthily but finds it challenging. - Drinks 80-100 oz of water daily. - Walks for 30 minutes daily but finds it difficult due to knee pain. - Participated in the [employer] program for over a month without weight loss. - Consumes a salad and chicken for lunch Knee Pain: - Chronic knee pain for 10 years, worsening in the last few years. - Describes pain as arthritic, achy, and stiff. - Difficulty transitioning from sitting to standing without support. - Plasma replacement therapy provided relief for six months. (per chiropractor) - Interested in physical therapy and orthopedic evaluation. Sleep Disturbances: - Difficulty staying asleep; wakes up around 02:00-03:00 and struggles to fall back asleep. - Falls asleep quickly initially. - Believes sleep disturbances may be related to liver issues or pre-menopausal symptoms. Past medical history, appointments, medications, allergies reviewed. [...] on File Prior to Visit Medication Sig valACYclovir (VALTREX) 1 gram tablet Take 1,000 mg by mouth two times a day. Omeprazole Magnesium (PRILOSEC OTC) 20 mg tablet [...] Never Used Substance Use Topics Alcohol use: Not Currently Comment: occasionally Drug use: No Review of [...] leg swelling, hypertension, CHF or palpitations GI: Negative for abdominal discomfort, blood in stools or black stools, change in bowel habit, heart burn, nausea, vomiting : No history of dysuria, frequency or incontinence MUSCULOSKELETAL: see hpi SKIN: Negative for lesions, rash, and itching PSYCH: Negative for sleep disturbance, mood disorder and recent psychosocial stressors HEMATOLOGY/LYMPHOLOGY: Negative for prolonged bleeding, bruising easily or swollen nodes ENDOCRINE: Negative for cold or heat intolerance, polyuria, polydipsia and goiter NEURO: No history of headaches, syncope, paralysis, seizures or tremors SEE HPI EXAM: BP 130/86 (BP Site: Left Arm, BP Position: Sitting, BP Cuff Size: Large Adult) Pulse 80 Temp 36.7 ?C (98.1 ?F) Resp 18 Ht 164.5 cm (5' 4.76) Wt (more content not included)... [facility] 06-27-2024 Evaluation note Diagnosis Onset Date Resolution Encounter for routine gynecological examination noneactive June 27, 025 8:02am Gallbladder polyp acute July 292024 8:32am Hemangioma acute August 12 8:32am Hemangioma of liver acute August 12, 2024 8:32am Eosinophilic esophagitis chronic August 12, 2024 8:32am Fatty liver chronic August 12, 025 8:32am [facility] Work Phone: [phone] NoteHNO ID: [id number] Author: ERNA HERNADEZ LPN Service: ? Author Type: LICENSED NURSE Type: Progress Notes Filed: 02/26/2024 07:12 Note Text: Scan on 02/23/2024 10:40 PM by Provider, External, PA-C: [facility] History of Present illness Narrative* Erna Hernadez LPN - 02/26/2024 7:12 AM EDT Scan on 02/23/2024 10:40 PM by Provider, JACKIE Peralta: Consultation - [facility] Note * Telephone Encounter - Erna Hernadez LPN - 02/21/2024 11:49 AM EDT Pt notified of Suzette's message and instructions. Pt verbalizes understanding. Erna Hernadez LPN [facility]10-24-2024 Miscellaneous Notes* Telephone Encounter - Erna Hernadez LPN - 02/21/2024 11:49 AM EDT Pt notified of Suzette's message and instructions. Pt verbalizes understanding. Erna Hernadez LPN * Telephone Encounter - Suzette Elias PA-C - 02/21/2024 11:25 AM EDT These are typical symptoms of UTI. Which Is why I want her to stay on atb. It may take a few days before having any relief. I will send in pyridum which can help decrease some of those symptoms but will make her urine orange. * Telephone Encounter - Chen Lindsey RN - 02/21/2024 9:46 AM EDT Pt called and is notified of providers results and instructions. Pt voices understanding. Pt deniespain at this time. She states she has [...] longer she can take this. Chen Lindsey, RN * Telephone Encounter - Suzette Elias PA-C - 02/21/2024 9:24 AM EDT Have her push fluids. Cont with atb for now. Follow up next week if not improving. If she develops pain she is to return for re-evaluation * Telephone Encounter - Geno Rodriguez RN - 02/21/2024 9:05 AM EDT Patient reports she saw Hoa Elias on [...] not see blood in her urine. Asking Suzette to please advise patient. [phone] [facility] Telephone encounter Note * Telephone Encounter - Suzette Elias PA-C - 02/21/2024 11:25 AM EDT These are typical symptoms of UTI. Which Is why I want her to stay on atb. It may take a few days before having any relief. I will send in pyridum which can help decrease some of those symptoms but will make her urine orange. [facility] Telephone encounter Note* Telephone Encounter - Chen Lindsey RN - 02/21/2024 9:46 AM EDT Pt called and is notified of providers results and instructions. Pt voices understanding. Pt deniespain at this time. She states she has [...] longer she can take this. Chen Lindsey, RN [facility]10-24-2024 Telephone encounter Note* Telephone Encounter - Suzette Elias PA-C - 02/21/2024 9:24 AM EDT Have her push fluids. Cont with atb for now. Follow up next week if not improving. If she develops pain she is to return for re-evaluation [facility]10-24-2024 Telephone encounter Note* Telephone Encounter - Geno Rodriguez RN - 02/21/2024 9:05 AM EDT Patient reports she saw Hoa Elias on [...] not see blood in her urine. Asking Suzette to please advise patient. [phone] [facility]10-[facility] Telephone encounter Note* Telephone Encounter - Erna Hernadez LPN - 02/20/2024 1:13 PM EDT Patient notified of results and provider's instructions. Patient verbalizes understanding. Erna Hernadez LPN [facility]10-[facility] Miscellaneous Notes* Telephone Encounter - Erna Hernadez LPN - 02/20/2024 1:13 PM EDT Patient notified of results and provider's instructions. Patient verbalizes understanding. Erna Hernadez LPN * Telephone Encounter - Suzette Elias PA-C - 02/20/2024 12:48 PM EDT Urine negative. I want patient to finish atb and get repeat urine in 2 weeks to make sure no more blood. Suzette Elias PA-C documented in this encounterP[facility]10-23-2024 Telephone encounter Note * Telephone Encounter - Suzette Elias PA-C - 02/20/2024 12:48 PM EDT Urine negative. I want patient to finish atb and get repeat urine in 2 weeks to make sure no more blood. Suzette Elias PA-C [facility]10-[facility]-2024 NoteHNO ID: [id number] Author: SUZETTE ELIAS PA-C Service: ? Author Type: Physician Licensing Engineer Type: Progress Notes Filed: 02/19/2024 08:43 Note Text: Chief Complaint Patient presents with: Urinary Problem: Urgency and frequency HPI Summer Drummond is a 48 year old female who [...] Cancer Screening due on 07/22/2023 Covid-19 Vaccine( season) Never done Mammogram Screening due on [...] atb Check urine culture - URINE CULTURE NICOL [facility]10-22-2024 History of Present illness Narrative* Suzette Elias PA-C - 02/19/2024 8:22 AM EDT Chief Complaint Patient presents with: Urinary Problem: Urgency and frequency HPI Summer Drummond is a 48 year old female who [...] in no acute distress, well-hydrated, well nourished. andOverweight. Lungs: Lungs clear to auscultation. No wheezing, rhonchi, rales.. Heart: RRR without murmur, gallop, or rubs. No ectopy. Abdomen: + suprapubic pressure to palp. Abdomen soft. Bowel sounds normal. No masses, organomegaly,Negative CVA tenderness. Health Maintenance List Hepatitis B [...] atb Check urine culture - URINE CULTURE Suzette Elias PA-C documented in this encounterPike [facility]03-15-2024 Miscellaneous Notes* Telephone Encounter - Erna Hernadez LPN - 07/13/2023 10:04 AM EDT Pt notified of same. Erna Hernadez LPN * Telephone Encounter - Suzette Elias PA-C - 07/13/2023 9:41 AM EDT Please let patient know that all her labs are normal. Suzette Elias PA-C documented in this encounterPike [facility] Hospital03-14-2024 History of Present illness Narrative* Suzette Elias PA-C - 07/12/2023 7:17 AM EDT Chief Complaint Patient presents with: Yearly Exam HPI Summer Drummond is a 47 year old female who [...] F) Resp 18 Ht 166.5 cm (5' 5.55) Wt 108.4 kg (239 lb) LMP 11/14/2018 BMI 39.11kg/m BP 126/86 (BP Site: Left Arm, BP Position: Sitting, BP Cuff Size: Extra Large Adult) Pulse 72 Temp 37.3 C (99.2 F) Resp 18 Ht 166.5 cm (5' 5.55) Wt 108.4 kg (239 lb) LMP 11/14/2018 BMI39.11 kg/m General Appearance: Well appearing, alert, in no acute distress, well-hydrated, well nourished. andObese. Skin: deferred. Head: Normocephalic, no masses, lesions, [...] Td or Tdap) due on 07/11/2024 Covid-19 Vaccine( - 2022- season) due on 07/11/2024 Mammogram Screening due [...] diet of 1000 mg/day for under 50, 1200- 1500 mg/day for 50+ - Discussed need and benefit for weight loss. BMI 39.11 kg/(m^2) - will set up with [facility] program at [facility] - COMP METABOLIC PANEL - VITAMIN B12 [...] ICD9: V18.19, ICD10: Z83.49 - TSH BLD Suzette Elias PA-C documented in [place] encounterAlic[place] [address]-13-2024 History of Present illness Narrative* Erna Hernadez LPN - 07/11/2023 1:45 PM EDT Scan on 07/11/2023 10:29 AM by Provider, Fabian, JACKIE: Mammography documented in this encounterPike [facility] Hospital09-26-2023 History of Present illness Narrative* Regis Souza MD - 01/23/2023 11:45 AM EDT CHIEF COMPLAINT: Thoracic back pain with pain [...] therapy is ineffective. All questions were answered. (DOC:[id number]) Regis Souza MD [facility] Miscellaneous Notes* Telephone Encounter - Erna Hernadez LPN - 11/16/2022 1:42 PM EDT Pt notified of Suzette's message. Pt verbalizes understanding. Advised pt she may see results via before Suzette sees them but office will contact her regarding results. Erna Hernadez COLLECTIONS AND ARCHIVES DIRECTOR * Telephone Encounter - Suzette Elias PA-C - 11/16/2022 1:27 PM EDT Let her know that CBC showed elevated wbc which could be sign of infection, but I'm waiting for thecultures to return. I'm hoping I will have some of the results by tomorrow. Please be patient. I want to make sure I get treatment right. However if significantly worsening, don't be afraid to go to ER or come back in for reassessment. Xray has not been read yet. * Telephone Encounter - Roselyn Varela RN - 11/16/2022 11:45 AM EDT Pt calling in for test results. States [...] pt when results finalized. documented in this encounterPike [facility] Hospital07-19-2023 History of Present illness Narrative* Yocasta Sparks, RT(R) - 11/15/2022 8:00 AM EDT Radiology Service Progress Note PATIENT NAME: Summer Drummond DATE OF SERVICE: November 15, 2022 TIME: 8:12 AM PATIENT IDENTITY VERIFICATION COMPLETED USING TWO (2) IDENTIFIERS: Name and Date of confirmedby patient verbally. FALL SCREENING: Has the patient [...] 15, 2022 8:12 AM documented in this encounterPike [facility] Hospital07-19-2023 History of Present illness Narrative* Suzette Elias PA-C - 11/15/2022 7:12 AM EDT Chief Complaint Patient presents with: Diarrhea HPI Summer Drummond is a 46 year old female who [...] FECAL LACTOFERRIN/LEUKOCYTES - XR ABDOMEN 1V SUPINE Suzette Elias PA-C documented in this encounterPike [facility] Hospital07-18-2023 Miscellaneous Notes* Telephone Encounter - Abbie Earl RN - 11/14/2022 1:22 PM EDT Patient call in for loose water stools [...] and then after she ate she took TEACHER PHYSICALLY IMPAIRED and ELX- R Enzyme. Patient states that these enzymes help to digest since eosinophilic esophagitis makes it so that she cannot digest fats and carbohydrates. Nurse Triage assessment completed with protocol recommending for disposition of See PCP in 24 hours. Patient has appointment with Suzette tomorrow morning 11/15/2022. Care advice reviewed with patient, patient stated understanding. Patient advised to contact office or seek evaluation in urgent care or ER if symptoms persist or gets worse. Reason for Disposition [1] SEVERE diarrhea (e.g., 7 or more times / day more than normal) AND [2] present > 24 hours (1day) Answer Assessment - Initial Assessment Questions 1. [...] fever and blood in stools Protocols used: Tezvmj-[id number]-TM, Iewoaqes-EYHTK-SV documented in this encounterPike Community Hospital05-03-2023 History and physical note Author Manny Diamond [facility] August 30, 2022 9:37am Note Date/Time August 30, 2022 9:37am [facility] Medical Records Department [address] [place] [id number] History & Physical Exam 08/30/22 0936 MR#: [id number] Acct: [id number] Name: SUMMER DRUMMOND Rep #:[id number] : 1975 46 From: Manny Diamond DO PCP: Dr. Ronaldo Medley MD Status:[facility] Location: [place] [address] History and Physical Date of Admission: 08/30/22 Chief Complaint: heartburn, needs screening colonoscopy Details: SUMMER DRUMMOND, is a 46 F who presents to the office today to establish with GI for heartburn and to schedule screening colonoscopy. No prior endoscopies. Heartburnx 7 yrs, takes TUMS prn w/ temporary relief. Occas takes omeprazole 20 mg, then no heartburn for several days, but prefers to avoid medications whenever possible. Eating a smaller meal at dinner now, just meat and vegetable, that hashelped with heartburn. No dysphagia, nausea, vomiting, abdominal pain, early satiety. BM typically every other day, better with smoothies with flax and roro.No diarrhea. No melena or hematochezia. Has started exercising, has lost 10 lbs since start 2022. 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 PSH: hysterectomy for fibroid ROS Const Constitutional: No fatigue ENT ENT: No difficulty swallowing Gastro GI: Positive for heartburn; No abdominal pain, belching, bloating, change in bowel habits, change in stool character, coffee ground emesis, constipation, cramping, diarrhea, difficulty swallowing, feeling full early, excessive flatus, incontinent of stools, Vomiting blood/hematemesis, Blood in stool, loose stools, Black,tarry stools, nausea/dyspepsia, pain with swallowing, vomiting or other Musc Musculoskeletal: No joint pain Skin Skin: No yellowing of the eye or itchy eyes Psych Psychiatric: No anxiety and No depression Endo Endocrine: No fatigue Aller/Imm Allergy/Immunologic: No itchy eyes Jd/Lymp Hematologic/Lymphatic: No easy bleeding or easy bruising Exam Const General: cooperative and comfortable Nutritional Appearance: obese Orientation: alert, awake and oriented x3 HENMT Head: normal to inspection Eyes Sclera: sclerae normal Resp Effort & Inspection: normal respiratory effort Psych Mood: euthymic mood Quality Reporting Tobacco Screening ([facility] 138) Smoking Status: Never smoker Assessment and Plan Assessment and Plan (1) Heartburn: ?Status:?Chronic ?Plan: 46 yr old female with heartburn. She prefers a natural approach whenever possible. Omeprazole is efficacious but she tries to avoid it. Will get EGD to eval for esophagitis, Amaya's, hiatal hernia, gastritis, PUD, H pylori. And screening colonoscopy will be scheduled too. F/u in office 2 wks later to discuss bx results. (2) Colonoscopy planned: ?Status:?Acute ?Plan: as above I have examined the patient and the H&P has been reviewed. There are no clinicalchanges since date of exam. 08/30/22 9064 <Electronically signed by Manny Diamond DO> Cosigner Signature (if applicable): CC: Dr. Ronaldo Medley MD; Manny Diamond DO~ Signed [facility] Work Phone: [phone]) 600-392805-03-2023 Procedure [facility] 08-30-2022 Procedure [facility]05-03-2023 Procedure note [facility]05-03-2023 [facility] Miscellaneous Notes* Telephone Encounter - Abbie Earl RN - 07/28/2022 9:17 AM EDT Patient notified of results and provider's instructions. Patient verbalizes understanding. Abbie Earl RN * Telephone Encounter - Yahaira Pop RN - 07/28/2022 9:12 AM EDT Call placed to patient with no answer and voicemail box full. Will need to try again later. Yahaira Pop RN * Telephone Encounter - Suzette Elias PA-C - 07/28/2022 8:15 AM EDT Let patient know that US shows fatty liver. This can lead to liver cirrhosis, so need to cont to work on weight loss. The gallbladder polyp and liver hemangioma are all stable compared to previous scans. Thanks. Suzette Elias PA-C documented in this encounterPike [facility] Hospital03-29-2023 History of Present illness Narrative* Linda Cortes RDMS - 07/26/2022 7:00 AM EDT Radiology Service Progress Note PATIENT NAME: Summer Drummond DATE OF SERVICE: July 26, 2022 TIME: 7:38 AM PATIENT IDENTITY VERIFICATION COMPLETED USING TWO (2) IDENTIFIERS: Name and Date of confirmedby patient verbally. FALL SCREENING: Has the patient [...] 26, 2022 7:38 AM documented in this encounterPike [facility] Hospital03-17-2023 History of Present illness Narrative* Suzette Elias PA-C - 07/14/2022 7:19 AM EDT Chief Complaint Patient presents with: Pain: Pain in right shoulder & neck HPI Summer Drummond is a 46 year old female who [...] with forward flexion of neck. Shoulder exam wnl.. Health Maintenance List COLORECTAL CANCER SCREENING Never [...] Prn flexeril Continue massage/chiro. Follow up prn. Suzette Elias PA-C documented in this encounterPike Community Hospital03-16-2023 Miscellaneous Notes* Telephone Encounter - Roselyn Diallo LPN - 07/13/2022 1:18 PM EDT Pt made appt on 07/14/22 with Hoa Elias. Roselyn Diallo LPN * Telephone Encounter - Suzette Elias PA-C - 07/13/2022 12:57 PM EDT She would need to be seen for this issue for us to treat. Suzette Elias PA-C * Telephone Encounter - Cait Mireles LPN - 07/13/2022 12:18 PM EDT Pt was notified of results & instructions. Pt states she has right shoulder pain, states she has been seeing massotherapist & [id number] weekly X 3 wks. Pt reports she has inflammation in the phomboid area that is improving however the therapist thinks pt would benefit from a muscle relaxer. Offered pt an appt to be seen but pt asked me to ask PA if she would call in without pt being seen? Please advise. Cati Mireles LPN * Telephone Encounter - Suzette Elias PA-C - 07/13/2022 11:32 AM EDT Let patient know that her labs all look okay. LDL has improved. Continue to work on diet. documented in this encounterPike [facility] Hospital02-28-2023 Miscellaneous Notes* Telephone Encounter - Cait Mireles LPN - 06/27/2022 3:17 PM EST Referral to [employer] along with pt's insurance info, last OV notes & demographics faxed to [phone] per pt's request. Cait Mireles LPN documented in this encounterPike Community Hospital02-28-2023 History of Present illness Narrative* Cait Mireles LPN - 06/27/2022 2:22 PM EST Repeat BP Check: 135/81 P68 #1 124/86 P65 #2 124/72 P68 #3 125/75 P69 #4 125/77 P67 #5 118/71 P66 #6 BP Kwame Average: 123/76 Pulse: 67 Cait Mireles LPN * Suzette Elias PA-C - 06/27/2022 1:29 PM EST Chief Complaint Patient presents with: Yearly Exam HPI Summer Drummond is a 46 year old female who [...] 77 Resp 16 Ht 166 cm (5' 5.35) Wt 106.6 kg (235 lb) LMP 11/14/2018 SpO2 97% BMI 38.68 kg/m BP 123/71 Pulse 67 Resp 16 Ht 166 cm (5' 5.35) Wt 106.6 kg (235 lb) LMP 11/14/2018 [...] diet of 1000 mg/day for under 50, 1200- 1500 mg/day for 50+ - Follow up for [...] ICD9: 530.81, ICD10: K21.9 Cont with gastro Suzette Elias PA-C documented in this encounterPike Community Hospital02-27-2023 History of Present illness Narrative* Samara Jessica MA - 06/26/2022 3:28 PM EST Scan on 06/23/2022 4:14 PM by External Provider: Consultation Samara Jessica MA documented in this encounterPike Community Hospital11-09-2022 History of Present illness Narrative* Ronaldo Coronel APRN.HAND BUTTON SPLITTER - 03/08/2022 7:31 PM EST Images from the original note were not [...] area of left back. No evidence of foreignbody. No drainage. Neurological: Mental Status: She is [...] of care. This note was generated using [employer] oftware. It may contain errors in wording, punctuation, or spelling. Ronaldo Coronel APRN.FIORELLA documented in this encounterPike Community Hospital06-22-2022 Instructions* Patient Instructions* Suzette Elias PA-C - 10/19/2021 7:39 AM EDT Please contact me in 1 month on how doses are doing for you. If changes needed, I recommend you schedule a visit so we can discuss. Otherwise follow up in office in 4 months for med check. documented in this encounterPike [facility] Hospital06-22-2022 History of Present illness Narrative* Suzette Elias PA-C - 10/19/2021 7:30 AM EDT DISTANCE [facility] VISIT Audio only was used for evaluation of this patient. Patient consents to visit. Patient's location: [place] Chief Complaint Patient presents with: Follow Up HPI Summer Drummond is a 45 year old female who presents here today via phone for recheck. Patient was not able to connect via [employer], she agreed to phone visit. Patient was [...] med check - DEXTROAMPHETAMINE-AMPHETAMINE 10 MG TABLET Suzette Elias PA-C Total appointment time on phone with patient = 5-10 minutes documented in this encounterPike Community Hospital05-25-2022 History of Present illness Narrative* Suzette Elias PA-C - 09/21/2021 7:12 AM EDT Chief Complaint Patient presents with: Recheck: medication HPI Summer Drummond is a 45 year old female who [...] 1 month. - DEXTROAMPHETAMINE-AMPHETAMINE 10 MG TABLET Suzette Elias PA-C documented in this encounterPike Community Hospital04-26-2022 History of Present illness Narrative* Suzette Elias PA-C - 08/23/2021 10:59 AM EDT Chief Complaint Patient presents with: Depression: anxiety HPI Summer Drummond is a 45 year old female who [...] Abs Lymph 1.00 - 4.00 k/uL 2.76 Hartley% % 5.7 Abs Hartley <0.87 k/uL 0.51 Eosin% % 3.2 Abs [...] ROUT UR - PAIN PANEL, UR QUANT Suzette Elias PA-C documented in this encounterPike Community Hospital04-13-2022 Miscellaneous Notes* Telephone Encounter - Debora Almaguer Ma - 08/10/2021 11:32 AM EDT Patient was notified form at medical records for picket [employer] per patient request Debora Almaguer * Telephone Encounter - Suzette Elias PA-C - 08/10/2021 11:25 AM EDT Let patient know that so far labs look okay. We will go into more detail at f/u. Her LDL is 138 with goal under 130. Watch cholesterol/fat in diet. Only a couple labs still in process. Her PE form is completed. Suzette Elias PA-C documented in this encounterPike Community Hospital04-12-2022 Nurse Note* Erna Hernadez LPN - 08/09/2021 10:23 AM EDT WAIST CIRCUMFERENCE: 42 Erna Hernadez LPN documented in this encounterPike Community Hospital04-12-2022 History of Present illness Narrative* Suzette Elias PA-C - 08/09/2021 9:43 AM EDT Chief Complaint Patient presents with: Yearly Exam HPI Summer Drummond is a 45 year old female who [...] F) Resp 18 Ht 165.5 cm (5' 5.16) Wt 109.3 kg (241 lb) LMP 11/14/2018 BMI 39.91 kg/m BP 129/83 (BP Site: Right Arm, BP Position: Sitting, BP Cuff Size: Extra Large Adult) Pulse 64 Temp 37.5 C (99.5 F) Resp 18 Ht 165.5 cm (5' 5.16) Wt 109.3 kg (241 lb) LMP 11/14/2018 BMI 39.91 kg/m General Appearance: Well appearing, alert, in no acute distress, well-hydrated, well nourished. andObese. Skin: Skin color, texture, turgor normal, no [...] diet of 1000 mg/day for under 50, 1200- 1500 mg/day for 50+ 2. Encounter for gynecological examination without abnormal finding - ICD9: V72.31, ICD10: Z01.419 - Patient gets mammogram through ob/gyn physician 3. Iron deficiency anemia, unspecified iron deficiency [...] B12 BLOOD - VITAMIN D 25 HYDROXY Suzette Elias PA-C documented in this encounterPike [facility] Hospital03-23-2022 Miscellaneous Notes* Telephone Encounter - Debora Almaguer Ma - 07/20/2021 6:11 PM EDT Spoke to patient to make sure insurance is year which is. Please place labs patient is aware to do week before Debora Almaguer Ma * Telephone Encounter - Veronica Woodson - 07/20/2021 4:[address] lab orders Thanks Veronica Woodson [facility]* Diagnosis Iron deficiency anemia, unspecified iron deficiency anemia type- Primary Encounter for screening for diabetes mellitus Screening for diabetes mellitus Encounter for screening for cardiovascular disorders Screening for other and unspecified cardiovascular conditions documented in [facility] encounter [facility] note* Diagnosis Well adult exam- Primary Routine [...] Fatigue, unspecified type documented [facility] encounter [facility]* Diagnosis Attention deficit disorder of adult- Primary Attention deficit disorder without mention of hyperactivity Medication management Encounter for long-term (current) use of other medications documented in this encounter [facility]* Diagnosis Encounter for screening mammogram for breast cancer [facility]* Diagnosis Attention deficit disorder of adult Attention deficit disorder without mention of hyperactivity documented in this encounter [facility]* Diagnosis Onset Date Resolution Status Hip pain acute Status post hysterectomy acu te [facility] Work Phone: Evaluation note* Diagnosis Onset Date Resolution Status Radial head fracture acute Wrist pain, right acute Radial head fracture acute [facility] Work Phone: Evaluation note* Diagnosis Tick bite of back, initial encounter- Primary documented in this encounter [facility]* Diagnosis Onset Date Resolution Status Encounter for routine gynecological examination noneactive [facility] Work Phone: Evaluation note* Diagnosis Well adult exam- Primary Routine [...] esophagitis Esophageal reflux [facility]* Diagnosis Strain of neck muscle, initial encounter- Primary documented in this encounter [facility]* Diagnosis Fatty liver Other chronic nonalcoholic liver disease Gall bladder polyp Cholesterolosis of gallbladder Liver hemangioma Hemangioma of intra-abdominal structures documented in this encounter [facility]* Diagnosis Onset Date Resolution Status Encounter for routine gynecological examination noneactive Colonoscopy planned acute Heartburn chronic [facility] Work Phone: Evaluation note* Diagnosis Diarrhea, unspecified type- Primary documented in this encounter [facility]* Diagnosis Spinal stenosis, thoracic region [facility] Diagnosis Spinal stenosis, thoracic region- Primary [facility] Diagnosis Gall bladder polyp Cholesterolosis of gallbladder documented [facility] encounter [facility]* Diagnosis Well adult exam- Primary Routine [...] and metabolic diseases documented in this encounter [facility] note* Diagnosis Onset Date Resolution Status Encounter for routine gynecological examination noneactive Eosinophilic esophagitis chr onic Fatty liver chronic [facility] Work Phone: Evaluation note* Diagnosis Diarrhea, unspecified type documented in this encounter [facility] note* Diagnosis Urinary urgency- Primary Urgency of urination documented in this encounter [facility] note* Diagnosis Microscopic hematuria- Primary documented in this encounter [facility] note* Diagnosis Pain in both knees, unspecified chronicity- Primary documented in this encounter [facility] note* Diagnosis Patellofemoral arthritis- Primary Unspecified arthropathy, lower leg Chronic pain of both knees documented in this encounter [facility] note* Diagnosis Pain in both knees, unspecified chronicity documented in this encounter [facility] note* Diagnosis Patellofemoral arthritis- Primary Unspecified arthropathy, lower leg [facility] Work Phone: Reason for referral (narrative)* Diagnostic Procedure Only (Routine) - Pending Review Specialty Diagnoses / Procedures Referred By Geno lassiter Referred To Contact BR IMAGING Diagnoses Encounter for screening mammogram for breast cancer Procedures ZEUS SCREENING SCREENING MAMMOGRAPHY BI 2-VIEW BREAST INC CAD Ronaldo Medley MD [address] [place] [address] Br Imaging [address] [place] [address] Referral ID Status Reason Start Date Expiration Date Visits Requested Visits Authorized [id number] Pending Review Auto-Generat ed Referral 09/14/2021 10/14/2022 1 1 [facility] for referral (narrative)* Diagnostic Procedure Only (Routine) - Closed Specialty Diagnoses / Procedures Referred By Contac t Referred To Contact XR IMAGING Diagnoses Diarrhea, unspecified type Procedures XR ABDOMEN 1V SUPINE RADIOLOGIC EXAM ABDOMEN 1 VIEW Suzette Elias PA-C [address] [place] [address] Xr Imaging Referral ID Status Reason Start Date Expiration Date V isits Requested Visits Authorized [id number] Closed Auto-Generate d Referral 11/15/2022 12/15/2023 1 1 [facility] for referral (narrative)* Diagnostic Procedure Only (Routine) - Closed Specialty Diagnoses / Procedures Referred By Contac t Referred To Contact US IMAGING Diagnoses Gall bladder polyp Procedures US ABD RT UPPER QUADRANT US ABDOMINAL REAL TIME W/IMAGE LIMITED Suzette Elias PA-C [address] [place] [address] [place] [address] Referral ID Status Reason Start Date Expiration Date V isits Requested Visits Authorized [id number] Closed Auto-Generate d Referral 06/27/2022 07/27/2023 1 1 T [facility] for referral (narrative)* Diagnostic Procedure Only (Routine) - Closed Specialty Diagnoses / Procedures Referred By Contac t Referred To Contact XR IMAGING Diagnoses Diarrhea, unspecified type Procedures XR ABDOMEN 1V SUPINE RADIOLOGIC EXAM ABDOMEN 1 VIEW Suzette Elias PA-C [address] [place] [address] [place] [address] Referral ID Status Reason Start Date Expiration Date V isits Requested Visits Authorized [id number] Closed Auto-Generate d Referral 11/15/2022 12/15/2023 1 1 [facility] for referral (narrative)No reason for referral information [facility] Work Phone: Reason for visit Narrative* Diagnostic Procedure Only (Routine) - Closed Specialty Diagnoses / Procedures Referred By Contac t Referred To Contact XR IMAGING Diagnoses Diarrhea, unspecified type Procedures XR ABDOMEN 1V SUPINE RADIOLOGIC EXAM ABDOMEN 1 VIEW Suzette Elias PA-C [address] [place] [address] [place] [address] Referral ID Status Reason Start Date Expiration Date V isits Requested Visits Authorized [id number] Closed Auto-Generate d Referral 11/15/2022 12/15/2023 1 1 [facility] for visit Narrative* Diagnostic Procedure Only (Routine) - Closed Specialty Diagnoses / Procedures Referred By Contac t Referred To Contact XR IMAGING Diagnoses Pain in both knees, unspecified chronicity Procedures XR KNEE GENERAL 4V AP BOTH/PA BOTH/LAT/MERC BILATERAL RADIOLOGIC EXAM KNEE COMPLETE 4/MORE VIEWS Levi Bee V, DO [address] [place] [address] Phone: tel: fax: [place] [address] Referral ID Status Reason Start Date Expiration Date V isits Requested Visits Authorized [id number] Closed Auto-Generate d Referral 08/26/2024 09/25/2025 1 1 [facility] Summary Purpose Family History No Family History Records Found Relationship Condition Age at Onset Recorded Date/T tran mother Unknown aunt Malignant neoplasm of colon Unknown Not Specified Cardiac disease Unknown Hyperlipidemia Unknown Relationship Condition Age at Onset Recorded Date/T tran mother Unknown aunt Malignant neoplasm of colon Unknown Not Specified Cardiac disease Unknown Hyperlipidemia Unknown father Hypertension Unknown Relationship Condition Age at Onset Recorded Date/T tran mother Unknown aunt Malignant neoplasm of colon Unknown unrelated friend Cardiac disease Unknown Hyperlipidemia Unknown father Hypertension Unknown Advance Directives No Advanced Directives Records FoundDocuments on File Type Date Recorded Patient Central Supply Nurse Expl anation Advance Directive(s) Documents on File Type Date Recorded Patient Central Supply Nurse Expl anation Advance Directive(s) Advance Directive Response Recorded Date/ Time Living Will No April 05 7:31pm Power of Pig Breeder No April 05, 2021 7:31pm Advance Directive Response Recorded Date/ Time Living Will No November 06, 2021 12:58pm Power of Pig Breeder No November 06 12:58pm Advance Directive Response Recorded Date/ Time Living Will No November 15, 2021 11:52am Power of Pig Breeder No November 15 11:52am Advance Directive Response Recorded Date/ Time Living Will No November 15, 2021 10:52am Power of Pig Breeder No November 15 10:52am Advance Directive Response Recorded Date/ Time Living Will No August 25, 2022 1:46pm Power of Pig Breeder No August 25 1:46pm Advance Directive Response Recorded Date/ Time Living Will No November 22, 2022 9:14am Power of Pig Breeder No November 22 9:14am Advance Directive Response Recorded Date/ Time Living Will No November 22, 2022 9:14am Do you have a Healthcare Power of Pig Breeder? No November 22, 2022 9:14am Reason for Referral Specialty Diagnoses / Procedures Referred By Geno lassiter Referred To Contact Gastroenterology Diagnoses GERD without esophagitis Screening for colon cancer Procedures CONSULT TO GASTROENTEROLOGY OFFICE/OUTPATIENT [facility] HIGH MDM 60-74 MINUTES Suzette Elias PA-C [address] [place] [address] Referral ID Status Reason Start Date Expiration Date Visits Requested Visits Authorized [id number] Pending Review PCP Requested Referral 08/09/2021 08/09/2022 1 1 Specialty Diagnoses / Procedures Referred By Geno t Referred To Contact US IMAGING Diagnoses Gall bladder polyp Procedures US ABD RT UPPER QUADRANT US ABDOMINAL REAL TIME W/IMAGE LIMITED Suzette Elias PA-C [address] [place] [address] Us Imaging Referral ID Status Reason Start Date Expiration Date Visits Requested Visits Authorized [id number] Pending Review Auto-Generat ed Referral 08/09/2021 09/08/2022 1 1 Specialty Diagnoses / Procedures Referred By Geno lassiter Referred To Contact Diagnoses Attention deficit disorder of adult Suzette Elias PA-C [address] [place] [address] Referral ID Status Reason Start Date Expiration Date V isits Requested Visits Authorized [id number] Pending Review 1 1 Specialty Diagnoses / Procedures Referred By Contac t Referred To Contact Dermatology Diagnoses Well adult exam Atypical nevus Procedures CONSULT TO DERMATOLOGY Suzette Elias PA-C [address] [place] [address] Referral ID Status Reason Start Date Expiration Date Visits Requested Visits Authorized [id number] Ref Not Required PCP Requested Referral 06/27/2022 06/27/2023 1 1 Referral ID Status Reason Start Date Expiration Date Visits Requested Visits Authorized [id number] Authorized Auto-Generat ed Referral 06/27/2022 07/27/2023 1 1 Specialty Diagnoses / Procedures Referred By Contac t Referred To Contact Physical Therapy Diagnoses Spinal stenosis, thoracic region Regis Souza MD [address] [place] [address] Referral ID Status Reason Start Date Expiration Date V isits Requested Visits Authorized [id number] New Request 01/23/2023 02/17/2024 1 1 Scheduling Instructions [facility] [address] 2nd [place] [address] Fax [facility] (Neck and Back Therapy) [address] [place], [place] [id number] FAX [facility] [address] [place] [address] FAX Outpatient [facility] [place] [address] [facility] [place], [place] [id number] FAX [facility] [address] [place] [address] FAX Physical Therapy at [facility] [address] [facility], [address] [place] [address] FAX [facility] [address] [place] [address] [phone] FAX Outpatient Rehabilitation Outpatient Care [address], [address] [place] [address] [phone] FAX [facility] [address] [facility], [address] [place] [address] [phone] FAX [facility] [address], Room: [address] [place] [address] FAX [facility] [place] [address], [address] [place] [address] FAX [facility] [address] [place] [address] [phone] FAX [facility] [place] [address] [facility], [address] [place] [address] [phone] FAX [facility] [address], [address] [place] [address] [phone] FAX [facility]patient [facility] [place] [address] [facility], [address] [place] [address] [phone] FAX [facility] [address], [address] [place] [address] [phone] FAX [facility] [place] [address] [facility], [place] [address] FAX [facility] [address] [place], [place] [address] [phone] FAX Outpatient Rehabilitation Outpatient Care [address], [address] [place] [address] [phone] FAX [facility] [address] [place] [address] [phone] FAX Outpatient Care [address] [address] [phone] FAX [facility], [address] 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 Reason for Visit Encounter for routin e gynecological examination Colonoscopy planned Heartburn Chief Complaint 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 DELIVERY DRIVER) SCREENING OBESITY 6 mo fu Reason for Visit Encounter for routin e gynecological examination Eosinophilic esophagitis Fatty liver Chief Complaint Admit Date 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 DELIVERY DRIVER) June 27, 2024 8:02am SCREENING August 06, 2024 7:28 am 6 M FU August 12, 2024 8:3 2am Reason for Visit Admit Date Encounter for routine gynecological exam ination June 27, 2024 8:02am Gallbladder polyp August 12, 2024 8:3 2am Hemangioma August 12, 2024 8:3 2am Hemangioma of liver August 12, 2024 8:3 2am Eosinophilic esophagitis August 12 8:32am Fatty liver August 12, 2024 8:3 2am Chief Complaint Admit Date 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 DELIVERY DRIVER) June 27, 2024 8:02am SCREENING August 06, 2024 7:28 am 6 M FU August 12, 2024 8:3 2am FATTY LIVER August 29, 2024 7:50am Chief Complaint Admit Date 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 DELIVERY DRIVER) June 27, 2024 8:02am SCREENING August 06, 2024 7:28 am 6 M FU August 12, 2024 8:3 2am FATTY LIVER August 29, 2024 7:50am Test Result September 12, 2024 7:26a m Additional Source Comments INFORMATION SOURCE (unrecogn ized section and content) DATE CREATED AUTHOR 04/07/2018 [facility] DATE CREATED AUTHOR AUTHOR'S ORGANIZ ATION 10/01/2024 [facility] DATE CREATED AUTHOR AUTHOR'S ORGANIZ ATION 10/01/2024 [facility] Source Comments (unrecognize d section and content) In the event this informatio n is protected by the Federal Confidentiality of Alcohol and Drug Abuse Patient Records regulations: The Federal rules restrict any use of the information to criminally investigate or prosecute any alcohol or drug abuse patient.[facility] the event this information is protected by the Federal Confidentiality of Alcohol and Drug Abuse Patient Records regulations: The Federal rules restrict any use of the information to criminally investigate or prosecute any alcohol or drug abuse patient.[facility] the event this information is protected by the Federal Confidentiality of Alcohol and Drug Abuse Patient Records regulations: The Federal rules restrict any use of the information to criminally investigate or prosecute any alcohol or drug abuse patient.[facility] the event this information is protected by the Federal Confidentiality of Alcohol and Drug Abuse Patient Records regulations: The Federal rules restrict any use of the information to criminally investigate or prosecute any alcohol or drug abuse patient.[facility] the event this information is protected by the Federal Confidentiality of Alcohol and Drug Abuse Patient Records regulations: The Federal rules restrict any use of the information to criminally investigate or prosecute any alcohol or drug abuse patient.[facility] the event this information is protected by the Federal Confidentiality of Alcohol and Drug Abuse Patient Records regulations: The Federal rules restrict any use of the information to criminally investigate or prosecute any alcohol or drug abuse patient.[facility] the event this information is protected by the Federal Confidentiality of Alcohol and Drug Abuse Patient Records regulations: The Federal rules restrict any use of the information to criminally investigate or prosecute any alcohol or drug abuse patient.[facility] the event this information is protected by the Federal Confidentiality of Alcohol and Drug Abuse Patient Records regulations: The Federal rules restrict any use of the information to criminally investigate or prosecute any alcohol or drug abuse patient.[facility] the event this information is protected by the Federal Confidentiality of Alcohol and Drug Abuse Patient Records regulations: The Federal rules restrict any use of the information to criminally investigate or prosecute any alcohol or drug abuse patient.[facility] the event this information is protected by the Federal Confidentiality of Alcohol and Drug Abuse Patient Records regulations: The Federal rules restrict any use of the information to criminally investigate or prosecute any alcohol or drug abuse patient.[facility] the event this information is protected by the Federal Confidentiality of Alcohol and Drug Abuse Patient Records regulations: The Federal rules restrict any use of the information to criminally investigate or prosecute any alcohol or drug abuse patient.[facility] the event this information is protected by the Federal Confidentiality of Alcohol and Drug Abuse Patient Records regulations: The Federal rules restrict any use of the information to criminally investigate or prosecute any alcohol or drug abuse patient.[facility] the event this information is protected by the Federal Confidentiality of Alcohol and Drug Abuse Patient Records regulations: The Federal rules restrict any use of the information to criminally investigate or prosecute any alcohol or drug abuse patient.[facility] the event this information is protected by the Federal Confidentiality of Alcohol and Drug Abuse Patient Records regulations: The Federal rules restrict any use of the information to criminally investigate or prosecute any alcohol or drug abuse patient.[facility] the event this information is protected by the Federal Confidentiality of Alcohol and Drug Abuse Patient Records regulations: The Federal rules restrict any use of the information to criminally investigate or prosecute any alcohol or drug abuse patient.[facility] the event this information is protected by the Federal Confidentiality of Alcohol and Drug Abuse Patient Records regulations: The Federal rules restrict any use of the information to criminally investigate or prosecute any alcohol or drug abuse patient.[facility] the event this information is protected by the Federal Confidentiality of Alcohol and Drug Abuse Patient Records regulations: The Federal rules restrict any use of the information to criminally investigate or prosecute any alcohol or drug abuse patient.[facility] the event this information is protected by the Federal Confidentiality of Alcohol and Drug Abuse Patient Records regulations: The Federal rules restrict any use of the information to criminally investigate or prosecute any alcohol or drug abuse patient.[facility] the event this information is protected by the Federal Confidentiality of Alcohol and Drug Abuse Patient Records regulations: The Federal rules restrict any use of the information to criminally investigate or prosecute any alcohol or drug abuse patient.[facility] the event this information is protected by the Federal Confidentiality of Alcohol and Drug Abuse Patient Records regulations: The Federal rules restrict any use of the information to criminally investigate or prosecute any alcohol or drug abuse patient.[facility] the event this information is protected by the Federal Confidentiality of Alcohol and Drug Abuse Patient Records regulations: The Federal rules restrict any use of the information to criminally investigate or prosecute any alcohol or drug abuse patient.[facility] the event this information is protected by the Federal Confidentiality of Alcohol and Drug Abuse Patient Records regulations: The Federal rules restrict any use of the information to criminally investigate or prosecute any alcohol or drug abuse patient.[facility] the event this information is protected by the Federal Confidentiality of Alcohol and Drug Abuse Patient Records regulations: The Federal rules restrict any use of the information to criminally investigate or prosecute any alcohol or drug abuse patient.[facility] the event this information is protected by the Federal Confidentiality of Alcohol and Drug Abuse Patient Records regulations: The Federal rules restrict any use of the information to criminally investigate or prosecute any alcohol or drug abuse patient.[facility] the event this information is protected by the Federal Confidentiality of Alcohol and Drug Abuse Patient Records regulations: The Federal rules restrict any use of the information to criminally investigate or prosecute any alcohol or drug abuse patient.[facility] the event this information is protected by the Federal Confidentiality of Alcohol and Drug Abuse Patient Records regulations: The Federal rules restrict any use of the information to criminally investigate or prosecute any alcohol or drug abuse patient.[facility] the event this information is protected by the Federal Confidentiality of Alcohol and Drug Abuse Patient Records regulations: The Federal rules restrict any use of the information to criminally investigate or prosecute any alcohol or drug abuse patient.[facility] the event this information is protected by the Federal Confidentiality of Alcohol and Drug Abuse Patient Records regulations: The Federal rules restrict any use of the information to criminally investigate or prosecute any alcohol or drug abuse patient.[facility] the event this information is protected by the Federal Confidentiality of Alcohol and Drug Abuse Patient Records regulations: The Federal rules restrict any use of the information to criminally investigate or prosecute any alcohol or drug abuse patient.[facility] the event this information is protected by the Federal Confidentiality of Alcohol and Drug Abuse Patient Records regulations: The Federal rules restrict any use of the information to criminally investigate or prosecute any alcohol or drug abuse patient.[facility] the event this information is protected by the Federal Confidentiality of Alcohol and Drug Abuse Patient Records regulations: The Federal rules restrict any use of the information to criminally investigate or prosecute any alcohol or drug abuse patient.[facility] the event this information is protected by the Federal Confidentiality of Alcohol and Drug Abuse Patient Records regulations: The Federal rules restrict any use of the information to criminally investigate or prosecute any alcohol or drug abuse patient.[facility] the event this information is protected by the Federal Confidentiality of Alcohol and Drug Abuse Patient Records regulations: The Federal rules restrict any use of the information to criminally investigate or prosecute any alcohol or drug abuse patient.[facility] Reason for Visit (unrecogniz ed section and [...] Spinal stenosis, thoracic region Holly Paul PA-C [address] [facility] [address] [place] [address] Roni Oglesby MD [address] [place] [address] Referral ID Status Reason Start Date Expiration Date V isits Requested Visits Authorized [id number] Pending Review 12/13/2022 01/07/2024 1 1 Reason Comments Radiology US Specialty Diagnoses / Procedures Referred By Contac t Referred To Contact US IMAGING Diagnoses Gall bladder polyp Procedures US ABD RT UPPER QUADRANT US ABDOMINAL REAL TIME W/IMAGE LIMITED Suzette Elias PA-C [address] [place] [address] [place] [address] Referral ID Status Reason Start Date Expiration Date V isits Requested Visits Authorized [id number] Closed Auto-Generate d Referral 06/27/2022 07/27/2023 1 1 Reason Comments Outside Mammogram Reason Comments Opened In Error Reason Comments Yearly Exam Reason Comments Urinary Problem Urgency and frequenc y Reason Comments Patient Update Reason Comments ER Discharge Summary Reason Comments Bilateral Knee Pain Referred by Suzette Elias Specialty Diagnoses / Procedures Referred By Contac t Referred To Contact Orthopedics Diagnoses Chronic pain of both knees Procedures CONSULT TO ORTHOPAEDICS OFFICE/OUTPATIENT NEW HIGH MDM 60 MINUTES Suzette Elias PA-C [address] [place] [address] Phone: tel: fax: Referral ID Status Reason Start Date Expiration Date V isits Requested Visits Authorized [id number] Closed PCP Requested Referral 08/21/2024 08/21/2025 1 1 Reason Comments Insurance Authorization Prior Auth Delay ed: Medical Necessity Not Met Reason Comments [employer] referral Care Teams (unrecognized sec tion and content) Finished Cloth Checker Relationship Specialty Start Date End Date Ronaldo Medley MD [address] [place] [address] PCP - General Family Practice 07/01/13 Finished Cloth Checker Relationship Specialty Start Date End Date Ronaldo Medley MD [address] [place] [address] PCP - General Family Practice 07/01/13 Finished Cloth Checker Relationship Specialty Start Date End Date Ronaldo Medley MD [address] [place] [address] PCP - General Family Practice 07/01/13 Finished Cloth Checker Relationship Specialty Start Date End Date Ronaldo Medley MD [facility] [place] [place] [address] PCP - General Family Practice 07/01/13 Finished Cloth Checker Relationship Specialty Start Date End Date Ronaldo Medley MD [address] [place] [place] [address] PCP - General Family Practice 07/01/13 Finished Cloth Checker Relationship Specialty Start Date End Date Ronaldo Medley MD [address] [place] [address] PCP - General Family Practice 07/01/13 Finished Cloth Checker Relationship Specialty Start Date End Date Ronaldo Medley MD [address] [place] [address] PCP - General Family Medicine 07/01/13 Team Status: Active Member Role Status Dates Dr. Ronaldo Medley MD Primary Care Provider Active Team Status: Inactive Member Role Status Dates Dr. Ronaldo Medley MD Primary Care Provider, [facility] Active Dr. Mariaa Goodman , DO Attending Provider Activ e Team Status: Inactive Member Role Status Dates Dr. Ronaldo Medley MD Primary Care Provider Active Dr. Mariaa Goodman , DO Attending Provider Activ e Finished Cloth Checker Relationship Specialty Start Date End Date Ronaldo Medley MD [address] [place] [place] [address] PCP - General Family Medicine 07/01/13 Finished Cloth Checker Relationship Specialty Start Date End Date Ronaldo Medley MD [address] [place] [address] PCP - General Family Medicine 07/01/13 Finished Cloth Checker Relationship Specialty Start Date End Date Ronaldo Medley MD [address] [place] [address] PCP - General Family Medicine 07/01/13 Finished Cloth Checker Relationship Specialty Start Date End Date Ronaldo Medley MD [address] [place] [address] PCP - General Family Medicine 07/01/13 Finished Cloth Checker Relationship Specialty Start Date End Date Ronaldo Medley MD [address] [place] [address] PCP - General Family Medicine 07/01/13 Finished Cloth Checker Relationship Specialty Start Date End Date Ronaldo Medley MD [address] [place] [address] PCP - General Family Medicine 07/01/13 Team Status: Inactive Member Role Status Dates Dr. Ronaldo Medley MD Primary Care Provider, Referri ng Provider Active Kacey Mcdonough LOGISTICS MANAGER, LOGISTICS MANAGER-C Attending Provider Active Team Status: Active Member Role Status Dates Dr. Ronaldo Medley MD Primary Care Provider, Referri ng Provider Active Dr. Manny Diamond DO Attending Provider, Other Prov ider Active Team Status: Inactive Member Role Status Dates Dr. Ronaldo Medley MD Primary Care Provider, Referri ng Provider Active Dr. Manny Diamond DO Attending Provider Active Finished Cloth Checker Relationship Specialty Start Date End Date Ronaldo Medley MD [address] [place] [address] PCP - General Family Medicine 07/01/13 Finished Cloth Checker Relationship Specialty Start Date End Date Ronaldo Medley MD [address] [place] [address] PCP - General Family Medicine 07/01/13 Finished Cloth Checker Relationship Specialty Start Date End Date Ronaldo Medley MD [address] [place] [address] PCP - General Family Medicine 07/01/13 Finished Cloth Checker Relationship Specialty Start Date End Date Ronaldo Medley MD [address] [place] [address] PCP - General Family Medicine 07/01/13 Finished Cloth Checker Relationship Specialty Start Date End Date Ronaldo Medley MD [address] [place] [address] PCP - General Family Medicine 07/01/13 Finished Cloth Checker Relationship Specialty Start Date End Date Ronaldo Medley MD [address] [place] [address] PCP - General Family Medicine 07/01/13 Team Status: Inactive Member Role Status Dates Dr. Ronaldo Medley MD Primary Care Provider Active Dr. Mariaa Goodman DO Attending Provider, Refe rring Provider Active Team Status: Inactive Member Role Status Dates Dr. Ronaldo Medley MD Primary Care Provider Active Suzette CAMARENA, PA Attending Provider, Referring Provider Active Finished Cloth Checker Relationship Specialty Start Date End Date Ronaldo Medley MD [address] [place] [address] PCP - General Family Medicine 07/01/13 Finished Cloth Checker Relationship Specialty Start Date End Date Ronaldo Medley MD [address] [place], [place] [address] PCP - General Family Medicine 07/01/13 Finished Cloth Checker Relationship Specialty Start Date End Date Ronaldo Medley MD [address] [place], [place] [address] PCP - General Family Medicine 07/01/13 Team Status: Inactive Member Role Status Dates Dr. Ronaldo Medley MD Primary Care Provider Active Start: June 27, 2024 End: June 27, 2024 Dr. Ronaldo Medley MD Referring Provider Active Start: June 27, 2024 End: June 27, 2024 Dr. Mariaa Goodman DO Attending Provider Activ e Start: June 27, 2024 End: June 27, 2024 Team Status: Inactive Member Role Status Dates Dr. Ronaldo Medley MD Primary Care Provider Active Start: August 06, 2024 End: August 06, 2024 Dr. Mariaa Goodman DO Attending Provider Activ e Start: August 06, 2024 End: August 06, 2024 Dr. Mariaa Goodman DO Referring Provider Activ e Start: August 06, 2024 End: August 06, 2024 Team Status: Inactive Member Role Status Dates Dr. Ronaldo Medley MD Primary Care Provider Active Start: August 12, 2024 End: August 12, 2024 Dr. Ronaldo Medley MD Referring Provider Active Start: August 12, 2024 End: August 12, 2024 Dr. Manny Diamond DO Attending Provider Active Start: August 12, 2024 End: August 12, 2024 Finished Cloth Checker Relationship Specialty Start Date End Date Ronaldo Medley MD [address] [place], [place] [address] PCP - General Family Medicine 07/01/13 Radha Crawford APRN.CNP [address] [place], [place] [id number] Flat [facility] Family Medicine 04/05/24 Suzette Elias PA-C [address] [place] [address] [facility] 04/05/24 Finished Cloth Checker Relationship Specialty Start Date End Date Ronaldo Medley MD [address] [place] [address] PCP - General Family Medicine 07/01/13 Radha Crawford, SOLOMON.HAND BUTTON SPLITTER [address] [place] [address] Flat Examiner Family Medicine 04/05/24 Suzette Elias PA-C [address] [place] [address] [facility] Finished Cloth Checker Relationship Specialty Start Date End Date Ronaldo Medley MD [address] [place] [address] PCP - General Family Medicine 07/01/13 Radha Crawford, SOLOMON.HAND BUTTON SPLITTER [address] [place] [address] Flat Examiner Family Medicine 04/05/24 Suzette Elias PA-C [address] [place] [address] Flat Examiner Family Medicine 04/05/24 Finished Cloth Checker Relationship Specialty Start Date End Date Ronaldo Medley MD [address] [place] [address] PCP - General Family Medicine 07/01/13 Radha Crawford, GAME TECHNICIAN.HAND BUTTON SPLITTER [address] [place] [address] [facility] 04/05/24 Suzette Elias PA-C [address] [place] [address] [facility] 04/05/24 Team Status: Active Member Role Status Dates NICOL Macias Primary Care Provider Active Team Status: Inactive Member Role Status Dates Dr. Manny Diamond DO Attending Provider Active Start: August 29, 2024 End: August 29, 2024 Dr. Manny Diamond DO Referring Provider Active Start: August 29, 2024 End: August 29, 2024 NICOL Macias Primary Care Provider Active Start: August 29, 2024 End: August 29, 2024 Team Status: Inactive Member Role Status Dates NICOL Macias Primary Care Provider Active Start: September 12, 2024 End: September 12, 2024 NICOL Macias Referring Provider Active Start: September 12, 2024 End: September 12, 2024 Dr. Manny Diamond DO Attending Provider Active Start: September 12, 2024 End: September 12, 2024 Goals (unrecognized section and content) Goals may be documented in a n alternate sectionGoals may be documented in an alternate sectionGoals may be documented in an alternate sectionGoals may be documented in an alternate sectionGoals may be documented in an alternate sectionGoals may be documented in an alternate sectionGoals may be documented in an alternate sectionGoals may be documented in an alternate sectionGoals may be documented in an alternate section FOR RECORDS PERTAINING TO PATIENTS WHO ARE [...] BE BASED ON THE PRIMARY CLINICAL RECORDS. [employer] [facility]. provides no warranty or guarantee of the accuracy or completeness of information in this document.
--- NOTE | 2024-10-13 18:17 | CA.SCORE ---
Calcium Scoring Date of Study:: 10/02/24 Indications Indications: Screening Coronary Calcium Scoring: High-resolution Computed Tomographic imaging of the chest was performed on [76 ], with particular attention paid to the coronary arteries. Images from the examination were analyzed for the presence and extent of coronary artery calcification , using coronary calcium quantification software. The patient tolerated the procedure well and there were no complications. The results of the coronary calcification analysis are provided below. Findings Coronary Artery Left Main (LM): 0 Left Anterior Descending (LAD): 0 Left Circumflex (LCX): 0 Right Coronary Artery (RCA): 0 Total Agatston Score: 0 Percentile Rankin% Calcium Scoring Interpretation: Different methods to categorize the overall amount of coronary plaque. Overall amount CAC SIS Visual of coronary plaque P1 Mild -100 <2 1-2 vessels with mild amount of plaque P2 Moderate 101-300 3-4 1-2 vessels with moderate amount, 3 vessels with mild amount of plaque P3 Severe 301-999 5-7 3 vessels with moderate amount, 1 vessel with severe amount of plaque P4 Extensive >1000 >8 2-3 vessels with severe amount of plaque Conclusion: No atherosclerotic plaquing noted
== END | disposition home or self-care (01) ==
PROVIDERS: PCP Physician Assistant; Referring Provider Physician Assistant; Visit Provider Physician Assistant
DX: Z13.6 Encounter for screening for cardiovascular disorders (principal)
CPT/HCPCS: 75571; 76380